=== PATIENT | female | born 1945 | race Caucasian/White ===

== ENCOUNTER 2017-09-30 09:11 | Inpatient (IN) | payer MEDICARE ==
[2017-09-30] MEDS ORDERED: SODIUM CHLORIDE 0.9% 1,000 ML IV STA (09:15)
--- NOTE | 2017-09-30 09:24 | ED ---
Arrhythmia/Palpitations HPI - General Stated Complaint: ARRYTHMIA Time Seen by Provider: 09/30/17 09:11 Source: patient, EMS, RN notes reviewed, old records reviewed Mode of arrival: EMS - History of Present Illness Initial Comments: This is a 71-year-old female history of recent hospitalization for GI bleed and anemia also normal pressure hydrocephalus who is brought in by EMS today because of an elevated heart rate. Patient was noted have an elevated heart rate about 182 with inability to get a good blood pressure she was given 6 mg of adenosine By paramedics with improvement of the heart rate down to 113. Patient did have some left neck and back pain time which was severe he did improve after the heart rate was improved. Patient herself voices no complaints of fevers chills nausea vomiting sweats or other symptoms. She is been at [facility] for 3 days. MD Complaint: rapid heart beat - Related Data Home Medications Medication Instructions Recorded Confirmed Ipratropium-Albuterol Nebulize 3 ml INHALATION RT-Q6H 09/30/17 09/30/17 [Duoneb 0.5 mg-3 mg/3 ml Soln] diphenhydrAMINE & Zinc Cream 1 applic TOPICAL TID 09/30/17 09/30/17 [Benadryl Cream] Previous Rx's Medication Instructions Recorded Acetaminophen Tab [Tylenol] 650 mg PO Q6HR PRN tab 09/28/17 Pantoprazole [Protonix] 40 mg PO BID tablet. 09/28/17 Allergies Allergy/AdvReac Type Severity Reaction Status Date / Time codeine Allergy Unknown Verified 09/30/17 09:56 Review of Systems ROS Statement: Those systems with pertinent positive or pertinent negative responses have been documented in the HPI. ROS Other: All systems not noted in ROS Statement are negative. Past Medical History Past Medical History: Fibromyalgia, Osteoarthritis (OA), Pneumonia Additional Past Medical History / Comment(s): "skipped beats", kidney infection age 15, cyst on ovary 40 years ago(no sx)ulcers age 15, bronchitis,gout in past , prolpased rectum History of Any Multi-Drug Resistant Organisms: None Reported Past Surgical History: Adenoidectomy, Tonsillectomy Additional Past Surgical History / Comment(s): cataracts, Past Anesthesia/Blood Transfusion Reactions: Motion Sickness Past Psychological History: No Psychological Hx Reported Additional Psychological History / Comment(s): pt lives alone in own home, no outside services recieved. no medical equipment. has 1 pet dog and cat. Smoking Status: Never smoker Past Alcohol Use History: None Reported Past Drug Use History: None Reported - Past Family History Mother Family Medical History: Cancer, Dementia, Seizure Disorder Additional Family Medical History / Comment(s): breast cancer, myasthenia gravis Father Family Medical History: Diabetes Mellitus General Exam - General Exam Comments Initial Comments: This is a well-developed sec appearing female she is awake and alert Limitations: no limitations General appearance: alert, in no apparent distress Head exam: Present: atraumatic, normocephalic, normal inspection Eye exam: Present: normal appearance, PERRL, EOMI. Absent: scleral icterus, conjunctival injection, periorbital swelling ENT exam: Present: normal exam, mucous membranes moist Neck exam: Present: normal inspection. Absent: tenderness, meningismus, lymphadenopathy Respiratory exam: Present: normal lung sounds bilaterally. Absent: respiratory distress, wheezes, rales, rhonchi, stridor Cardiovascular Exam: Present: normal rhythm, tachycardia, normal heart sounds. Absent: systolic murmur, diastolic murmur, rubs, gallop, clicks GI/Abdominal exam: Present: soft, normal bowel sounds. Absent: distended, tenderness, guarding, rebound, rigid Extremities exam: Present: normal inspection, full ROM, normal capillary refill. Absent: tenderness, pedal edema, joint swelling, calf tenderness Back exam: Present: normal inspection Neurological exam: Present: alert, oriented X3, CN II-XII intact Psychiatric exam: Present: normal affect, normal mood Skin exam: Present: warm, dry, normal color, other (Bowl lesions in various states of healing from chronic scratching by the patient this is noted on the face and extremities. No active bleeding at this time). 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 Post adenosine EKG is improved. Reevaluation #2: 09/30/17 10:20 Evaluation patient showed no recurrent SVT. She is denies any pain at this time. EKG Findings - EKG Results: EKG: interpreted by ARELY, sinus rhythm (Sinus tachycardia rate of 109. Interval 1:30 QRS duration 74 QT since QTC 326/439 this is compared with an EKG submitted from 09/23/17 showing no acute changes the one from the did show a PVC that are present currently.) Medical Decision Making - Medical Decision Making The patient has had no further episodes of SVT. There is elevation of her troponin patient will be admitted - Lab Data Result diagrams: 09/30/17 09:25 09/30/17 09:25 Lab Results 09/30/17 09/30/17 09/30/17 Range/Units 09:25 09:25 09:25 WBC 6.3 (3.8-10.6) k/uL RBC 4.34 (3.80-5.40) m/uL Hgb 8.8 L (11.4-16.0) gm/dL Hct 32.3 L (34.0-46.0) % MCV 74.4 L (80.0-100.0) fL MCH 20.2 L (25.0-35.0) pg MCHC 27.1 L (31.0-37.0) g/dL RDW 23.5 H (11.5-15.5) % Plt Count 337 (150-450) k/uL Neutrophils % 81 % Lymphocytes % 12 % Monocytes % 5 % Eosinophils % 1 % Basophils % 0 % Neutrophils # 5.1 (1.3-7.7) k/uL Lymphocytes # 0.7 L (1.0-4.8) k/uL Monocytes # 0.3 (0-1.0) k/uL Eosinophils # 0.1 (0-0.7) k/uL Basophils # 0.0 (0-0.2) k/uL Hypochromasia Marked Poikilocytosis Moderate Anisocytosis Moderate Microcytosis Marked PT (9.0-12.0) sec INR (<1.2) APTT (22.0-30.0) sec Sodium 137 (137-145) mmol/L Potassium 3.7 (3.5-5.1) mmol/L Chloride 101 (98-107) mmol/L Carbon Dioxide 29 (22-30) mmol/L Anion Gap 7 mmol/L BUN 19 H (7-17) mg/dL Creatinine 0.79 (0.52-1.04) mg/dL Est GFR (MDRD) Af Amer >60 (>60 ml/min/1.73 sqM) Est GFR (MDRD) Non-Af >60 (>60 ml/min/1.73 sqM) Glucose 93 (74-99) mg/dL Calcium 8.6 (8.4-10.2) mg/dL Magnesium 1.5 L (1.6-2.3) mg/dL Total Bilirubin 0.2 (0.2-1.3) mg/dL AST 36 (14-36) U/L ALT 38 (9-52) U/L Alkaline Phosphatase 158 H (38-126) U/L Total Creatine Kinase 41 (30-135) U/L CK-MB (CK-2) 3.1 H* (0.0-2.4) ng/mL CK-MB (CK-2) Rel Index 7.6 Troponin I 0.413 H* (0.000-0.034) ng/mL Total Protein 5.2 L (6.3-8.2) g/dL Albumin 2.6 L (3.5-5.0) g/dL 09/30/17 Range/Units 09:25 WBC (3.8-10.6) k/uL RBC (3.80-5.40) m/uL Hgb (11.4-16.0) gm/dL Hct (34.0-46.0) % MCV (80.0-100.0) fL MCH (25.0-35.0) pg MCHC (31.0-37.0) g/dL RDW (11.5-15.5) % Plt Count (150-450) k/uL Neutrophils % % Lymphocytes % % Monocytes % % Eosinophils % % Basophils % % Neutrophils # (1.3-7.7) k/uL Lymphocytes # (1.0-4.8) k/uL Monocytes # (0-1.0) k/uL Eosinophils # (0-0.7) k/uL Basophils # (0-0.2) k/uL Hypochromasia Poikilocytosis Anisocytosis Microcytosis PT 9.7 (9.0-12.0) sec INR 1.0 (<1.2) APTT 23.2 (22.0-30.0) sec Sodium (137-145) mmol/L Potassium (3.5-5.1) mmol/L Chloride (98-107) mmol/L Carbon Dioxide (22-30) mmol/L Anion Gap mmol/L BUN (7-17) mg/dL Creatinine (0.52-1.04) mg/dL Est GFR (MDRD) Af Amer (>60 ml/min/1.73 sqM) Est GFR (MDRD) Non-Af (>60 ml/min/1.73 sqM) Glucose (74-99) mg/dL Calcium (8.4-10.2) mg/dL Magnesium (1.6-2.3) mg/dL Total Bilirubin (0.2-1.3) mg/dL AST (14-36) U/L ALT (9-52) U/L Alkaline Phosphatase (38-126) U/L Total Creatine Kinase (30-135) U/L CK-MB (CK-2) (0.0-2.4) ng/mL CK-MB (CK-2) Rel Index Troponin I (0.000-0.034) ng/mL Total Protein (6.3-8.2) g/dL Albumin (3.5-5.0) g/dL - Radiology Data Radiology results: report reviewed (I did review the imaging and reports no acute findings.), image reviewed Critical Care Time Critical Care Time: Yes Critical Care Time: 31 minutes of critical care time which includes the monitoring of the EMS run and discussed with paramedics history physical labs x-rays review of old charting. Reevaluation patient several occasions discussion with the admitting physician admission orders and documentation of the above Disposition Clinical Impression: Supraventricular tachycardia, Unstable angina, Hypomagnesemia, Chronic anemia Disposition: ADMITTED IP TO THIS [facility] Condition: Stable Referrals: Prosper Logan MD [Primary Care Provider] - 1-2 days
[2017-09-30 09:51] LABS: ALT 38 U/L (9-52); AST 36 U/L (14-36); Albumin 2.6 g/dL (3.5-5.0); Alkaline Phosphatase 158 U/L (38-126); Anion Gap 7 mmol/L; Blood Urea Nitrogen 19 mg/dL (7-17); Calcium 8.6 mg/dL (8.4-10.2); Carbon Dioxide 29 mmol/L (22-30); Chloride 101 mmol/L (98-107); Glucose 93 mg/dL (74-99); Magnesium 1.5 mg/dL (1.6-2.3); Potassium 3.7 mmol/L (3.5-5.1); Sodium 137 mmol/L (137-145); Total Bilirubin 0.2 mg/dL (0.2-1.3); Total Protein 5.2 g/dL (6.3-8.2)
[2017-09-30 09:52] LABS: Anisocytosis Moderate; Basophils % (A) 0 %; Eosinophils # (A) 0.1 k/uL (0-0.7); Eosinophils % (A) 1 %; HCT 32.3 % (34.0-46.0); HGB 8.8 gm/dL (11.4-16.0); Hypochromasia Marked; Lymphocytes # (A) 0.7 k/uL (1.0-4.8); Lymphocytes % (A) 12 %; MCH 20.2 pg (25.0-35.0); MCHC 27.1 g/dL (31.0-37.0); MCV 74.4 fL (80.0-100.0); Mean Platelet Volume 6.9; Microcytosis Marked; Monocytes # (A) 0.3 k/uL (0-1.0); Monocytes % (A) 5 %; Neutrophils # (A) 5.1 k/uL (1.3-7.7); Neutrophils % (A) 81 %; Partial Thromboplastin Time 23.2 sec (22.0-30.0); Platelet Count 337 k/uL (150-450); Poikilocytosis Moderate; Prothrombin Time 9.7 sec (9.0-12.0); RBC 4.34 m/uL (3.80-5.40); RDW 23.5 % (11.5-15.5); WBC 6.3 k/uL (3.8-10.6)
--- NOTE | 2017-09-30 10:04 | XR ---
EXAMINATION TYPE: XR chest 2V DATE OF EXAM: 09/30/2017 COMPARISON: Chest x-ray September 23, 2017 HISTORY: Dysrhythmia today. TECHNIQUE: Frontal and lateral views of the chest are obtained. FINDINGS: There is chronic parenchymal change without suspicious new focal air space opacity, pleura l effusion, or pneumothorax seen. The cardiac silhouette size is enlarged with atherosclerotic and e ctatic aorta redemonstrated. The osseous structures remain demineralized. IMPRESSION: Cardiomegaly and chronic parenchymal change without acute pulmonary process. No signific ant change from prior.
[2017-09-30] MEDS ORDERED: MAGNESIUM SULFATE-D5W PMX 1 GM in DEXTROSE/WATER 1 100ML.BAG IVPB ONE (10:11)
[2017-09-30 10:16] LABS: Creatine Kinase MB 3.1 ng/mL (0.0-2.4)
[2017-09-30 10:17] LABS: Troponin I 0.413 ng/mL (0.000-0.034)
[2017-09-30] MEDS ORDERED: HEPARIN SODIUM,PORCINE 5,000 UNIT/ML 1 ML VIAL IV ONE (10:21)
--- NOTE | 2017-09-30 10:28 | ED ---
Medical Decision Making - Lab Data Result diagrams: 09/30/17 09:25 09/30/17 09:25 Lab Results 09/30/17 09/30/17 09/30/17 Range/Units 09:25 09:25 09:25 WBC 6.3 (3.8-10.6) k/uL RBC 4.34 (3.80-5.40) m/uL Hgb 8.8 L (11.4-16.0) gm/dL Hct 32.3 L (34.0-46.0) % MCV 74.4 L (80.0-100.0) fL MCH 20.2 L (25.0-35.0) pg MCHC 27.1 L (31.0-37.0) g/dL RDW 23.5 H (11.5-15.5) % Plt Count 337 (150-450) k/uL Neutrophils % 81 % Lymphocytes % 12 % Monocytes % 5 % Eosinophils % 1 % Basophils % 0 % Neutrophils # 5.1 (1.3-7.7) k/uL Lymphocytes # 0.7 L (1.0-4.8) k/uL Monocytes # 0.3 (0-1.0) k/uL Eosinophils # 0.1 (0-0.7) k/uL Basophils # 0.0 (0-0.2) k/uL Hypochromasia Marked Poikilocytosis Moderate Anisocytosis Moderate Microcytosis Marked PT (9.0-12.0) sec INR (<1.2) APTT (22.0-30.0) sec Sodium 137 (137-145) mmol/L Potassium 3.7 (3.5-5.1) mmol/L Chloride 101 (98-107) mmol/L Carbon Dioxide 29 (22-30) mmol/L Anion Gap 7 mmol/L BUN 19 H (7-17) mg/dL Creatinine 0.79 (0.52-1.04) mg/dL Est GFR (MDRD) Af Amer >60 (>60 ml/min/1.73 sqM) Est GFR (MDRD) Non-Af >60 (>60 ml/min/1.73 sqM) Glucose 93 (74-99) mg/dL Calcium 8.6 (8.4-10.2) mg/dL Magnesium 1.5 L (1.6-2.3) mg/dL Total Bilirubin 0.2 (0.2-1.3) mg/dL AST 36 (14-36) U/L ALT 38 (9-52) U/L Alkaline Phosphatase 158 H (38-126) U/L Total Creatine Kinase 41 (30-135) U/L CK-MB (CK-2) 3.1 H* (0.0-2.4) ng/mL CK-MB (CK-2) Rel Index 7.6 Troponin I 0.413 H* (0.000-0.034) ng/mL Total Protein 5.2 L (6.3-8.2) g/dL Albumin 2.6 L (3.5-5.0) g/dL 09/30/17 Range/Units 09:25 WBC (3.8-10.6) k/uL RBC (3.80-5.40) m/uL Hgb (11.4-16.0) gm/dL Hct (34.0-46.0) % MCV (80.0-100.0) fL MCH (25.0-35.0) pg MCHC (31.0-37.0) g/dL RDW (11.5-15.5) % Plt Count (150-450) k/uL Neutrophils % % Lymphocytes % % Monocytes % % Eosinophils % % Basophils % % Neutrophils # (1.3-7.7) k/uL Lymphocytes # (1.0-4.8) k/uL Monocytes # (0-1.0) k/uL Eosinophils # (0-0.7) k/uL Basophils # (0-0.2) k/uL Hypochromasia Poikilocytosis Anisocytosis Microcytosis PT 9.7 (9.0-12.0) sec INR 1.0 (<1.2) APTT 23.2 (22.0-30.0) sec Sodium (137-145) mmol/L Potassium (3.5-5.1) mmol/L Chloride (98-107) mmol/L Carbon Dioxide (22-30) mmol/L Anion Gap mmol/L BUN (7-17) mg/dL Creatinine (0.52-1.04) mg/dL Est GFR (MDRD) Af Amer (>60 ml/min/1.73 sqM) Est GFR (MDRD) Non-Af (>60 ml/min/1.73 sqM) Glucose (74-99) mg/dL Calcium (8.4-10.2) mg/dL Magnesium (1.6-2.3) mg/dL Total Bilirubin (0.2-1.3) mg/dL AST (14-36) U/L ALT (9-52) U/L Alkaline Phosphatase (38-126) U/L Total Creatine Kinase (30-135) U/L CK-MB (CK-2) (0.0-2.4) ng/mL CK-MB (CK-2) Rel Index Troponin I (0.000-0.034) ng/mL Total Protein (6.3-8.2) g/dL Albumin (3.5-5.0) g/dL Disposition Clinical Impression: Supraventricular tachycardia, Unstable angina, Hypomagnesemia, Chronic anemia, Non-ST elevation myocardial infarction (NSTEMI) Disposition: ADMITTED IP TO THIS HOSP Condition: Stable Referrals: Prosper Logan MD [Primary Care Provider] - 1-2 days
[2017-09-30] MEDS: HEPARIN SOD,PORK IN 0.45% NACL 25,000 UNIT in 0.45% NACL 1 500ML.BAG IV SCH (11:46)
[2017-09-30] MEDS: IPRATROPIUM-ALBUTEROL 3 ML NEB INHALATION SCH ×2 (13:21→20:50)
[2017-09-30] MEDS ORDERED: INFLUENZA VACCINE (6 MOS+) 60 MCG/0.5 ML SYRINGE IM ONE (14:51)
[2017-09-30] MEDS: NITROGLYCERIN OINT 1 INCH/GM PACKET TOPICAL SCH ×3 (14:55→23:44)
[2017-09-30] MEDS: diphenhydrAMINE 2% CREAM 28.4 GM TUBE TOPICAL SCH ×2 (15:50→20:29)
[2017-09-30 16:27] LABS: Troponin I 3.13 ng/mL (0.000-0.034)
[2017-09-30] MEDS: PANTOPRAZOLE 40 MG TABLET PO SCH (17:06)
[2017-09-30] MEDS: ACETAMINOPHEN TAB 325 MG TAB PO PRN (17:43)
[2017-09-30] MEDS ORDERED: TEMAZEPAM 15 MG CAP PO PRN (19:30)
[2017-09-30] MEDS: SODIUM CHLORIDE 0.9% 1,000 ML IV SCH (20:23)
[2017-09-30] MEDS: HEPARIN SODIUM,PORCINE 5,000 UNIT/ML 1 ML VIAL IV PRN (20:29)
[2017-09-30] MEDS ORDERED: IPRATROPIUM-ALBUTEROL 3 ML NEB INHALATION PRN (21:41)
[2017-09-30 21:59] LABS: Creatine Kinase MB 9.2 ng/mL (0.0-2.4)
[2017-09-30 22:00] LABS: Troponin I 1.97 ng/mL (0.000-0.034)
[2017-09-30] MEDS: ATORVASTATIN 40 MG TAB PO SCH (22:15)
[2017-09-30] MEDS: METOPROLOL TARTRATE 12.5 MG TAB PO SCH (22:15)
--- NOTE | 2017-09-30 22:37 | HP ---
HISTORY AND PHYSICAL CHIEF COMPLAINTS: Palpitation. HISTORY OF PRESENT ILLNESS: This 71-year-old woman with a past medical history of GERD, DJD, pneumonia was recently admitted with bleeding, anemia. Patient was found to have normal-pressure hydrocephalus. Patient had a fall and gait dysfunction. Patient improved significantly. EGD and colonoscopy was done and EGD showed esophagitis, antral gastritis and the colonoscopy showed rectal prolapse with friable nodularity. Patient improved significantly. Patient was sent to E[facility]; however, in the ECF, the patient had heart palpitations. Heart rate was found to be. Supraventricular tachycardia was suspected. EMS gave adenosine with conversion into sinus tachycardia to 113. Patient admitted for further evaluation and treatment. There is no history of fever, rigors. No headache, loss of conscious or seizures. PAST MEDICAL HISTORY: GERD, DJD, history pneumonia, history recent anemia, fall and dysfunction. HOME MEDICATIONS: 1. DuoNeb q.i.d. and p.r.n. 2. Benadryl 1 tablet t.i.d. 3. Protonix 40 mg b.i.d. 4. Tylenol 650 every 6 hours p.r.n. ALLERGIES: CODEINE. FAMILY HISTORY: History of cancer,dementia, seizure disorder, breast cancer, myasthenia gravis. SOCIAL HISTORY: No history of smoking. No history of alcohol. REVIEW OF SYSTEMS: ENT: Diminished hearing. Diminished vision. CARDIOVASCULAR: As mentioned earlier. RESPIRATORY: As mentioned earlier. GI: No nausea, vomiting. : No dysuria. NERVOUS: As mentioned earlier. ALLERGY/IMMUNOLOGY: No asthma or hay fever. MUSCULOSKELETAL: As mentioned earlier. HEMATOLOGY/ONCOLOGY: No history of anemia. ENDOCRINE: No history of diabetes, hypothyroidism. CONSTITUTIONAL: As mentioned earlier. DERMATOLOGY: Negative. RHEUMATOLOGY: Negative. PSYCHIATRY: As mentioned earlier. PHYSICAL EXAMINATION: Alert and oriented x3. Pulse is 88, blood pressure 119/93, respirations 20, temperature 96.9, pulse ox 99% on 3L. HEENT: Conjunctivae normal. Oral mucosa moist. NECK: No jugular venous distention. No carotid bruits. No lymph node enlargement. CARDIOVASCULAR: Tachycardic. RESPIRATORY: Breath sounds diminished in the bases. A few scattered rhonchi and crackles. ABDOMEN: Soft, nontender. LEGS: No edema. NERVOUS SYSTEM: No focal deficits. LABS: WBC 6.2, hemoglobin is 8.8, and troponin 0.413 and 3.130. ASSESSMENT: 1. Palpitations, probably supraventricular tachycardia, converted to sinus tachycardia, status post adenosine. 2. Troponin 3.130. Possible acute non ST-segment elevation myocardial infarction. 3. Anemia, microcytic. Recent gastrointestinal bleed. 4. Possibly normal-pressure hydrocephalus. 5. Gait dysfunction, diffuse weakness. 6. Gastroesophageal reflux disease. 7. History of degenerative joint disease. 8. History of pneumonia. 9. Adenoidectomy, tonsillectomy. RECOMMENDATION AND DISCUSSION: In this 71-year-old woman who presented with multiple complex medical issues, will monitor the patient closely. Continue the current medical management and symptomatic treatment. Initiate be beta-blockers. Continue to monitor and follow closely with Cardiology. Will hold off the antiplatelet agents. Cardiology consultation. Guarded prognosis. Further recommendations to follow. [facility] BRIGIDA / SAHRAN: [id number] /
[2017-09-30 23:28] LABS: Appearance,Urine Clear (Clear); Bacteria,Urine Rare /hpf; Bilirubin,Urine Negative (Negative); Blood,Urine Small (Negative); Color,Urine Yellow; Glucose,Urine (UA) Negative (Negative); Ketones,Urine Negative (Negative); Leukocyte Esterase,Urine Small (Negative); Mucus,Urine Rare /hpf; Nitrite,Urine Negative (Negative); PH, Urine 5.5 (5.0-8.0); Protein,Urine Trace (Negative); RBC,Urine 6 /hpf (0-5); Specific Gravity,Urine 1.012 (1.001-1.035); Squamous Epithelial Cell,Urine <1 /hpf (0-4); Urobilinogen,Urine <2.0 mg/dL (<2.0); WBC,Urine 6 /hpf (0-5)
[2017-10-01] MEDS: ACETAMINOPHEN TAB 325 MG TAB PO PRN ×3 (01:33→23:49)
[2017-10-01 03:09] LABS: Anisocytosis Moderate; Basophils % (A) 1 %; Eosinophils # (A) 0.2 k/uL (0-0.7); Eosinophils % (A) 4 %; HCT 30.9 % (34.0-46.0); HGB 8.5 gm/dL (11.4-16.0); Hypochromasia Marked; Lymphocytes # (A) 1.4 k/uL (1.0-4.8); Lymphocytes % (A) 25 %; MCH 20.6 pg (25.0-35.0); MCHC 27.4 g/dL (31.0-37.0); MCV 75.1 fL (80.0-100.0); Mean Platelet Volume 7.2; Microcytosis Marked; Monocytes # (A) 0.3 k/uL (0-1.0); Monocytes % (A) 5 %; Neutrophils # (A) 3.7 k/uL (1.3-7.7); Neutrophils % (A) 65 %; Platelet Count 350 k/uL (150-450); Poikilocytosis Moderate; RBC 4.12 m/uL (3.80-5.40); RDW 23.8 % (11.5-15.5); WBC 5.7 k/uL (3.8-10.6)
[2017-10-01 03:26] LABS: Anion Gap 4 mmol/L; Blood Urea Nitrogen 20 mg/dL (7-17); Calcium 8.4 mg/dL (8.4-10.2); Carbon Dioxide 28 mmol/L (22-30); Chloride 103 mmol/L (98-107); Cholesterol 116 mg/dL (<200); Glucose 107 mg/dL (74-99); HDL Cholesterol 38 mg/dL (40-60); LDL Cholesterol,Calculated 54 mg/dL (0-99); Magnesium 1.9 mg/dL (1.6-2.3); Potassium 3.9 mmol/L (3.5-5.1); Sodium 135 mmol/L (137-145); Triglycerides 122 mg/dL (<150)
[2017-10-01] MEDS: HEPARIN SODIUM,PORCINE 5,000 UNIT/ML 1 ML VIAL IV PRN (03:44)
[2017-10-01] MEDS: NITROGLYCERIN OINT 1 INCH/GM PACKET TOPICAL SCH ×2 (05:05→11:57)
[2017-10-01] MEDS: PANTOPRAZOLE 40 MG TABLET PO SCH ×2 (06:16→16:12)
[2017-10-01] MEDS: SODIUM CHLORIDE 0.9% 1,000 ML IV SCH (08:27)
[2017-10-01] MEDS: diphenhydrAMINE 2% CREAM 28.4 GM TUBE TOPICAL SCH ×3 (08:30→20:45)
[2017-10-01] MEDS: IPRATROPIUM-ALBUTEROL 3 ML NEB INHALATION SCH ×4 (08:39→20:53)
[2017-10-01] MEDS ORDERED: ASPIRIN 325 MG TAB PO SCH (09:00)
[2017-10-01 10:50] LABS: Anisocytosis Marked; HCT 30.7 % (34.0-46.0); HGB 8.3 gm/dL (11.4-16.0); Hypochromasia Marked; MCH 20.3 pg (25.0-35.0); MCHC 27.2 g/dL (31.0-37.0); MCV 74.7 fL (80.0-100.0); Mean Platelet Volume 7.1; Microcytosis Marked; Platelet Count 298 k/uL (150-450); Poikilocytosis Slight; RBC 4.11 m/uL (3.80-5.40); WBC 4.8 k/uL (3.8-10.6)
[2017-10-01 10:52] LABS: RDW 25.6 % (11.5-15.5)
[2017-10-01] MEDS: METOPROLOL TARTRATE 12.5 MG TAB PO SCH (11:56)
[2017-10-01] MEDS ORDERED: CLOPIDOGREL 75 MG TAB PO SCH (13:30)
[2017-10-01] MEDS: HEPARIN SOD,PORK IN 0.45% NACL 25,000 UNIT in 0.45% NACL 1 500ML.BAG IV SCH (14:58)
--- NOTE | 2017-10-01 15:44 | ECHOF ---
Referral Reason:la MEASUREMENTS -------- HEIGHT: 152.4 cm WEIGHT: 41.3 kg BP: 119/62 IVSd: 1.0 cm (0.6 - 1.1) LVIDd: 2.8 cm (3.9 - 5.3) LVPWd: 1.0 cm (0.6 - 1.1) IVSs: 1.3 cm LVIDs: 1.4 cm LVPWs: 1.3 cm LAESV Index (A-L): 33.71 ml/m Ao Diam: 2.9 cm (2.0 - 3.7) AV Cusp: 1.5 cm (1.5 - 2.6) MV E Davy: 0.97 m/s MV DecT: 328 ms MV A Davy: 1.41 m/s MV E/A Ratio: 0.69 AV maxP.95 mmHg AV meanP.87 mmHg AR PHT: 354 ms RAP: 5.00 mmHg RVSP: 27.32 mmHg FINDINGS -------- Sinus rhythm. This was a technically good study. The left ventricular size is normal. Left ventricular wall thickness is normal. Overall left vent ricular systolic function is normal with, an EF between 55 - 60 %. The right ventricle is normal in size and function. LA is moderately dilated 34-39 ml/m2 The right atrium is normal in size. Aortic valve is trileaflet and is mildly thickened. There is uqso-re-nxfyshkm aortic regurgitation. There is mild aortic stenosis present. Peak/mean gradient across the Aortic Valve is 26.95mmHg / 13.87mmHg. Moderate mitral annular calcification present. Eaec-td-zowtzpwj mitral regurgitation is present. Trace tricuspid regurgitation present. Right ventricular systolic pressure is normal at < 35 mmHg. There is no evidence of pulmonary hypertension. The pulmonic valve was not well visualized. There is no pulmonic regurgitation present. The aortic root size is normal. Normal inferior vena cava with normal inspiratory collapse consistent with estimated right atrial pre ssure of 5 mmHg. There is no pericardial effusion. CONCLUSIONS -------- 1. Sinus rhythm. 2. This was a technically good study. 3. Left ventricular wall thickness is normal. 4. Overall left ventricular systolic function is normal with, an EF between 55 - 60 %. 5. LA is moderately dilated 34-39 ml/m2 6. Aortic valve is trileaflet and is mildly thickened. 7. There is boam-jo-uhrszytp aortic regurgitation. 8. There is mild aortic stenosis present. 9. Peak/mean gradient across the Aortic Valve is 26.95mmHg / 13.87mmHg. 10. Moderate mitral annular calcification present. 11. Zftp-zs-vbtgqrec mitral regurgitation is present. 12. Trace tricuspid regurgitation present. 13. Right ventricular systolic pressure is normal at < 35 mmHg. 14. The pulmonic valve was not well visualized. 15. There is no pulmonic regurgitation present. 16. The aortic root size is normal. 17. There is no pericardial effusion. BAT[employer]STER FIELD: Mukesh Duarte RDCS
[2017-10-01] MEDS: ISOSORBIDE MONONITRATE ER 30 MG TAB.ER.24H PO SCH (16:11)
--- NOTE | 2017-10-01 18:11 | CONS ---
CONSULTATION Patient is admitted through the emergency room from [facility]. The patient has a history of anemia, normal-pressure hydrocephalus, unsteadiness. She has been falling down. She had prior history of rectal prolapse and bleeding and she has evidence of confusion. On asking the patient she said that she comes from home, although she is not residing at home. Apparently, she had a rapid heartbeat, an episode of chest discomfort in the emergency room. She was noted to be in supraventricular tachycardia and received adenosine with samaritan normal sinus rhythm. She has had some palpitation in the past and according to her, she was told she had an irregular heartbeat at times. She has some dyspnea on exertion. She has no syncope, but she has episode of following that. She has no peripheral edema. No clear PND. No orthopnea, although as noted, the history from her is quite questionable. Her medication at time of presentation included Protonix, Benadryl and DuoNeb. REVIEW OF SYSTEMS: RESPIRATORY system: She denies any recent wheezing or cough. She has no history of obstructive lung disease. GI system: She said she has history of GI bleeding. No recent nausea or vomiting. system no dysuria or hematuria. Nervous system: She has a history of hydrocephalus normal pressure. PHYSICAL EXAMINATION: She is a 71-year-old female, alert, confused. No apparent distress. Blood pressure 112/64 with a heart in the 80s. HEAD: Normocephalic. Eyes sclerae anicteric. Neck good upstroke. No bruit. Lungs: Clear to auscultation. Heart: Regular rate and rhythm S1, S2. No S3 with systolic murmur 2/6 mid peaking, heard at the base. No diastolic murmur. No rub. ABDOMEN: Soft, nontender. Positive bowel sounds. No organomegaly. EXTREMITIES: No edema. Intact distal pulses. LAB DATA: Lab data revealed a hemoglobin of 8.3, on presentation, 8.8. Her BUN and creatinine 20 and 0.7. Troponin 0.4, 3.1, 1.9. TSH 4.2. EKG on presentation showed an SVT with ST- segment depression. Subsequently after cardioversion, she is in sinus tachycardia with no acute ST-segment changes. IMPRESSION: 1. Non ST-segment elevation myocardial infarction probably precipitated by the supraventricular tachycardia. 2. AV ana reentry tachycardia. 3. Anemia. 4. History of hydrocephalus, normal pressure. 5. Dementia. RECOMMENDATION: From the cardiac standpoint, I will increase the dose of beta kathia. I will stop the IV heparin and I will continue on aspirin. I will obtain echocardiogram with Doppler. Unfortunately, in view of her overall medical condition, I do not believe that she is a candidate for any aggressive cardiac workup. Will maximize her medical regimen. We will review the results of her echocardiogram in view of the enzymatic changes as well as the evidence of heart murmur. Depending on her progress, further recommendations will be made. The prognosis is guarded. Thank you for this consult. We will follow with you. BRIGIDA / SAHRAN: [id number] /
[2017-10-01] MEDS: METOPROLOL TARTRATE 25 MG TAB PO SCH (20:44)
[2017-10-01] MEDS: LEVOFLOXACIN 500MG-D5W PMX 500 MG in DEXTROSE/WATER 1 100ML.BAG IVPB SCH (20:45)
[2017-10-01] MEDS: ATORVASTATIN 40 MG TAB PO SCH (20:45)
[2017-10-02] MEDS: PANTOPRAZOLE 40 MG TABLET PO SCH ×2 (06:15→16:49)
[2017-10-02 07:09] LABS: Anisocytosis Marked; Basophils % (A) 1 %; Eosinophils # (A) 0.2 k/uL (0-0.7); Eosinophils % (A) 5 %; HCT 30.2 % (34.0-46.0); HGB 8.3 gm/dL (11.4-16.0); Hypochromasia Marked; Lymphocytes # (A) 1.5 k/uL (1.0-4.8); Lymphocytes % (A) 37 %; MCH 20.7 pg (25.0-35.0); MCHC 27.4 g/dL (31.0-37.0); MCV 75.4 fL (80.0-100.0); Mean Platelet Volume 6.6; Microcytosis Marked; Monocytes # (A) 0.3 k/uL (0-1.0); Monocytes % (A) 6 %; Neutrophils # (A) 1.9 k/uL (1.3-7.7); Neutrophils % (A) 49 %; Platelet Count 353 k/uL (150-450); Poikilocytosis Moderate; RBC 4.01 m/uL (3.80-5.40); RDW 24.1 % (11.5-15.5)
[2017-10-02 07:25] LABS: Anion Gap 6 mmol/L; Blood Urea Nitrogen 17 mg/dL (7-17); Carbon Dioxide 28 mmol/L (22-30); Chloride 105 mmol/L (98-107); Glucose 101 mg/dL (74-99); Potassium 4.9 mmol/L (3.5-5.1); Sodium 139 mmol/L (137-145)
--- NOTE | 2017-10-02 08:24 | PN ---
PROGRESS NOTE DATE OF SERVICE: 10/01/2017 This 71-year-old woman who was admitted with palpitations, possible supraventricular tachycardia is being closely monitored. Cardiology has done a 2D echo which showed ejection fraction about 50-60% with some LA dilatation, multiple valve abnormalities including mild to moderate mitral regurgitations. The patient was thought to have AV ana reentry tachycardia at this time. No chest pain. No palpitations. No fever. EXAM: Alert and oriented x3. Pulse is 94, blood pressure 110/60, respirations 16, temperature 98.6, pulse ox 97% on room air. HEENT: Conjunctivae normal. NECK: No jugular venous distention. CARDIOVASCULAR: S1, S2. RESPIRATORY: Breath sounds diminished in the bases. No rhonchi. No crackles. ABDOMEN: Soft, nontender. LEGS: No edema. NERVOUS SYSTEM: Diffusely weak. LABS: WBC 4.2, hemoglobin is 8.3, sodium 135, troponin 1.970. UA noted. ASSESSMENT: 1. Palpitations, possibly AV ana reentry tachycardia, supraventricular tachycardia, normal sinus tachycardia status post adenosine. 2. Troponin 3.13, possible acute non ST elevation myocardial infarction. 3. Anemia microcytic recent gastrointestinal bleed. 4. Possible non pressure hydrocephalus. 5. Gait dysfunction, diffuse weakness. 6. Gastroesophageal reflux disease. 7. History of degenerative joint disease. 8. History pneumonia. 9. History of adenoidectomy and tonsillectomy. 10.Possible urinary tract infection. RECOMMENDATIONS AND DISCUSSION: I recommend to continue current management and symptomatic treatment. Otherwise at this time I recommend continue the current medication, continue symptomatic treatment. I would also recommend empiric antibiotics also. Otherwise guarded prognosis because of the multiple complex medical issues and further recommendations to follow. See orders for further details. MMODL / IJN: [id number] /
[2017-10-02] MEDS: IPRATROPIUM-ALBUTEROL 3 ML NEB INHALATION SCH ×4 (08:34→20:13)
[2017-10-02] MEDS: diphenhydrAMINE 2% CREAM 28.4 GM TUBE TOPICAL SCH ×3 (09:00→19:57)
[2017-10-02] MEDS: ASPIRIN 81 MG PO SCH (09:00)
[2017-10-02] MEDS: METOPROLOL TARTRATE 25 MG TAB PO SCH ×2 (09:00→19:57)
[2017-10-02] MEDS: ACETAMINOPHEN TAB 325 MG TAB PO PRN ×3 (09:02→19:57)
[2017-10-02] MEDS: ISOSORBIDE MONONITRATE ER 30 MG TAB.ER.24H PO SCH (12:25)
[2017-10-02 12:52] VITALS: BMI 18.0
--- NOTE | 2017-10-02 16:06 | PN ---
PROGRESS NOTE Silva Savage is a 71-year-old female who presented with a SVT, an episode of chest discomfort with mild elevation of the troponin. She is doing well this morning. She is feeling better. She has no further chest pain. Her breathing is stable. She continued to be in sinus mechanism. She has history of dementia and hydrocephalus normal pressure as well as anemia. She had an echocardiogram with Doppler obtained that showed a preserved systolic function with [id number] aortic regurgitation and mild aortic stenosis. PHYSICAL EXAMINATION: Blood pressure 120/60 with a heart rate in 90s. LUNGS: Clear. Heart regular rate and rhythm S1, S2. No S3 with systolic murmur at the base. No rub. ABDOMEN: Soft, nontender. EXTREMITIES: No edema. LAB DATA: Lab data revealed a hemoglobin of 8.3, BUN and creatinine of 17 and 0.74. IMPRESSION: 1. Non ST-segment elevation myocardial infarction. 2. AV ana reentry tachycardia, stable. 3. Anemia. 4. History of hydrocephalus, normal pressure. 5. History of dementia. RECOMMENDATION: The patient will continue present therapy. I will stop the isosorbide mononitrate because of her recurrent headache. Continue rest of medical regimen. In view of her overall status, I will maximize her medical therapy, but I do not believe that she is a good candidate for aggressive workup. MMODL / IJN: [id number] /
[2017-10-02] MEDS: SODIUM CHLORIDE 0.9% 1,000 ML IV SCH (19:54)
[2017-10-02] MEDS: ATORVASTATIN 40 MG TAB PO SCH (19:57)
[2017-10-02] MEDS: LEVOFLOXACIN 500MG-D5W PMX 500 MG in DEXTROSE/WATER 1 100ML.BAG IVPB SCH (19:57)
[2017-10-02] MEDS: ALPRAZolam 0.25 MG TAB PO PRN (22:25)
[2017-10-03] MEDS: PANTOPRAZOLE 40 MG TABLET PO SCH ×2 (05:49→16:25)
[2017-10-03] MEDS: ACETAMINOPHEN TAB 325 MG TAB PO PRN ×2 (05:52→21:28)
[2017-10-03 06:46] LABS: Anion Gap 6 mmol/L; Blood Urea Nitrogen 15 mg/dL (7-17); Calcium 9.3 mg/dL (8.4-10.2); Carbon Dioxide 28 mmol/L (22-30); Chloride 103 mmol/L (98-107); Glucose 96 mg/dL (74-99); Potassium 4.7 mmol/L (3.5-5.1); Sodium 137 mmol/L (137-145)
[2017-10-03 07:05] LABS: Anisocytosis Moderate; Basophils % (A) 1 %; Eosinophils # (A) 0.3 k/uL (0-0.7); Eosinophils % (A) 5 %; HCT 33.9 % (34.0-46.0); HGB 9.1 gm/dL (11.4-16.0); Hypochromasia Marked; Lymphocytes # (A) 1.6 k/uL (1.0-4.8); Lymphocytes % (A) 30 %; MCH 20.3 pg (25.0-35.0); MCV 75.1 fL (80.0-100.0); Mean Platelet Volume 7.2; Microcytosis Marked; Monocytes # (A) 0.3 k/uL (0-1.0); Monocytes % (A) 6 %; Neutrophils # (A) 2.9 k/uL (1.3-7.7); Neutrophils % (A) 57 %; Platelet Count 440 k/uL (150-450); Poikilocytosis Moderate; RBC 4.51 m/uL (3.80-5.40); RDW 23.8 % (11.5-15.5); WBC 5.2 k/uL (3.8-10.6)
[2017-10-03] MEDS: IPRATROPIUM-ALBUTEROL 3 ML NEB INHALATION SCH ×4 (08:08→20:15)
[2017-10-03] MEDS: ASPIRIN 81 MG PO SCH (08:27)
[2017-10-03] MEDS: METOPROLOL TARTRATE 25 MG TAB PO SCH (08:27)
[2017-10-03] MEDS: diphenhydrAMINE 2% CREAM 28.4 GM TUBE TOPICAL SCH ×3 (08:27→21:21)
[2017-10-03] MEDS: ALPRAZolam 0.25 MG TAB PO PRN ×2 (09:22→21:29)
[2017-10-03] MEDS: NITROGLYCERIN SL TABS 0.4 MG TAB SUBLINGUAL PRN ×2 (09:28→09:33)
--- NOTE | 2017-10-03 10:28 | PN ---
PROGRESS NOTE DATE OF SERVICE: 10/02/2017. INTERVAL HISTORY: This 71-year-old woman was admitted with palpitations, AV ana reentry tachycardia, also has elevated troponin. The patient has been closely monitored. No chest pain. No palpitations. No fever. Cardiology is following the patient closely. Medical management is being continued. No aggressive workup is being planned by Cardiology. EXAM: Alert and oriented times x2. Pulse is 80, blood pressure 120/77, respirations 16, temperature 97.3, pulse ox 94% on room air. HEENT: Conjunctivae normal. NECK: No JVD. CARDIOVASCULAR: S1 and S2 muffled. LUNGS: Breath sounds diminished at the bases. Few scattered rhonchi. ABDOMEN: Soft. NERVOUS SYSTEM: Diffusely weak. LABS: WBC 4, hemoglobin is 8.3. ASSESSMENT: 1. Palpitations, possibly AV ana reentry tachycardia, supraventricular tachycardia and sinus tachycardia, status post adenosine. 2. Troponin 3.13, possible acute non ST-segment elevation myocardial infarction. 3. Anemia, microcytic, recent gastrointestinal bleed. 4. Possible normal-pressure hydrocephalus on the previous CT scan. 5. Gait dysfunction, diffuse weakness. 6. Gastroesophageal reflux disease. 7. History of degenerative joint disease. 8. History pneumonia. 9. History of adenoidectomy and tonsillectomy. 10.Urinary tract infection, present on admission. RECOMMENDATIONS AND DISCUSSION: Recommend to continue current management and symptomatic treatment. Follow with Cardiology. Medical treatment. PT/OT evaluation. Guarded prognosis. Further recommendations to follow. MMODL / IJN: [id number] /
--- NOTE | 2017-10-03 12:02 | P.DS ---
Providers Date of admission: 09/30/17 10:21 Expected date of discharge: 10/03/17 Attending physician: Michelle Genao Consults: 09/30/17 10:21 Consult Physician Urgent Consulting Provider: Doug Gandhi Consult Reason/Comments: A CT, angina, elevated troponin Do you want consulting provider notified?: Yes Primary care physician: Prosper Logan [facility] Course: Final Diagnoses: 1. Palpitations, AV ana reentry tachycardia, SVT and sinus tachycardia, status post adenosine 2. Acute non-STEMI 3. Anemia, microcytic, recent GI bleed 4. HX normal pressure hydrocephalus on previous CT 5. Gait dysfunction,diffuse weakness 6. Gastroesophageal reflux disease 7. Acute UTI present on admission Hospital course: This is a 71-year-old female resident of [facility] admitted with AV ana reentry tachycardia, non-STEMI and multiple other medical issues. Evaluated by cardiology , maximizing medical therapy. Significant Clinical improvement. Patient will be discharged to subacute rehab once cleared by cardiology. Patient is being discharged to [facility] in a stable condition with guarded prognosis. Physical exam:VSS, cardiovascular :regular S1 and S2, positive systolic murmur, lungs: diminished, abdomen: soft, nontender positive bowel sounds: nervous system :generalized diffuse weakness,no focal deficits. The impression and plan of care has been dictated as directed. : I performed a history and examination of this patient, discussed the same with the dictator. I agree with the dictator's note ,documented as a scribe. Any additional findings or plans will be noted. Time Spent:Greater than 35 minutes Patient Condition at Discharge: Stable Plan - Discharge Summary Discharge Rx Participant: No New Discharge Prescriptions: New ALPRAZolam [Xanax] 0.25 mg PO TID PRN #12 tab PRN Reason: Anxiety Atorvastatin [Lipitor] 40 mg PO HS tab Ipratropium-Albuterol Nebulize [Duoneb 0.5 mg-3 mg/3 ml Soln] 3 ml INHALATION RT-QID ampul.neb Ipratropium-Albuterol Nebulize [Duoneb 0.5 mg-3 mg/3 ml Soln] 3 ml INHALATION Q4H PRN ampul.neb PRN Reason: Shortness Of Breath Or Wheezing Levofloxacin [Levaquin] 500 mg PO DAILY #5 tab Metoprolol Tartrate [Lopressor] 25 mg PO BID tab Nitroglycerin Sl Tabs [Nitrostat] 0.4 mg SUBLINGUAL Q5M PRN tab PRN Reason: Chest Pain Temazepam [Restoril] 15 mg PO HS PRN #5 cap PRN Reason: Insomnia Aspirin 81 mg PO DAILY chew Continue Acetaminophen Tab [Tylenol] 650 mg PO Q6HR PRN tab PRN Reason: Mild Pain Or Fever > 100.5 Pantoprazole [Protonix] 40 mg PO BID tablet. diphenhydrAMINE & Zinc Cream [Benadryl Cream] 1 applic TOPICAL TID Discontinued Ipratropium-Albuterol Nebulize [Duoneb 0.5 mg-3 mg/3 ml Soln] 3 ml INHALATION RT-Q6H Discharge Medication List Acetaminophen Tab [Tylenol] 650 mg PO Q6HR PRN tab 09/28/17 [Rx] Pantoprazole [Protonix] 40 mg PO BID tablet. 09/28/17 [Rx] diphenhydrAMINE & Zinc Cream [Benadryl Cream] 1 applic TOPICAL TID 09/30/17 [ History] ALPRAZolam [Xanax] 0.25 mg PO TID PRN #12 tab 10/03/17 [Rx] Aspirin 81 mg PO DAILY chew 10/03/17 [Rx] Atorvastatin [Lipitor] 40 mg PO HS tab 10/03/17 [Rx] Ipratropium-Albuterol Nebulize [Duoneb 0.5 mg-3 mg/3 ml Soln] 3 ml INHALATION Q4H PRN ampul.neb 10/03/17 [Rx] Ipratropium-Albuterol Nebulize [Duoneb 0.5 mg-3 mg/3 ml Soln] 3 ml INHALATION RT -QID ampul.neb 10/03/17 [Rx] Levofloxacin [Levaquin] 500 mg PO DAILY #5 tab 10/03/17 [Rx] Metoprolol Tartrate [Lopressor] 25 mg PO BID tab 10/03/17 [Rx] Nitroglycerin Sl Tabs [Nitrostat] 0.4 mg SUBLINGUAL Q5M PRN tab 10/03/17 [Rx] Temazepam [Restoril] 15 mg PO HS PRN #5 cap 10/03/17 [Rx] Follow up Appointment(s)/Referral(s): Prosper Logan MD [Primary Care Provider] - 3 Days Activity/Diet/Wound Care/Special Instructions: Confirm Cardiology F/U apt. prior to dc DIet: cardiac Activity: as tolerated cbc,bmp in 3 days Discharge Disposition: TRANSFER TO SNF/ECF
--- NOTE | 2017-10-03 13:16 | PN ---
PROGRESS NOTE Ms. Savage is 71-year-old female with a history of recent bleeding events related to GI bleeding, who presented with episode of AV ana reentry tachycardia and chest discomfort with minimal elevation of her troponin. Early this morning, she had an episode of chest discomfort, but at that time it was not relieved with nitroglycerin. She had sinus tachycardia with it. She is feeling well at this time. She denies any chest pain. Her breathing has been stable. She denies any dizziness or palpitations. She continues to be on Lipitor 40 mg daily, aspirin once a day, metoprolol tartrate 25 mg twice a day. PHYSICAL EXAMINATION: Blood pressure 115/60, with a heart in the 80s. LUNGS: Clear. HEART: Regular rate rhythm. S1, S2. No S3. No rub. ABDOMEN: Soft, nontender. EXTREMITIES: No edema. IMPRESSION: 1. AV ana reentry tachycardia, maintaining sinus mechanism. 2. Non ST-segment elevation myocardial infarction. 3. Recent episode of GI bleeding. RECOMMENDATIONS: I will increase the dose of beta kathia, increase her level of activity. If she remains stable, I would expect she may be able to be discharged home tomorrow. I discussed her case with her as well as her sister and her niece. In view of the recent episodes of GI bleeding and the significant anemia at that time, I do not believe that she is a candidate for aggressive cardiac workup unless she has recurrent issues. They are in full understanding and agreement. MMODL / IJN: [id number] /
--- NOTE | 2017-10-03 14:19 | P.PN ---
Subjective Progress Note Date: 10/03/17 Principal diagnosis: SVT and chest pain This is a 71-year-old female patient with history of recent bleeding events related to GI bleeding who presented to the hospital with an episode of AV ana reentry tachycardia and associated chest discomfort. She was also noted to have minimal elevation of her troponin. Patient had an episode of chest discomfort at this morning unrelieved with 2 sublingual nitroglycerin. Blood pressure went down into the 80 range and we gave her a 500 mL fluid bolus. Blood pressure following that came up to 117 systolic. An EKG was performed at that time which revealed a sinus tachycardia with no acute changes, no ST depression noted. Patient felt that her chest discomfort may be related to her hiatal hernia or gastroesophageal reflux. Dr. Luna did have a discussion with the patient and family regarding her plan of care, the decision was made to maximize medical therapy at this time. Echocardiogram with Doppler study was performed which revealed an ejection fraction of 55-60%. Objective - Vital Signs Vital signs: Vital Signs Temp 96.8 F L 10/03/17 11:34 Pulse 85 10/03/17 11:34 Resp 20 10/03/17 11:34 BP 115/57 10/03/17 11:34 Pulse Ox 97 10/03/17 11:34 Intake & Output 10/02/17 10/03/17 10/03/17 18:59 06:59 18:59 Intake Total 036 482 3199 Output Total 1 Balance 067 161 6939 Weight 41.9 kg 40.8 kg Intake: Intake, IV Titration 100 Amount Levofloxacin 500Mg-D5w 100 Pmx 500 mg In Dextrose/ Water 1 100ml.bag @ 100 mls/hr IVPB Q24H [facility] Rx#: [id number] Oral 360 1920 Output: Stool 1 Other: Voiding Method Toilet Toilet Toilet # Voids 2 2 1 - Exam PHYSICAL EXAMINATION: HEENT: Head is atraumatic, normocephalic. Pupils equal, round. Neck is supple. There is no elevated jugular venous pressure. HEART EXAMINATION: Heart S1, S2 normal. No murmur or gallop heard. CHEST EXAMINATION: Lungs are clear to auscultation and precussion. No chest wall tenderness is noted on palpation or with deep breathing. ABDOMEN: Soft, nontender. Bowel sounds are heard. No organomegaly noted. EXTREMITIES: 2+ peripheral pulses with no evidence of peripheral edema and no calf tenderness noted. NEUROLOGIC patient is awake, alert and oriented -3. . - Labs CBC & Chem 7: 10/03/17 06:15 10/03/17 06:15 Labs: Abnormal Lab Results - Last 24 Hours (Table) 10/03/17 10/03/17 Range/Units 06:15 11:12 Hgb 9.1 L (11.4-16.0) gm/dL Hct 33.9 L (34.0-46.0) % MCV 75.1 L (80.0-100.0) fL MCH 20.3 L (25.0-35.0) pg MCHC 27.0 L (31.0-37.0) g/dL RDW 23.8 H (11.5-15.5) % D-Dimer 0.92 H (<0.60) mg/L FEU Assessment and Plan Plan: Assessment and plan #1 AV ana reentry tachycardia, maintaining normal sinus rhythm to sinus tach #2 non-ST elevation myocardial infarction #3 recent episode of GI bleeding. Plan We will continue the patient on her current medication, if blood pressure tolerates, maximize medical therapy. If patient has recurrent chest pain, further recommendations then will be made. DNP note has been reviewed, I agree with a documented findings and plan of care. Patient was seen and examined.
[2017-10-03] MEDS: SODIUM CHLORIDE 0.9% 1,000 ML IV SCH (16:20)
[2017-10-03] MEDS ORDERED: LEVOFLOXACIN 500 MG TAB PO SCH (21:00)
[2017-10-03] MEDS: ATORVASTATIN 40 MG TAB PO SCH (21:21)
[2017-10-03] MEDS: METOPROLOL TARTRATE 50 MG TAB PO SCH (21:21)
[2017-10-04] MEDS: PANTOPRAZOLE 40 MG TABLET PO SCH (06:06)
[2017-10-04 06:53] LABS: Anisocytosis Marked; Basophils % (A) 1 %; Eosinophils # (A) 0.3 k/uL (0-0.7); Eosinophils % (A) 6 %; HCT 36.1 % (34.0-46.0); HGB 9.5 gm/dL (11.4-16.0); Hypochromasia Marked; Lymphocytes # (A) 1.7 k/uL (1.0-4.8); Lymphocytes % (A) 28 %; MCH 20.2 pg (25.0-35.0); MCHC 26.2 g/dL (31.0-37.0); Mean Platelet Volume 6.9; Microcytosis Marked; Monocytes # (A) 0.4 k/uL (0-1.0); Monocytes % (A) 7 %; Neutrophils # (A) 3.5 k/uL (1.3-7.7); Neutrophils % (A) 57 %; Platelet Count 533 k/uL (150-450); Poikilocytosis Slight; RBC 4.68 m/uL (3.80-5.40); WBC 6.1 k/uL (3.8-10.6)
[2017-10-04 07:08] LABS: Anion Gap 9 mmol/L; Blood Urea Nitrogen 22 mg/dL (7-17); Calcium 9.4 mg/dL (8.4-10.2); Carbon Dioxide 28 mmol/L (22-30); Chloride 102 mmol/L (98-107); Glucose 96 mg/dL (74-99); Potassium 4.9 mmol/L (3.5-5.1); Sodium 139 mmol/L (137-145)
[2017-10-04] MEDS: METOPROLOL TARTRATE 50 MG TAB PO SCH (08:21)
[2017-10-04] MEDS: ASPIRIN 81 MG PO SCH (08:21)
[2017-10-04] MEDS: diphenhydrAMINE 2% CREAM 28.4 GM TUBE TOPICAL SCH ×2 (08:21→15:58)
[2017-10-04 09:37] VITALS: RESP 20
[2017-10-04] MEDS: IPRATROPIUM-ALBUTEROL 3 ML NEB INHALATION SCH ×2 (09:38→11:51)
--- NOTE | 2017-10-04 10:14 | PN ---
PROGRESS NOTE DATE OF SERVICE: 10/03/2017. INTERVAL HISTORY: This 71-year-old woman is admitted with SVT as well as acute non ST elevation myocardial infarction complaining of chest pain. Today the director social welfare evaluated the patient and recommended continued monitoring. The patient is not a candidate for aggressive treatment at this time. Medical treatment is being maximized at this time. No chest pain. No palpitations. PHYSICAL EXAM: Alert and oriented x3. Pulse is 104. Blood pressure 119/50, respiration 18, temperature 97.4, pulse ox 94% on room air. HEENT: Conjunctivae normal. NECK: No jugular venous distention. Cardiovascular: S1, S2 muffled. Respiratory: Breath sounds diminished in the bases. A few scattered rhonchi. No crackles. ABDOMEN: Soft, nontender. No mass palpable. LEGS: No edema. No swelling. Nervous system: Higher functions as mentioned earlier. Moves all four extremities. No focal deficits. Lymphatics: No lymph nodes palpable in the neck, axillae or groin. Skin no ulcer, rash or bleeding. LAB STUDIES: WBC 5.8, hemoglobin 9.1, otherwise other labs are noted. ASSESSMENT: 1. Palpitations AV ana reentrant tachycardia, supraventricular tachycardia and sinus tachycardia status post adenosine. 2. Acute non ST-segment elevation myocardial infarction. On medical treatment. 3. Continued chest pains. 4. Anemia microcytic recent gastrointestinal bleed. 5. History of normal-pressure hydrocephalus in the previous CT. 6. Gait dysfunction, diffuse weakness. 7. Gastroesophageal reflux disease. 8. Acute urinary tract infection present on admission. RECOMMENDATIONS AND DISCUSSION: Recommend to continue current management and symptomatic treatment. Otherwise, at this time I recommend continue with medical treatment. Prognosis guarded because of multiple complex medical issues and further recommendations to follow. MMODL / IJN: [id number] /
--- NOTE | 2017-10-04 12:43 | P.PN ---
Subjective Progress Note Date: 10/04/17 Principal diagnosis: SVT and chest pain This is a 71-year-old female patient with history of recent bleeding events related to GI bleeding who presented to the hospital with an episode of AV ana reentry tachycardia and associated chest discomfort. She was also noted to have minimal elevation of her troponin. Patient had an episode of chest discomfort at this morning unrelieved with 2 sublingual nitroglycerin. Blood pressure went down into the 80 range and we gave her a 500 mL fluid bolus. Blood pressure following that came up to 117 systolic. An EKG was performed at that time which revealed a sinus tachycardia with no acute changes, no ST depression noted. Patient felt that her chest discomfort may be related to her hiatal hernia or gastroesophageal reflux. Dr. Luna did have a discussion with the patient and family regarding her plan of care, the decision was made to maximize medical therapy at this time. Echocardiogram with Doppler study was performed which revealed an ejection fraction of 55-60%. 10/04/2017 Patient seen and examined this morning, denies any further chest discomfort. Hemodynamically stable. Objective - Vital Signs Vital signs: Vital Signs Temp 96.9 F L 10/04/17 11:09 Pulse 88 10/04/17 12:03 Resp 20 10/04/17 11:09 BP 111/53 10/04/17 11:09 Pulse Ox 96 10/04/17 11:09 Intake & Output 10/03/17 10/04/17 10/04/17 18:59 06:59 18:59 Intake Total 3380 Balance 3380 Weight 41.8 kg Intake: IV 500 Sodium Chloride 0.9% 1, 500 000 ml @ 20 mls/hr IV . Q24H [facility] Rx#:[id number] Oral 2880 Other: Voiding Method Toilet Toilet Toilet # Voids 1 3 # Bowel Movements 2 - Exam PHYSICAL EXAMINATION: HEENT: Head is atraumatic, normocephalic. Pupils equal, round. Neck is supple. There is no elevated jugular venous pressure. HEART EXAMINATION: Heart S1, S2 normal. No murmur or gallop heard. CHEST EXAMINATION: Lungs are clear to auscultation and precussion. No chest wall tenderness is noted on palpation or with deep breathing. ABDOMEN: Soft, nontender. Bowel sounds are heard. No organomegaly noted. EXTREMITIES: 2+ peripheral pulses with no evidence of peripheral edema and no calf tenderness noted. NEUROLOGIC patient is awake, alert and oriented -3. . - Labs CBC & Chem 7: 10/04/17 06:24 10/04/17 06:24 Labs: Abnormal Lab Results - Last 24 Hours (Table) 10/04/17 10/04/17 Range/Units 06:24 06:24 Hgb 9.5 L (11.4-16.0) gm/dL MCV 77.0 L (80.0-100.0) fL MCH 20.2 L (25.0-35.0) pg MCHC 26.2 L (31.0-37.0) g/dL RDW 24.0 H (11.5-15.5) % Plt Count 533 H (150-450) k/uL BUN 22 H (7-17) mg/dL Assessment and Plan Plan: Assessment and plan #1 AV ana reentry tachycardia, maintaining normal sinus rhythm to sinus tach #2 non-ST elevation myocardial infarction #3 recent episode of GI bleeding. Plan We will continue the patient on her current medication, she may be able to be discharged home from cardiology's perspective. We'll make her follow-up appointment in the office post discharge. DNP note has been reviewed, I agree with a documented findings and plan of care. Patient was seen and examined.
[2017-10-04] MEDS: ACETAMINOPHEN TAB 325 MG TAB PO PRN (13:59)
--- NOTE | 2017-10-04 14:02 | PN ---
PROGRESS NOTE ADDENDUM: Please add: FINAL DIAGNOSIS: Chronic blood anemia from possible recent gastrointestinal blood loss, anemia, microcytic. MMODL / IJN: [id number] /
[2017-10-04 15:27] VITALS: BP 119/57; PULSE 93; TEMP 96.8
[2017-10-04] MEDS ORDERED: LEVOFLOXACIN 250 MG TAB PO SCH (21:00)
== END 2017-10-04 18:13 | DRG 281 ==
LOC: EC 09:11 → 6SEL 10:21
PROVIDERS: ADMIT Hospitalist; ATTEND Hospitalist
DX: I21.4 Non-ST elevation (NSTEMI) myocardial infarction (principal); G91.2 (Idiopathic) normal pressure hydrocephalus; F03.90 Unspecified dementia, unspecified severity, without behavioral disturbance, psychotic disturbance, mood disturbance, and anxiety; E83.42 Hypomagnesemia; I47.1 Supraventricular tachycardia; N39.0 Urinary tract infection, site not specified; D50.9 Iron deficiency anemia, unspecified; R26.9 Unspecified abnormalities of gait and mobility; R01.1 Cardiac murmur, unspecified; I20.0 Unstable angina; I35.2 Nonrheumatic aortic (valve) stenosis with insufficiency; W19.XXXA Unspecified fall, initial encounter; K44.9 Diaphragmatic hernia without obstruction or gangrene; K21.0 Gastro-esophageal reflux disease with esophagitis; M79.7 Fibromyalgia; M19.90 Unspecified osteoarthritis, unspecified site; Z90.49 Acquired absence of other specified parts of digestive tract; Z79.899 Other long term (current) drug therapy; Z83.3 Family history of diabetes mellitus; Z80.3 Family history of malignant neoplasm of breast; Z82.0 Family history of epilepsy and other diseases of the nervous system; Z87.01 Personal history of pneumonia (recurrent); Z88.6 Allergy status to analgesic agent; Z98.41 Cataract extraction status, right eye; Z98.42 Cataract extraction status, left eye
CPT/HCPCS: 36415; 71046; 80048; 80053; 80061; 81001; 82550; 82553; 83735; 84443; 84484; 85025; 85027; 85379; 85610; 85730; 90686; 93005; 93306; 94640; 96361; 96365; 96366; 96375; 96376; 99291

== ENCOUNTER 2017-10-15 11:14 | Inpatient (IN) | payer MEDICARE ==
[2017-10-15] MEDS ORDERED: SODIUM CHLORIDE 0.9% 1,000 ML IV STA ×2 (11:38)
--- NOTE | 2017-10-15 11:39 | ED ---
General Adult HPI - General Chief complaint: Arrhythmia/Palpitations Stated complaint: High Heart Rate Time Seen by Provider: 10/15/17 11:33 Source: patient, RN notes reviewed, old records reviewed Mode of arrival: EMS Limitations: no limitations, physical limitation - History of Present Illness Initial comments: This is a 71-year-old female to the ER for evaluation. This patient presents today for evaluation regards to palpitations and fast heart rate. Patient states she woke this morning with her heart rate elevated. Patient felt melena mildly lightheaded no real pain no real shortness of breath. Patient has continued to feel weak with a fast heart rate currently but is improved. Again patient denies chest pain no shortness of breath. Patient denies any recent change in medications - Related Data Home Medications Medication Instructions Recorded Confirmed Hydrocortisone Suppository 25 mg RECTAL BID 10/15/17 10/15/17 [Anusol-Hc] Nystatin/Triamcin 1 applicate TOPICAL BID 10/15/17 10/15/17 [Nystatin-Triamcinolone Cream] Sennosides [Senna] 17.2 mg PO HS 10/15/17 10/15/17 guaiFENesin-DM 100-10MG/5ML 10 ml PO Q6HR PRN 10/15/17 10/15/17 [Robitussin DM] Previous Rx's Medication Instructions Recorded Acetaminophen Tab [Tylenol] 650 mg PO Q6HR PRN tab 09/28/17 Pantoprazole [Protonix] 40 mg PO BID tablet. 09/28/17 ALPRAZolam [Xanax] 0.25 mg PO TID PRN #12 tab 10/03/17 Aspirin 81 mg PO DAILY chew 10/03/17 Atorvastatin [Lipitor] 40 mg PO HS tab 10/03/17 Nitroglycerin Sl Tabs [Nitrostat] 0.4 mg SUBLINGUAL Q5M PRN tab 10/03/17 Temazepam [Restoril] 15 mg PO HS PRN #5 cap 10/03/17 Metoprolol Tartrate [Lopressor] 50 mg PO BID tab 10/04/17 Allergies Allergy/AdvReac Type Severity Reaction Status Date / Time codeine Allergy Unknown Verified 10/15/17 12:29 tomato Allergy Unknown Verified 10/15/17 12:29 Review of Systems ROS Statement: Those systems with pertinent positive or pertinent negative responses have been documented in the HPI. ROS Other: All systems not noted in ROS Statement are negative. Past Medical History Past Medical History: GERD/Reflux, Osteoarthritis (OA), Pneumonia Additional Past Medical History / Comment(s): lower GI bleed/anemia, weakness and falls, normal pressure hydrocephalus. Other HX: Hiatal hernia, ovarian cyst, doudenal, bronchitis, gout, prolpased rectum-incontinent of stool. History of Any Multi-Drug Resistant Organisms: None Reported Past Surgical History: Adenoidectomy, Tonsillectomy Additional Past Surgical History / Comment(s): 09/27/17 EGD/colonoscopy, bilateral cataract removal with lens implants, Past Anesthesia/Blood Transfusion Reactions: No Reported Reaction, Motion Sickness Additional Past Anesthesia/Blood Transfusion Reaction / Comment(s): Pt recently received blood without reaction. Past Psychological History: No Psychological Hx Reported Smoking Status: Never smoker Past Alcohol Use History: None Reported Past Drug Use History: None Reported - Past Family History Mother Family Medical History: Cancer, Dementia, Seizure Disorder Additional Family Medical History / Comment(s): breast cancer, myasthenia gravis Father Family Medical History: Diabetes Mellitus Additional Family Medical History / Comment(s): Father was deaf. General Exam Limitations: no limitations, physical limitation General appearance: alert, in no apparent distress, anxious Head exam: Present: atraumatic, normocephalic, normal inspection Eye exam: Present: normal appearance, PERRL, EOMI. Absent: scleral icterus, conjunctival injection, periorbital swelling ENT exam: Present: normal exam, mucous membranes moist Neck exam: Present: normal inspection. Absent: tenderness, meningismus, lymphadenopathy Respiratory exam: Present: normal lung sounds bilaterally. Absent: respiratory distress, wheezes, rales, rhonchi, stridor Cardiovascular Exam: Present: normal rhythm, tachycardia, normal heart sounds. Absent: systolic murmur, diastolic murmur, rubs, gallop, clicks GI/Abdominal exam: Present: soft, normal bowel sounds. Absent: distended, tenderness, guarding, rebound, rigid Extremities exam: Present: normal inspection, full ROM, normal capillary refill. Absent: tenderness, pedal edema, joint swelling, calf tenderness Back exam: Present: normal inspection Neurological exam: Present: alert, oriented X3, CN II-XII intact Psychiatric exam: Present: normal affect, normal mood Skin exam: Present: warm, dry, intact, normal color. Absent: rash Course Vital Signs 10/15/17 10/15/17 11:29 12:00 Temperature 98.8 F Pulse Rate 121 H 118 H Respiratory 18 18 Rate Blood Pressure 114/57 103/54 O2 Sat by Pulse 98 93 L Oximetry - Reevaluation(s) Reevaluation #1: 10/15/17 13:01 Patient remains palpitations although denies any significant symptoms significant symptoms of pain EKG Findings - EKG Comments: EKG Findings:: EKG shows sinus tachycardia rate of 122, DE 1:30, QRS 70, QTC 464 Medical Decision Making - Medical Decision Making 71 female the ER for evaluation patient is safe for evaluation regards to palpitations elevated heart rate. Episodic chest pain and diaphoresis. Patient 's symptoms are mildly improved with the palpitation still remained. Patient be admitted for cardiac observation - Lab Data Result diagrams: 10/15/17 11:50 10/15/17 11:50 Lab Results 10/15/17 10/15/17 10/15/17 Range/Units 11:50 11:50 11:50 WBC 7.6 (3.8-10.6) k/uL RBC 4.30 (3.80-5.40) m/uL Hgb 9.0 L (11.4-16.0) gm/dL Hct 31.4 L (34.0-46.0) % MCV 73.0 L (80.0-100.0) fL MCH 20.9 L (25.0-35.0) pg MCHC 28.6 L (31.0-37.0) g/dL RDW 25.0 H (11.5-15.5) % Plt Count 709 H (150-450) k/uL Neutrophils % 65 % Lymphocytes % 17 % Monocytes % 10 % Eosinophils % 7 % Basophils % 1 % Neutrophils # 4.9 (1.3-7.7) k/uL Lymphocytes # 1.3 (1.0-4.8) k/uL Monocytes # 0.7 (0-1.0) k/uL Eosinophils # 0.5 (0-0.7) k/uL Basophils # 0.0 (0-0.2) k/uL Hypochromasia Marked Poikilocytosis Slight Anisocytosis Marked Microcytosis Marked PT (9.0-12.0) sec INR (<1.2) APTT (22.0-30.0) sec Sodium 140 (137-145) mmol/L Potassium 3.8 (3.5-5.1) mmol/L Chloride 104 (98-107) mmol/L Carbon Dioxide 27 (22-30) mmol/L Anion Gap 9 mmol/L BUN 20 H (7-17) mg/dL Creatinine 0.66 (0.52-1.04) mg/dL Est GFR (MDRD) Af Amer >60 (>60 ml/min/1.73 sqM) Est GFR (MDRD) Non-Af >60 (>60 ml/min/1.73 sqM) Glucose 123 H (74-99) mg/dL Plasma Lactic Acid Yovany (0.7-2.0) mmol/L Calcium 9.2 (8.4-10.2) mg/dL Phosphorus 4.1 (2.5-4.5) mg/dL Magnesium 1.8 (1.6-2.3) mg/dL Total Bilirubin 0.2 (0.2-1.3) mg/dL AST 33 (14-36) U/L ALT 34 (9-52) U/L Alkaline Phosphatase 126 (38-126) U/L Total Creatine Kinase 21 L (30-135) U/L CK-MB (CK-2) 0.8 (0.0-2.4) ng/mL CK-MB (CK-2) Rel Index 3.8 Troponin I 0.035 H* (0.000-0.034) ng/mL Total Protein 6.0 L (6.3-8.2) g/dL Albumin 3.1 L (3.5-5.0) g/dL TSH 1.900 (0.465-4.680) mIU/L 10/15/17 10/15/17 Range/Units 11:50 11:50 WBC (3.8-10.6) k/uL RBC (3.80-5.40) m/uL Hgb (11.4-16.0) gm/dL Hct (34.0-46.0) % MCV (80.0-100.0) fL MCH (25.0-35.0) pg MCHC (31.0-37.0) g/dL RDW (11.5-15.5) % Plt Count (150-450) k/uL Neutrophils % % Lymphocytes % % Monocytes % % Eosinophils % % Basophils % % Neutrophils # (1.3-7.7) k/uL Lymphocytes # (1.0-4.8) k/uL Monocytes # (0-1.0) k/uL Eosinophils # (0-0.7) k/uL Basophils # (0-0.2) k/uL Hypochromasia Poikilocytosis Anisocytosis Microcytosis PT 9.8 (9.0-12.0) sec INR 1.0 (<1.2) APTT 23.0 (22.0-30.0) sec Sodium (137-145) mmol/L Potassium (3.5-5.1) mmol/L Chloride (98-107) mmol/L Carbon Dioxide (22-30) mmol/L Anion Gap mmol/L BUN (7-17) mg/dL Creatinine (0.52-1.04) mg/dL Est GFR (MDRD) Af Amer (>60 ml/min/1.73 sqM) Est GFR (MDRD) Non-Af (>60 ml/min/1.73 sqM) Glucose (74-99) mg/dL Plasma Lactic Acid Yovany 1.6 (0.7-2.0) mmol/L Calcium (8.4-10.2) mg/dL Phosphorus (2.5-4.5) mg/dL Magnesium (1.6-2.3) mg/dL Total Bilirubin (0.2-1.3) mg/dL AST (14-36) U/L ALT (9-52) U/L Alkaline Phosphatase (38-126) U/L Total Creatine Kinase (30-135) U/L CK-MB (CK-2) (0.0-2.4) ng/mL CK-MB (CK-2) Rel Index Troponin I (0.000-0.034) ng/mL Total Protein (6.3-8.2) g/dL Albumin (3.5-5.0) g/dL TSH (0.465-4.680) mIU/L - Radiology Data Radiology results: report reviewed (Chest x-rays negative), image reviewed Critical Care Time Critical Care Time: Yes Total Critical Care Time: 31 Disposition Clinical Impression: Non-ST elevation myocardial infarction (NSTEMI), Tachycardia, Chest pain, Palpitations Disposition: ADMITTED IP TO THIS HOSP Condition: Fair Referrals: Prosper Logan MD [Primary Care Provider] - 1-2 days
[2017-10-15 12:08] LABS: Anisocytosis Marked; Basophils % (A) 1 %; Eosinophils # (A) 0.5 k/uL (0-0.7); Eosinophils % (A) 7 %; HCT 31.4 % (34.0-46.0); Hypochromasia Marked; Lymphocytes # (A) 1.3 k/uL (1.0-4.8); Lymphocytes % (A) 17 %; MCH 20.9 pg (25.0-35.0); MCHC 28.6 g/dL (31.0-37.0); Mean Platelet Volume 6.5; Microcytosis Marked; Monocytes # (A) 0.7 k/uL (0-1.0); Monocytes % (A) 10 %; Neutrophils # (A) 4.9 k/uL (1.3-7.7); Neutrophils % (A) 65 %; Platelet Count 709 k/uL (150-450); Poikilocytosis Slight; WBC 7.6 k/uL (3.8-10.6)
[2017-10-15 12:19] LABS: Prothrombin Time 9.8 sec (9.0-12.0)
[2017-10-15 12:23] LABS: ALT 34 U/L (9-52); AST 33 U/L (14-36); Albumin 3.1 g/dL (3.5-5.0); Alkaline Phosphatase 126 U/L (38-126); Anion Gap 9 mmol/L; Blood Urea Nitrogen 20 mg/dL (7-17); Calcium 9.2 mg/dL (8.4-10.2); Carbon Dioxide 27 mmol/L (22-30); Chloride 104 mmol/L (98-107); Glucose 123 mg/dL (74-99); Magnesium 1.8 mg/dL (1.6-2.3); Phosphorus 4.1 mg/dL (2.5-4.5); Potassium 3.8 mmol/L (3.5-5.1); Sodium 140 mmol/L (137-145); Total Bilirubin 0.2 mg/dL (0.2-1.3)
--- NOTE | 2017-10-15 12:23 | XR ---
EXAMINATION TYPE: XR chest 2V DATE OF EXAM: 10/15/2017 HISTORY: Weakness. REFERENCE: Previous study dated 09/30/2017. FINDINGS: Heart size upper limits of normal. The lungs are clear. Pleural spaces are clear. IMPRESSION: BORDERLINE CARDIOMEGALY.
[2017-10-15 12:44] LABS: Creatine Kinase MB 0.8 ng/mL (0.0-2.4)
[2017-10-15 12:48] LABS: Troponin I 0.035 ng/mL (0.000-0.034)
[2017-10-15] MEDS ORDERED: NITROGLYCERIN SL TABS 0.4 MG TAB SUBLINGUAL PRN (12:59)
[2017-10-15] MEDS ORDERED: ASPIRIN 81 MG PO STA (12:59)
[2017-10-15] MEDS ORDERED: HEPARIN SODIUM,PORCINE 5,000 UNIT/ML 1 ML VIAL IV PRN (12:59)
[2017-10-15] MEDS ORDERED: HEPARIN SODIUM,PORCINE 5,000 UNIT/ML 1 ML VIAL IV ONE (12:59)
[2017-10-15] MEDS ORDERED: MORPHINE SULFATE 2 MG/ML SYRINGE IV PRN (12:59)
[2017-10-15] MEDS ORDERED: HEPARIN SOD,PORK IN 0.45% NACL 25,000 UNIT in 0.45% NACL 1 500ML.BAG IV SCH (13:00)
[2017-10-15 13:39] LABS: Appearance,Urine Clear (Clear); Bacteria,Urine Rare /hpf; Bilirubin,Urine Negative (Negative); Blood,Urine Negative (Negative); Color,Urine Light Yellow; Glucose,Urine (UA) Negative (Negative); Hyaline Casts,Urine 1 /lpf (0-2); Ketones,Urine Negative (Negative); Leukocyte Esterase,Urine Small (Negative); Mucus,Urine Rare /hpf; Nitrite,Urine Negative (Negative); Protein,Urine Negative (Negative); RBC,Urine 2 /hpf (0-5); Specific Gravity,Urine 1.008 (1.001-1.035); Urobilinogen,Urine <2.0 mg/dL (<2.0); WBC,Urine 2 /hpf (0-5)
[2017-10-15] MEDS ORDERED: guaiFENesin-DM 100-10MG/5ML 10 ML CUP PO PRN (17:19)
[2017-10-15] MEDS ORDERED: TEMAZEPAM 15 MG CAP PO PRN (17:19)
[2017-10-15] MEDS: ACETAMINOPHEN TAB 325 MG TAB PO PRN (18:26)
--- NOTE | 2017-10-15 18:40 | HP ---
HISTORY AND PHYSICAL CHIEF COMPLAINT: Palpitation. HISTORY OF PRESENT ILLNESS: This 71-year-old woman with a past medical history of multiple medical problems including GERD, DJD, history pneumonia, tonsillectomy, being followed by Dr. Logan in [facility]. Also noted to have normal-pressure hydrocephalus, also recently the patient admitted with AV ana reentrant supraventricular tachycardia. The patient treated symptomatically. Patient discharged back to the [facility]. Currently patient complaining of palpitations. The patient found to have PVCs with sinus tachycardia. Patient admitted for further evaluation and treatment. Patient also has significant rectal prolapse also. There is no history of fever, rigors. No headache, loss of consciousness, seizures. PAST MEDICAL HISTORY: History of GERD, DJD, history of pneumonia, history of GI problems, hiatal hernia, ovarian cyst. MEDICATIONS: Home medications are: 1. Anusol HC 25 mg b.i.d. 2. Restoril 15 mg q.h.s. p.r.n. 3. Tylenol 650 q.6 p.r.n. 4. Xanax 0.25 t.i.d. p.r.n. 5. Robitussin DM 10 mL q.6h p.r.n. 6. Nitrostat 0.4 subcu q5 p.r.n. 7. Protonix 40 mg b.i.d. 8. Nystatin 1 application b.i.d. 9. Lopressor 50 mg b.i.d. 10.Senna 17.2 mg q.h.s. 11.Lipitor 40 mg q.h.s. 12.Aspirin 81 mg p.o. daily. ALLERGIES: CODEINE AND TOMATO. FAMILY HISTORY: History of cancer, dementia, seizure disorder, breast cancer, myasthenia gravis in the family. SOCIAL HISTORY: No history of current smoking or alcohol intake. REVIEW OF SYSTEMS: ENT: Diminished vision. Diminished hearing. Cardiovascular: No angina. As mentioned earlier. Respiration: No cough. GI no nausea or vomiting. : No dysuria. Nervous system no numbness or weakness. ALLERGY/IMMUNOLOGY: No asthma or hayfever. Musculoskeletal: As mentioned earlier. Hematology/Oncology: No history of anemia. ENDOCRINE: No history of diabetes or hypothyroidism. CONSTITUTIONAL: As mentioned. Dermatology: Negative. Rheumatology: Negative. Psychiatric: As mentioned earlier. PHYSICAL EXAMINATION: The patient is alert and oriented times three. Pulse 77. Blood pressure 108/56, respirations 16, temperature 97.1, pulse ox 98% on room air. HEENT: Conjunctivae normal. Oral mucosa moist. Neck is no jugular venous distention. Cardiovascular system: S1, S2, tachycardia. Ejection systolic murmur present. Respiratory: Breath sounds diminished in the bases. Bilateral scattered rhonchi and crackles. ABDOMEN: Soft, nontender. No mass palpable. Legs no edema and no swelling. NERVOUS SYSTEM: Higher functions as mentioned earlier. Moves all four limbs. No focal deficits. Lymphatics: No lymph nodes palpable in the neck, axillae or groin. SKIN: No ulcer, rashes or bleeding. LAB STUDIES: WBC 7.2, hemoglobin is 9, troponin 0.035. ASSESSMENT: 1. Palpitation, possible sinus tachycardia. 2. Troponin 0.035 indeterminate. 3. History of recent AV ana reentry tachycardia supraventricular tachycardia and as well as sinus tachycardia with palpitation. 4. History of recent acute non ST elevation myocardial infarction. 5. History of normal-pressure hydrocephalus on the previous CT. 6. History of gait dysfunction. 7. Degenerative joint disease. 8. Anemia of chronic disease. RECOMMENDATION AND DISCUSSION: In this 71-year-old woman who presented with multiple complex medical issues, we will monitor the patient closely, continue the current medications. Continue the current beta blockers. Cardiology evaluation because of the indeterminate troponins and tachycardia. Otherwise, prognosis guarded. Resume the home medications. Further recommendations to follow. Local treatment for the prolapsed rectum and will also recommend surgical evaluation also. Prognosis guarded. Copy of dictation being forwarded to Dr. Logan. MMVINCENZOL / SAHRAN: [id number] /
[2017-10-15 19:37] LABS: Creatine Kinase MB 1.2 ng/mL (0.0-2.4)
[2017-10-15 19:38] LABS: Troponin I 0.064 ng/mL (0.000-0.034)
[2017-10-15] MEDS ORDERED: NYSTAT-TRIAMCIN 100,000-0.1 UNIT/GM-% CREAM 30 GM TUBE TOPICAL SCH (21:00)
[2017-10-15] MEDS: HYDROCORTISONE SUPPOSITORY 25 MG SUPP RECTAL SCH (21:42)
[2017-10-15] MEDS: ATORVASTATIN 40 MG TAB PO SCH (21:42)
[2017-10-15] MEDS: METOPROLOL TARTRATE 50 MG TAB PO SCH (21:43)
[2017-10-15] MEDS: SENNOSIDES 8.6 MG TAB PO SCH (21:44)
[2017-10-15] MEDS: TRIAMCINOLONE 0.1% CREAM 80 GM TUBE TOPICAL SCH (21:44)
[2017-10-15] MEDS: NYSTATIN 100,000UNIT/GM CREAM 30 GM TUBE TOPICAL SCH (21:44)
[2017-10-15] MEDS: PANTOPRAZOLE 40 MG TABLET PO SCH (21:45)
[2017-10-16 01:35] LABS: Troponin I 0.055 ng/mL (0.000-0.034)
[2017-10-16 06:48] LABS: Anisocytosis Marked; HCT 31.7 % (34.0-46.0); HGB 8.9 gm/dL (11.4-16.0); Hypochromasia Marked; MCH 20.6 pg (25.0-35.0); MCV 73.6 fL (80.0-100.0); Mean Platelet Volume 7.3; Microcytosis Marked; Platelet Count 723 k/uL (150-450); Poikilocytosis Slight; RBC 4.31 m/uL (3.80-5.40); RDW 24.5 % (11.5-15.5); WBC 8.8 k/uL (3.8-10.6)
[2017-10-16 06:56] LABS: Anion Gap 9 mmol/L; Blood Urea Nitrogen 18 mg/dL (7-17); Calcium 9.1 mg/dL (8.4-10.2); Carbon Dioxide 25 mmol/L (22-30); Chloride 108 mmol/L (98-107); Cholesterol 127 mg/dL (<200); Glucose 85 mg/dL (74-99); HDL Cholesterol 50 mg/dL (40-60); LDL Cholesterol,Calculated 58 mg/dL (0-99); Sodium 142 mmol/L (137-145); Triglycerides 93 mg/dL (<150)
[2017-10-16 07:07] LABS: Eosinophils # (M) 0.44 k/uL (0-0.7); Lymphocytes # (M) 2.46 k/uL (1.0-4.8); Monocytes # (M) 0.62 k/uL (0-1.0); Neutrophils # (M) 5.28 k/uL (1.3-7.7); Neutrophils % (M) 60 %; Nucleated Red Blood Cells 0 /100 WBC (0-0); Total Cells Counted 100
[2017-10-16] MEDS: PANTOPRAZOLE 40 MG TABLET PO SCH ×2 (10:37→16:27)
[2017-10-16] MEDS: ASPIRIN 325 MG TAB PO SCH (10:37)
[2017-10-16] MEDS: NYSTATIN 100,000UNIT/GM CREAM 30 GM TUBE TOPICAL SCH ×2 (10:38→21:10)
[2017-10-16] MEDS: METOPROLOL TARTRATE 50 MG TAB PO SCH (10:38)
[2017-10-16] MEDS: HYDROCORTISONE SUPPOSITORY 25 MG SUPP RECTAL SCH ×2 (10:38→21:10)
[2017-10-16] MEDS: TRIAMCINOLONE 0.1% CREAM 80 GM TUBE TOPICAL SCH ×2 (10:38→21:11)
[2017-10-16] MEDS ORDERED: METOPROLOL TARTRATE 25 MG TAB PO STA (10:50)
--- NOTE | 2017-10-16 13:26 | P.PN ---
Progress Note - Text Progress Note Date: 10/16/17 Patient seen and evaluated. Patient has history of rectal prolapse. Patient had not follow with Dr. Armstrong regarding colonoscopy biopsies. Biopsies are consistent rectal cancer. Recommended oncology consultation. Care will be assumed by Dr. Garcia tomorrow.
--- NOTE | 2017-10-16 14:03 | P.CRDCN ---
History of Present Illness History of present illness: Patient was transferred to the hospital from [facility] for evaluation and management of tachycardia. All the ECGs and telemetry strips show sinus tachycardia but however she carries a diagnosis of AV node reentry and is on beta blockers 50 g twice daily. She also complains she has a fever and chills. No dizziness no chest pain. She denies any cardiac symptoms to me Review of systems: No fever chills or rigors, no cough, phlegm or expectoration , no nausea, vomiting or diarrhea, no hematuria, dysuria, no musculoskeletal complaints, no strokes or seizures, no skin lesions. Past medical history is documented in the chart ALLERGIES documented Medication lists reviewed and documented On examination Blood pressure is normal heart rates are elevated sinus tachycardia between 9220 beats a minute with occasional PVCs Breath sounds are clear no rhonchi no crackles Heart sounds S1 and S2 are normal no murmurs no gallops Abdomen is soft nontender Eccentric is warm no edema Impression Patient carries a diagnosis of AV node reentry, current telemetry strips and ECGs show sinus tachycardia Borderline abnormal troponins of 0.[address] segment abnormalities included ECG Frequent PVCs Suggest Increase beta kathia dose Aspirin atorvastatin D-dimer Monitor on telemetry I don't see any evidence for scratch that I reviewed all the ECGs in the hospital records and I don't see ana reentry documented. However this has been documented somewhere and has been mentioned in previous notes. If she has recurrence of SVT despite medical treatment in this lady should undergo an EP study and radiofrequency ablation for SVT. This is something that she should we will to tolerate fine Past Medical History Past Medical History: GERD/Reflux, Osteoarthritis (OA), Pneumonia Additional Past Medical History / Comment(s): lower GI bleed/anemia, weakness and falls, normal pressure hydrocephalus. Other HX: Hiatal hernia, ovarian cyst, doudenal, bronchitis, gout, prolpased rectum-incontinent of stool. History of Any Multi-Drug Resistant Organisms: None Reported Past Surgical History: Adenoidectomy, Tonsillectomy Additional Past Surgical History / Comment(s): 09/27/17 EGD/colonoscopy, bilateral cataract removal with lens implants, Past Anesthesia/Blood Transfusion Reactions: No Reported Reaction, Motion Sickness Additional Past Anesthesia/Blood Transfusion Reaction / Comment(s): Pt recently received blood without reaction. Past Psychological History: No Psychological Hx Reported Additional Psychological History / Comment(s): Pt currently is staying at [facility] for rehab. She states she ambulates with assist of staff but sometimes gets up by herself and uses a walker. Smoking Status: Never smoker Past Alcohol Use History: None Reported Past Drug Use History: None Reported - Past Family History Mother Family Medical History: Cancer, Dementia, Seizure Disorder Additional Family Medical History / Comment(s): breast cancer, myasthenia gravis Father Family Medical History: Diabetes Mellitus Additional Family Medical History / Comment(s): Father was deaf. Medications and Allergies Home Medications Medication Instructions Recorded Confirmed Type Acetaminophen Tab [Tylenol] 650 mg PO Q6HR PRN tab 09/28/17 10/15/17 Rx Pantoprazole [Protonix] 40 mg PO BID tablet. 09/28/17 10/15/17 Rx ALPRAZolam [Xanax] 0.25 mg PO TID PRN #12 tab 10/03/17 10/15/17 Rx Aspirin 81 mg PO DAILY chew 10/03/17 10/15/17 Rx Atorvastatin [Lipitor] 40 mg PO HS tab 10/03/17 10/15/17 Rx Nitroglycerin Sl Tabs [Nitrostat] 0.4 mg SUBLINGUAL Q5M PRN tab 10/03/17 Rx Temazepam [Restoril] 15 mg PO HS PRN #5 cap 10/03/17 10/15/17 Rx Metoprolol Tartrate [Lopressor] 50 mg PO BID tab 10/04/17 10/15/17 Rx Hydrocortisone Suppository 25 mg RECTAL BID 10/15/17 10/15/17 History [Anusol-Hc] Nystatin/Triamcin 1 applicate TOPICAL BID 10/15/17 10/15/17 History [Nystatin-Triamcinolone Cream] Sennosides [Senna] 17.2 mg PO HS 10/15/17 10/15/17 History guaiFENesin-DM 100-10MG/5ML 10 ml PO Q6HR PRN 10/15/17 10/15/17 History [Robitussin DM] Allergies Allergy/AdvReac Type Severity Reaction Status Date / Time codeine Allergy Unknown Verified 10/15/17 12:29 tomato Allergy Unknown Verified 10/15/17 12:29 Physical Exam Vitals: Vital Signs Temp Pulse Pulse Resp BP BP Pulse Ox 10/16/17 07:55 97.1 F L 97 16 122/66 96 10/16/17 03:33 97.9 F 80 18 121/68 96 10/16/17 00:00 97.6 F 84 17 111/59 98 10/15/17 20:00 97.0 F L 80 18 109/62 97 10/15/17 16:49 80 16 106/57 95 10/15/17 14:50 97.1 F L 77 16 108/56 98 10/15/17 14:40 98.4 F 88 16 110/54 96 10/15/17 13:35 97.9 F 81 16 114/56 97 10/15/17 12:00 118 H 18 103/54 93 L 10/15/17 11:29 98.8 F 121 H 18 114/57 98 Intake and Output 10/15/17 10/16/17 10/16/17 22:59 06:59 14:59 Intake Total 315.483 504.056 0 Balance 315.483 504.056 0 Intake: IV 440 Heparin Sod,Pork in 0.45% 40 NaCl 25,000 unit In 0.45 % NaCl 1 500ml.bag @ 12 UNITS/KG/HR 9.79 mls/hr IV .Q24H GLORIA Rx#: [id number] Sodium Chloride 0.9% 1, 400 000 ml @ 100 mls/hr IV . Q10H STA Rx#:[id number] Intake, IV Titration 78.483 64.056 Amount Heparin Sod,Pork in 0.45% 78.483 64.056 NaCl 25,000 unit In 0.45 % NaCl 1 500ml.bag @ 12 UNITS/KG/HR 9.79 mls/hr IV .Q24H GLORIA Rx#: [id number] Oral 237 0 Other: Voiding Method Toilet Toilet # Voids 1 Weight 42 kg Results 10/16/17 06:09 10/16/17 06:09 Cardiac Enzymes 10/15/17 10/15/17 10/15/17 Range/Units 11:50 11:50 18:43 AST 33 (14-36) U/L CK-MB (CK-2) 0.8 1.2 (0.0-2.4) ng/mL Troponin I 0.035 H* 0.064 H* (0.000-0.034) ng/mL 10/16/17 Range/Units 00:24 AST (14-36) U/L CK-MB (CK-2) 1.0 (0.0-2.4) ng/mL Troponin I 0.055 H* (0.000-0.034) ng/mL Coagulation 10/15/17 10/15/17 10/16/17 Range/Units 11:50 18:43 00:24 PT 9.8 (9.0-12.0) sec APTT 23.0 22.8 30.1 H (22.0-30.0) sec 10/16/17 Range/Units 06:09 PT (9.0-12.0) sec APTT 69.2 H (22.0-30.0) sec Lipids 10/16/17 Range/Units 06:09 Triglycerides 93 (<150) mg/dL Cholesterol 127 (<200) mg/dL HDL Cholesterol 50 (40-60) mg/dL CBC 10/15/17 10/16/17 Range/Units 11:50 06:09 WBC 7.6 8.8 (3.8-10.6) k/uL RBC 4.30 4.31 (3.80-5.40) m/uL Hgb 9.0 L 8.9 L (11.4-16.0) gm/dL Hct 31.4 L 31.7 L (34.0-46.0) % Plt Count 709 H 723 H (150-450) k/uL Comprehensive Metabolic Panel 10/15/17 10/16/17 Range/Units 11:50 06:09 Sodium 140 142 (137-145) mmol/L Potassium 3.8 4.0 (3.5-5.1) mmol/L Chloride 104 108 H (98-107) mmol/L Carbon Dioxide 27 25 (22-30) mmol/L BUN 20 H 18 H (7-17) mg/dL Creatinine 0.66 0.66 (0.52-1.04) mg/dL Glucose 123 H 85 (74-99) mg/dL Calcium 9.2 9.1 (8.4-10.2) mg/dL AST 33 (14-36) U/L ALT 34 (9-52) U/L Alkaline Phosphatase 126 (38-126) U/L Total Protein 6.0 L (6.3-8.2) g/dL Albumin 3.1 L (3.5-5.0) g/dL Current Medications Generic Name Dose Route Start Last Admin Trade Name Freq PRN Reason Stop Dose Admin Acetaminophen 650 mg 10/15/17 17:19 10/15/17 18:26 Tylenol Tab PO 650 mg Q6HR PRN Administration Mild Pain or Fever > 100.5 Alprazolam 0.25 mg 10/15/17 17:19 Xanax PO TID PRN Anxiety Aspirin 325 mg 10/16/17 09:00 10/16/17 10:37 Aspirin PO 325 mg DAILY GLORIA Administration Atorvastatin Calcium 40 mg 10/15/17 21:00 10/15/17 21:42 Lipitor PO 40 mg HS GLORIA Administration Guaifenesin/Dextromethorphan 10 ml 10/15/17 17:19 Robitussin Dm PO Q6HR PRN Cough Heparin Sodium (Porcine) 0 unit 10/15/17 12:59 Heparin IV Q6HR PRN Low PTT Protocol Hydrocortisone Acetate 25 mg 10/15/17 21:00 10/16/17 10:38 Anusol-Hc RECTAL 25 mg BID GLORIA Administration Heparin Sodium/Sodium Chloride 500 mls @ 9.79 mls/hr 10/15/17 13:00 10/16/17 02:51 25,000 unit/ Sodium Chloride IV 18 units/kg/hr .Q24H GLORIA 14.69 mls/hr Protocol Titration 12 UNITS/KG/HR Metoprolol Tartrate 75 mg 10/16/17 21:00 Lopressor PO BID GLORIA Morphine Sulfate 4 mg 10/15/17 12:59 Morphine Sulfate (Inj) IV Q5M PRN Chest Pain Nitroglycerin 0.4 mg 10/15/17 12:59 Nitrostat SUBLINGUAL Q5M PRN Chest Pain Nystatin 1 applic 10/15/17 21:00 10/16/17 10:38 Mycostatin Cream TOPICAL 1 applic BID GLORIA Administration Pantoprazole Sodium 40 mg 10/15/17 18:30 10/16/17 10:37 Protonix PO 40 mg AC-BID GLORIA Administration Senna 17.2 mg 10/15/17 21:00 10/15/17 21:44 Senokot PO 17.2 mg HS GLORIA Administration Temazepam 15 mg 10/15/17 17:19 10/15/17 21:42 Restoril PO 15 mg HS PRN Administration Insomnia Triamcinolone Acetonide 1 applic 10/15/17 21:00 10/16/17 10:38 Kenalog TOPICAL 1 applic BID GLORIA Administration Intake and Output 10/15/17 10/16/17 10/16/17 22:59 06:59 14:59 Intake Total 315.483 504.056 0 Balance 315.483 504.056 0 Intake: IV 440 Heparin Sod,Pork in 0.45% 40 NaCl 25,000 unit In 0.45 % NaCl 1 500ml.bag @ 12 UNITS/KG/HR 9.79 mls/hr IV .Q24H GLORIA Rx#: [id number] Sodium Chloride 0.9% 1, 400 000 ml @ 100 mls/hr IV . Q10H STA Rx#:[id number] Intake, IV Titration 78.483 64.056 Amount Heparin Sod,Pork in 0.45% 78.483 64.056 NaCl 25,000 unit In 0.45 % NaCl 1 500ml.bag @ 12 UNITS/KG/HR 9.79 mls/hr IV .Q24H GLORIA Rx#: [id number] Oral 237 0 Other: Voiding Method Toilet Toilet # Voids 1 Weight 42 kg 10/16/17 06:09 10/16/17 06:09
[2017-10-16] MEDS ORDERED: RX INFO: IV CONTRAST WAS GIVEN 1 EACH MISC MISCELLANE PRN (16:09)
[2017-10-16] MEDS: IOHEXOL 350 MG/ML 25 ML BOTTLE (ORAL USE) PO PRN ×2 (16:54→17:56)
--- NOTE | 2017-10-16 17:08 | CONS ---
CONSULTATION DATE OF CONSULTATION: October 16, 2017. REASON FOR CONSULTATION: Rectal cancer. CHIEF COMPLAINT: Weak and tired. HISTORY OF PRESENT ILLNESS: Silva is a very pleasant 71 years old lady who was initially admitted to the hospital and was recently discharged from the hospital on 10/04/2017. She was admitted on 09/30/2017 because she was very dizzy and tired. She was found to be severely anemic and the patient did receive blood transfusion and she underwent a GI workup including upper and lower endoscopy performed on 09/27/2017. She was found to have a rectal prolapse with friable polypoid nodularity of the prolapsed part. Multiple biopsies obtained and the pathology report came back consistent with adenocarcinoma and fragment of adenoma. The patient subsequently was discharged to rehab facility. However, she was brought back to the emergency department yesterday she was tachycardic. In the emergency department, she was found to have sinus tachycardia with multiple PVCs and she ended up being readmitted to the hospital for further evaluation. The patient is overall feeling weak and tired. She has lost 20 some pounds over the last couple of months with no good appetite. She feels she is lightheaded and dizzy, but this improved after the blood transfusion. She stated that she has been noticing bright red blood per rectum intermittently actually since 2012. She has also some constipation. No nausea or vomiting. No headaches. No seizure. No syncope. No dysphagia. She is short of breath with exertion. No hematuria, hemoptysis hematemesis or epistaxis. PAST MEDICAL HISTORY: She has a history of gastroesophageal reflux disease, degenerative joint disease. She has a history of hiatal hernia and normal-pressure hydrocephalus. She has a history of tonsillectomy in the past and adenoidectomy. She had cataract surgery with lens implant as well. FAMILY HISTORY: For malignancy. Positive for breast cancer and for diabetes. REVIEW OF SYSTEMS: As stated above in the history of present illness, otherwise negative. CURRENT MEDICATION: Include Tylenol as needed, Xanax 0.25 mg t.i.d. as needed, aspirin 325 mg daily, Lipitor 40 mg daily. Robitussin as needed, Anusol 25 mg b.i.d., Lopressor 75 mg b.i.d., morphine sulfate 4 mg IV as needed for chest pain, Nitrostat as needed, Protonix 40 mg b.i.d. p.o., Senokot q.h.s. Restoril 15 mg at bedtime. She was on IV heparin, but it was discontinued. PHYSICAL EXAMINATION: She is alert, oriented x3. She does not appear to be in acute distress at this point in time, well developed, well nourished. She appears somewhat pale. Her vital signs are temperature 97.1, afebrile, pulse 85 regular, respirations 16, blood pressure 112/71. HEENT: Normocephalic, atraumatic. No obvious icterus. NECK: Supple. Chest equal expansion bilaterally. Lungs are clear to auscultation and percussion. Heart is regular rate and rhythm. ABDOMEN: Soft. No obvious organomegaly, masses or ascites. Bowel sounds present. Extremities no edema. Skin: No significant bruises or ecchymosis, petechiae. Lymphatic system: No peripherally enlarged cervical, supraclavicular lymphadenopathy, and there is no axillary lymph node detected bilaterally. LABORATORY DATA: WBC are 8.8, hemoglobin 8.9, hematocrit 31.7, platelet are 723. sodium 142, potassium 4.0, chloride 108, BUN is 18, creatinine 0.66. IMPRESSION: 1. Recent diagnosis of rectal carcinoma as stated above. 2. Microcytic anemia, this is likely consistent with iron deficiency anemia secondary to above. 3. Thrombocytosis this is also likely reactive to iron deficiency anemia, possibly reactive to underlying malignancy as well. RECOMMENDATIONS: 1. In view of her ongoing symptoms for quite some time with intermittent rectal bleeding, as stated above, she started to notice that in 2012. I would recommend to proceed with a staging CT scan of the chest, abdomen and pelvis and also we will obtain a serum CEA level. 2. Obtain iron studies evidence and she may require parenteral iron supplement. 3. If CT scan of the chest, abdomen, and pelvis did not reveal any evidence of metastatic disease, then may consider a staging transrectal ultrasound to evaluate the depth of her invasion to see if she would be appropriate for transanal excision if she had an early stage disease, or alternatively, if she had more advanced disease, then a consideration for neoadjuvant chemoradiation should be given. The above was discussed in detail with the patient. I have answered all her questions to her satisfaction. Thank you very much for asking us to participate in the care of this nice lady. MMODL / IJN: [id number] /
--- NOTE | 2017-10-16 19:13 | CT ---
EXAMINATION TYPE: CT ChestAbdPelvis w con DATE OF EXAM: 10/16/2017 COMPARISON: NONE HISTORY: Prolapsed rectum. CT DLP: 403.1 mGycm Automated exposure control for dose reduction was used. CONTRAST: CT scan of the chest, abdomen and pelvis is performed with Oral Contrast and with IV Contrast, patien t injected with 100 mL of Omnipaque 300. FINDINGS: LUNGS: The lungs are grossly clear, there is no concerning parenchymal mass or nodule identified. T here is no pleural effusion or pneumothorax seen. The tracheobronchial tree is patent. MEDIASTINUM: There are no greater than 1 cm hilar or mediastinal lymph nodes. No pericardial effusi on is seen. OTHER: No additional significant abnormality is seen. The soft tissue of the breast appear heterogen eous. Correlation with mammography is recommended. LIVER/GB: Liver appears unremarkable. There is no intra or extrahepatic biliary ductal dilatation. Th e gallbladder demonstrates mobile gallstones and is contracted. PANCREAS: No significant abnormality is seen. SPLEEN: No significant abnormality is seen. ADRENALS: Left adrenal gland is mildly thickened without a discrete nodule. KIDNEYS: No significant abnormality is seen. BOWEL: Duplex rectum is identified consistent with patient's known history. There is nonenhancing so ft tissue focus in the anterior aspect of this prolapsed bowel which measures 2.5 x 1.7 cm. This coul d relate to fat within the rectal wall. Neoplasm is also a possibility. REPRODUCTIVE ORGANS: No gross abnormality seen. LYMPH NODES: No greater than 1 cm abdominal or pelvic lymph nodes are appreciated. OSSEOUS STRUCTURES: Deformity of the inferior endplate of L2 is noted. OTHER: None IMPRESSION: Extensively prolapsed rectum is identified. There is a nonenhancing soft tissue focus in the anterior aspect of the prolapsed rectum which measures 2.5 x 1.7 cm. This focus could relate to f at within the bowel wall. Neoplasm is certainly possible.
--- NOTE | 2017-10-16 20:29 | PN ---
PROGRESS NOTE DATE OF SERVICE: 10/16/2017. INTERVAL HISTORY: This 71-year-old woman who was admitted with palpitations and also sinus tachycardia. The patient also had some occasional PVCs also. Beta blockers recommended. The patient also had a recent rectal prolapse and bleeding also. The biopsy report came back positive as adenocarcinoma and fragments of adenoma. The patient being closely monitored. PAST MEDICAL HISTORY: Reviewed. REVIEW OF SYSTEMS: Cardiovascular: As mentioned earlier. Respiratory: As mentioned earlier. GI as mentioned earlier. : No dysuria. Central nervous system: No numbness, weakness. CURRENT MEDICATIONS ARE: Reviewed and include: 1. Tylenol 650 q.6h p.r.n. 2. Xanax 0.25 t.i.d. 3. Aspirin 320 mg daily. 4. Lipitor 40 mg q.h.s. 5. Heparin b.i.d. 6. Lopressor 75 mg p.o. b.i.d. 7. Morphine sulfate 4 mg IV q.6h. . 8. Protonix 40 mg b.i.d. 9. Restoril 15 mg q.h.s. PHYSICAL EXAMINATION: The patient is alert, oriented x3. Pulse 80, blood pressure 100/52. Respirations 16, temperature 97.1, pulse ox 94% on room air. HEENT: Conjunctivae normal. NECK: No jugular venous distention. CARDIOVASCULAR: S1, S2 muffled. RESPIRATORY: Breath sounds diminished in the bases. A few scattered rhonchi. No crackles. Abdomen is soft, nontender. No mass palpable. Legs: No edema. No swelling. Central nervous system: Diffusely weak. LABS: WBC 8.8, hemoglobin is 8.9. ASSESSMENT: 1. Palpitations, possible sinus tachycardia. 2. Multiple PVCs. 3. Troponin 0.05 indeterminate. 4. History of recent AV ana reentry tachycardia. Supraventricular tachycardia tachycardia as well as a sinus tachycardia with palpitations. 5. History of recent acute non-ST segment elevation myocardial infarction. 6. History of normal-pressure hydrocephalus on the CT scan. 7. History of gait dysfunction. 8. asthma with moderate rectal adenocarcinoma with adenoma recent rectal biopsies. 9. Prolapse rectum history. 10.History of degenerative joint disease. 11.Anemia of chronic disease. RECOMMENDATIONS AND DISCUSSION: Continue current medications and symptomatic treatment. Otherwise, surgical and oncology consultations in place. Continue the rest of medications and continue beta- blockers. Prognosis guarded because of multiple complex medical issues. Further recommendations to follow. MMODL / IJN: [id number] / YANA
[2017-10-16] MEDS: ATORVASTATIN 40 MG TAB PO SCH (21:09)
[2017-10-16] MEDS: METOPROLOL TARTRATE 25 MG TAB PO SCH (21:10)
[2017-10-16] MEDS: SENNOSIDES 8.6 MG TAB PO SCH (21:12)
[2017-10-16] MEDS: ACETAMINOPHEN TAB 325 MG TAB PO PRN (21:13)
[2017-10-17] MEDS: ACETAMINOPHEN TAB 325 MG TAB PO PRN ×2 (06:05→20:31)
[2017-10-17] MEDS: PANTOPRAZOLE 40 MG TABLET PO SCH ×2 (06:07→17:34)
[2017-10-17 06:31] LABS: Anisocytosis Marked; Basophils # (A) 0.1 k/uL (0-0.2); Basophils % (A) 1 %; Eosinophils # (A) 0.6 k/uL (0-0.7); Eosinophils % (A) 9 %; HCT 31.7 % (34.0-46.0); HGB 8.7 gm/dL (11.4-16.0); Hypochromasia Marked; Lymphocytes # (A) 1.9 k/uL (1.0-4.8); Lymphocytes % (A) 28 %; MCH 20.3 pg (25.0-35.0); MCHC 27.4 g/dL (31.0-37.0); MCV 73.9 fL (80.0-100.0); Mean Platelet Volume 6.6; Microcytosis Marked; Monocytes # (A) 0.7 k/uL (0-1.0); Monocytes % (A) 10 %; Neutrophils # (A) 3.4 k/uL (1.3-7.7); Neutrophils % (A) 50 %; Platelet Count 639 k/uL (150-450); Poikilocytosis Slight; RBC 4.29 m/uL (3.80-5.40); WBC 6.9 k/uL (3.8-10.6)
[2017-10-17 06:42] LABS: Anion Gap 7 mmol/L; Blood Urea Nitrogen 21 mg/dL (7-17); Calcium 9.5 mg/dL (8.4-10.2); Carbon Dioxide 28 mmol/L (22-30); Chloride 103 mmol/L (98-107); Glucose 87 mg/dL (74-99); Potassium 4.5 mmol/L (3.5-5.1); Sodium 138 mmol/L (137-145)
[2017-10-17 07:36] LABS: Stomatocytes Present
[2017-10-17] MEDS: METOPROLOL TARTRATE 25 MG TAB PO SCH ×2 (09:13→22:08)
[2017-10-17] MEDS: HYDROCORTISONE SUPPOSITORY 25 MG SUPP RECTAL SCH ×2 (09:13→22:08)
[2017-10-17] MEDS: TRIAMCINOLONE 0.1% CREAM 80 GM TUBE TOPICAL SCH ×2 (09:13→22:08)
[2017-10-17] MEDS: NYSTATIN 100,000UNIT/GM CREAM 30 GM TUBE TOPICAL SCH ×2 (09:13→22:08)
[2017-10-17] MEDS: ASPIRIN 325 MG TAB PO SCH (09:13)
--- NOTE | 2017-10-17 09:36 | P.GSCN ---
History of Present Illness Consult date: 10/16/17 Reason for Consult: Rectal prolapse History of present illness: CHIEF COMPLAINT: Rectal prolapse HISTORY OF PRESENT ILLNESS: The patient is a 71-year-old female recently hospitalized within the last 2-3 weeks. She has been readmitted for tachycardia. She had a colonoscopy done inpatient by Dr. Velazquez. She had biopsies taken of the upper GI tract including of the colon and rectal prolapse. Features were consistent with rectal adenoma. Now her biopsies came back as rectal cancer. No reports of nausea and vomiting. No reports of abdominal pain. She is wearing an adult diaper. She had not follow up with GI or her primary care provider regarding results of her biopsies. PAST MEDICAL HISTORY: Please see list PAST SURGICAL HISTORY: Please see list MEDICATIONS: Please see list ALLERGIES: Please see list SOCIAL HISTORY: No illicit drug use or recent tobacco use FAMILY HISTORY: Pertinent for heart disease. REVIEW OF ORGAN SYSTEMS: CONSTITUTIONAL: No reports of fevers or chills. HEENT: Denies any troubles with the vision or hearing. ENDOCRINE: No reports of hypothyroidism. No diabetes. RESPIRATORY: No recent pneumonias. No current dyspnea on exertion. CARDIOVASCULAR: History of heart disease including hypertension. GI: Chronic constipation rectal prolapse. Gastroesophageal reflux disease. MUSCULOSKELETAL: Has joint pain including back pain. NEURO: No seizure disorders or headaches. No recent stroke. PSYCH: No depression or suicidal ideation. HEMATOLOGIC: No personal or family history of DVTs or pulmonary emboli. PHYSICAL EXAM: VITAL SIGNS: GENERAL: Well-developed pleasant in no acute distress. HEENT: No scleral icterus. Extraocular movements grossly intact. Moist buccal mucosa. NECK: Supple without lymphadenopathy. CHEST: Unlabored respirations. Equal bilateral excursions. CARDIOVASCULAR: Irregular rate irregular rhythm rhythm. Distal 2+ pulses. ABDOMEN: Soft, nondistended. Nontender. MUSCULOSKELETAL: No clubbing, cyanosis, or edema. NEURO: Cranial nerves II to XII within normal limits. No focal or lateralizing signs. PSYCH: Alert and oriented to person, place and time. STUDIES: Colonoscopy and EGD results reviewed. Findings consistent with rectal adenoma now rectal cancer. Gastritis found of her upper endoscopy. No previous CT of the abdomen and pelvis obtained. ASSESSMENT: 1. Rectal prolapse with rectal carcinoma. PLAN: 1. With her new diagnosis, recommend consultation to oncology. 2. Will need metastatic workup. 3. Surgical care referred to Dr. Garcia. Past Medical History Past Medical History: GERD/Reflux, Osteoarthritis (OA), Pneumonia Additional Past Medical History / Comment(s): lower GI bleed/anemia, weakness and falls, normal pressure hydrocephalus. Other HX: Hiatal hernia, ovarian cyst, doudenal, bronchitis, gout, prolpased rectum-incontinent of stool. History of Any Multi-Drug Resistant Organisms: None Reported Past Surgical History: Adenoidectomy, Tonsillectomy Additional Past Surgical History / Comment(s): 09/27/17 EGD/colonoscopy, bilateral cataract removal with lens implants, Past Anesthesia/Blood Transfusion Reactions: No Reported Reaction, Motion Sickness Additional Past Anesthesia/Blood Transfusion Reaction / Comm: Pt recently received blood without reaction. Past Psychological History: No Psychological Hx Reported Additional Psychological History / Comment(s): Pt currently is staying at [facility] for rehab. She states she ambulates with assist of staff but sometimes gets up by herself and uses a walker. Smoking Status: Never smoker Past Alcohol Use History: None Reported Past Drug Use History: None Reported - Past Family History Mother Family Medical History: Cancer, Dementia, Seizure Disorder Additional Family Medical History / Comment(s): breast cancer, myasthenia gravis Father Family Medical History: Diabetes Mellitus Additional Family Medical History / Comment(s): Father was deaf. Medications and Allergies Home Medications Medication Instructions Recorded Confirmed Type Acetaminophen Tab [Tylenol] 650 mg PO Q6HR PRN tab 09/28/17 10/15/17 Rx Pantoprazole [Protonix] 40 mg PO BID tablet. 09/28/17 10/15/17 Rx ALPRAZolam [Xanax] 0.25 mg PO TID PRN #12 tab 10/03/17 10/15/17 Rx Aspirin 81 mg PO DAILY chew 10/03/17 10/15/17 Rx Atorvastatin [Lipitor] 40 mg PO HS tab 10/03/17 10/15/17 Rx Nitroglycerin Sl Tabs [Nitrostat] 0.4 mg SUBLINGUAL Q5M PRN tab 10/03/17 Rx Temazepam [Restoril] 15 mg PO HS PRN #5 cap 10/03/17 10/15/17 Rx Metoprolol Tartrate [Lopressor] 50 mg PO BID tab 10/04/17 10/15/17 Rx Hydrocortisone Suppository 25 mg RECTAL BID 10/15/17 10/15/17 History [Anusol-Hc] Nystatin/Triamcin 1 applicate TOPICAL BID 10/15/17 10/15/17 History [Nystatin-Triamcinolone Cream] Sennosides [Senna] 17.2 mg PO HS 10/15/17 10/15/17 History guaiFENesin-DM 100-10MG/5ML 10 ml PO Q6HR PRN 10/15/17 10/15/17 History [Robitussin DM] Allergies Allergy/AdvReac Type Severity Reaction Status Date / Time codeine Allergy Unknown Verified 10/15/17 12:29 tomato Allergy Unknown Verified 10/15/17 12:29 Surgical - Exam Vital Signs Temp Pulse Resp BP Pulse Ox 98.8 F 121 H 18 114/57 98 10/15/17 11:29 10/15/17 11:29 10/15/17 11:29 10/15/17 11:29 10/15/17 11:29 Results - Labs 10/17/17 05:55 10/17/17 05:55 Abnormal Lab Results - Last 24 Hours (Table) 10/15/17 10/15/17 10/16/17 Range/Units 13:28 18:43 00:24 Hgb (11.4-16.0) gm/dL Hct (34.0-46.0) % MCV (80.0-100.0) fL MCH (25.0-35.0) pg MCHC (31.0-37.0) g/dL RDW (11.5-15.5) % Plt Count (150-450) k/uL APTT (22.0-30.0) sec Chloride (98-107) mmol/L BUN (7-17) mg/dL Total Creatine Kinase 25 L 23 L (30-135) U/L Troponin I 0.064 H* 0.055 H* (0.000-0.034) ng/mL Ur Leukocyte Esterase Small H (Negative) Urine Bacteria Rare H (None) /hpf Urine Mucus Rare H (None) /hpf 10/16/17 10/16/17 10/16/17 Range/Units 00:24 06:09 06:09 Hgb 8.9 L (11.4-16.0) gm/dL Hct 31.7 L (34.0-46.0) % MCV 73.6 L (80.0-100.0) fL MCH 20.6 L (25.0-35.0) pg MCHC 28.0 L (31.0-37.0) g/dL RDW 24.5 H (11.5-15.5) % Plt Count 723 H (150-450) k/uL APTT 30.1 H (22.0-30.0) sec Chloride 108 H (98-107) mmol/L BUN 18 H (7-17) mg/dL Total Creatine Kinase (30-135) U/L Troponin I (0.000-0.034) ng/mL Ur Leukocyte Esterase (Negative) Urine Bacteria (None) /hpf Urine Mucus (None) /hpf 10/16/17 Range/Units 06:09 Hgb (11.4-16.0) gm/dL Hct (34.0-46.0) % MCV (80.0-100.0) fL MCH (25.0-35.0) pg MCHC (31.0-37.0) g/dL RDW (11.5-15.5) % Plt Count (150-450) k/uL APTT 69.2 H (22.0-30.0) sec Chloride (98-107) mmol/L BUN (7-17) mg/dL Total Creatine Kinase (30-135) U/L Troponin I (0.000-0.034) ng/mL Ur Leukocyte Esterase (Negative) Urine Bacteria (None) /hpf Urine Mucus (None) /hpf Diabetes panel 10/16/17 Range/Units 06:09 Sodium 142 (137-145) mmol/L Potassium 4.0 (3.5-5.1) mmol/L Chloride 108 H (98-107) mmol/L Carbon Dioxide 25 (22-30) mmol/L BUN 18 H (7-17) mg/dL Creatinine 0.66 (0.52-1.04) mg/dL Glucose 85 (74-99) mg/dL Calcium 9.1 (8.4-10.2) mg/dL Triglycerides 93 (<150) mg/dL HDL Cholesterol 50 (40-60) mg/dL Calcium panel 10/16/17 Range/Units 06:09 Calcium 9.1 (8.4-10.2) mg/dL Pituitary panel 10/16/17 Range/Units 06:09 Sodium 142 (137-145) mmol/L Potassium 4.0 (3.5-5.1) mmol/L Chloride 108 H (98-107) mmol/L Carbon Dioxide 25 (22-30) mmol/L BUN 18 H (7-17) mg/dL Creatinine 0.66 (0.52-1.04) mg/dL Glucose 85 (74-99) mg/dL Calcium 9.1 (8.4-10.2) mg/dL Adrenal panel 10/16/17 Range/Units 06:09 Sodium 142 (137-145) mmol/L Potassium 4.0 (3.5-5.1) mmol/L Chloride 108 H (98-107) mmol/L Carbon Dioxide 25 (22-30) mmol/L BUN 18 H (7-17) mg/dL Creatinine 0.66 (0.52-1.04) mg/dL Glucose 85 (74-99) mg/dL Calcium 9.1 (8.4-10.2) mg/dL Assessment and Plan (1) Rectal cancer Current Visit: Yes Status: Acute Code(s): C20 - MALIGNANT NEOPLASM OF RECTUM SNOMED Code(s): 583962531
[2017-10-17 11:46] VITALS: BMI 18.6
[2017-10-17 13:18] LABS: Iron Saturation 3.7 (12.00-45.00)
--- NOTE | 2017-10-17 13:46 | P.PN ---
<Claribel Virk Lula - Last Filed: 10/17/17 13:24> Subjective Progress Note Date: 10/17/17 71-year-old female seen and examined at bedtime had been sitting up on a bedside commode having loose stools being seen at the request of the attending for a surgical eval for a rectal prolapse. Patient had a colonoscopy done as part of workup for severely anemic recently on September 30 biopsies came back positive for rectal cancer. This admission patient has been seen by hematology oncology Dr. Hernandez oncology has ordered iron studies as well as CAT scan imaging chest abdomen pelvis with a CEA level to be checked. If this does not reveal any evidence of metastatic disease patient may be considered for a staging transrectal ultrasound to evaluate the depth of the invasion after workup it would be determined if patient would be appropriate for transanal excision The rectum shows about the size of a lemon beefy red rectal mass protruding from the rectum no active bleeding Objective - Vital Signs Vital signs: Vital Signs Temp 96.7 F L 10/17/17 08:08 Pulse 72 10/17/17 11:50 Resp 16 10/17/17 11:50 BP 118/63 10/17/17 11:50 Pulse Ox 95 10/17/17 11:50 Intake & Output 10/16/17 10/17/17 10/17/17 18:59 06:59 18:59 Intake Total 290 20 118 Balance 290 20 118 Weight 42 kg 42 kg Intake: IV 50 20 0.9 20 Heparin Sod,Pork in 0.45% 50 NaCl 25,000 unit In 0.45 % NaCl 1 500ml.bag @ 12 UNITS/KG/HR 9.79 mls/hr IV .Q24H REPLACED BY [facility] Rx#: [id number] Oral 240 118 Other: Voiding Method Toilet Toilet Toilet # Voids 3 - Exam Physical exam thin frail underweight looking older than stated age female in no acute distress oriented 3 Lungs diminished at the bases otherwise adequate air movement Heart S1-S2 audible regular Abdomen soft and not distended bowel tones present no nausea no vomiting frequent stooling states poor appetite urinating no difficulty Extremities muscle wasting to the bilateral lower extremities Rectum protruding from the rectum beefy red mass no rectal bleeding noted patient states sore - Labs CBC & Chem 7: 10/17/17 05:55 10/17/17 05:55 Labs: Abnormal Lab Results - Last 24 Hours (Table) 10/17/17 10/17/17 Range/Units 05:55 05:55 Hgb 8.7 L (11.4-16.0) gm/dL Hct 31.7 L (34.0-46.0) % MCV 73.9 L (80.0-100.0) fL MCH 20.3 L (25.0-35.0) pg MCHC 27.4 L (31.0-37.0) g/dL RDW 25.0 H (11.5-15.5) % Plt Count 639 H (150-450) k/uL BUN 21 H (7-17) mg/dL Assessment and Plan Assessment: Impression Present on admission rectal prolapse with biopsies confirming diagnosis of rectal carcinoma Present on admission Anemia suspect iron deficiency suspect due to rectal carcinoma thrombocytosis likely reactive to iron deficient seen anemia possible reactive to underlying malignancy as well A recent colonoscopy September 30 findings consistent with rectal cancer recent EGD September 30 gastritis Borderline abnormal troponins Sinus tachycardia Plan Await oncology's workup Further surgical recommendations pending Follow-up on pending studies DVT and GI prophylaxis Surgical consultation note dictated for dr cleaning The above impression and plan of care have been discussed and directed by signing physician. Claribel Virk nurse practitioner acting as scribe for signing physician. <Jerome Cleaning - Last Filed: 10/17/17 16:40> Objective - Vital Signs Vital signs: Vital Signs Temp 97.7 F 10/17/17 16:00 Pulse 87 10/17/17 16:00 Resp 16 10/17/17 16:00 BP 123/61 10/17/17 16:00 Pulse Ox 96 10/17/17 16:00 Intake & Output 10/16/17 10/17/17 10/17/17 18:59 06:59 18:59 Intake Total 290 20 118 Balance 290 20 118 Weight 42 kg 42 kg Intake: IV 50 20 0.9 20 Heparin Sod,Pork in 0.45% 50 NaCl 25,000 unit In 0.45 % NaCl 1 500ml.bag @ 12 UNITS/KG/HR 9.79 mls/hr IV .Q24H [facility] Rx#: [id number] Oral 240 118 Other: Voiding Method Toilet Toilet Toilet # Voids 3 3 - Labs CBC & Chem 7: 10/17/17 05:55 10/17/17 05:55 Labs: Abnormal Lab Results - Last 24 Hours (Table) 10/17/17 10/17/17 10/17/17 Range/Units 05:55 05:55 05:55 Hgb 8.7 L (11.4-16.0) gm/dL Hct 31.7 L (34.0-46.0) % MCV 73.9 L (80.0-100.0) fL MCH 20.3 L (25.0-35.0) pg MCHC 27.4 L (31.0-37.0) g/dL RDW 25.0 H (11.5-15.5) % Plt Count 639 H (150-450) k/uL BUN 21 H (7-17) mg/dL Iron 14 L (50-170) ug/dL Iron Saturation 3.70 L (12.00-45.00) Assessment and Plan Plan: The patient does not appear to be any significant distress. There is no active bleeding from the rectal prolapse tumor. On exam patient has a 15 cm rectal prolapse which appears to have a villous tumor. I will await all his recommendations. It may be possible do a trans- anal excision of this tumor and repair the prolapse at the same time. Follow with you.
--- NOTE | 2017-10-17 16:02 | P.PN ---
Subjective Progress Note Date: 10/17/17 Principal diagnosis: This Is a pleasant 71-year-old female with history of GERD, degenerative joint disease, who resides at [facility], patient was admitted to the hospital with symptoms of palpitations. She was seen in consultation by Dr. Nicole over the weekend. EKGs and telemetry strips reveal sinus tachycardia, however she carries a diagnosis of AV ana reentrant tachycardia. Patient was seen and examined today, denies any dizziness, no palpitations, no shortness of breath. Patient remains in a normal sinus rhythm with a heart rate in the 80s today, no tachycardia arrhythmias have been noted. Objective - Vital Signs Vital signs: Vital Signs Temp 96.7 F L 10/17/17 08:08 Pulse 72 10/17/17 11:50 Resp 16 10/17/17 11:50 BP 118/63 10/17/17 11:50 Pulse Ox 95 10/17/17 11:50 Intake & Output 10/16/17 10/17/17 10/17/17 18:59 06:59 18:59 Intake Total 290 20 118 Balance 290 20 118 Weight 42 kg 42 kg Intake: IV 50 20 0.9 20 Heparin Sod,Pork in 0.45% 50 NaCl 25,000 unit In 0.45 % NaCl 1 500ml.bag @ 12 UNITS/KG/HR 9.79 mls/hr IV .Q24H [facility] Rx#: [id number] Oral 240 118 Other: Voiding Method Toilet Toilet Toilet # Voids 3 3 - Exam PHYSICAL EXAMINATION: HEENT: [Head is atraumatic, normocephalic. Pupils equal, round. Neck is supple. There is no elevated jugular venous pressure.] HEART EXAMINATION: [Heart S1, S2 normal. No murmur or gallop heard.] CHEST EXAMINATION:[ Lungs are clear to auscultation and precussion. No chest wall tenderness is noted on palpation or with deep breathing.] ABDOMEN: [ Soft, nontender. Bowel sounds are heard. No organomegaly noted]. EXTREMITIES:[ 2+ peripheral pulses with no evidence of peripheral edema and no calf tenderness noted]. NEUROLOGIC [patient is awake, alert and oriented -3.] . - Labs CBC & Chem 7: 10/17/17 05:55 10/17/17 05:55 Labs: Abnormal Lab Results - Last 24 Hours (Table) 10/17/17 10/17/17 10/17/17 Range/Units 05:55 05:55 05:55 Hgb 8.7 L (11.4-16.0) gm/dL Hct 31.7 L (34.0-46.0) % MCV 73.9 L (80.0-100.0) fL MCH 20.3 L (25.0-35.0) pg MCHC 27.4 L (31.0-37.0) g/dL RDW 25.0 H (11.5-15.5) % Plt Count 639 H (150-450) k/uL BUN 21 H (7-17) mg/dL Iron 14 L (50-170) ug/dL Iron Saturation 3.70 L (12.00-45.00) Assessment and Plan Plan: Assessment and plan 1 palpitations with evidence of sinus tachycardia #2 abnormal troponins not consistent with acute coronary syndrome #3 AV ana reentrant tachycardia history #4 anemia of chronic disease #5 diagnosis of rectal carcinoma. Plan From cardiology's perspective we will recommend to continue the patient on her current medications. D-dimer was negative. Continue to monitor. Discharged once cleared by primary. DNP note has been reviewed, I agree with a documented findings and plan of care. Patient was seen and examined.
[2017-10-17] MEDS: ALPRAZolam 0.25 MG TAB PO PRN (20:31)
--- NOTE | 2017-10-17 21:30 | PN ---
PROGRESS NOTE DATE OF SERVICE: 10/17/2017. INTERVAL HISTORY: This 71-year-old woman was admitted with palpitations, sinus tachycardia, also was recently found to have rectal cancer also. Dr. Garcia is evaluating the patient closely. No chest pain. No palpitations. No fever. EXAM: Alert and oriented x3. Pulse is 87, blood pressure 120/61, respirations 16, temperature 97.7, pulse ox 98% on room air. HEENT: Conjunctivae normal. Neck: No jugular venous distention. Cardiovascular: S1, S2 muffled. Respiratory: Breath sounds diminished in the bases. No rhonchi and no crackles. Abdomen is soft, nontender. Legs are no edema. No swelling. Nervous system: Diffusely weak. Rectal prolapse present. LABORATORY DATA: WBC 6.9, Hemoglobin is 8.7, and iron is 3.70. Chest, abdominal and pelvis CT showed extensive collapsed rectum, soft tissue focus in the anterior aspect. ASSESSMENT: 1. Palpation possible sinus tachycardia on admission. 2. Multiple PVCs. 3. Troponin 0.5 indeterminate. 4. Possible rectal cancer with rectal prolapse with rectal adenocarcinoma. 5. History of recent AV ana reentry tachycardia, supraventricular tachycardia as well as sinus tachycardia with palpitations. 6. History of recent acute non ST segment elevation myocardial infarction. 7. History of normal-pressure hydrocephalus in the CT scan. 8. History of gait dysfunction. 9. History of prolapsed rectum. 10.History of degenerative joint disease. 11.Anemia of chronic disease. RECOMMENDATIONS AND DISCUSSION: In this 71-year-old woman who presented with multiple complex medical issues, we will monitor the patient closely. Continue the current medications, management and symptomatic treatment. Continue with beta blockers. Continue rest of medications. Surgical input appreciated. Guarded prognosis because of multiple complex medical issues and further recommendations to follow. MMODL / IJN: [id number] /
[2017-10-17] MEDS: ATORVASTATIN 40 MG TAB PO SCH (22:06)
[2017-10-17] MEDS: SENNOSIDES 8.6 MG TAB PO SCH (22:06)
[2017-10-18 07:57] LABS: Anisocytosis Moderate; Basophils # (A) 0.1 k/uL (0-0.2); Basophils % (A) 1 %; Eosinophils # (A) 0.7 k/uL (0-0.7); Eosinophils % (A) 9 %; HCT 30.8 % (34.0-46.0); HGB 8.6 gm/dL (11.4-16.0); Hypochromasia Marked; Lymphocytes # (A) 1.6 k/uL (1.0-4.8); Lymphocytes % (A) 20 %; MCH 20.4 pg (25.0-35.0); MCHC 28.1 g/dL (31.0-37.0); MCV 72.5 fL (80.0-100.0); Mean Platelet Volume 6.9; Microcytosis Marked; Monocytes # (A) 0.8 k/uL (0-1.0); Monocytes % (A) 9 %; Neutrophils # (A) 4.9 k/uL (1.3-7.7); Neutrophils % (A) 60 %; Platelet Count 652 k/uL (150-450); Poikilocytosis Slight; RBC 4.25 m/uL (3.80-5.40); RDW 23.8 % (11.5-15.5); WBC 8.2 k/uL (3.8-10.6)
[2017-10-18 08:13] LABS: Anion Gap 8 mmol/L; Blood Urea Nitrogen 26 mg/dL (7-17); Calcium 9.8 mg/dL (8.4-10.2); Carbon Dioxide 27 mmol/L (22-30); Chloride 103 mmol/L (98-107); Glucose 90 mg/dL (74-99); Potassium 4.7 mmol/L (3.5-5.1); Sodium 138 mmol/L (137-145)
[2017-10-18] MEDS: METOPROLOL TARTRATE 25 MG TAB PO SCH ×2 (08:42→20:13)
[2017-10-18] MEDS: ASPIRIN 325 MG TAB PO SCH (08:42)
[2017-10-18] MEDS: PANTOPRAZOLE 40 MG TABLET PO SCH ×2 (08:42→17:23)
[2017-10-18] MEDS: HYDROCORTISONE SUPPOSITORY 25 MG SUPP RECTAL SCH ×2 (08:42→20:14)
[2017-10-18] MEDS: TRIAMCINOLONE 0.1% CREAM 80 GM TUBE TOPICAL SCH ×2 (08:43→20:14)
[2017-10-18] MEDS: NYSTATIN 100,000UNIT/GM CREAM 30 GM TUBE TOPICAL SCH ×2 (08:43→20:14)
[2017-10-18] MEDS ORDERED: SODIUM FERRIC GLUCONAT-SUCROSE 125 MG in SODIUM CHLORIDE 0.9% 100 ML IVPB SCH (09:00)
--- NOTE | 2017-10-18 14:52 | US ---
EXAMINATION TYPE: US pelvic limited DATE OF EXAM: 10/18/2017 COMPARISON: 10/16/2017 CT chest, abdomen, pelvis CLINICAL HISTORY: rectal mass-Dr. Zhu discussed with Dr. Meredith. Mass seen on recent CT on prolapsed re ctum, patient in prone position during exam. FINDINGS: Visualized portions of patient's prolapsed rectum appear heterogeneous. Corresponding to the area of hypoattenuation in the CT dated 10/16/2017 there is a focal area of hypoe chogenicity within the anterior rectum measuring approximately 2.5 x 0.7 cm. Although evaluation is s omewhat suboptimal as there is extensive rectal prolapse this appears to be contained within the wall of the rectum without extension through the rectal wall or to the surrounding fat. When correlated w ith CT the measurable tumor also is localized to the prolapsed bowel and does not extend cranially pa st the level of the ischial tuberosities. On evaluation of the prior CT there is no blurring of the m esorectal fat are local adenopathy to suggest local invasion. IMPRESSION: Although the examination is significantly limited secondary to the known severe rectal p rolapse there is a corresponding area of hypoechogenicity to the nonenhancing mass within the rectum on the prior CT dated 10/16/2017 measuring approximately 2.5 x 0.7 cm. On the ultrasound and prior CT there is no blurring of the mesorectal fat or obvious extension past the muscular layer of the rectum . With respect to recent imaging this is either a T1 or T2 tumor with no evidence of T3 disease. A Yellow message has been communicated to Kelvin Zhu MD~[id number] via the [employer] system on 10/18/2017 2:49 PM, Message ID [id number].
--- NOTE | 2017-10-18 14:54 | P.PN ---
Subjective Progress Note Date: 10/18/17 71-year-old female seen and examined resting in bed no new events patient is scheduled today for a pelvic ultrasound. Patients being seen by surgical service for recently diagnosed rectal cancer. noted to have a rectal prolapse with biopsies came back positive for rectal cancer no active rectal bleeding noted Objective - Vital Signs Vital signs: Vital Signs Temp 97.8 F 10/18/17 07:00 Pulse 78 10/18/17 07:00 Resp 18 10/18/17 07:00 BP 129/68 10/18/17 07:00 Pulse Ox 95 10/18/17 07:00 Intake & Output 10/17/17 10/18/17 10/18/17 18:59 06:59 18:59 Intake Total 118 Balance 118 Weight 42 kg 43 kg Intake: Oral 118 Other: Voiding Method Toilet Toilet Toilet # Voids 3 2 1 # Bowel Movements 1 - Exam Physical exam thin frail underweight looking older than stated age female in no acute distress oriented 3 Lungs diminished at the bases otherwise adequate air movement Heart S1-S2 audible regular Abdomen soft and not distended no rectal bleeding states poor appetite urinating no difficulty Extremities muscle wasting to the bilateral lower extremities Rectum protruding from the rectum beefy red mass no rectal bleeding noted patient states sore - Labs CBC & Chem 7: 10/18/17 07:17 10/18/17 07:17 Labs: Abnormal Lab Results - Last 24 Hours (Table) 10/17/17 10/18/17 10/18/17 Range/Units 05:55 07:17 07:17 Hgb 8.6 L (11.4-16.0) gm/dL Hct 30.8 L (34.0-46.0) % MCV 72.5 L (80.0-100.0) fL MCH 20.4 L (25.0-35.0) pg MCHC 28.1 L (31.0-37.0) g/dL RDW 23.8 H (11.5-15.5) % Plt Count 652 H (150-450) k/uL BUN 26 H (7-17) mg/dL Iron 14 L (50-170) ug/dL Iron Saturation 3.70 L (12.00-45.00) Assessment and Plan Assessment: Impression Present on admission rectal prolapse with biopsies confirming diagnosis of rectal carcinoma Present on admission Anemia suspect iron deficiency suspect due to rectal carcinoma thrombocytosis likely reactive to iron deficient seen anemia possible reactive to underlying malignancy as well A recent colonoscopy September 30 findings consistent with rectal cancer recent EGD September 30 gastritis Borderline abnormal troponins Sinus tachycardia Plan We'll follow with you Follow-up on pending ultrasound Await oncology's workup Further surgical recommendations pending Follow-up on pending studies DVT and GI prophylaxis Surgical note dictated for dr cleaning The above impression and plan of care have been discussed and directed by signing physician. Claribel Virk nurse practitioner acting as scribe for signing physician.
--- NOTE | 2017-10-18 16:18 | P.PN ---
Subjective Progress Note Date: 10/18/17 Principal diagnosis: rectal adenocarcinoma Patient seen today in follow-up, she is tolerating oral intake, denies shortness of breath or palpitations, nausea, no reports of rectal pain or rectal bleeding Objective - Vital Signs Vital signs: Vital Signs Temp 97.8 F 10/18/17 15:00 Pulse 80 10/18/17 15:00 Resp 18 10/18/17 15:00 BP 113/67 10/18/17 15:00 Pulse Ox 91 L 10/18/17 15:00 Intake & Output 10/17/17 10/18/17 10/18/17 18:59 06:59 18:59 Intake Total 118 100 Balance 118 100 Weight 42 kg 43 kg Intake: Intake, IV Titration 100 Amount Sodium Ferric Gluconat- 100 Sucrose 125 mg In Sodium Chloride 0.9% 100 ml @ 100 mls/hr IVPB DAILY [facility] Rx#:[id number] Oral 118 Other: Voiding Method Toilet Toilet Toilet # Voids 3 2 2 # Bowel Movements 1 - Exam well-developed, appears mildly frail, laying in bed, no visible distress, respirations even and unlabored - Labs CBC & Chem 7: 10/18/17 07:17 10/18/17 07:17 Labs: Abnormal Lab Results - Last 24 Hours (Table) 10/18/17 10/18/17 Range/Units 07:17 07:17 Hgb 8.6 L (11.4-16.0) gm/dL Hct 30.8 L (34.0-46.0) % MCV 72.5 L (80.0-100.0) fL MCH 20.4 L (25.0-35.0) pg MCHC 28.1 L (31.0-37.0) g/dL RDW 23.8 H (11.5-15.5) % Plt Count 652 H (150-450) k/uL BUN 26 H (7-17) mg/dL Assessment and Plan (1) Rectal adenocarcinoma Narrative/Plan: We reviewed with patient that CT of the chest abdomen and pelvis was negative for metastatic disease. The next step is transrectal ultrasound to determine depth of tumor and evaluate surrounding lymph nodes. Dr. Zhu did discuss the case with Dr. Garcia as well as Radiologist. As the rectal tumor is prolapsed it is felt that it can be evaluated at this facility versus sending patient out. US has been ordered. When results have returned plan of care can be determined if that means up front surgery or neoadjuvant chemotherapy, possibly radiation. Patient verbalized understanding recommendations Current Visit: Yes Status: Acute Priority: High Code(s): C20 - MALIGNANT NEOPLASM OF RECTUM SNOMED Code(s): 233500699 (2) Iron deficiency anemia Narrative/Plan: explained to patient she will receive daily doses of iron parenterally while inpatient, she was agreeable to the same Current Visit: Yes Status: Acute Priority: High Code(s): D50.9 - IRON DEFICIENCY ANEMIA, UNSPECIFIED SNOMED Code(s): 14524760
--- NOTE | 2017-10-18 17:34 | PN ---
PROGRESS NOTE DATE OF SERVICE: 10/18/2017 INTERVAL HISTORY: This 71-year-old woman who was admitted with palpitation and tachycardia also has rectal cancer. Ultrasound is pending at this time. No chest pain. No palpitations. No fever. PHYSICAL EXAMINATION: Alert and oriented x3. Pulse 80, blood pressure 139/60, respiration 18, temperature 97.8, pulse ox 91% on 2 L. HEENT: Conjunctivae normal. NECK: No jugular venous distention. CARDIOVASCULAR SYSTEM: S1, S2 muffled. RESPIRATORY SYSTEM: Breath sounds diminished at the bases. No rhonchi. No crackles. ABDOMEN: Soft, non-tender.. LEGS: No edema. No swelling. NERVOUS SYSTEM: No focal deficit. LABS: WBC 8.2, hemoglobin 8.6. ASSESSMENT: 1. Palpitations and possible sinus tachycardia on admission. 2. Multiple premature ventricular contractions. 3. Troponin 0.05, indeterminate. 4. Rectal cancer with rectal prolapse and rectal adenocarcinoma. 5. History of recent AV ana reentrant tachycardia, supraventricular tachycardia as well as tachycardia with palpitations. 6. History of recent acute cik-ZY-cdihbbw-elevation myocardial infarction. 7. History of normal-pressure hydrocephalus on CT scan. 8. History of gait dysfunction. 9. Prolapsed rectum. 10.History of degenerative joint disease. 11.Anemia of chronic disease. RECOMMENDATIONS AND DISCUSSION: I recommend to continue current medication, continue symptomatic treatment. Pelvic ultrasound. Closely follow with Dr. Garcia in the outpatient setting, with whom I discussed the case at length. Follow with Dr. Zhu, also. Further recommendations to follow. MMVINCENZOL / IJN: [id number] /
[2017-10-18] MEDS: SENNOSIDES 8.6 MG TAB PO SCH (20:13)
[2017-10-18] MEDS: ATORVASTATIN 40 MG TAB PO SCH (20:14)
[2017-10-18] MEDS: ACETAMINOPHEN TAB 325 MG TAB PO PRN (23:02)
[2017-10-18] MEDS: ALPRAZolam 0.25 MG TAB PO PRN (23:02)
[2017-10-19 07:41] VITALS: BP 123/67; PULSE 83; RESP 16; TEMP 98.1
[2017-10-19 08:44] LABS: Anion Gap 7 mmol/L; Blood Urea Nitrogen 27 mg/dL (7-17); Calcium 9.5 mg/dL (8.4-10.2); Carbon Dioxide 27 mmol/L (22-30); Chloride 105 mmol/L (98-107); Glucose 82 mg/dL (74-99); Potassium 4.8 mmol/L (3.5-5.1); Sodium 139 mmol/L (137-145)
[2017-10-19 08:48] LABS: Anisocytosis Moderate; Basophils # (A) 0.1 k/uL (0-0.2); Basophils % (A) 1 %; Eosinophils % (A) 11 %; HCT 33.6 % (34.0-46.0); Hypochromasia Marked; Lymphocytes # (A) 2.1 k/uL (1.0-4.8); Lymphocytes % (A) 24 %; MCH 20.6 pg (25.0-35.0); MCHC 26.7 g/dL (31.0-37.0); MCV 76.9 fL (80.0-100.0); Microcytosis Marked; Monocytes # (A) 0.6 k/uL (0-1.0); Monocytes % (A) 7 %; Neutrophils # (A) 4.8 k/uL (1.3-7.7); Neutrophils % (A) 55 %; Platelet Count 691 k/uL (150-450); Poikilocytosis Slight; RBC 4.37 m/uL (3.80-5.40); RDW 23.1 % (11.5-15.5); WBC 8.7 k/uL (3.8-10.6)
[2017-10-19] MEDS: METOPROLOL TARTRATE 25 MG TAB PO SCH (09:41)
[2017-10-19] MEDS: ASPIRIN 325 MG TAB PO SCH (09:41)
[2017-10-19] MEDS: PANTOPRAZOLE 40 MG TABLET PO SCH (09:41)
[2017-10-19] MEDS: HYDROCORTISONE SUPPOSITORY 25 MG SUPP RECTAL SCH (09:43)
[2017-10-19] MEDS: TRIAMCINOLONE 0.1% CREAM 80 GM TUBE TOPICAL SCH (09:50)
[2017-10-19] MEDS: NYSTATIN 100,000UNIT/GM CREAM 30 GM TUBE TOPICAL SCH (09:50)
--- NOTE | 2017-10-19 16:55 | P.PN ---
Subjective Progress Note Date: 10/19/17 Principal diagnosis: rectal adenocarcinoma Pt seen today in follow up, she had rectal US yesterday, she received IV iron. She feels well, tolerating oral intake, ambulating independently, no pain. Objective - Vital Signs Vital signs: Vital Signs Temp 98.1 F 10/19/17 07:40 Pulse 83 10/19/17 07:40 Resp 16 10/19/17 07:40 BP 123/67 10/19/17 07:40 Pulse Ox 96 10/19/17 07:40 Intake & Output 10/18/17 10/19/17 10/19/17 18:59 06:59 18:59 Intake Total 100 590 Balance 100 590 Intake: Intake, IV Titration 100 Amount Sodium Ferric Gluconat- 100 Sucrose 125 mg In Sodium Chloride 0.9% 100 ml @ 100 mls/hr IVPB DAILY [facility] Rx#:[id number] Oral 590 Other: Voiding Method Toilet Toilet Toilet # Voids 2 1 # Bowel Movements 1 - Exam ambulating without distress - Constitutional General appearance: Present: average body habitus, cooperative, no acute distress - Labs CBC & Chem 7: 10/19/17 08:06 10/19/17 08:06 Labs: Abnormal Lab Results - Last 24 Hours (Table) 10/19/17 10/19/17 Range/Units 08:06 08:06 Hgb 9.0 L (11.4-16.0) gm/dL Hct 33.6 L (34.0-46.0) % MCV 76.9 L (80.0-100.0) fL MCH 20.6 L (25.0-35.0) pg MCHC 26.7 L (31.0-37.0) g/dL RDW 23.1 H (11.5-15.5) % Plt Count 691 H (150-450) k/uL Eosinophils # 1.0 H (0-0.7) k/uL BUN 27 H (7-17) mg/dL Assessment and Plan (1) Rectal adenocarcinoma Narrative/Plan: US report reviewed, Dr. Zhu discussed case with Radiologist. The tumor appears to be limited to the prolapsed area of rectum so, recommendation is for surgical evaluation and intervention. Final pathology will be reviewed by Oncologist to determine if there a need for further treatment post op. Pt verbalized understanding the plan. Status: Acute Priority: High Code(s): C20 - MALIGNANT NEOPLASM OF RECTUM SNOMED Code(s): 102591249 (2) Iron deficiency anemia Narrative/Plan: Pt received IV iron, her iron studies will be reevaluated when she follows up with Dr. Zhu. Plan is to see pt in about 4-6 weeks. Status: Acute Priority: High Code(s): D50.9 - IRON DEFICIENCY ANEMIA, UNSPECIFIED SNOMED Code(s): 73539743
--- NOTE | 2017-10-20 08:45 | DS ---
DISCHARGE SUMMARY FINAL DIAGNOSES: 1. Palpitation, possible sinus tachycardia on admission. 2. Multiple premature ventricular contractions. 3. Troponin 0.05 indeterminate. 4. Rectal cancer with and rectal adenocarcinoma. 5. History of recent AV ana reentry tachycardia, supraventricular tachycardia as well as sinus tachycardia with palpitations. 6. History of recent acute non ST segment elevation myocardial infarction. 7. History of normal-pressure hydrocephalus in the CT scan. 8. History of gait dysfunction. 10.History of degenerative joint disease. 11.History of anemia of chronic disease. DISCHARGE DISPOSITION: The patient is being discharged in stable condition with guarded prognosis. HISTORY OF PRESENT ILLNESS: This 71-year-old woman with a past medical of multiple medical problems, admitted with palpitations, possible sinus tachycardia. The patient symptomatic. The patient improved significantly. The patient also recently diagnosed with rectal adenocarcinoma. Ultrasound was done and Dr. Garcia recommended outpatient followup. On exam, vital signs stable. Cardiovascular: S1, S2. Abdomen soft. Central nervous system: No focal deficits. DISCHARGE MEDICATIONS AND ADVICE: 1. Discharge diet is cardiac diet. 2. Activity limites until followup. 3. Follow up with primary physician in 2-3 days. 4. Follow up with Dr. Garcia as advised. 5. Follow with Dr. Zhu and clean room assembler as advised. MEDICATIONS: Medications will be as follows: 1. Tylenol 650 q.6h p.r.n. 2. Xanax 0.25 t.i.d. p.r.n. 3. Aspirin 81 mg p.o. daily. 4. Lipitor 40 mg q.h.s. 5. Guaifenesin q.6h p.r.n. 6. Hydrocortisone suppository as before. 7. Levaquin 500 mg p.o. daily for 5 days. 8. Lopressor 75 mg p.o. b.i.d. 9. Nitrostat 0.4 mg p.r.n. 10.Nystatin 100,000 units topically daily. 11.Protonix 40 mg p.o. b.i.d. 12.Senna 17.2 mg p.o. q.h.s. 13.Zestril 50 mg q.h.s. p.r.n. 14.Kenalog 1 application topically. Once again the patient is being discharged in stable condition with guarded prognosis. MMODL / IJN: [id number] / MTDD
== END 2017-10-19 12:02 | disposition home or self-care (01) | DRG 309 ==
LOC: EC 11:14 → 3OBS 12:59 → 6SEL 13:40 → OBSVTOIN 10-17 15:22 → 5ONC 10-17 15:32
PROVIDERS: ADMIT Hospitalist; ATTEND Hospitalist
DX: R00.0 Tachycardia, unspecified (principal); G91.2 (Idiopathic) normal pressure hydrocephalus; C20 Malignant neoplasm of rectum; R15.9 Full incontinence of feces; D63.8 Anemia in other chronic diseases classified elsewhere; D50.9 Iron deficiency anemia, unspecified; K21.9 Gastro-esophageal reflux disease without esophagitis; M19.91 Primary osteoarthritis, unspecified site; I49.3 Ventricular premature depolarization; K44.9 Diaphragmatic hernia without obstruction or gangrene; J45.909 Unspecified asthma, uncomplicated; K59.00 Constipation, unspecified; I25.2 Old myocardial infarction; R26.9 Unspecified abnormalities of gait and mobility; Z79.82 Long term (current) use of aspirin; Z79.899 Other long term (current) drug therapy; Z88.5 Allergy status to narcotic agent; Z87.01 Personal history of pneumonia (recurrent); Z91.018 Allergy to other foods; Z96.1 Presence of intraocular lens; Z98.41 Cataract extraction status, right eye; Z98.42 Cataract extraction status, left eye; M10.9 Gout, unspecified; K29.70 Gastritis, unspecified, without bleeding; K62.3 Rectal prolapse
CPT/HCPCS: 36415; 71046; 71260; 74177; 76857; 80048; 80053; 80061; 81001; 82378; 82550; 82553; 82728; 83540; 83550; 83605; 83735; 84100; 84443; 84484; 85025; 85379; 85610; 85730; 87502; 93005; 96361; 96365; 96376; 99291

== ENCOUNTER 2017-11-21 07:05 | Day surgery (SDC) | payer MEDICARE ==
[2017-11-18 10:39] VITALS: BMI 18.3
[~2017-11-21 07:05] MED LIST: DEXAMETHASONE SOD PHOSPHATE 10 MG/ML 1 ML VIAL IV ONE; HEPARIN SODIUM,PORCINE 5,000 UNIT/ML 1 ML VIAL SQ ONE; HYDROmorphone 0.5 MG/0.5 ML SYRINGE IVP PRN; ONDANSETRON 4 MG/2 ML VIAL IVP ONE; Pre Op ABX Message 1 EACH MISC MISCELLANE ONE
[2017-11-21] MEDS ORDERED: LIDOCAINE 1% 20 ML VIAL (10MG/ML) FOR IV START INTRADERMA ONE (07:58)
[2017-11-21] MEDS: LACTATED RINGERS 1,000 ML IV SCH (07:58)
--- NOTE | 2017-11-21 09:44 | P.GSHP ---
History of Present Illness H&P Date: 11/21/17 Chief Complaint: Prophylaxis rectum with rectal cancer This a 72-year-old female who's had issues with a rectal prolapse. Patient underwent colonoscopy Dr. Dunaway. She is found to have a small rectal cancer. Patient presents today for transanal excision of rectal cancer and prolapse. Patient is aware the risk of possible colostomy and exploratory laparotomy. Past Medical History Past Medical History: Cancer, GERD/Reflux, Osteoarthritis (OA), Pneumonia Additional Past Medical History / Comment(s): RECTAL CA, RECIEVING IRON TRANSFUSIONS, HEART PALPITATIONS, SVT'S, lower GI bleed/anemia, weakness and falls, Hiatal hernia, ovarian cyst, prolpased rectum-incontinent of stool. History of Any Multi-Drug Resistant Organisms: None Reported Past Surgical History: Adenoidectomy, Tonsillectomy Additional Past Surgical History / Comment(s): 09/27/17 EGD/colonoscopy, bilateral cataract removal with lens implants, LEFT ULNA FX Past Anesthesia/Blood Transfusion Reactions: Motion Sickness Additional Past Anesthesia/Blood Transfusion Reaction / Comment(s): Pt recently received blood without reaction. Smoking Status: Never smoker - Past Family History Mother Family Medical History: Cancer, Dementia, Seizure Disorder Additional Family Medical History / Comment(s): breast cancer, myasthenia gravis Father Family Medical History: Diabetes Mellitus Additional Family Medical History / Comment(s): Father was deaf. Medications and Allergies Home Medications Medication Instructions Recorded Confirmed Type Acetaminophen Tab [Tylenol] 650 mg PO Q6HR PRN tab 09/28/17 11/21/17 Rx ALPRAZolam [Xanax] 0.25 mg PO TID PRN #20 tab 10/18/17 11/21/17 Rx Metoprolol Tartrate [Lopressor] 75 mg PO BID #180 tab 10/18/17 11/21/17 Rx Triamcinolone 0.1% Cream [Kenalog] 1 applicatio TOPICAL BID 11/18/17 11/21/17 History Allergies Allergy/AdvReac Type Severity Reaction Status Date / Time codeine Allergy Nausea & Verified 11/21/17 07:50 Vomiting tomato Allergy Swelling Verified 11/21/17 07:50 Surgical - Exam Vital Signs Temp Pulse Resp BP Pulse Ox 98.8 F 66 18 110/75 97 11/21/17 07:40 11/21/17 07:40 11/21/17 07:40 11/21/17 07:40 11/21/17 07:40 - General well developed, no distress, cachectic, chronically ill - Eyes PERRL - ENT normal pinna - Neck no masses - Respiratory normal expansion - Cardiovascular Rhythm: regular - Abdomen Abdomen: soft, non tender - Rectum Prophylaxis rectum approximately 10 cm Assessment and Plan Assessment: Rectal prolapse with rectal cancer. We'll perform transanal excision of rectal prolapse and rectal cancer.
[2017-11-21] MEDS ORDERED: PROPOFOL 10 MG/ML 20 ML VIAL IV ONE (10:13)
[2017-11-21] MEDS ORDERED: ROCURONIUM BROMIDE 10 MG/ML 10 ML VIAL IV ONE (10:13)
[2017-11-21] MEDS ORDERED: SODIUM CHLORIDE 0.9% 50 ML with ceFAZolin 2,000 MG IV ONE ×2 (10:13)
[2017-11-21] MEDS ORDERED: fentaNYL (PF) 50 MCG/ML 2 ML AMP ONE (10:13)
[2017-11-21] MEDS ORDERED: LIDOCAINE 1% INJ 10MG/ML (20 ML MDV) ONE (10:13)
[2017-11-21] MEDS ORDERED: SUCCINYLCHOLINE CHLORIDE 100 MG/5 ML SYR IV ONE (10:13)
[2017-11-21] MEDS ORDERED: MIDAZOLAM 2 MG/2 ML VIAL ONE (10:13)
[2017-11-21] MEDS ORDERED: BUPIVACAINE (PF) 0.25% 30 ML VIAL SQ ONE (10:36)
[2017-11-21] MEDS ORDERED: LIDOCAINE 1%-EPI 1:100,000 30 ML VIAL SQ ONE (10:56)
[2017-11-21] MEDS ORDERED: GELATIN SPONGE,ABSORB (LARGE) 1 EACH SPONGE TOPICAL ONE (11:01)
[2017-11-21] MEDS ORDERED: ONDANSETRON 4 MG/2 ML VIAL IVP PRN (12:26)
--- NOTE | 2017-11-21 12:49 | P.OP ---
Date of Procedure: 11/21/17 Preoperative Diagnosis: Rectal cancer Postoperative Diagnosis: Rectal cancer Procedure(s) Performed: Transanal excision of rectal cancer Anesthesia: TIO Surgeon: Jerome Garcia Estimated Blood Loss (ml): 20 Pathology: other (Rectum) Condition: stable Disposition: PACU Description of Procedure: The patient's placed on the operative table in the prone jackknife position. She received general anesthesia. Her anus was prepped and draped usual sterile fashion. The patient had a large mass growing from the right side of her rectum. The left area of the rectum between 6:00 and 12:00 appeared normal. However there was a large mass coming off of the right side of the rectum measured approximately 15 x 10 cm. The mucocutaneous junction was divided with left cautery. And then using the Harmonic scissors the rectal mass was divided. And removed from the rectum. The mucosa was then reapproximated using 3-0 Vicryl suture. Patient top procedure well and was sent to recovery in stable condition.
[2017-11-21] MEDS ORDERED: HYDROmorphone 0.5 MG/0.5 ML SYRINGE IVP PRN (14:25)
[2017-11-21] MEDS: D5-0.45% NACL WITH KCL 20MEQ/L 1,000 ML IV SCH ×2 (14:40→20:57)
[2017-11-21] MEDS ORDERED: MORPHINE SULFATE 4 MG/ML SYRINGE IVP PRN (15:12)
[2017-11-21] MEDS: FAMOTIDINE 20 MG/2 ML VIAL IV SCH (20:39)
[2017-11-21] MEDS ORDERED: ALPRAZolam 0.25 MG TAB PO PRN (21:13)
[2017-11-21] MEDS: METOPROLOL TARTRATE 25 MG TAB PO SCH (21:53)
[2017-11-21] MEDS: HEPARIN SODIUM,PORCINE 5,000 UNIT/ML 1 ML VIAL SQ SCH (21:54)
--- NOTE | 2017-11-22 01:03 | CONS ---
CONSULTATION DATE OF SERVICE: 11/21/2017 REASON FOR CONSULTATION: Advice regarding DJD and multiple other medical issues, requested by Dr. Garcia. HISTORY OF PRESENT ILLNESS: This 72-year-old woman with a past medical history of multiple medical problems, including DJD, history of pneumonia, history of adenoidectomy, history of SVT, anxiety, being followed by Dr. Rosario in the outpatient setting, also had multiple cardiac issues recently. The patient underwent transanal excision of rectal cancer by Dr. Garcia. There is no history of any fever, rigor or chills. No history of headache, loss of consciousness, seizures at this time. PAST MEDICAL HISTORY: 1. History of GERD. 2. History of DJD. 3. History of rectal cancer. 4. History of iron transfusions. 5. History of SVT. HOME MEDICATIONS: 1. Kenalog cream. 2. Lopressor 75 mg p.o. b.i.d. 3. Tylenol 650 q.6 p.r.n. 4. Xanax 0.5 t.i.d. p.r.n. ALLERGIES: 1. CODEINE. 2. TOMATO. FAMILY HISTORY: History of cancer, dementia, seizure disorder, breast cancer. SOCIAL HISTORY: No history of smoking. No history of alcohol intake. REVIEW OF SYSTEMS: ENT: No diminished hearing. No diminished vision. CARDIOVASCULAR SYSTEM: No angina, palpitations. RESPIRATORY SYSTEM: As mentioned earlier. GI: As mentioned earlier. : No dysuria or retention. NERVOUS SYSTEM: No numbness, weakness. ALLERGY/IMMUNOLOGY: No asthma, hayfever. MUSCULOSKELETAL: As mentioned earlier. HEMATOLOGY/ONCOLOGY: No history of anemia. ENDOCRINE: No history of diabetes, hypothyroidism. CONSTITUTIONAL: As mentioned earlier. DERMATOLOGY: Negative. RHEUMATOLOGY: Negative. PSYCHIATRY: As mentioned earlier. PHYSICAL EXAMINATION: Patient alert and oriented x3. Pulse is 89, blood pressure 120/50, respiration 16, temperature 98 degrees, pulse ox 96% on room air. HEENT: Conjunctivae normal. NECK: No jugular venous distention. CARDIOVASCULAR SYSTEM: S1, S2 muffled. RESPIRATORY SYSTEM: Breath sounds diminished at the bases. A few scattered rhonchi and crackles. ABDOMEN: Soft, nontender. No mass palpable. LEGS: No edema. No swelling. NERVOUS SYSTEM: Higher functions as mentioned earlier. Moves all 4 limbs. No focal motor or sensory deficit. LYMPHATICS: No lymph node palpable in neck, axillae or groin. SKIN: No ulcer, rash, bleeding. LABS: Labs are not available. ASSESSMENT: 1. Status post transanal excision of the rectal cancer. 2. History of sinus tachycardia. 3. History of premature ventricular contractions. 4. 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 5. History of recent acute qfo-TH-omnexpb-elevation myocardial infarction. 6. History of gait dysfunction. 7. History of degenerative joint disease. 8. Anemia of chronic disease. 9. History of anxiety. 10.Gait dysfunction. RECOMMENDATIONS AND DISCUSSION: In this 72-year-old woman who presented with multiple medical issues, we will monitor the patient closely, continue the current medications, continue with symptomatic treatment. At this time I recommend resuming the home medications. I would recommend resuming metoprolol and Xanax p.r.n., pain medications, DVT prophylaxis, incentive spirometry. We will follow the patient closely with you. PT/OT evaluation. Patient may be asked to follow up with her primary physician closely in the outpatient setting. Thank you, Dr. Garcia, for letting us participate in the care of this patient. MMODL / IJN: [id number] /
[2017-11-22] MEDS: D5-0.45% NACL WITH KCL 20MEQ/L 1,000 ML IV SCH (04:54)
[2017-11-22] MEDS: LACTATED RINGERS 1,000 ML IV SCH (05:45)
[2017-11-22] MEDS: METOPROLOL TARTRATE 25 MG TAB PO SCH ×2 (08:28→20:01)
[2017-11-22] MEDS: FAMOTIDINE 20 MG/2 ML VIAL IV SCH ×2 (08:29→20:01)
[2017-11-22] MEDS: HEPARIN SODIUM,PORCINE 5,000 UNIT/ML 1 ML VIAL SQ SCH ×2 (08:29→20:01)
[2017-11-22] MEDS: TRIAMCINOLONE 0.1% CREAM 80 GM TUBE TOPICAL SCH ×2 (08:30→20:01)
[2017-11-22 09:28] LABS: Anisocytosis Moderate; Basophils % (A) 0 %; Eosinophils % (A) 0 %; HCT 34.4 % (34.0-46.0); HGB 9.5 gm/dL (11.4-16.0); Hypochromasia Marked; Lymphocytes # (A) 1.9 k/uL (1.0-4.8); Lymphocytes % (A) 15 %; MCH 23.4 pg (25.0-35.0); MCHC 27.7 g/dL (31.0-37.0); MCV 84.3 fL (80.0-100.0); Microcytosis Slight; Monocytes % (A) 8 %; Neutrophils # (A) 9.8 k/uL (1.3-7.7); Neutrophils % (A) 76 %; Platelet Count 441 k/uL (150-450); RBC 4.08 m/uL (3.80-5.40); RDW 21.8 % (11.5-15.5); WBC 12.9 k/uL (3.8-10.6)
[2017-11-22 09:42] LABS: ALT 28 U/L (9-52); AST 24 U/L (14-36); Albumin 3.3 g/dL (3.5-5.0); Alkaline Phosphatase 89 U/L (38-126); Anion Gap 8 mmol/L; Blood Urea Nitrogen 11 mg/dL (7-17); Calcium 9.5 mg/dL (8.4-10.2); Carbon Dioxide 27 mmol/L (22-30); Chloride 106 mmol/L (98-107); Glucose 94 mg/dL (74-99); Potassium 4.4 mmol/L (3.5-5.1); Sodium 141 mmol/L (137-145); Total Bilirubin 0.2 mg/dL (0.2-1.3)
[2017-11-22] MEDS ORDERED: MORPHINE SULFATE 4 MG/ML SYRINGE IVP PRN (11:21)
[2017-11-22] MEDS ORDERED: traMADol 50 MG TAB PO PRN (11:30)
--- NOTE | 2017-11-22 11:30 | P.PN ---
Subjective Progress Note Date: 11/22/17 72-year-old female seen and examined at bedside. Denying any dizziness lightheadedness chest pain or shortness breath. Dressing to rectum at the surgical site dry. No bowel movement. Patient recently underwent a colonoscopy which did show small rectal cancer. Patient presented to undergo an elective transanal excision of the rectal cancer done on November 21 Hemoglobin 9.5 this morning white count 12.9 electrolytes within normal limits is denying surgical discomfort when questioning Objective - Vital Signs Vital signs: Vital Signs Temp 98.3 F 11/22/17 07:00 Pulse 65 11/22/17 08:00 Resp 18 11/22/17 08:00 BP 104/54 11/22/17 07:00 Pulse Ox 97 11/22/17 07:00 Intake & Output 11/21/17 11/22/17 11/22/17 18:59 06:59 18:59 Intake Total 1050 480 Output Total 710 Balance 340 480 Weight 41.277 kg Intake: IV 1050 Oral 480 Output: Urine 700 Estimated Blood Loss 10 Other: Voiding Method Diaper Diaper Toilet Incontinent Incontinent Diaper # Voids 2 2 - Exam Physical exam Pleasant 72-year-old female resting in bed tolerating a diet oriented 3 Lungs clear adequate air movement Heart S1-S2 audible regular Abdomen soft nondistended no nausea no vomiting bowel tones present states no stool passing gas urinating no difficulty episodes of incontinent of urine Rectum surgical dressing tucked into the rectum dry no bleeding from the rectal area Extremities no edema - Labs CBC & Chem 7: 11/22/17 09:07 11/22/17 09:07 Labs: Abnormal Lab Results - Last 24 Hours (Table) 11/22/17 11/22/17 Range/Units 09:07 09:07 WBC 12.9 H (3.8-10.6) k/uL Hgb 9.5 L (11.4-16.0) gm/dL MCH 23.4 L (25.0-35.0) pg MCHC 27.7 L (31.0-37.0) g/dL RDW 21.8 H (11.5-15.5) % Neutrophils # 9.8 H (1.3-7.7) k/uL Total Protein 6.0 L (6.3-8.2) g/dL Albumin 3.3 L (3.5-5.0) g/dL Assessment and Plan Assessment: Impression Postop November 21 transanal excision of rectal cancer A recent diagnosis of rectal carcinoma Macrocytic anemia likely consistent with iron deficiency anemia secondary to recent diagnosis of rectal carcinoma Gait dysfunction Degenerative joint disease Recent acute non-ST elevated myocardial infarction Plan manager sign to pursue the discharge plan PT OT eval may benefit from subacute rehab Resume home meds as appropriate Follow-up on pending lab DVT and GI prophylaxis Further recommendations Pain control The above impression and plan of care have been discussed and directed by signing physician. Claribel Virk nurse practitioner acting as scribe for signing physician.
[2017-11-22] MEDS: ACETAMINOPHEN TAB 325 MG TAB PO PRN (20:01)
--- NOTE | 2017-11-22 22:14 | PN ---
PROGRESS NOTE DATE OF SERVICE: 11/22/2017 This 72-year-old woman was admitted after transanal excision of rectal cancer is being closely monitored. No chest pain. No palpitations. No fever. PHYSICAL EXAM: Alert and oriented times three. Pulse 69, blood pressure 108/48, respiration 18, temperature 97.2, pulse ox 97% on room air. HEENT: Conjunctivae normal. Neck is no jugular venous distention. Cardiovascular systems: S1, S2 muffled. Respirations: Breath sounds diminished in the bases. No rhonchi and no crackles. ABDOMEN: Soft, nontender. No mass palpable. Legs no edema and no swelling. Nervous system: Higher functions as mentioned earlier. Moves all four limbs. No focal deficits. Lymphatics: No lymph nodes palpable in the neck, axillae or groin. Skin no ulcer, rash or bleeding. LABS: At this time labs are WBC 12.2, hemoglobin 9.4. ASSESSMENT: 1. Status post transanal excision of the rectal cancer. 2. Increased WBC. 3. Sinus tachycardia. 4. Anemia. 5. PVCs. 6. History of AV ana reentry tachycardia as well as sinus tachycardia. 7. History of recent acute non ST segment elevation myocardial infarction. 8. History of gait dysfunction. 9. History of degenerative joint disease. 10.History anemia of chronic disease. 11.History of anxiety. 12.Gait dysfunction. RECOMMENDATIONS AND DISCUSSION: Continue current medication, continue symptomatic treatment. Otherwise repeat labs. UA with micro. Closely follow with surgery. Further recommendations to follow. Incentive spirometry. DVT prophylaxis. MMODL / IJN: [id number] /
[2017-11-23 07:21] VITALS: RESP 18
[2017-11-23 07:27] LABS: Anisocytosis Moderate; Basophils % (A) 1 %; Eosinophils # (A) 0.1 k/uL (0-0.7); Eosinophils % (A) 2 %; HCT 34.9 % (34.0-46.0); HGB 9.7 gm/dL (11.4-16.0); Hypochromasia Marked; Lymphocytes # (A) 1.7 k/uL (1.0-4.8); Lymphocytes % (A) 33 %; MCH 23.6 pg (25.0-35.0); MCHC 27.9 g/dL (31.0-37.0); MCV 84.5 fL (80.0-100.0); Mean Platelet Volume 7.1; Microcytosis Slight; Monocytes # (A) 0.5 k/uL (0-1.0); Monocytes % (A) 9 %; Neutrophils # (A) 2.7 k/uL (1.3-7.7); Neutrophils % (A) 54 %; Platelet Count 369 k/uL (150-450); RBC 4.14 m/uL (3.80-5.40); RDW 22.2 % (11.5-15.5)
[2017-11-23] MEDS: FAMOTIDINE 20 MG/2 ML VIAL IV SCH (07:29)
[2017-11-23] MEDS: METOPROLOL TARTRATE 25 MG TAB PO SCH (08:17)
[2017-11-23] MEDS: HEPARIN SODIUM,PORCINE 5,000 UNIT/ML 1 ML VIAL SQ SCH (08:17)
[2017-11-23] MEDS: ACETAMINOPHEN TAB 325 MG TAB PO PRN (08:18)
[2017-11-23] MEDS: TRIAMCINOLONE 0.1% CREAM 80 GM TUBE TOPICAL SCH (08:18)
[2017-11-23 08:59] LABS: Appearance,Urine Clear (Clear); Bacteria,Urine Rare /hpf; Bilirubin,Urine Negative (Negative); Blood,Urine Negative (Negative); Color,Urine Light Yellow; Glucose,Urine (UA) Negative (Negative); Ketones,Urine Negative (Negative); Leukocyte Esterase,Urine Trace (Negative); Protein,Urine Negative (Negative); RBC,Urine 1 /hpf (0-5); Specific Gravity,Urine 1.007 (1.001-1.035); Squamous Epithelial Cell,Urine <1 /hpf (0-4); Urobilinogen,Urine <2.0 mg/dL (<2.0); WBC,Urine 2 /hpf (0-5)
--- NOTE | 2017-11-23 11:09 | P.DS ---
Providers Expected date of discharge: 11/23/17 Attending physician: Jerome Garcia Consults: 11/21/17 12:26 Consult Physician Routine Consulting Provider: Michelle Genao Consult Reason/Comments: med manage Do you want consulting provider notified?: Yes [facility] Course: 71-year-old female who presented on elective admission to undergo transanal excision of rectal cancer done on November 21. Patient had recently undergone a colonoscopy which did show a small rectal cancer. There were no postop events. The white count was 5 hemoglobin 9.7 patient was able to ambulate from the bed to the bathroom gait steady rectal site surgical tenderness appropriate. Patient was felt to be hemodynamically stable and appropriate to proceed with a discharge with home care participating in the care at the time of discharge Impression Postop November 21 transanal excision of rectal cancer A recent diagnosis of rectal carcinoma Macrocytic anemia likely consistent with iron deficiency anemia secondary to recent diagnosis of rectal carcinoma Gait dysfunction Degenerative joint disease Recent acute non-ST elevated myocardial infarction The above impression and plan of care have been discussed and directed by signing physician. Claribel Virk nurse practitioner acting as scribe for signing physician. Plan - Discharge Summary Discharge Rx Participant: Yes New Discharge Prescriptions: New Docusate [Colace] 100 mg PO BID #60 capsule Continue Acetaminophen Tab [Tylenol] 650 mg PO Q6HR PRN tab PRN Reason: Mild Pain Or Fever > 100.5 Metoprolol Tartrate [Lopressor] 75 mg PO BID #180 tab ALPRAZolam [Xanax] 0.25 mg PO TID PRN #20 tab PRN Reason: Anxiety Triamcinolone 0.1% Cream [Kenalog] 1 applicatio TOPICAL BID Discharge Medication List Acetaminophen Tab [Tylenol] 650 mg PO Q6HR PRN tab 09/28/17 [Rx] ALPRAZolam [Xanax] 0.25 mg PO TID PRN #20 tab 10/18/17 [Rx] Metoprolol Tartrate [Lopressor] 75 mg PO BID #180 tab 10/18/17 [Rx] Triamcinolone 0.1% Cream [Kenalog] 1 applicatio TOPICAL BID 11/18/17 [History] Docusate [Colace] 100 mg PO BID #60 capsule 11/23/17 [Rx] Follow up Appointment(s)/Referral(s): [facility], [NON-STAFF] - 1 Week Herson Rosario DO [Primary Care Provider] - 3 Days Jerome Garcia MD [STAFF PHYSICIAN] - 1 Week Activity/Diet/Wound Care/Special Instructions: No tub bath for six weeks. Shower daily. No lifting over 4 pounds for the next 6 weeks. Use stool softeners as needed to avoid constipation May use ice packs to surgical site. Discharge Disposition: HOME WITH HOME HEALTH SERVICES
[2017-11-23] MEDS ORDERED: PNEUMOCOCCAL VACC-PNEUMOVAX 23 25 MCG/0.5 ML VIAL IM ONE (13:21)
[2017-11-23 14:47] VITALS: BP 104/54; PULSE 70; TEMP 98.9
--- NOTE | 2017-11-23 21:03 | PN ---
PROGRESS NOTE DATE OF SERVICE: 11/23/2017. INTERVAL HISTORY: This 72-year-old woman was admitted after transanal excision of rectal cancer, is being closely monitored. No chest pain. No palpitations. No fever. The patient has improved significantly. EXAM: Alert, oriented x3. Pulse 70, blood pressure 104/54, respirations 18, temperature 98.2, pulse ox 97% on room air. HEENT: Conjunctivae normal. NECK: No jugular venous distention. CARDIOVASCULAR: S1, S2 muffled. RESPIRATORY: Breath sounds diminished in the bases. No rhonchi. No crackles. ABDOMEN: Soft, nontender. LEGS: No edema. NERVOUS SYSTEM: Nonfocal. LABS: Hemoglobin 9.7. UA noted. ASSESSMENT: 1. Status post transanal excision of rectal cancer. 2. Increased WBC. 3. Sinus tachycardia. 4. Anemia. 5. Premature ventricular contractions. 6. History of atrioventricular ana reentry tachycardia as well as sinus bradycardia. 7. History of recent acute non ST-segment elevation myocardial infarction. 8. History of gait dysfunction. 9. Degenerative joint disease. 10.Anemia of chronic disease. 11.History of anxiety. 12.Gait dysfunction. RECOMMENDATIONS AND DISCUSSION: Recommend to continue current medical management and symptomatic treatment. Otherwise at this time, I would recommend continuing with the current medications. Closely monitor the rest of the medications per Surgery. Continue with the home medications. Follow closely with primary physician. DVT prophylaxis and incentive spirometry. Further recommendations to follow. MMVINCENZOL / SAHRAN: [id number] /
[2017-11-24] MEDS ORDERED: FAMOTIDINE 20 MG TAB PO SCH (09:00)
== END 2017-11-23 16:01 | disposition home health service (06) ==
LOC: OR 07:05 → 5MS5E 11:03 → OR 11-23 16:01
PROVIDERS: ATTEND Surgery
DX: C20 Malignant neoplasm of rectum (principal); K62.3 Rectal prolapse; K21.9 Gastro-esophageal reflux disease without esophagitis; M19.90 Unspecified osteoarthritis, unspecified site; D63.8 Anemia in other chronic diseases classified elsewhere; K92.2 Gastrointestinal hemorrhage, unspecified; I47.1 Supraventricular tachycardia; I49.3 Ventricular premature depolarization; I44.30 Unspecified atrioventricular block; I25.2 Old myocardial infarction; F41.9 Anxiety disorder, unspecified; Z80.3 Family history of malignant neoplasm of breast; Z79.52 Long term (current) use of systemic steroids; Z79.899 Other long term (current) drug therapy; Z88.5 Allergy status to narcotic agent; K44.9 Diaphragmatic hernia without obstruction or gangrene; Z91.018 Allergy to other foods
CPT/HCPCS: 80053; 81001; 85025; 88307; 90732

== ENCOUNTER 2018-08-23 10:05 | Day surgery (SDC) | payer MEDICARE ==
[2018-08-21 09:26] VITALS: BMI 19.0
[2018-08-23] MEDS: LACTATED RINGERS 1,000 ML IV SCH ×3 (10:44→13:35)
[2018-08-23] MEDS ORDERED: LIDOCAINE 1% INJ 10MG/ML (20 ML MDV) ONE (12:20)
[2018-08-23] MEDS ORDERED: PROPOFOL 10 MG/ML 20 ML VIAL IV ONE (12:20)
--- NOTE | 2018-08-23 12:30 | P.GSHP ---
History of Present Illness H&P Date: 08/23/18 Chief Complaint: History of anal cancer This is a 72-year-old female who presents today for colonoscopy. Patient has a previous history of anal cancer. Past Medical History Past Medical History: Cancer, GERD/Reflux, Hypertension, Myocardial Infarction ( [place]), Osteoarthritis (OA), Pneumonia Additional Past Medical History / Comment(s): hx rectal cancer. weakness and falls, normal pressure hydrocephalus. Other HX: Hiatal hernia, ovarian cyst , doudenal ulcers, bronchitis, gout, heart murmur, hx "fast heart rate" Last Myocardial Infarction Date:: unknown History of Any Multi-Drug Resistant Organisms: None Reported Past Surgical History: Adenoidectomy, Tonsillectomy Additional Past Surgical History / Comment(s): EGD/colonoscopy, bilateral cataract removal with lens implants, tumor removed from rectum Past Anesthesia/Blood Transfusion Reactions: No Reported Reaction, Motion Sickness Additional Past Anesthesia/Blood Transfusion Reaction / Comment(s): Pt recently received blood without reaction. Smoking Status: Never smoker - Past Family History Mother Family Medical History: Cancer, Dementia, Seizure Disorder Additional Family Medical History / Comment(s): breast cancer, myasthenia gravis Father Family Medical History: Diabetes Mellitus Additional Family Medical History / Comment(s): Father was deaf. Medications and Allergies Home Medications Medication Instructions Recorded Confirmed Type Metoprolol Tartrate [Lopressor] 75 mg PO BID #180 tab 10/18/17 08/23/18 Rx Docusate [Colace] 100 mg PO BID #60 capsule 11/23/17 08/23/18 Rx Acetaminophen Tab [Tylenol] 650 mg PO HS 08/21/18 08/23/18 History Acetaminophen [Tylenol Extra 2 tab PO DAILY 08/21/18 08/23/18 History Strength] Aspirin [Adult Low Dose Aspirin EC] 81 mg PO DAILY 08/21/18 08/23/18 History Aspirin/Acetaminophen/Caffeine 2 each PO DAILY 08/21/18 08/23/18 History [Excedrin Extra Strength Caplet] Atorvastatin Calcium [Lipitor] 20 mg PO DAILY 08/21/18 08/23/18 History Allergies Allergy/AdvReac Type Severity Reaction Status Date / Time codeine Allergy Nausea & Verified 08/23/18 10:24 Vomiting tomato Allergy Swelling Verified 08/23/18 10:24 Surgical - Exam Vital Signs Pulse Resp BP Pulse Ox 61 16 113/56 98 08/23/18 10:33 08/23/18 10:33 08/23/18 10:33 08/23/18 10:33 - General well developed, no distress - Eyes PERRL - ENT normal pinna - Neck no masses - Respiratory normal expansion, normal respiratory effort - Cardiovascular Rhythm: regular - Abdomen Abdomen: soft, non tender Assessment and Plan Assessment: History of anal cancer. We'll perform colonoscopy.
--- NOTE | 2018-08-23 12:43 | P.OP ---
Date of Procedure: 08/23/18 Preoperative Diagnosis: History of anal cancer Postoperative Diagnosis: Diverticulosis Procedure(s) Performed: Colonoscopy Anesthesia: MAC Surgeon: Jerome Garcia Pathology: none sent Condition: stable Disposition: PACU Description of Procedure: The patient's placed on the endoscopy table in the lateral position she received IV sedation. Digital rectal exam was performed which revealed no abnormalities. The flexible colonoscope was then placed patient anus passed throughout the entire colon. The ileocecal valve was visualized. He can, ascending and transverse colon appeared normal. In the descending; was mild diverticular changes. The scope was then brought back through the rectum and there was no abnormalities noted. Scope was withdrawn for patient.
[2018-08-23 13:09] VITALS: PULSE 68; RESP 18
[2018-08-23 13:29] VITALS: BP 118/62
== END 2018-08-23 13:46 | disposition home or self-care (01) ==
LOC: ORWHC2ENDO 10:05
PROVIDERS: ATTEND Surgery
DX: K57.30 Diverticulosis of large intestine without perforation or abscess without bleeding (principal); K21.9 Gastro-esophageal reflux disease without esophagitis; I10 Essential (primary) hypertension; I25.2 Old myocardial infarction; M19.90 Unspecified osteoarthritis, unspecified site; I25.10 Atherosclerotic heart disease of native coronary artery without angina pectoris; G91.2 (Idiopathic) normal pressure hydrocephalus; M10.9 Gout, unspecified; Z79.82 Long term (current) use of aspirin; Z79.899 Other long term (current) drug therapy; Z88.5 Allergy status to narcotic agent; Z85.048 Personal history of other malignant neoplasm of rectum, rectosigmoid junction, and anus; Z91.018 Allergy to other foods; Z87.01 Personal history of pneumonia (recurrent)
CPT/HCPCS: 45378; J2001; J2704

== ENCOUNTER 2019-02-07 09:27 | Day surgery (SDC) | payer MEDICARE ==
[2019-02-05 14:49] VITALS: BMI 20.7
[~2019-02-07 09:27] MED LIST changes: -DEXAMETHASONE SOD PHOSPHATE 10 MG/ML 1 ML VIAL IV ONE; -HEPARIN SODIUM,PORCINE 5,000 UNIT/ML 1 ML VIAL SQ ONE; -HYDROmorphone 0.5 MG/0.5 ML SYRINGE IVP PRN; +LACTATED RINGERS 1,000 ML IV SCH; +LIDOCAINE 1% 20 ML VIAL (10MG/ML) FOR IV START INTRADERMA PRN; -ONDANSETRON 4 MG/2 ML VIAL IVP ONE; -Pre Op ABX Message 1 EACH MISC MISCELLANE ONE
[2019-02-07 09:44] VITALS: TEMP 98.4
[2019-02-07] MEDS ORDERED: NA PHOS,M-B/NA PHOS,DI-BA 133 ML ENEMA RECTAL STA (09:48)
[2019-02-07] MEDS ORDERED: LACTATED RINGERS 1,000 ML IV ONE (10:06)
[2019-02-07] MEDS ORDERED: LIDOCAINE 1% INJ 10MG/ML (20 ML MDV) ONE (10:42)
[2019-02-07] MEDS ORDERED: PROPOFOL 10 MG/ML 20 ML VIAL IV ONE (10:42)
--- NOTE | 2019-02-07 10:44 | P.GSHP ---
History of Present Illness H&P Date: 02/07/19 Chief Complaint: History of rectal carcinoma This a 73-year-old female with previous history of rectal carcinoma. Patient presents today for colonoscopy. Past Medical History Past Medical History: Cancer, GERD/Reflux, Hypertension, Myocardial Infarction ([place]), Osteoarthritis ([place]), Pneumonia Additional Past Medical History / Comment(s): hx rectal cancer 2017., normal pressure hydrocephalus-pt. never heard of this dx., duodenal ulcers, gout, heart murmur, hx "fast heart rate" Last Myocardial Infarction Date:: unknown History of Any Multi-Drug Resistant Organisms: None Reported Past Surgical History: Adenoidectomy, Orthopedic Surgery, Tonsillectomy Additional Past Surgical History / Comment(s): EGD/colonoscopy, bilateral cataract removal with lens implants, ORIF left arm, tumor removed from rectum 2017 Past Anesthesia/Blood Transfusion Reactions: No Reported Reaction, Motion Sickness Additional Past Anesthesia/Blood Transfusion Reaction / Comment(s): Pt recently received blood without reaction. Smoking Status: Never smoker - Past Family History Mother Family Medical History: Cancer, Dementia, Seizure Disorder Additional Family Medical History / Comment(s): breast cancer, myasthenia gravis Father Family Medical History: Diabetes Mellitus Additional Family Medical History / Comment(s): Father was deaf. Medications and Allergies Home Medications Medication Instructions Recorded Confirmed Type Acetaminophen [Tylenol Extra 2 tab PO DAILY PRN 08/21/18 02/05/19 History Strength] Aspirin [Adult Low Dose Aspirin EC] 81 mg PO DAILY 08/21/18 02/05/19 History Aspirin/Acetaminophen/Caffeine 2 each PO DAILY PRN 08/21/18 02/05/19 History [Excedrin Extra Strength Caplet] Atorvastatin Calcium [Lipitor] 20 mg PO DAILY 08/21/18 02/05/19 History Docusate [Colace] 100 mg PO DAILY 02/05/19 02/05/19 History Metoprolol Tartrate [Lopressor] 25 mg PO BID 02/05/19 02/05/19 History Oxymetazoline 0.05% Nasl [place] 2 spray EA NOSTRIL DAILY 02/05/19 02/05/19 History [Afrin 0.05% Nasal [place]] Allergies Allergy/AdvReac Type Severity Reaction Status Date / Time codeine Allergy Nausea & Verified 02/05/19 12:58 Vomiting tomato Allergy mouth Verified 02/05/19 12:58 swelling Surgical - Exam Vital Signs Temp Pulse Resp BP Pulse Ox 98.4 F 85 18 139/70 97 02/07/19 09:43 02/07/19 09:43 02/07/19 09:43 02/07/19 09:43 02/07/19 09:43 - General well developed, well nourished, no distress - Eyes PERRL - ENT normal pinna - Neck no masses - Respiratory normal expansion - Cardiovascular Rhythm: regular - Abdomen Abdomen: soft, non tender Assessment and Plan Assessment: History of rectal carcinoma. We'll perform colonoscopy.
--- NOTE | 2019-02-07 10:56 | P.OP ---
Date of Procedure: 02/07/19 Preoperative Diagnosis: History of rectal cancer Postoperative Diagnosis: No evidence of recurrent rectal cancer Normal colonoscopy to transverse colon. Poor colonic prep Procedure(s) Performed: Colonoscopy Anesthesia: MAC Surgeon: Jerome Garcia Pathology: none sent Condition: stable Disposition: PACU Description of Procedure: The patient received an enema prior to the colonoscopy due to her poor prep. Patient was still passing dark stools on arrival the preoperative hold area. Patient was given an enema. He had some results stable. Next patient received IV sedation she was placed in the endoscopy table in the lateral position. Digital rectal exam was performed which revealed no abnormali ties. There is no unsteady recurrent rectal cancer. The flexible colonoscope was then placed patient anus and passed throughout the colon. In the transverse colon there was a transition to extremely poor colonic prep. The patient had a large amount of black dark stool. The scope could not be advanced. This point the scope was withdrawn. The distal transverse colon descending colon, sigmoid colon and rectum appeared normal. There is known to any polyps or tumors seen. Scope was withdrawn for patient.
[2019-02-07 11:05] VITALS: RESP 16
[2019-02-07 11:16] VITALS: BP 136/77; PULSE 77
== END 2019-02-07 11:51 | disposition home or self-care (01) ==
LOC: ORWHC2ENDO 09:27
PROVIDERS: ATTEND Surgery
DX: Z08 Encounter for follow-up examination after completed treatment for malignant neoplasm (principal); Z85.048 Personal history of other malignant neoplasm of rectum, rectosigmoid junction, and anus; G91.2 (Idiopathic) normal pressure hydrocephalus; I10 Essential (primary) hypertension; I25.2 Old myocardial infarction; K21.9 Gastro-esophageal reflux disease without esophagitis; M19.90 Unspecified osteoarthritis, unspecified site; Z79.82 Long term (current) use of aspirin; Z98.42 Cataract extraction status, left eye; Z98.41 Cataract extraction status, right eye; Z96.1 Presence of intraocular lens; Z83.3 Family history of diabetes mellitus; Z79.899 Other long term (current) drug therapy; Z88.5 Allergy status to narcotic agent; Z91.018 Allergy to other foods
CPT/HCPCS: 45378

== ENCOUNTER 2019-08-10 09:31 | Day surgery (SDC) | payer MEDICARE ==
[2019-08-07 16:05] VITALS: BMI 20.1
[2019-08-10 10:14] VITALS: TEMP 98.8
[2019-08-10] MEDS ORDERED: PROPOFOL 10 MG/ML 20 ML VIAL IV ONE (10:48)
[2019-08-10] MEDS ORDERED: LIDOCAINE 1% INJ 10MG/ML (20 ML MDV) ONE (10:48)
--- NOTE | 2019-08-10 10:58 | P.GSHP ---
History of Present Illness H&P Date: 08/10/19 Chief Complaint: History of rectal cancer, GI bleed This a 73-year-old female with history of rectal cancer. Patient presents today for colonoscopy. She's had some rectal bleeding. Past Medical History Past Medical History: Cancer, GERD/Reflux, Hypertension, Myocardial Infarction ([place]), Osteoarthritis ([place]), Pneumonia Additional Past Medical History / Comment(s): hx rectal cancer 2017, normal pressure hydrocephalus-pt. never heard of this dx. duodenal ulcers, arthritic gout, heart murmur, hx "fast heart rate" Last Myocardial Infarction Date:: unknown History of Any Multi-Drug Resistant Organisms: None Reported Past Surgical History: Adenoidectomy, Orthopedic Surgery, Tonsillectomy Additional Past Surgical History / Comment(s): EGD/colonoscopy, colon polyps bilateral cataract removal with lens implants, ORIF left arm, tumor removed from rectum 2017 Past Anesthesia/Blood Transfusion Reactions: No Reported Reaction, Motion Sickness Additional Past Anesthesia/Blood Transfusion Reaction / Comment(s): Pt recently received blood without reaction. Smoking Status: Never smoker - Past Family History Mother Family Medical History: Cancer, Dementia, Seizure Disorder Additional Family Medical History / Comment(s): breast cancer, myasthenia gravis Father Family Medical History: Diabetes Mellitus Additional Family Medical History / Comment(s): Father was deaf. Medications and Allergies Home Medications Medication Instructions Recorded Confirmed Type Acetaminophen [Tylenol Extra 2 tab PO DAILY PRN 08/21/18 08/10/19 History Strength] Aspirin [Adult Low Dose Aspirin EC] 81 mg PO DAILY 08/21/18 08/10/19 History Aspirin/Acetaminophen/Caffeine 2 each PO DAILY PRN 08/21/18 08/10/19 History [Excedrin Extra Strength Caplet] Atorvastatin Calcium [Lipitor] 20 mg PO DAILY 08/21/18 08/10/19 History Docusate [Colace] 100 mg PO BID 02/05/19 08/10/19 History Metoprolol Tartrate [Lopressor] 25 mg PO BID 02/05/19 08/10/19 History Oxymetazoline 0.05% Nasl [place] 2 spray EA NOSTRIL DAILY 02/05/19 08/10/19 History [Afrin 0.05% Nasal [place]] Allergies Allergy/AdvReac Type Severity Reaction Status Date / Time codeine Allergy Nausea & Verified 08/10/19 09:53 Vomiting tomato Allergy mouth Verified 08/10/19 09:53 swelling Surgical - Exam Vital Signs Temp Pulse Resp BP Pulse Ox 98.8 F 77 16 128/61 99 08/10/19 10:10 08/10/19 10:10 08/10/19 10:10 08/10/19 10:10 08/10/19 10:10 - General well developed, well nourished, cachectic - Eyes PERRL - ENT normal pinna - Neck no masses - Respiratory normal expansion - Cardiovascular Rhythm: regular - Abdomen Abdomen: soft, non tender Assessment and Plan Assessment: C rectal cancer. We'll perform colonoscopy.
[2019-08-10 11:28] VITALS: BP 119/65; PULSE 70; RESP 18
--- NOTE | 2019-08-10 11:42 | P.OP ---
Date of Procedure: 08/10/19 Preoperative Diagnosis: Rectal cancer Postoperative Diagnosis: Rectal mass Procedure(s) Performed: Colonoscopy Anesthesia: MAC Surgeon: Jerome Garcia Pathology: other (Rectum) Condition: stable Disposition: PACU Description of Procedure: The patient's placed on the endoscopy table in the lateral position. She received IV sedation. Digital rectal exam was performed which revealed a suspicious massAppeared is evidence some bleeding. The mass is just above the anal verge. The flexible colonoscope was then placed patient anus and passed with colon. Scope was placed into the transverse colon at this point there was a large amount stool. The scope summer back and the remainder of the descending and sigmoid colon appeared normal. The scope was then back into the rectum and the area mass was biopsied. This was related to scar or a rectal cancer. Several biopsies of the mass were performed. Scope was withdrawn. Patient top she will was sent to recovery room in stable condition.
== END 2019-08-10 12:08 | disposition home or self-care (01) ==
LOC: ORWHC2ENDO 09:31
PROVIDERS: ATTEND Surgery
DX: C20 Malignant neoplasm of rectum (principal); Z85.048 Personal history of other malignant neoplasm of rectum, rectosigmoid junction, and anus; K21.9 Gastro-esophageal reflux disease without esophagitis; I10 Essential (primary) hypertension; M19.90 Unspecified osteoarthritis, unspecified site; G91.2 (Idiopathic) normal pressure hydrocephalus; M10.00 Idiopathic gout, unspecified site; R01.1 Cardiac murmur, unspecified; R64 Cachexia; I25.10 Atherosclerotic heart disease of native coronary artery without angina pectoris; E78.5 Hyperlipidemia, unspecified; I25.2 Old myocardial infarction; Z87.01 Personal history of pneumonia (recurrent); Z87.11 Personal history of peptic ulcer disease; Z86.79 Personal history of other diseases of the circulatory system; Z90.89 Acquired absence of other organs; Z98.890 Other specified postprocedural states; Z86.010 Personal history of colon polyps; Z98.42 Cataract extraction status, left eye; Z98.41 Cataract extraction status, right eye; Z96.1 Presence of intraocular lens; Z87.81 Personal history of (healed) traumatic fracture; Z87.898 Personal history of other specified conditions; Z79.899 Other long term (current) drug therapy; Z79.82 Long term (current) use of aspirin; Z88.5 Allergy status to narcotic agent; Z91.018 Allergy to other foods; Z97.2 Presence of dental prosthetic device (complete) (partial); Z98.811 Dental restoration status; Z80.3 Family history of malignant neoplasm of breast; Z81.8 Family history of other mental and behavioral disorders; Z82.0 Family history of epilepsy and other diseases of the nervous system; Z82.2 Family history of deafness and hearing loss; Z83.3 Family history of diabetes mellitus
CPT/HCPCS: 88305; 45380; J2001; J2704

== ENCOUNTER → 2019-09-08 | Outpatient (CLI) | payer MEDICARE ==
--- NOTE | 2019-09-11 07:03 | PE ---
EXAMINATION TYPE: PET CT fusion skull to thigh DATE OF EXAM: 09/08/2019 COMPARISON: CT chest abdomen and pelvis October 16, 2017 HISTORY: Rectal cancer diagnosed on biopsy early 2017. TECHNIQUE: Following the intravenous administration of 11.65 mCi of F-18 FDG, whole body images are performed from the skull base to the midthigh. Images are reviewed on the computer in the coronal, a xial, and sagittal planes. Reconstructed rotating images are created on independent workstation and reviewed on the computer. A noncontrast CT is performed in conjunction with the PET scan. SCAN: Initial Scan FINDINGS: SKULL BASE AND NECK: No areas of suspicious hypermetabolic uptake. CHEST, MEDIASTINUM, AND HILAR REGION: No areas of suspicious hypermetabolic uptake. Small right pleur al effusion noted. ABDOMEN AND PELVIS: Expected uptake in collecting systems and bladder. Mild hypermetabolic uptake ajay ng the course of sigmoid rectal colon axial images 177 through 183 where there is elewxxtz-gh-sophlh concentric wall thickening just distal to prominent phlebolith axial image 175, max SUV is 6.3. More distally there is hypermetabolic uptake centrally in the rectum extending distally slightly right of midline where there is suspected eccentric mass measuring just over 3 cm long axis transversely axial image 200, abnormal hypermetabolic uptake is seen in images 197 through 208 with max SUV of 9.66. No additional areas of suspicious hypermetabolic uptake. OSSEOUS STRUCTURES: No areas of suspicious hypermetabolic uptake. OTHER CT: Visualized brain parenchyma shows moderate atrophy and chronic small vessel ischemic change . There is cardiomegaly and coronary artery calcification. There is tiny amount of anterior perihepatic ascites. Small amount of perisplenic ascites. Moderate a mount of pelvic ascites just superior to bladder does not completely layer dependently without defini tive abnormal hypermetabolic uptake. Some mild fluid throughout the mesentery with slight nodular bear earance right upper to mid aspect for reference axial image 134. Dependent gallstones in gallbladder. Uterus suspect is surgically absent. IMPRESSION: Biopsy-proven cancer thought present mid to lower rectum centered right of midline. Secon d lesion of concern distal sigmoid colon level noted as detailed above. Correlate with colonoscopy ad vised. Nonsimple ascites most prominent in the lower abdomen and pelvis despite lack of metabolic upt minna nodularity especially in the upper to mid abdomen is concerning for peritoneal carcinomatosis as there appears to be some local mass effect on adjacent bowel loops.
== END | disposition home or self-care (01) ==
LOC: RADPETMAIN 12:30
PROVIDERS: ATTEND Internal Medicine Hematology & Oncology
DX: R93.5 Abnormal findings on diagnostic imaging of other abdominal regions, including retroperitoneum (principal); R93.3 Abnormal findings on diagnostic imaging of other parts of digestive tract; R18.8 Other ascites; C20 Malignant neoplasm of rectum
CPT/HCPCS: 78815; A9552

== ENCOUNTER 2019-10-30 09:22 | Day surgery (SDC) | payer MEDICARE ==
[2019-10-24 11:57] VITALS: BMI 17.7
[~2019-10-30 09:22] MED LIST changes: +DEXAMETHASONE SOD PHOSPHATE 10 MG/ML 1 ML VIAL IV ONE; +HEPARIN SODIUM,PORCINE 5,000 UNIT/ML 1 ML VIAL SQ ONE; -LIDOCAINE 1% 20 ML VIAL (10MG/ML) FOR IV START INTRADERMA PRN; +MIDAZOLAM 2 MG/2 ML VIAL IV PRN; +ONDANSETRON 4 MG/2 ML VIAL IVP ONE; +fentaNYL (PF) 50 MCG/ML 2 ML AMP IV PRN
[2019-10-30] MEDS ORDERED: LIDOCAINE 1% 20 ML VIAL (10MG/ML) FOR IV START INTRADERMA ONE (09:55)
--- NOTE | 2019-10-30 10:44 | P.GSHP ---
History of Present Illness H&P Date: 10/30/19 Chief Complaint: Right upper quadrant pain This a 73-year-old female who's right upper quadrant pain. Patient was found have cholelithiasis. Patient also has a vague density on her PET scan. She has a history of rectal cancer. Patient undergo laparoscopic ostectomy and possible peritoneal biopsy. Past Medical History Past Medical History: Cancer, GERD/Reflux, Hypertension, Myocardial Infarction ([place]), Osteoarthritis (OA), Skin Disorder Additional Past Medical History / Comment(s): hx rectal cancer 2017, normal pressure hydrocephalus-pt. never heard of this dx. hx duodenal ulcers,gout, heart murmur, hx "fast heart rate" , "recent low blood pressure", "upper abdomen blockage" on PET scan, 2 tumors in "Bowel and rectum", has rectal bleeding and constipation and diarrhea, gallstones, Last Myocardial Infarction Date:: unknown History of Any Multi-Drug Resistant Organisms: None Reported Past Surgical History: Adenoidectomy, Orthopedic Surgery, Tonsillectomy Additional Past Surgical History / Comment(s): EGD/colonoscopy, bilateral cataract removal with lens implants, ORIF left arm, tumor removed from rectum 2017, vaginal polyps removed Past Anesthesia/Blood Transfusion Reactions: Motion Sickness Additional Past Anesthesia/Blood Transfusion Reaction / Comment(s): Pt has received blood without reaction. Smoking Status: Never smoker - Past Family History Mother Family Medical History: Cancer Additional Family Medical History / Comment(s): breast cancer, myasthenia gravis Father Family Medical History: Diabetes Mellitus Additional Family Medical History / Comment(s): Father was deaf. Medications and Allergies Home Medications Medication Instructions Recorded Confirmed Type Acetaminophen [Tylenol Extra 1,000 tab PO DAILY PRN 08/21/18 10/24/19 History Strength] Aspirin [Adult Low Dose Aspirin EC] 81 mg PO DAILY 08/21/18 10/24/19 History Aspirin/Acetaminophen/Caffeine 2 each PO DAILY PRN 08/21/18 10/24/19 History [Excedrin Extra Strength Caplet] Atorvastatin Calcium [Lipitor] 20 mg PO HS 08/21/18 10/24/19 History Docusate [Colace] 100 mg PO BID 02/05/19 10/24/19 History Metoprolol Tartrate [Lopressor] 25 mg PO BID 02/05/19 10/24/19 History Oxymetazoline 0.05% Nasl [place] 2 spray EA NOSTRIL DAILY 02/05/19 10/24/19 History [Afrin 0.05% Nasal [place]] Simethicone [Gas-X] 125 mg PO BID PRN 10/24/19 10/24/19 History Allergies Allergy/AdvReac Type Severity Reaction Status Date / Time codeine Allergy Nausea & Verified 10/24/19 11:39 Vomiting tomato Allergy mouth Verified 10/24/19 11:39 swelling Surgical - Exam Vital Signs Temp Pulse Resp BP Pulse Ox 98.3 F 82 16 117/58 97 10/30/19 09:49 10/30/19 09:49 10/30/19 09:49 10/30/19 09:49 10/30/19 09:49 - General well developed, well nourished, no distress - Eyes PERRL - ENT normal pinna - Neck no masses - Respiratory normal expansion - Cardiovascular Rhythm: regular - Abdomen Abdomen: soft, non tender Assessment and Plan Assessment: Cholelithiasis. We'll perform laparoscopic close to. Questionable peritoneal mass. We'll perform biopsy.
[2019-10-30] MEDS ORDERED: PROPOFOL 10 MG/ML 20 ML VIAL IV ONE (10:56)
[2019-10-30] MEDS ORDERED: SUCCINYLCHOLINE CHLORIDE 100 MG/5 ML SYR IV ONE (10:56)
[2019-10-30] MEDS ORDERED: ROCURONIUM BROMIDE 10 MG/ML 10 ML VIAL IV ONE (10:56)
[2019-10-30] MEDS ORDERED: GLYCOPYRROLATE 0.2 MG/ML 2 ML VIAL ONE (10:56)
[2019-10-30] MEDS ORDERED: NEOSTIGMINE 1 MG/ML 10 ML VIAL ONE (10:56)
[2019-10-30] MEDS ORDERED: LIDOCAINE 1% INJ 10MG/ML (20 ML MDV) ONE (10:56)
[2019-10-30] MEDS ORDERED: fentaNYL (PF) 50 MCG/ML 2 ML AMP ONE (10:56)
[2019-10-30] MEDS ORDERED: BUPIVACAINE (PF) 0.25% 30 ML VIAL SQ ONE (11:27)
[2019-10-30] MEDS ORDERED: LACTATED RINGERS 1,000 ML IV ONE (11:39)
--- NOTE | 2019-10-30 11:41 | P.OP ---
Date of Procedure: 10/30/19 Preoperative Diagnosis: Cholelithiasis Cholecystitis Postoperative Diagnosis: Cholelithiasis Cholecystitis Carcinomatosis Procedure(s) Performed: Laparoscopic ostectomy Laparoscopic peritoneal biopsy Anesthesia: TIO Surgeon: Jerome Garcia Estimated Blood Loss (ml): 5 Pathology: other (Gallbladder, peritoneum) Condition: stable Disposition: PACU Description of Procedure: The patient was placed on the operating table. The patient received a general endotracheal tube anesthesia. The patients abdomen was prepped and draped in the usual sterile fashion. Through an infraumbilical stab incision, the fascia of the anterior abdominal wall was grasped with a pair of Kochers and then the Veress needle was placed in the peritoneal cavity. Position of the Veress needle was confirmed with positive drop test. The abdomen was then insufflated. After adequate insufflation, the 10 mm trocar was placed in the peritoneal cavity. Following this the laparoscope was placed in the peritoneal cavity. The patient was placed in the head-up, right side up position and then a 5 mm trocar was placed in the right lateral and right subcostal position under direct visualization. A 8 mm trocar was placed in the epigastric position. The gallbladder was grasped in the fundus and infundibulum. Traction on the gallbladder was placed in the lateral and the cephalad positions. The triangle of Calot was visualized.. The cystic duct was bluntly dissected until the union of the cystic duct and common bile duct was seen. A critical view of safety was achieved. The cystic duct was then divided and sealed with the Harmonic scissors. A PDS Endoloop was then placed throughout the cystic duct stump. The cystic artery divided and sealed with the Harmonic scissors. The gallbladder was then removed from the liver bed using Harmonic scissors. The gallbladder was then extracted through the epigastric port site. Operative field was checked for any bleeding spots and Harmonic scissors was used to coagulate the liver bed. The abdomen was irrigated. The peritoneum was examined. Above the liver along the falciform ligament appeared to be evidence of carcinomatosis with studding of the peritoneum and posterior ligament. Using a tooth forceps several biopsies of this were performed. There is no bleeding seen. The trocars were removed. The skin was closed using interrupted 3-0 Vicryl suture. Dermabond dressing were applied. The patient tolerated the procedure well.
[2019-10-30 11:59] VITALS: TEMP 97.5
[2019-10-30 12:42] VITALS: RESP 16
[2019-10-30] MEDS ORDERED: HYDROcodone/APAP 5-325MG 1 EACH TAB PO ONE (13:21)
[2019-10-30 13:41] VITALS: BP 131/79; PULSE 77
== END 2019-10-30 14:11 | disposition home or self-care (01) ==
LOC: OR 09:22
PROVIDERS: ATTEND Surgery
DX: K80.10 Calculus of gallbladder with chronic cholecystitis without obstruction (principal); C78.6 Secondary malignant neoplasm of retroperitoneum and peritoneum; I10 Essential (primary) hypertension; I25.10 Atherosclerotic heart disease of native coronary artery without angina pectoris; I25.2 Old myocardial infarction; M19.90 Unspecified osteoarthritis, unspecified site; M10.9 Gout, unspecified; G91.2 (Idiopathic) normal pressure hydrocephalus; K21.9 Gastro-esophageal reflux disease without esophagitis; Z88.5 Allergy status to narcotic agent; Z91.018 Allergy to other foods; Z85.048 Personal history of other malignant neoplasm of rectum, rectosigmoid junction, and anus; Z79.82 Long term (current) use of aspirin; Z79.899 Other long term (current) drug therapy; Z83.3 Family history of diabetes mellitus; Z87.19 Personal history of other diseases of the digestive system; Z90.89 Acquired absence of other organs; Z98.41 Cataract extraction status, right eye; Z98.42 Cataract extraction status, left eye; Z96.1 Presence of intraocular lens; Z98.890 Other specified postprocedural states; Z80.3 Family history of malignant neoplasm of breast
CPT/HCPCS: 88304; 88305; 88342; 88341; 47562; 49321; J1644; J1100; J2710; J0690; J2405; J2001; J3010; J0330; J2704

== ENCOUNTER 2019-11-12 06:28 | Day surgery (SDC) | payer MEDICARE ==
[2019-11-08 10:27] VITALS: BMI 17.7
[~2019-11-12 06:28] MED LIST changes: -HEPARIN SODIUM,PORCINE 5,000 UNIT/ML 1 ML VIAL SQ ONE; +HYDROmorphone 0.5 MG/0.5 ML SYRINGE IVP PRN; +LIDOCAINE 1% (10MG/ML) FOR IV START INTRADERMA PRN; +Pre Op ABX Message 1 EACH MISC MISCELLANE ONE
--- NOTE | 2019-11-12 07:59 | P.GSHP ---
History of Present Illness H&P Date: 11/12/19 Chief Complaint: Metastatic rectal cancer Is a 74-year-old female been safe for Port-A-Cath insertion. Patient has history of metastatic rectal cancer. Past Medical History Past Medical History: Cancer, GERD/Reflux, Hypertension, Myocardial Infarction ([place]), Osteoarthritis ([place]), Skin Disorder Additional Past Medical History / Comment(s): hx rectal cancer 2017, normal pressure hydrocephalus-pt. never heard of this dx. hx duodenal ulcers,gout, heart murmur, hx "fast heart rate" , "recent low blood pressure", "upper abdomen blockage" on PET scan, 2 tumors in "Bowel and rectum", hx of rectal bleeding ., constipation and diarrhea., had cholecystectomy 10/30/19-pt states incisions healing with no signs of infection. Last Myocardial Infarction Date:: unknown History of Any Multi-Drug Resistant Organisms: None Reported Past Surgical History: Adenoidectomy, Cholecystectomy, Orthopedic Surgery, Tonsillectomy Additional Past Surgical History / Comment(s): EGD/colonoscopy, bilateral cataract removal with lens implants, ORIF left arm, tumor removed from rectum 2017, vaginal polyps removed, lap jer 10/30/19 Past Anesthesia/Blood Transfusion Reactions: No Reported Reaction, Motion Sickness Additional Past Anesthesia/Blood Transfusion Reaction / Comment(s): Pt has received blood without reaction. Past Psychological History: Anxiety Additional Psychological History / Comment(s): . Smoking Status: Never smoker Past Alcohol Use History: None Reported Past Drug Use History: None Reported - Past Family History Mother Family Medical History: Cancer Additional Family Medical History / Comment(s): breast cancer, myasthenia gravis Father Family Medical History: Diabetes Mellitus Additional Family Medical History / Comment(s): Father was deaf. Medications and Allergies Home Medications Medication Instructions Recorded Confirmed Type Acetaminophen [Tylenol Extra 1,000 tab PO DAILY PRN 08/21/18 11/08/19 History Strength] Aspirin [Adult Low Dose Aspirin EC] 81 mg PO DAILY 08/21/18 11/08/19 History Aspirin/Acetaminophen/Caffeine 2 each PO DAILY PRN 08/21/18 11/08/19 History [Excedrin Extra Strength Caplet] Atorvastatin Calcium [Lipitor] 20 mg PO HS 08/21/18 11/08/19 History Docusate [Colace] 100 mg PO BID 02/05/19 11/08/19 History Metoprolol Tartrate [Lopressor] 25 mg PO BID 02/05/19 11/08/19 History Oxymetazoline 0.05% Nasl [place] 2 spray EA NOSTRIL DAILY 02/05/19 11/08/19 History [Afrin 0.05% Nasal [place]] Simethicone [Gas-X] 125 mg PO BID PRN 10/24/19 11/08/19 History HYDROcodone/APAP 5-325MG [[place] 1 tab PO Q6HR PRN #10 tab 10/30/19 11/08/19 Rx 5-325] Bismuth Subsalicylate 1 dose PO DIRECTED PRN 11/08/19 11/08/19 History [Pepto-Bismol] Allergies Allergy/AdvReac Type Severity Reaction Status Date / Time codeine Allergy Nausea & Verified 11/12/19 06:51 Vomiting tomato Allergy mouth Verified 11/12/19 06:51 swelling Surgical - Exam Vital Signs Temp Pulse Resp BP Pulse Ox 97.4 F L 70 16 126/65 97 11/12/19 06:48 11/12/19 06:48 11/12/19 06:48 11/12/19 06:48 11/12/19 06:48 - General well developed, well nourished, no distress - Eyes PERRL - ENT normal pinna - Neck no masses - Respiratory normal expansion - Cardiovascular Rhythm: regular - Abdomen Abdomen: soft, non tender Assessment and Plan Assessment: Rectal cancer. We will perform Port-A-Cath insertion.
[2019-11-12] MEDS ORDERED: LIDOCAINE 1% INJ 10MG/ML (20 ML MDV) ONE (08:00)
[2019-11-12] MEDS ORDERED: ceFAZolin 1,000 MG VIAL ONE (08:00)
[2019-11-12] MEDS ORDERED: diphenhydrAMINE 50 MG/ML 1 ML VIAL ONE (08:00)
[2019-11-12] MEDS ORDERED: KETAMINE 10 MG/ML 20 ML VIAL ONE (08:00)
[2019-11-12] MEDS ORDERED: HYDROmorphone (PF) 1 MG/ML ONE (08:00)
[2019-11-12] MEDS ORDERED: PROPOFOL 10 MG/ML 20 ML VIAL IV ONE (08:00)
[2019-11-12] MEDS ORDERED: fentaNYL (PF) 50 MCG/ML 2 ML AMP ONE (08:00)
[2019-11-12] MEDS ORDERED: MIDAZOLAM 2 MG/2 ML VIAL ONE (08:00)
[2019-11-12] MEDS ORDERED: HEPARIN SODIUM,PORCINE 100 UNIT/ML 5 ML VIAL IV ONE ×2 (08:26→08:38)
[2019-11-12] MEDS ORDERED: IOHEXOL 180 MG/ML 1 ML ML INJ ONE ×2 (08:26→08:38)
[2019-11-12] MEDS ORDERED: BUPIVACAINE (PF) 0.25% 30 ML VIAL SQ ONE ×2 (08:27→08:38)
[2019-11-12] MEDS ORDERED: SODIUM CHLORIDE 0.9% 50 ML with ceFAZolin 2,000 MG IV ONE ×2 (08:35)
[2019-11-12] MEDS ORDERED: IOPAMIDOL-370 125ML BTL INJ ONE (08:38)
[2019-11-12 09:00] VITALS: TEMP 97.1
[2019-11-12 09:13] VITALS: RESP 16
--- NOTE | 2019-11-12 09:24 | P.OP ---
Date of Procedure: 11/12/19 Preoperative Diagnosis: History of metastatic rectal cancer Postoperative Diagnosis: Metastatic rectal cancer Procedure(s) Performed: Port-A-Cath insertion Anesthesia: MAC Surgeon: Jerome Garcia Estimated Blood Loss (ml): 5 Pathology: none sent Condition: stable Disposition: PACU Description of Procedure: The patient was placed on the operating table in the supine position. The patient received IV sedation. The patient's chest was prepped and draped in the usual sterile fashion. A roll had been placed between the shoulder blades in a longitudinal fashion. After prepping and draping the skin was anesthetized 1% local Xylocaine. And then using the Seldinger technique the subclavian vein was cannulated. A wire was placed into the vein and fluoroscopy position the wire at the atrial caval junction. Next the dilator sheath was placed over top the wire and the wire was withdrawn. The catheter was positioned at the atriocaval position. The catheter was placed through the sheath after the dilator was withdrawn. The sheath was then withdrawn. Position of the catheter was confirmed with fluoroscopy. The Port-A-Cath was connected to the catheter. The Port-A-Cath was flushed with saline and then heparinized saline. The skin was closed interrupted 3-0 Monocryl suture. Dermabond was applied. Patient tolerated procedure well and was sent to recovery room stable condition.
--- NOTE | 2019-11-12 10:14 | XR ---
EXAMINATION TYPE: XR chest 1V portable DATE OF EXAM: 11/12/2019 HISTORY: Shortness of breath. COMPARISON: 10/15/2017 TECHNIQUE: Single view of the chest is submitted. FINDINGS: Demonstrated are scattered senescent parenchymal change. Right subclavian central venous line distal tip overlying the SVC. No evidence for pneumothorax. Scattered perihilar and basilar infiltrates. The heart is stable. Hilar and mediastinal structures are within normal limits. Degenerative changes are seen of the dorsal spine. IMPRESSION: 1. Right subclavian central venous line distal tip overlying the SVC. No evidence for pneumothorax. 2. Scattered perihilar and basilar infiltrates.
[2019-11-12 10:22] VITALS: BP 122/67; PULSE 78
--- NOTE | 2019-11-12 12:14 | FL ---
EXAMINATION TYPE: FL guidance operating room DATE OF EXAM: 11/12/2019 FLUOROSCOPY Fluoroscopy time of 2 seconds was used during Port-A-Cath insertion. 1 image/s document/s the proced ure.
== END 2019-11-12 10:50 | disposition home or self-care (01) ==
LOC: OR 06:28
PROVIDERS: ATTEND Surgery
DX: C20 Malignant neoplasm of rectum (principal); K21.9 Gastro-esophageal reflux disease without esophagitis; I25.2 Old myocardial infarction; I10 Essential (primary) hypertension; M19.90 Unspecified osteoarthritis, unspecified site; F41.9 Anxiety disorder, unspecified; G91.2 (Idiopathic) normal pressure hydrocephalus; Z90.49 Acquired absence of other specified parts of digestive tract; Z98.41 Cataract extraction status, right eye; Z98.42 Cataract extraction status, left eye; Z96.1 Presence of intraocular lens; Z98.890 Other specified postprocedural states; Z90.89 Acquired absence of other organs; Z87.19 Personal history of other diseases of the digestive system; Z79.82 Long term (current) use of aspirin; Z79.899 Other long term (current) drug therapy; Z88.5 Allergy status to narcotic agent; Z91.018 Allergy to other foods; Z80.3 Family history of malignant neoplasm of breast; Z83.3 Family history of diabetes mellitus
CPT/HCPCS: 36561; 77001; 71045; C1788; J2250; J1200; J1642; J1100; J2405; J0690; J2001; J3010; J1170; J2704; Q9967

== ENCOUNTER → 2019-11-30 | Outpatient (CLI) | payer MEDICARE ==
[2019-11-30 14:41] LABS: African American GFR (CKD) >90 (>60 ml/min/1.73 sqM); Blood Urea Nitrogen 16 mg/dL (7-17); Non-African American GFR(CKD) >90 (>60 ml/min/1.73 sqM)
--- NOTE | 2019-11-30 20:45 | CT ---
EXAMINATION TYPE: CT abdomen pelvis w con DATE OF EXAM: 11/30/2019 COMPARISON: PET CT 09/08/2019 INDICATION: Rectal neoplasm abdominal pain DLP: 158.06 and 261.59 mGycm, Automated exposure control for dose reduction was used. CONTRAST: 0 mL of Isovue 300. Study performed with Oral Contrast TECHNIQUE: Axial images were obtained from above the diaphragm to the pubic rami in the axial plane a t 5 mm thick sections. Reconstructed images are reviewed on the computer in the coronal plane. FINDINGS: Limited CT sections are obtained the lung bases. The lung bases are clear. Dense coronary artery ca lcifications present. CT ABDOMEN: Liver: Normal Spleen: Normal Pancreas: There is a 0.4 cm hypodense area along the anterior pancreas. This may be new. Series 3 zonia ge [id number] Adrenal glands: The adrenal glands are normal. Gallbladder: Surgically absent Kidneys: No masses are evident. No hydronephrosis is present. No cysts are present. Delayed images were obtained through the kidneys, which remain unremarkable. Aorta: Vascular calcification is within the aorta. Inferior vena cava: Normal. CT PELVIS: There is some free fluid within the pelvis. Loops of bowel within the abdomen and pelvis are normal. There are loops of bowel which are incom pletely distended or lack oral contrast limiting their evaluation. There is a large fecal bolus throu gh the colon. Oral contrast extends to the proximal ascending colon. Best visualized in the axial plane there is some diffuse wall thickening through the distal sigmoid c olon to the rectum. Recurrent rectal cancer and colitis could be considered. Additional workup is rec ommended Appendix: Normal as visualized. Urinary bladder: Normal. Genitourinary structures: Uterus is normal. Adnexal regions are normal. There may be a 1.1 cm left ov jackelin cyst present. Osseous structures: No suspicious lytic or sclerotic lesions. IMPRESSIONS: 1. Fecal retention. 2. Free fluid within the pelvis. 3. There may be some thickening of the distal sigmoid colon and rectum. Additional workup is recommen ded.
== END | disposition home or self-care (01) ==
LOC: RADCTMAIN 12:36
PROVIDERS: ATTEND Internal Medicine Hematology & Oncology
DX: C20 Malignant neoplasm of rectum (principal); R10.84 Generalized abdominal pain; Z88.5 Allergy status to narcotic agent; Z91.018 Allergy to other foods
CPT/HCPCS: 82565; 84520; 74177; 36415; Q9967

== ENCOUNTER → 2020-02-19 | Outpatient (CLI) | payer MEDICARE ==
--- NOTE | 2020-02-20 06:14 | MR ---
EXAMINATION TYPE: MR brain wo/w con DATE OF EXAM: 02/19/2020 COMPARISON: CT brain September 23, 2017 HISTORY: Rectal Cancer / Increased Falls. Has had 2 instances of falling backwards recently. TECHNIQUE: Multiplanar, multisequence images of the brain and brainstem is performed without and with IV contras t, utilizing 4.5 mL intravenous Gadavist . FINDINGS: Diffusion weighted images demonstrate no evidence of a recent infarct or other diffusion ab normality. There is no worrisome extra-axial fluid collection. There is diffuse ventricular and sulc al prominence. Scattered foci of T2 hyperintensity are seen throughout the superficial, deep, and per iventricular white matter. Lesions are nonspecific in appearance and distribution with estimated 40-5 0 scattered lesions. Lesions are most likely on basis of product of chronic small vessel ischemic pablo nge in patient of this age. Midline structures demonstrate normal morphology. The craniocervical junction appears within normal limits. Post contrast images demonstrate no abnormal enhancement. The dural venous sinuses appear pa tent. The visualized sinuses are clear and the globes are intact. No suspicious fluid signal bilatera l mastoid air cells. IMPRESSION: Fairly moderate diffuse cerebral atrophy and moderate to borderline severe chronic small vessel ischemic change. No suspicious enhancing intraparenchymal masses to suggest metastatic disease to the brain.
== END | disposition home or self-care (01) ==
LOC: RADMRIMAIN 15:18
PROVIDERS: ATTEND Internal Medicine Hematology & Oncology
DX: G31.9 Degenerative disease of nervous system, unspecified (principal); C20 Malignant neoplasm of rectum; R29.6 Repeated falls
CPT/HCPCS: 85025; 70553; 96367; 96375; 96413; 96415; 96411; 96368; 36591; J9190; J0640 ×3; J1100; J2405; J9263; A9585

== ENCOUNTER → 2020-03-12 | Outpatient (CLI) | payer MEDICARE ==
[2020-03-12 15:53] LABS: African American GFR (CKD) >90 (>60 ml/min/1.73 sqM); Blood Urea Nitrogen 32 mg/dL (7-17); Non-African American GFR(CKD) >90 (>60 ml/min/1.73 sqM)
--- NOTE | 2020-03-12 18:05 | CT ---
EXAMINATION TYPE: CT ChestAbdPelvis w con DATE OF EXAM: 03/12/2020 COMPARISON: Most recent CT November 30, 2019 and older CTs. PET/CT September 08, 2019 HISTORY: Follow up for rectal cancer on chemotherapy. CT DLP: 373.9 mGycm. Automated Exposure Control for Dose Reduction was Utilized. CONTRAST: CT scan of the thorax, abdomen and pelvis is performed with IV Contrast, patient injected with 80ml m L of Isovue 300. FINDINGS: LUNGS: There is mild emphysematous change with mild to moderate right basilar linear parenchymal fibr otic changes. No new suspicious nodules or masses. There is no pleural effusion or pneumothorax seen bilaterally. The tracheobronchial tree is patent. MEDIASTINUM: There are no new greater than 1 cm hilar or mediastinal lymph nodes. No pericardial ef fusion is seen. Cardiomegaly redemonstrated. OTHER: New right subclavian Mediport catheter terminating in SVC. LIVER/GB: Cholecystectomy clips are again seen. PANCREAS: There is subcentimeter low dense lesion anterior proximal pancreatic body axial image 50 st able too small to further characterize. SPLEEN: No significant abnormality is seen. ADRENALS: No significant abnormality is seen. KIDNEYS: Subcentimeter lesion right kidney too small to further characterize but presumed benign axia l series 5 image 28. Low-lying bladder or cystocele redemonstrated. BOWEL: Oral contrast reaches the level of the left sigmoid colonic junction making evaluation of dist al bowel slightly suboptimal. There is no suspicious small or large bowel dilatation. Patient has payal y little intra-abdominal fat. Small hiatal hernia is present. Mild to moderate diffuse chronic fecal prominence. Persistent moderate to severe wall thickening involving the sigmoid rectal colon likely c orresponding to poor distention and known neoplasm. Normal contrast-filled appendix incidentally note d. GENITAL ORGANS: No gross abnormality seen. LYMPH NODES: No greater than 1cm abdominal or pelvic lymph nodes are appreciated. Interval improvemen t in reticulonodular soft tissue markings from recent PET/CT in the upper to mid right abdomen with s ome areas remaining present for reference below inferior right hepatic lobe axial image 63 where ther e is subtle 6 to 7 mm nodularity axial image 64 OSSEOUS STRUCTURES: Exaggerated curvature upper thoracic spine redemonstrated. Facet arthropathy lowe r lumbar levels. OTHER: Mild diffuse soft tissue anasarca over the pelvis. Small fat-containing umbilical hernia image 68. Superior to this there is a ventral wall hernia near liver in the midline axial image 54 felt pr esent on current study. IMPRESSION: Suboptimal study, unable to assess for change in known rectal neoplasm. There is interval improvement in reticulonodular peritoneal findings from prior PET/CT but some persistent peritoneal carcinomatosis is not entirely excluded. No new metastatic disease is evident. Persistent mild-to-mod erate diffuse colonic fecal stasis.
== END | disposition home or self-care (01) ==
LOC: RADCTMAIN 15:10
PROVIDERS: ATTEND Internal Medicine Hematology & Oncology
DX: C78.6 Secondary malignant neoplasm of retroperitoneum and peritoneum (principal); K59.8 Other specified functional intestinal disorders; C20 Malignant neoplasm of rectum; Z88.5 Allergy status to narcotic agent
CPT/HCPCS: 82565; 84520; 71260; 74177; 36415; Q9967

== ENCOUNTER → 2020-04-30 | Outpatient (CLI) | payer MEDICARE ==
--- NOTE | 2020-04-30 15:03 | XR ---
EXAMINATION TYPE: XR lumbosacral spine min 4V DATE OF EXAM: 04/30/2020 COMPARISON: 09/23/2017 HISTORY: Back pain TECHNIQUE: Five-view lumbar spine FINDINGS: There 5 lumbar-type bodies. Pedicles are intact. Mild facet degenerative changes are presen t. There is mild narrowing endplate changes at L2 superiorly and inferiorly. This is chronic. Disc he ights are preserved. IMPRESSION: 1. Old endplate changes of L2. 2. No acute osseous abnormality.
== END | disposition home or self-care (01) ==
LOC: RADXRYALE 14:34
PROVIDERS: ATTEND Physician Assistant Medical
DX: M48.061 Spinal stenosis, lumbar region without neurogenic claudication (principal)
CPT/HCPCS: 72110

== ENCOUNTER → 2020-07-08 | Outpatient (CLI) | payer MEDICARE ==
--- NOTE | 2020-07-09 06:50 | MR ---
EXAMINATION TYPE: MR lumbar spine wo/w con DATE OF EXAM: 07/08/2020 COMPARISON: None HISTORY: Low back pain CONTRAST: Standard multiplanar, multisequence MRI departmental protocol utilizing 3.5 mL intravenous gadolinium contrast. Lumbar vertebra have fairly normal alignment. There is biconcave deformity of L2 and L3 and L5 verteb ra. L2 is more severely compressed with 75% loss of height of the vertebral body. There is no lumbar paraspinal mass. The posterior elements are intact. There is decreased signal in the L5 and L2 verteb ral bodies on the T1 images. There is also decreased signal in T10 vertebral body with 10% loss of he ight and mild biconcave change. The lumbar nerve roots appear normal. The neuroforamina are fairly we ll-maintained. There is no significant loss of disc height. Contrast images show no pathologic enhancement. IMPRESSION: Multiple lumbar compression fractures and also minimal compression of T10 vertebra with biconcave def ormity of the endplates. This is consistent with osteomalacia. No asymmetric or enhancing abnormality seen to suggest metastatic disease. No spinal stenosis. There is some linear horizontal increased si gnal in the superior aspect of the L5 vertebral body on the T2 images that suggests that this is a mo re acute fracture.
== END | disposition home or self-care (01) ==
LOC: RADMRIMAIN 15:55
PROVIDERS: ATTEND Internal Medicine Hematology & Oncology
DX: C20 Malignant neoplasm of rectum (principal); M48.56XA Collapsed vertebra, not elsewhere classified, lumbar region, initial encounter for fracture
CPT/HCPCS: 72158; A9585

== ENCOUNTER → 2020-07-09 | Outpatient (CLI) | payer MEDICARE ==
[2020-07-09 11:20] LABS: African American GFR (CKD) >90 (>60 ml/min/1.73 sqM); Blood Urea Nitrogen 20 mg/dL (7-17); Non-African American GFR(CKD) >90 (>60 ml/min/1.73 sqM)
--- NOTE | 2020-07-09 12:33 | CT ---
EXAMINATION TYPE: CT ChestAbdPelvis w con DATE OF EXAM: 07/09/2020 COMPARISON: 03/12/2020 HISTORY: Rectal cancer CT DLP: 370.90 mGycm CONTRAST: CT scan of the chest, abdomen and pelvis is performed with Oral Contrast and with IV Contrast, patien t injected with 80 ml mL of Isovue 300. CT Chest: LUNGS: Noted are new bilateral pleural effusions right greater than left measuring 3.7 cm on the righ t and 1.3 cm on the left. There is mild compressive atelectasis noted. No evidence for infiltrate. No distinct pulmonary nodule or mass at this time. MEDIASTINUM: Ectasia thoracic aorta. The heart is enlarged. No evidence for mediastinal mass or brent nopathy. Moderate fixed hiatal hernia detected. HILAR STRUCTURES: No evidence for mass. No hilar adenopathy is appreciated. OTHER: No significant abnormality. CONTRAST CT ABDOMEN AND PELVIS FINDINGS: LIVER/GB: The gallbladder is surgically absent. No space occupying hepatic lesion. Biliary tree is of normal caliber. PANCREAS: No inflammation. No distinct mass. SPLEEN: No splenic enlargement. No lesion seen. ADRENALS: No nodule. No thickening. KIDNEYS/BLADDER: No hydronephrosis. No nephrolithiasis. No distinct renal mass. BOWEL: There is fluid distended colon with debris. Mild wall thickening noted right hemicolon may ref lect underlying colitis. There are small areas of peritoneal nodularity slightly increased from prior study anteriorly in the pretracheal region of the greater omentum nodule measuring 7 mm. Suspect per sistent carcinomatosis. There is also interval development of mild upper abdominal ascites. Rectal wa ll thickening may reflect postsurgical change. Correlate clinically. GENITAL ORGANS: No gross abnormality. LYMPH NODES: No greater than 1cm abdominal or pelvic lymph nodes are appreciated. AORTA: No significant abnormality. OSSEOUS STRUCTURES: No significant abnormality is seen. OTHER: No significant additional abnormality is seen. IMPRESSION: 1. Interval development of intra-abdominal ascites with areas of the persistent suspected peritoneal carcinomatosis. Fluid and debris distention of the colon with wall thickening may reflect superimpose d colitis. Correlate for underlying diarrhea. 2. New pleural effusions right greater than left with mild compressive atelectasis right lung base. 3. Persistent rectal wall thickening may be postsurgical in nature. Recurrent or residual mass not ex cluded. Correlate clinically.
== END | disposition home or self-care (01) ==
LOC: RADCTMAIN 10:24
PROVIDERS: ATTEND Internal Medicine Hematology & Oncology
DX: C20 Malignant neoplasm of rectum (principal); J90 Pleural effusion, not elsewhere classified; K63.89 Other specified diseases of intestine; R18.8 Other ascites; Z88.5 Allergy status to narcotic agent
CPT/HCPCS: 82565; 84520; 71260; 74177; 36415; Q9967

== ENCOUNTER 2020-07-22 20:45 | Inpatient (IN) | payer MEDICARE ==
[2020-07-22] MEDS ORDERED: SODIUM CHLORIDE 0.9% 1,000 ML IV STA (21:05)
[2020-07-22] MEDS ORDERED: NALOXONE 0.4 MG/ML 1 ML VIAL IVP STA (21:06)
--- NOTE | 2020-07-22 21:23 | ED ---
General Adult HPI - General Chief complaint: Nausea/Vomiting/Diarrhea Stated complaint: Abdominal Pain Time Seen by Provider: 07/22/20 20:52 Source: interpreter translator Mode of arrival: EMS Limitations: no limitations - History of Present Illness Initial comments: Dictation was produced using ugic[employer] dictation software. please excuse any grammatical, word or spelling errors. This patient was cared for during a federal and state declared state of emergen cy secondary to Covid 19 Chief Complaint: 74-year-old female presents with abdominal pain History of Present Illness: Patient is 74-year-old female she presents today with abdominal pain. Patient is a limited historian at this time, secondary to lethargy. Patient is brought in by EMS. Patient reports that she feels weak and her mouth is dry. Patient has a pain complaints at this time. EMS allegedly gave patient 8 mg of morphine prior to coming to the emergency department. The ROS documented in this emergency department record has been reviewed and confirmed by me. Those systems with pertinent positive or negative responses have been documented in the HPI. All other systems are other negative and/or noncontributory. PHYSICAL EXAM: General Impression: Alert and oriented x3, lethargic, pale, cachectic HEENT: Normocephalic atraumatic, extra-ocular movements intact, pupils equal and reactive to light bilaterally, dry mucous membranes Cardiovascular: Tachycardic Chest: Able to complete full sentences, no retractions, no tachypnea Abdomen: abdomen soft, diffuse abdominal tenderness, non-distended, no organomegaly Musculoskeletal: Pulses present and equal in all extremities, no peripheral edema Motor: no focal deficits noted Neurological: CN II-XII grossly intact, no focal motor or sensory deficits noted Skin: Intact with no visualized rashes ED course 74:-year-old female presents with abdominal pain. She is lethargic at bedside. Signs upon arrival shows heart rate of 140, blood pressure 69/40. Patient received 8 mg of morphine by prehospital providers that she is hypotensive and appears lethargic. Patient given narcan with improvement of blood pressure and mental status. Chart review was performed. Patient has history of metastatic rectal cancer. Chart review was performed. Patient had a CT of the chest abdomen pelvis performed on July 09 of this year. There is intra-abdominal ascites with areas of persistent suspect the peritoneal carcinomatosis with superimposed colitis. This images ordered by oncologist. Images appear to be worse than from July 09. Computed tomography scan of the abdomen and pelvis from today was obtained showing bilateral pleural effusion crease compared to old exam. There is a large amount of ascites fluid compared to last exam. Patient reevaluated at bedside. She does seem ill appearing. She is very cachectic state and has dry mucous membranes. Considering patient's clinical presentation we'll have patient admitted to cardiac telemetry with consultation to oncology and gastroenterology for new onset recent ascites. CODE STATUS was discussed with patient and she wants to be full code. EKG interpretation: Ventricular rate 126, sinus tachycardia, MN interval 120, QRS 76, QTC 466. No MN prolongation, no QTC prolongation, no ST or T-wave changes noted. - Related Data Home Medications Medication Instructions Recorded Confirmed Acetaminophen [Tylenol Extra 1,000 tab PO Q6H PRN 08/21/18 07/22/20 Strength] Atorvastatin Calcium [Lipitor] 20 mg PO DAILY 08/21/18 07/22/20 Docusate [Colace] 100 mg PO BID 02/05/19 07/22/20 Metoprolol Tartrate [Lopressor] 25 mg PO BID 02/05/19 07/22/20 Loratadine [Claritin] 10 mg PO DAILY PRN 07/22/20 07/22/20 Ondansetron HCl [Zofran] 4 mg PO Q4-6H PRN 07/22/20 07/22/20 Pegfilgrastim [Neulasta] 6 mg SQ Q14D 07/22/20 07/22/20 Propylene Glycol [Systane Complete] 1 drop BOTH EYES QID 07/22/20 07/22/20 Allergies Allergy/AdvReac Type Severity Reaction Status Date / Time codeine Allergy Nausea & Verified 07/22/20 22:34 Vomiting tomato Allergy mouth Verified 07/22/20 22:34 swelling Review of Systems ROS Statement: Those systems with pertinent positive or pertinent negative responses have been documented in the HPI. ROS Other: All systems not noted in ROS Statement are negative. Past Medical History Past Medical History: Cancer, GERD/Reflux, Hypertension, Myocardial Infarction (MD), Osteoarthritis (OA), Skin Disorder Additional Past Medical History / Comment(s): hx rectal cancer 2017, normal pressure hydrocephalus-pt. never heard of this dx. hx duodenal ulcers,gout, heart murmur, hx "fast heart rate" , "recent low blood pressure", "upper abdomen blockage" on PET scan, 2 tumors in "Bowel and rectum", hx of rectal bleeding ., constipation and diarrhea., had cholecystectomy 10/30/19-pt states incisions healing with no signs of infection. Last Myocardial Infarction Date:: unknown History of Any Multi-Drug Resistant Organisms: None Reported Past Surgical History: Adenoidectomy, Cholecystectomy, Orthopedic Surgery, Tonsillectomy Additional Past Surgical History / Comment(s): EGD/colonoscopy, bilateral cataract removal with lens implants, ORIF left arm, tumor removed from rectum 2017, vaginal polyps removed, lap jer 10/30/19 Past Anesthesia/Blood Transfusion Reactions: Motion Sickness Additional Past Anesthesia/Blood Transfusion Reaction / Comment(s): Pt has received blood without reaction. Past Psychological History: Anxiety Smoking Status: Never smoker - Past Family History Mother Family Medical History: Cancer Additional Family Medical History / Comment(s): breast cancer, myasthenia gravis Father Family Medical History: Diabetes Mellitus Additional Family Medical History / Comment(s): Father was deaf. General Exam Limitations: no limitations Course Vital Signs 07/22/20 07/22/20 07/22/20 20:51 21:08 21:20 Temperature 97.7 F Pulse Rate 140 H 124 H Respiratory 12 12 16 Rate Blood Pressure 69/40 100/51 O2 Sat by Pulse 96 95 Oximetry 07/22/20 07/22/20 22:00 22:30 Temperature Pulse Rate 114 H Respiratory 16 Rate Blood Pressure 97/67 104/67 O2 Sat by Pulse 95 Oximetry Medical Decision Making - Lab Data Result diagrams: 07/22/20 21:37 Lab Results 07/22/20 07/22/20 07/22/20 Range/Units 21:37 21:37 21:37 PT 12.9 H (9.0-12.0) sec INR 1.3 H (<1.2) APTT 25.7 (22.0-30.0) sec VBG pH (7.31-7.41) VBG pCO2 (37-51) mmHg VBG HCO3 (24-28) mmol/L Sodium 134 L (137-145) mmol/L Potassium 3.7 (3.5-5.1) mmol/L Chloride 101 (98-107) mmol/L Carbon Dioxide 20 L (22-30) mmol/L Anion Gap 13 mmol/L BUN 33 H (7-17) mg/dL Creatinine 1.01 (0.52-1.04) mg/dL Est GFR (CKD-EPI)AfAm 63 (>60 ml/min/1.73 sqM) Est GFR (CKD-EPI)NonAf 55 (>60 ml/min/1.73 sqM) Glucose 78 (74-99) mg/dL Plasma Lactic Acid Yovany 2.9 H* (0.7-2.0) mmol/L Calcium 8.9 (8.4-10.2) mg/dL Total Bilirubin 0.7 (0.2-1.3) mg/dL AST 35 (14-36) U/L ALT 8 (4-34) U/L Alkaline Phosphatase 244 H (38-126) U/L Troponin I (0.000-0.034) ng/mL Total Protein 5.6 L (6.3-8.2) g/dL Albumin 2.8 L (3.5-5.0) g/dL Lipase 39 (23-300) U/L TSH 10.400 H (0.465-4.680) mIU/L 07/22/20 07/22/20 Range/Units 21:37 21:37 PT (9.0-12.0) sec INR (<1.2) APTT (22.0-30.0) sec VBG pH 7.35 (7.31-7.41) VBG pCO2 46 (37-51) mmHg VBG HCO3 25 (24-28) mmol/L Sodium (137-145) mmol/L Potassium (3.5-5.1) mmol/L Chloride (98-107) mmol/L Carbon Dioxide (22-30) mmol/L Anion Gap mmol/L BUN (7-17) mg/dL Creatinine (0.52-1.04) mg/dL Est GFR (CKD-EPI)AfAm (>60 ml/min/1.73 sqM) Est GFR (CKD-EPI)NonAf (>60 ml/min/1.73 sqM) Glucose (74-99) mg/dL Plasma Lactic Acid Yovany (0.7-2.0) mmol/L Calcium (8.4-10.2) mg/dL Total Bilirubin (0.2-1.3) mg/dL AST (14-36) U/L ALT (4-34) U/L Alkaline Phosphatase (38-126) U/L Troponin I 0.081 H* (0.000-0.034) ng/mL Total Protein (6.3-8.2) g/dL Albumin (3.5-5.0) g/dL Lipase (23-300) U/L TSH (0.465-4.680) mIU/L Disposition Clinical Impression: Abdominal malignancy, Dehydration Disposition: ADMITTED IP TO THIS HOSP Condition: Fair Referrals: Herson Rosario DO [Primary Care Provider] - 1-2 days Decision Time: 23:08
--- NOTE | 2020-07-22 21:46 | XR ---
EXAMINATION TYPE: XR chest 1V portable DATE OF EXAM: 07/22/2020 COMPARISON: 11/12/2019 HISTORY: Lethargy TECHNIQUE: FINDINGS: There is some diffuse infiltrate in the right lung. There is probably right pleural effusio n. There is no heart failure. Thoracic aorta is atheromatous. There is right central venous catheter with tip in the superior vena cava. IMPRESSION: Right pleural effusion and right pulmonary infiltrate increased compared to old exam. Lef t pleural effusion and left pulmonary infiltrate improved compared to old exam. No heart failure seen .
[2020-07-22 22:19] LABS: VBG PH 7.35 (7.31-7.41)
[2020-07-22 22:22] LABS: Albumin 2.8 g/dL (3.5-5.0); Calcium 8.9 mg/dL (8.4-10.2); Potassium 3.7 mmol/L (3.5-5.1); Total Bilirubin 0.7 mg/dL (0.2-1.3); Total Protein 5.6 g/dL (6.3-8.2)
[2020-07-22 22:40] LABS: INR 1.3 (<1.2); Partial Thromboplastin Time 25.7 sec (22.0-30.0); Prothrombin Time 12.9 sec (9.0-12.0)
--- NOTE | 2020-07-22 23:06 | CT ---
EXAMINATION TYPE: CT abdomen pelvis w con DATE OF EXAM: 07/22/2020 COMPARISON: 07/09/2020 HISTORY: Abd Pain, Hypotension CT DLP: 485 mGycm Automated exposure control for dose reduction was used. CONTRAST: Performed with IV Contrast, patient injected with 80 mL of Isovue 300. There are large bilateral pleural effusions. Fluid more on the right side. There is moderate-sized hi atal hernia. Heart size is normal. There is no pericardial effusion. There is atelectasis at the lung bases. There is large amount of intra-abdominal ascites fluid. Liver shows no focal defect. Spleen is intact . There is no evidence of pancreatic mass. The stomach is intact. Gallbladder appears absent. The yuri e ducts are not dilated. There is no adrenal mass. Kidneys show satisfactory contrast opacification. There is very little cont rast in the calyces on the delayed images. There is no retroperitoneal adenopathy. Bladder is distend ed smoothly. There is no inguinal hernia. There is no evidence of free air. I see no sign of a bowel obstruction. There is compression deformity of L2 and L4 and L5 vertebra up to 70%. The bony pelvis is intact. IMPRESSION: Bilateral pleural effusions increased slightly compared to old exam. Hiatal hernia unchanged. There is large amount of abdominal ascites fluid increased compared to old exam. Decreased contrast excretion on the delayed images suggestive of some degree of renal failure. This i s a change compared to old exam.
[2020-07-22] MEDS ORDERED: ONDANSETRON 4 MG/2 ML VIAL IVP PRN (23:09)
[2020-07-22] MEDS ORDERED: ACETAMINOPHEN TAB 325 MG TAB PO PRN (23:09)
[2020-07-22] MEDS ORDERED: NALOXONE 0.4 MG/ML 1 ML VIAL IV PRN (23:09)
[2020-07-22] MEDS ORDERED: fentaNYL (PF) 50 MCG/ML 2 ML AMP IVP STA (23:11)
[2020-07-22] MEDS ORDERED: SODIUM CHLORIDE 0.9% 1,000 ML IV SCH (23:15)
[2020-07-22 23:41] LABS: Anisocytosis Moderate; Basophils # (A) 0.2 k/uL (0-0.2); Basophils % (A) 0 %; Eosinophils % (A) 0 %; HCT 34.4 % (34.0-46.0); HGB 9.9 gm/dL (11.4-16.0); Hypochromasia Marked; Lymphocytes # (A) 0.3 k/uL (1.0-4.8); Lymphocytes % (A) 0 %; MCH 27.6 pg (25.0-35.0); MCHC 28.7 g/dL (31.0-37.0); Macrocytosis Moderate; Mean Platelet Volume 7.6; Monocytes # (A) 1.4 k/uL (0-1.0); Monocytes % (A) 2 %; Neutrophils # (A) 62.2 k/uL (1.3-7.7); Neutrophils % (A) 97 %; Platelet Count 474 k/uL (150-450); RBC 3.58 m/uL (3.80-5.40); RDW 21.1 % (11.5-15.5)
[2020-07-22 23:47] LABS: MCV 96.1 fL (80.0-100.0); WBC 64.3 k/uL (3.8-10.6)
[2020-07-23 00:40] LABS: Polychromasia Present
[2020-07-23] MEDS ORDERED: SODIUM CHLORIDE 0.9% 1,000 ML IV ONE ×5 (02:17→22:11)
[2020-07-23] MEDS: SODIUM CHLORIDE 0.9% 1,000 ML IV SCH ×3 (02:20→19:12)
[2020-07-23] MEDS: PIPERACILLIN-TAZOBACTAM 3.375 GM in SODIUM CHLORIDE 0.9% 100 ML IVPB SCH ×3 (03:01→23:57)
[2020-07-23] MEDS ORDERED: PROPOFOL 10 MG/ML 20 ML VIAL IV ONE (07:53)
[2020-07-23] MEDS: PANTOPRAZOLE 40 MG/10 ML VIAL IV SCH (08:23)
[2020-07-23] MEDS: ATORVASTATIN 20 MG TAB PO SCH (08:23)
[2020-07-23] MEDS: DOCUSATE 100 MG CAP PO SCH ×2 (08:23→19:54)
[2020-07-23] MEDS: HEPARIN SODIUM,PORCINE 5,000 UNIT/ML 1 ML VIAL SQ SCH ×2 (08:23→20:04)
[2020-07-23 08:57] LABS: Anisocytosis Moderate; HCT 35.3 % (34.0-46.0); HGB 10.3 gm/dL (11.4-16.0); Hypochromasia Marked; MCH 27.7 pg (25.0-35.0); MCHC 29.1 g/dL (31.0-37.0); MCV 95.2 fL (80.0-100.0); Macrocytosis Slight; Mean Platelet Volume 7.8; Platelet Count 483 k/uL (150-450); RBC 3.71 m/uL (3.80-5.40); RDW 20.7 % (11.5-15.5)
[2020-07-23] MEDS ORDERED: METOPROLOL TARTRATE 25 MG TAB PO SCH (09:00)
[2020-07-23 09:02] LABS: WBC 62.3 k/uL (3.8-10.6)
[2020-07-23 09:16] LABS: Albumin 2.4 g/dL (3.5-5.0); Bilirubin, Delta 0.4 mg/dL (0.0-0.2); Bilirubin,Unconjugated 0.2 mg/dL (0.0-1.1); Calcium 7.7 mg/dL (8.4-10.2); Magnesium 1.9 mg/dL (1.6-2.3); Potassium 2.9 mmol/L (3.5-5.1); Total Bilirubin 0.6 mg/dL (0.2-1.3); Total Protein 4.8 g/dL (6.3-8.2)
[2020-07-23 09:38] LABS: Lymphocytes # (M) 1.25 k/uL (1.0-4.8); Monocytes # (M) 2.49 k/uL (0-1.0); Neutrophils # (M) 58.56 k/uL (1.3-7.7); Neutrophils % (M) 94 %; Nucleated Red Blood Cells 0 /100 WBC (0-0); Total Cells Counted 200
[2020-07-23 09:39] LABS: Poikilocytosis (M) Present; Toxic Granulation Present
[2020-07-23] MEDS ORDERED: Potassium Replacement Protocol 1 EACH MISC MISCELLANE PRN ×2 (09:52→10:11)
[2020-07-23] MEDS ORDERED: Magnesium Replacement Protocol 1 EACH MISC MISCELLANE PRN (09:52)
[2020-07-23] MEDS ORDERED: traMADol 50 MG TAB PO STA (09:53)
[2020-07-23] MEDS: POTASSIUM CHLORIDE 10 MEQ in WATER FOR INJECTION 1 100ML.BAG IVPB SCH ×6 (11:09→20:13)
--- NOTE | 2020-07-23 11:22 | XR ---
EXAMINATION TYPE: XR chest 1V DATE OF EXAM: 07/23/2020 COMPARISON: 07/22/2020 INDICATION: Ascites TECHNIQUE: Single frontal view of the chest is obtained. FINDINGS: The heart size is enlarged. The pulmonary vasculature is normal. There is diffuse increased lung markings right lung . Small right and minimal left pleural effusion m ay be present. Port is present on the right with the tip in the superior vena cava region. IMPRESSION: 1. Cardiomegaly. 2. Right mid and lower lobe infiltrate, worsening from comparison. 3. Small bilateral pleural effusions
--- NOTE | 2020-07-23 11:40 | ECHOF ---
Referral Reason:Rule out heart disease MEASUREMENTS -------- HEIGHT: 149.9 cm WEIGHT: 40.4 kg BP: 95/56 RVIDd: 2.4 cm (< 3.3) IVSd: 1.1 cm (0.6 - 1.1) LVIDd: 2.3 cm (3.9 - 5.3) LVPWd: 1.0 cm (0.6 - 1.1) IVSs: 1.4 cm LVIDs: 1.5 cm LVPWs: 1.3 cm LA Diam: 2.6 cm (2.7 - 3.8) LAESV Index (A-L): 34.61 ml/m Ao Diam: 2.4 cm (2.0 - 3.7) AV Cusp: 1.0 cm (1.5 - 2.6) MV EXCURSION: 11.974 mm (> 18.000) MV EF SLOPE: 85 mm/s (70 - 150) EPSS: 0.4 cm AV maxP.35 mmHg AV meanP.39 mmHg RAP: 5.00 mmHg RVSP: 62.11 mmHg FINDINGS -------- Resting tachycardia (HR>100bpm). This was a technically adequate study. The left ventricular size is normal. There is borderline concentric left ventricular hypertrophy. Overall left ventricular systolic function is normal with, an EF between 65 - 70 %. The right ventricle is normal in size. LA is moderately dilated 34-39 ml/m2 The right atrium is normal in size. Interatrial and interventricular septum intact. There is moderate aortic valve sclerosis. There is mild aortic regurgitation. There is moderate a ortic stenosis present. Peak/mean gradient across the Aortic Valve is 40.35mmHg / 24.39mmHg. Laura ot rule out vegetation. The mitral valve leaflets are moderately thickened. Moderate mitral annular calcification present. Severe mitral regurgitation is present. Small, mobile vegetation attached to the anterior mitral valve leaflet. There is a suggestion of vegetation on the anterior mitral leaflet associated with moderate to severe mitral regurgitation. Recommend blood cultures and also repeat study when the hea rt rate is controlled. Moderate tricuspid regurgitation present. There is severe pulmonary hypertension. The right ventr icular systolic pressure, as measured by Doppler, is 62.11mmHg. Trace/mild (physiologic) pulmonic regurgitation. The aortic root size is normal. IVC Not well visulized. There is no pericardial effusion. CONCLUSIONS -------- 1. Resting tachycardia (HR>100bpm). 2. The left ventricular size is normal. 3. There is borderline concentric left ventricular hypertrophy. 4. Overall left ventricular systolic function is normal with, an EF between 65 - 70 %. 5. LA is moderately dilated 34-39 ml/m2 6. There is moderate aortic valve sclerosis. 7. There is mild aortic regurgitation. 8. There is moderate aortic stenosis present. 9. Peak/mean gradient across the Aortic Valve is 40.35mmHg / 24.39mmHg. 10. The mitral valve leaflets are moderately thickened. 11. Moderate mitral annular calcification present. 12. Small, mobile vegetation attached to the anterior mitral valve leaflet. 13. There is a suggestion of vegetation on the anterior mitral leaflet associated with moderate to s evere mitral regurgitation. Recommend blood cultures and also repeat study when the heart rate is co ntrolled. 14. Moderate tricuspid regurgitation present. 15. There is severe pulmonary hypertension. 16. The right ventricular systolic pressure, as measured by Doppler, is 62.11mmHg. 17. Trace/mild (physiologic) pulmonic regurgitation. 18. There is no pericardial effusion. PR[employer]ED [employer]ARD DESIGNER: Renetta Huggins RDCS
--- NOTE | 2020-07-23 11:59 | P.HPIM ---
History of Present Illness This is a pleasant 74 years old female with past medical history of metastatic rectal cancer since July 2018, PET scan from 09/09/2019 showing rectal cancer, with second lesion in the distal sigmoid colon. She is a patient of Dr. Rosario Patient presents because of abdominal pain. Patient looks tired and cancer are closed during the whole encounter, also she is a bit short of breath. Patient is poor historian and gives limited history, but mainly she says she was throwing up on and off about twice per day but no diarrhea. And she was complaining of from abdominal pain but no chest pain. She states she's been dehydrated and she was not eating and drinking well for the last week. I talked to her niece Mrs. Stovall over the phone [phone] and she told me the same thing that she's been having nausea vomiting about one week, sometimes is dark brown or black in color, she had constipation and diarrhea on and off but she was not eating well and dehydrated for a week. Her abdomen was distended with some abdominal pain. However no reports of urinary complaints or dysuria On the presentation patient is hypotensive blood pressure 85/52 and she is tachycardic at 124. Elevated lactic acid at 2.5 came back to normal at 1.4. Significantly elevated white cell count at 62.3K, baseline is 11-19 K. INR is 1.3. Sodium is 134, potassium 3.7 and creatinine normal at 1.0. Liver enzymes not elevated. Elevated troponin at 0.08. TSH at 10.4 multiple compression fractures per MRI of the lumbar spine on 07/08/[address] of the chest/abdomen/pelvis on 07/09/2020 showing bilateral pleural effusion, new intra-abdominal ascites with small area of peritoneal nodularity suspect persistent carcinomatosis with rectal wall thickening with mass not exclude Repeat CT of the abdomen and pelvis with contrast done yesterday showing large bilateral pleural effusion, more on the right side, no pericardial effusion, ascites, hiatal hernia Chest x-ray: Right pleural effusion and right pulmonary infiltrate increased compared to old exam while left pleural effusion and left pulmonary infiltrate improved compared to old exam EKG showing sinus tachycardia at [address]-T changes and QTC 466 In the emergency room she received 2 L of normal saline and pain medication with fentanyl. Patient kept a normal saline at 1 30 mL/h and started on Zosyn and IV Protonix GI, surgery and oncology team were consulted from emergency room Repeat chest x-ray today showing worsening pneumonia Review of Systems CONSTITUTIONAL: No fever, no malaise, no fatigue. HEENT: No recent visual problems or hearing problems. Denied any sore throat. CARDIOVASCULAR: No orthopnea, PND, no palpitations, no syncope. PULMONARY: no hemoptysis. GASTROINTESTINAL: No diarrhea, no nausea, no vomiting, no abdominal pain. Normoactive bowel sounds. NEUROLOGICAL: No headaches, no weakness, no numbness. HEMATOLOGICAL: Denies any bleeding or petechiae. GENITOURINARY: Denies any burning micturition, frequency, or urgency. MUSCULOSKELETAL/RHEUMATOLOGICAL: Denies any joint pain, swelling, or any muscle pain. ENDOCRINE: Denies any polyuria or polydipsia. Past Medical History Past Medical History: Cancer, GERD/Reflux, Hypertension, Myocardial Infarction ([place]), Osteoarthritis (OA), Skin Disorder Additional Past Medical History / Comment(s): hx rectal cancer 2017, normal pressure hydrocephalus-pt. never heard of this dx. hx duodenal ulcers,gout, heart murmur, hx "fast heart rate" , "recent low blood pressure", "upper abdomen blockage" on PET scan, 2 tumors in "Bowel and rectum", hx of rectal bleeding ., constipation and diarrhea., had cholecystectomy 10/30/19-pt states incisions healing with no signs of infection. Last Myocardial Infarction Date:: unknown History of Any Multi-Drug Resistant Organisms: None Reported Past Surgical History: Adenoidectomy, Cholecystectomy, Orthopedic Surgery, Tonsillectomy Additional Past Surgical History / Comment(s): EGD/colonoscopy, bilateral cataract removal with lens implants, ORIF left arm, tumor removed from rectum 2017, vaginal polyps removed, lap jer 10/30/19 Past Anesthesia/Blood Transfusion Reactions: Motion Sickness Additional Past Anesthesia/Blood Transfusion Reaction / Comment(s): Pt has received blood without reaction. Past Psychological History: Anxiety Additional Psychological History / Comment(s): . Smoking Status: Never smoker Past Alcohol Use History: None Reported Past Drug Use History: None Reported - Past Family History Mother Family Medical History: Cancer Additional Family Medical History / Comment(s): breast cancer, myasthenia gravis Father Family Medical History: Diabetes Mellitus Additional Family Medical History / Comment(s): Father was deaf. Medications and Allergies Home Medications Medication Instructions Recorded Confirmed Type Acetaminophen [Tylenol Extra 1,000 tab PO Q6H PRN 08/21/18 07/22/20 History Strength] Atorvastatin Calcium [Lipitor] 20 mg PO DAILY 08/21/18 07/22/20 History Docusate [Colace] 100 mg PO BID 02/05/19 07/22/20 History Metoprolol Tartrate [Lopressor] 25 mg PO BID 02/05/19 07/22/20 History Loratadine [Claritin] 10 mg PO DAILY PRN 07/22/20 07/22/20 History Ondansetron HCl [Zofran] 4 mg PO Q4-6H PRN 07/22/20 07/22/20 History Pegfilgrastim [Neulasta] 6 mg SQ Q14D 07/22/20 07/22/20 History Propylene Glycol [Systane Complete] 1 drop BOTH EYES QID 07/22/20 07/22/20 History Allergies Allergy/AdvReac Type Severity Reaction Status Date / Time codeine Allergy Nausea & Verified 07/22/20 22:34 Vomiting tomato Allergy mouth Verified 07/22/20 22:34 swelling Physical Exam Vitals: Vital Signs Temp Pulse Pulse Resp BP BP Pulse Ox 07/23/20 05:45 124 H 95/52 07/23/20 05:30 97.4 F L 138 H 18 85/52 92 L 07/23/20 03:36 82/52 07/23/20 02:37 131 H 78/46 07/23/20 02:10 123 H 18 79/54 96 07/23/20 02:00 98.2 F 130 H 18 78/46 95 07/23/20 00:25 98.0 F 140 H 18 86/51 94 L 07/22/20 23:32 134 H 16 105/86 99 07/22/20 22:30 114 H 16 104/67 95 07/22/20 22:00 97/67 07/22/20 21:20 124 H 16 100/51 95 07/22/20 21:08 12 07/22/20 20:51 97.7 F 140 H 12 69/40 96 Intake and Output 07/22/20 07/23/20 07/23/20 22:59 06:59 14:59 Intake Total 1520 100 Balance 1520 100 Intake: Intake, IV Titration 1520 100 Amount Piperacillin-Tazobactam 3 100 .375 gm In Sodium Chloride 0.9% 100 ml @ 25 mls/hr IVPB Q8H [facility] Rx#: [id number] Sodium Chloride 0.9% 1, 520 000 ml @ 130 mls/hr IV . Q7H42M [facility] Rx#:[id number] Sodium Chloride 0.9% 1, 1000 000 ml @ 999 mls/hr IV . Q1H1M [facility] Rx#:[id number] Other: Weight 34.927 kg 40.5 kg GENERAL: The patient is alert and oriented x3, not in any acute distress. Well developed, well nourished. HEENT: Pupils are round and equally reacting to light. EOMI. No scleral icterus. No conjunctival pallor. Normocephalic, atraumatic. No pharyngeal erythema. No thyromegaly. CARDIOVASCULAR: S1 and S2 present. No murmurs, rubs, or gallops. -PULMONARY: Chest is clear to auscultation, no wheezing or crackles. Harsh breathing on the right side with some crepitation ABDOMEN: Soft, nontender, nondistended, normoactive bowel sounds. No palpable organomegaly. MUSCULOSKELETAL: No joint swelling or deformity. EXTREMITIES: No cyanosis, clubbing, or pedal edema. NEUROLOGICAL: Gross neurological examination did not reveal any focal deficits. SKIN: No rashes. No petechiae Results CBC & Chem 7: 07/23/20 08:25 07/23/20 08:25 Labs: Abnormal Lab Results - Last 24 Hours (Table) 07/22/20 07/22/20 07/22/20 Range/Units 21:37 21:37 21:37 WBC (3.8-10.6) k/uL RBC (3.80-5.40) m/uL Hgb (11.4-16.0) gm/dL MCHC (31.0-37.0) g/dL RDW (11.5-15.5) % Plt Count (150-450) k/uL Neutrophils # (1.3-7.7) k/uL Lymphocytes # (1.0-4.8) k/uL Monocytes # (0-1.0) k/uL PT 12.9 H (9.0-12.0) sec INR 1.3 H (<1.2) Sodium 134 L (137-145) mmol/L Carbon Dioxide 20 L (22-30) mmol/L BUN 33 H (7-17) mg/dL Plasma Lactic Acid Yovany 2.9 H* (0.7-2.0) mmol/L Alkaline Phosphatase 244 H (38-126) U/L Troponin I (0.000-0.034) ng/mL Total Protein 5.6 L (6.3-8.2) g/dL Albumin 2.8 L (3.5-5.0) g/dL TSH 10.400 H (0.465-4.680) mIU/L 07/22/20 07/22/20 07/23/20 Range/Units 21:37 23:03 00:56 WBC 64.3 H* (3.8-10.6) k/uL RBC 3.58 L (3.80-5.40) m/uL Hgb 9.9 L (11.4-16.0) gm/dL MCHC 28.7 L (31.0-37.0) g/dL RDW 21.1 H (11.5-15.5) % Plt Count 474 H (150-450) k/uL Neutrophils # 62.2 H (1.3-7.7) k/uL Lymphocytes # 0.3 L (1.0-4.8) k/uL Monocytes # 1.4 H (0-1.0) k/uL PT (9.0-12.0) sec INR (<1.2) Sodium (137-145) mmol/L Carbon Dioxide (22-30) mmol/L BUN (7-17) mg/dL Plasma Lactic Acid Yovany 2.5 H* (0.7-2.0) mmol/L Alkaline Phosphatase (38-126) U/L Troponin I 0.081 H* (0.000-0.034) ng/mL Total Protein (6.3-8.2) g/dL Albumin (3.5-5.0) g/dL TSH (0.465-4.680) mIU/L 07/23/20 Range/Units 04:03 WBC (3.8-10.6) k/uL RBC (3.80-5.40) m/uL Hgb (11.4-16.0) gm/dL MCHC (31.0-37.0) g/dL RDW (11.5-15.5) % Plt Count (150-450) k/uL Neutrophils # (1.3-7.7) k/uL Lymphocytes # (1.0-4.8) k/uL Monocytes # (0-1.0) k/uL PT (9.0-12.0) sec INR (<1.2) Sodium (137-145) mmol/L Carbon Dioxide (22-30) mmol/L BUN (7-17) mg/dL Plasma Lactic Acid Yovany 2.1 H* (0.7-2.0) mmol/L Alkaline Phosphatase (38-126) U/L Troponin I (0.000-0.034) ng/mL Total Protein (6.3-8.2) g/dL Albumin (3.5-5.0) g/dL TSH (0.465-4.680) mIU/L Thrombosis Risk Factor Assmnt - Choose All That Apply Any of the Below Risk Factors Present?: No Other Risk Factors: Yes Each Risk Factor Represents 3 Points: Age 75 years or older Other congenital or acquired thrombophilia - If yes, enter type in comment: No Thrombosis Risk Factor Assessment Total Risk Factor Score: 3 Thrombosis Risk Factor Assessment Level: Moderate Risk Assessment and Plan Assessment: Leukocytosis suspicious for infection and sepsis. Possible Intra-abdominal infection, rule out pneumonia Hypotension Possible right pneumonia with diffuse right pulmonary infiltrate Elevated troponin, rule out cardiac causes History of rectal cancer since 2018 Multiple compression fracture Bilateral pleural effusion Ascites with peritoneal nodularity suspicious for persistent carcinomatosis Rectal wall thickening with mass cannot be excluded Elevated TSH at 10.4 Hypertension Osteoarthritis History of coronary artery disease History of gout History of duodenal ulcer Plan: This is a pleasant 74 years old female who presents because of nausea vomiting and hypotension. There was suspicion of right pneumonia as well. Also patient complains from abdominal pain and ascites in view of her history of metastatic rectal cancer. Continue with IV fluid, continue with empiric antibiotics. Follow-up culture results. Follow-up recommendation by oncology, surgery and GI teams. Check echocardiogram and serial troponin with cardiology consult. Consult pulmonary service for pneumonia Labs and medication were reviewed.. Continue same treatment. Continue with symptomatic treatment. Resume home medication. Monitor lytes and vitals. DVT and GI prophylaxis. Further recommendations depends on the clinical course of the patient DVT prophylaxis: Subcutaneous heparin GI Prophylaxis: Ppi PT/OT: Pending Prognosis is guarded
[2020-07-23] MEDS ORDERED: SODIUM CHLORIDE 0.9% 500 ML 500 ML IV ONE (12:02)
[2020-07-23] MEDS ORDERED: VANCOMYCIN IV PER PHARMACY 1 EACH MISC MISCELLANE PRN (12:04)
[2020-07-23] MEDS ORDERED: CEFEPIME 2 GM in SODIUM CHLORIDE 0.9% 100 ML IVPB SCH (12:15)
[2020-07-23 12:28] LABS: Glucose,Whole Blood 75 mg/dL (75-99)
[2020-07-23] MEDS ORDERED: CEFEPIME 1 GM in SODIUM CHLORIDE 0.9% 50 ML IVPB SCH (13:00)
[2020-07-23] MEDS ORDERED: VANCOMYCIN 750 MG in SODIUM CHLORIDE 0.9% 250 ML IVPB ONE (13:00)
[2020-07-23 13:12] LABS: Appearance,Urine Turbid (Clear); Bacteria,Urine Many /hpf; Bilirubin,Urine Negative (Negative); Blood,Urine Small (Negative); Color,Urine Yellow; Glucose,Urine (UA) Negative (Negative); Ketones,Urine Negative (Negative); Leukocyte Esterase,Urine Moderate (Negative); Mucus,Urine Occasional /hpf; Nitrite,Urine Negative (Negative); PH, Urine 5.5 (5.0-8.0); Protein,Urine 1+ (Negative); RBC,Urine 6 /hpf (0-5); Specific Gravity,Urine 1.044 (1.001-1.035); Squamous Epithelial Cell,Urine 66 /hpf (0-4); Urobilinogen,Urine <2.0 mg/dL (<2.0); WBC,Urine 40 /hpf (0-5)
--- NOTE | 2020-07-23 13:15 | P.CRDCN ---
History of Present Illness History of present illness: HISTORY OF PRESENTING ILLNESS This is a pleasant 74-year-old female past medical history significant for rectal cancer with metastasis, SVT, hypertension and dyslipidemia. She has followed in the office with Dr. Nicole one time back in 2018. We have been asked to see in consultation for elevated troponin. It is unclear why troponins were drawn on this patient. She presented to the hospital with symptoms of abdominal pain and swelling along with lumbar back pain. She was apparently given morphine per EMS and was hypotensive and lethargic upon arrival to the ER. Blood pressure was 69/40. She was given narcan and IV fluid bolus. Repeat blood pressure continue to be running on the low side, although she is asymptomatic. Initial EKG reveals sinus tachycardia heart rate 126. Telemetry tracings reviewed and reveal persistent sinus tachycardia. The patient is seen and examin ed thrashing around in bed in pain. She states the pain is in her pelvic region and radiates around to her lumbar back. She is very uncomfortable. She denies chest pain, dizziness, shortness of breath or palpitations. Although she states she is "aware of her heart beating fast." Chest x-ray on admission reveals a right pleural effusion and right pulmonary infiltrate. No overt heart failure noted. Repeat chest x-ray this morning reveals right mid and lower lobe infiltrate worse from yesterday and small bilateral pleural effusions. CT of the abdomen and pelvis reveals bilateral pleural effusions increased slightly compared to old exam, unchanged title hernia, large amount of abdominal ascites increased from previous exam and decreased contrast excretion suggestive of some degree of renal failure. Laboratory data reviewed, WBC 62.3, hgb 10.3, plt 483, sodium 138, potassium 2.9, creatinine 1.29, lactic acid 2.9 on admission repeat 1.4 after hydration, troponin 0.081 and 0.212, TSH 3.54. Current daily cardiac medications include atorvastatin 20 mg daily and lopressor 25 mg BID. Echoca rdiogram ordered by primary care team was a technically difficult study due to resting tachycardia, EF 65-70%, moderately dilated, moderate sclerosis, moderate aortic stenosis with mean gradient of 24 mmHG, moderate annular mitral calcifications noted with small mobile shadowing on the anterior leaflet with moderate to severe MR, moderate TR and severe pulmonary hypertension with RVSP 62. Repeat study suggested when heart rates are controlled. REVIEW OF SYSTEMS At the time of my exam: CONSTITUTIONAL: Denies fever or chills. CARDIOVASCULAR: Denies chest pain, shortness of breath, orthopnea, PND or palpitations. RESPIRATORY: Denies cough. GASTROINTESTINAL: Complains of abdominal pain. Denies pain, diarrhea, constipation, nausea or vomiting. MUSCULOSKELETAL: Complains of lumbar back pain. NEUROLOGIC: Denies numbness, tingling or weakness. ENDOCRINE: Denies fatigue, weight change, polydipsia or polyurina. GENITOURINARY: Denies burning, hematuria or urgency with micturation. HEMATOLOGIC: Denies history of anemia or bleeding. PHYSICAL EXAMINATION Blood pressure 101/57 heart rate 145 afebrile and maintaining oxygen saturation on nasal cannula. CONSTITUTIONAL: No apparent distress. HEENT: Head is normocephalic. Pupils are equal, round. Sclerae anicteric. Mucous membranes of the mouth are moist. No JVD. No carotid bruit. CHEST EXAMINATION: Lungs are clear to auscultation. No chest wall tenderness is noted on palpation or with deep breathing. Diminished bilaterally. HEART EXAMINATION: Regular tachycardiac rate and rhythm. S1, S2 heard. Harsh systolic ejection murmur at all listening points, no gallops or rub. ABDOMEN: Soft, tender and mildly distended. EXTREMITIES: 1+ peripheral pulses, no lower extremity edema and no calf tenderness. NEUROLOGIC EXAMINATION: Patient is awake, alert and oriented x3. ASSESSMENT Sinus tachycardia Hypotension Troponin leak of unclear significance. Leukocytosis Valvular heart disease, possible vegetation noted on mitral valve vs metastasis or calcification. Rectal cancer with metastasis Hypokalemia Acute kidney injury Lactic acidosis Abdominal ascites PLAN Blood cultures have been sent, if negative unlikely to be vegetation on the mitral valve. We will either repeat trans-thoracic echo when heart rate is controlled or consider ALVINA based on clinical course. Currently on broad spectrum antibiotics per primary care team. Resume lopressor if her blood pressure will tolerate. Unclear why troponin was drawn on this patient, she has no chest pain, shortness of breath or any symptoms to suggest ACS or warrant troponin evaluation. Secondary causes for elevation could be acute kidney injury or sepsis. Replace potassium per protocol. Oncology following and requesting paracentesis, however patient currently not stable for the procedure. Could consider IV diuresis if her blood pressure can tolerate. Thank you kindly for this consultation. Nurse Practitioner note has been reviewed, I agree with a documented findings and plan of care. Patient was seen and examined. Past Medical History Past Medical History: Cancer, GERD/Reflux, Hypertension, Myocardial Infarction ([place]), Osteoarthritis (OA), Skin Disorder Additional Past Medical History / Comment(s): hx rectal cancer 2017, normal pressure hydrocephalus-pt. never heard of this dx. hx duodenal ulcers,gout, heart murmur, hx "fast heart rate" , "recent low blood pressure", "upper abdomen blockage" on PET scan, 2 tumors in "Bowel and rectum", hx of rectal bleeding ., constipation and diarrhea., had cholecystectomy 10/30/19-pt states incisions healing with no signs of infection. Last Myocardial Infarction Date:: unknown History of Any Multi-Drug Resistant Organisms: None Reported Past Surgical History: Adenoidectomy, Cholecystectomy, Orthopedic Surgery, Tonsillectomy Additional Past Surgical History / Comment(s): EGD/colonoscopy, bilateral cataract removal with lens implants, ORIF left arm, tumor removed from rectum 2017, vaginal polyps removed, lap jer 10/30/19 Past Anesthesia/Blood Transfusion Reactions: Motion Sickness Additional Past Anesthesia/Blood Transfusion Reaction / Comment(s): Pt has received blood without reaction. Past Psychological History: Anxiety Additional Psychological History / Comment(s): . Smoking Status: Never smoker Past Alcohol Use History: None Reported Past Drug Use History: None Reported - Past Family History Mother Family Medical History: Cancer Additional Family Medical History / Comment(s): breast cancer, myasthenia gravis Father Family Medical History: Diabetes Mellitus Additional Family Medical History / Comment(s): Father was deaf. Medications and Allergies Home Medications Medication Instructions Recorded Confirmed Type Acetaminophen [Tylenol Extra 1,000 tab PO Q6H PRN 08/21/18 07/22/20 History Strength] Atorvastatin Calcium [Lipitor] 20 mg PO DAILY 08/21/18 07/22/20 History Docusate [Colace] 100 mg PO BID 02/05/19 07/22/20 History Metoprolol Tartrate [Lopressor] 25 mg PO BID 02/05/19 07/22/20 History Loratadine [Claritin] 10 mg PO DAILY PRN 07/22/20 07/22/20 History Ondansetron HCl [Zofran] 4 mg PO Q4-6H PRN 07/22/20 07/22/20 History Pegfilgrastim [Neulasta] 6 mg SQ Q14D 07/22/20 07/22/20 History Propylene Glycol [Systane Complete] 1 drop BOTH EYES QID 07/22/20 07/22/20 History Allergies Allergy/AdvReac Type Severity Reaction Status Date / Time codeine Allergy Nausea & Verified 07/22/20 22:34 Vomiting tomato Allergy mouth Verified 07/22/20 22:34 swelling Physical Exam Vitals: Vital Signs Temp Pulse Pulse Resp BP BP Pulse Ox 07/23/20 09:45 145 H 101/57 07/23/20 08:00 98.2 F 124 H 18 95/56 93 L 07/23/20 05:45 124 H 95/52 07/23/20 05:30 97.4 F L 138 H 18 85/52 92 L 07/23/20 03:36 82/52 07/23/20 02:37 131 H 78/46 07/23/20 02:10 123 H 18 79/54 96 07/23/20 02:00 98.2 F 130 H 18 78/46 95 07/23/20 00:25 98.0 F 140 H 18 86/51 94 L 07/22/20 23:32 134 H 16 105/86 99 07/22/20 22:30 114 H 16 104/67 95 07/22/20 22:00 97/67 07/22/20 21:20 124 H 16 100/51 95 07/22/20 21:08 12 07/22/20 20:51 97.7 F 140 H 12 69/40 96 Intake and Output 07/22/20 07/23/20 07/23/20 22:59 06:59 14:59 Intake Total 1520 100 Balance 1520 100 Intake: Intake, IV Titration 1520 100 Amount Piperacillin-Tazobactam 3 100 .375 gm In Sodium Chloride 0.9% 100 ml @ 25 mls/hr IVPB Q8H [facility] Rx#: [id number] Sodium Chloride 0.9% 1, 520 000 ml @ 130 mls/hr IV . Q7H42M [facility] Rx#:[id number] Sodium Chloride 0.9% 1, 1000 000 ml @ 999 mls/hr IV . Q1H1M [facility] Rx#:[id number] Other: Weight 34.927 kg 40.5 kg Results 07/23/20 08:25 07/23/20 08:25 Cardiac Enzymes 07/22/20 07/22/20 07/23/20 Range/Units 21:37 21:37 08:25 AST 35 32 (14-36) U/L Troponin I 0.081 H* (0.000-0.034) ng/mL 07/23/20 Range/Units 08:25 AST (14-36) U/L Troponin I 0.212 H* (0.000-0.034) ng/mL Coagulation 07/22/20 Range/Units 21:37 PT 12.9 H (9.0-12.0) sec APTT 25.7 (22.0-30.0) sec CBC 07/22/20 07/23/20 Range/Units 23:03 08:25 WBC 64.3 H* 62.3 H* (3.8-10.6) k/uL RBC 3.58 L 3.71 L (3.80-5.40) m/uL Hgb 9.9 L 10.3 L (11.4-16.0) gm/dL Hct 34.4 35.3 (34.0-46.0) % Plt Count 474 H 483 H (150-450) k/uL Comprehensive Metabolic Panel 07/22/20 07/23/20 Range/Units 21:37 08:25 Sodium 134 L 138 (137-145) mmol/L Potassium 3.7 2.9 L (3.5-5.1) mmol/L Chloride 101 106 (98-107) mmol/L Carbon Dioxide 20 L 20 L (22-30) mmol/L BUN 33 H 35 H (7-17) mg/dL Creatinine 1.01 1.29 H (0.52-1.04) mg/dL Glucose 78 53 L (74-99) mg/dL Calcium 8.9 7.7 L (8.4-10.2) mg/dL Unconjugated Bilirubin 0.2 (0.0-1.1) mg/dL AST 35 32 (14-36) U/L ALT 8 8 (4-34) U/L Alkaline Phosphatase 244 H 176 H (38-126) U/L Total Protein 5.6 L 4.8 L (6.3-8.2) g/dL Albumin 2.8 L 2.4 L (3.5-5.0) g/dL Current Medications Generic Name Dose Route Start Last Admin Trade Name Freq PRN Reason Stop Dose Admin Acetaminophen 650 mg 07/22/20 23:09 Acetaminophen Tab 325 Mg Tab PO Q6HR PRN Mild Pain or Fever > 100.5 Atorvastatin Calcium 20 mg 07/23/20 09:00 07/23/20 08:23 Atorvastatin 20 Mg Tab PO 20 mg DAILY [facility] Administration Docusate Sodium 100 mg 07/23/20 09:00 07/23/20 08:23 Docusate 100 Mg Cap PO 100 mg BID [facility] Administration Heparin Sodium (Porcine) 5,000 unit 07/23/20 09:00 07/23/20 08:23 Heparin Sodium,Porcine 5,000 Unit/Ml 1 Ml Vial SQ 5,000 unit Q12HR [facility] Administration Piperacillin Sod/Tazobactam 100 mls @ 25 mls/hr 07/23/20 03:00 07/23/20 11:10 Sod 3.375 gm/ Sodium Chloride IVPB 25 mls/hr Q8H [facility] Administration Sodium Chloride 1,000 mls @ 130 mls/hr 07/23/20 02:30 07/23/20 02:20 Saline 0.9% IV 130 mls/hr .Q7H42M [facility] Administration Potassium Chloride 10 meq/ IV 100 mls @ 100 mls/hr 07/23/20 11:00 07/23/20 11:09 Solution IVPB 07/23/20 16:59 100 mls/hr Q1HR [facility] Administration Protocol Lidocaine 1 patch 07/23/20 10:45 Lidocaine 5% Patch TOPICAL DAILY [facility] Miscellaneous Information 1 each 07/23/20 09:52 Magnesium Replacement Protocol 1 Each Misc MISCELLANE DAILY PRN Per Protocol Protocol Miscellaneous Information 1 each 07/23/20 10:11 Potassium Replacement Protocol 1 Each Misc MISCELLANE DAILY PRN Per Protocol Protocol Naloxone HCl 0.2 mg 07/22/20 23:09 Naloxone 0.4 Mg/Ml 1 Ml Vial IV Q2M PRN Opioid Reversal Ondansetron HCl 4 mg 07/22/20 23:09 Ondansetron 4 Mg/2 Ml Vial IVP Q8HR PRN Nausea And Vomiting Pantoprazole Sodium 40 mg 07/23/20 09:00 07/23/20 08:23 Pantoprazole 40 Mg/10 Ml Vial IV 40 mg DAILY [facility] Administration Intake and Output 07/22/20 07/23/20 07/23/20 22:59 06:59 14:59 Intake Total 1520 100 Balance 1520 100 Intake: Intake, IV Titration 1520 100 Amount Piperacillin-Tazobactam 3 100 .375 gm In Sodium Chloride 0.9% 100 ml @ 25 mls/hr IVPB Q8H [facility] Rx#: [id number] Sodium Chloride 0.9% 1, 520 000 ml @ 130 mls/hr IV . Q7H42M [facility] Rx#:[id number] Sodium Chloride 0.9% 1, 1000 000 ml @ 999 mls/hr IV . Q1H1M [facility] Rx#:[id number] Other: Weight 34.927 kg 40.5 kg 07/23/20 08:25 07/23/20 08:25
[2020-07-23] MEDS: LIDOCAINE 5% PATCH TOPICAL SCH (13:40)
--- NOTE | 2020-07-23 14:08 | P.CONS ---
History of Present Illness - Reason for Consult Consult date: 07/23/20 rectal adenocarcinoma Requesting physician: Ronnell Greenfield - Chief Complaint Abd pain - History of Present Illness Ms. Savage is a pleasant female, initially seen 10/16/17. Admitted 09/30-10/04/17 because of being very dizzy and tired. She had severe anemia and re ceived blood transfusion. Upper and lower endoscopy 09/27/17 revealing rectal prolapse with a friable polyp. Biopsies positive for adenocarcinoma and fragments of adenoma. The patient was discharged to a rehabilitation facility but, came back in because of elevated heart rate and multiple PVCs , with sinus tachycardia. CT CAP showed no evidence of metastatic disease. For further staging, as the tumor was in the prolapse part, she had an ultrasound of the local area which appeared to indicate a 2.5 x 0.7 cm mass with no blurring of the mesorectal fat or extension possible muscular layer. Therefore this was felt to be a T1 or T2 tumor with no evidence of T3 disease. She received IV iron for deficiency. She was seen for her first office visit on 11/12/17. She was referred back to surgery and had a local excision on 11/23/17. This revealed T1 tumor in an adenoma with high grade dysplasia. The margins were free of malignancy, but focally involved with dysplasia. She was referred to Rad Onc, but pt opted out of RT. She was placed on surveillance, f/u with surgery. She was last seen in the office in 04/12. She was referred back in 09/13. She had developed mucoid discharge with intermittent bleeding per rectum since , along with abdominal cramps. She had a drop in appetite and wt loss of of 5-6 lbs. A repeat colonoscopy 08/10/19 showed a mass just above the anal verge, wi th biopsy +ve for adenoca. The study extended only up to the splenic flexure due to retained stool. She had had an attempted colonoscopy in 02/11, which was incomplete for the same reason. PET scan showed evidence of some ascites with possible nodularity in the upper abdomen that was somewhat concerning for peritoneal carcinomatosis. No other areas of uptake were seen. The patient was also referred for an EUS. EUS on 10/05/19, found a 3 cm mass 0-3 cm from the anal verge which was non-circumfe rential in the right posterolateral wall. There was thickened mass extending from 7-11 cm which was partially obstructing and circumferential. There was normal intervening mucosa between the two visualized masses. On EUS however, there was no normal layers between the 2 masses and there appeared to be invasion into the perirectal fat ( u T3). Stephenie involvement could not be visualized well because the scope could not be passed beyond the distal end of the partially obstructing mass. Staging PET scan that showed uptake in the upper abdomen, suspicious for possible peritoneal carcinomatosis. CEA was elevated at 18.1. She was referred to surgery and had laparoscopy on 10/30/19. She was found to have evidence of peritoneal studding on the surface of the gallbladder, falciform ligament and adjacent peritoneum. Biopsy was positive for adenocarcinoma, CK 7 and CK 20 positive, felt to be consistent with colorectal primary, but other upper GI primaries were not ruled out. Case was discussed with Pathology who did staining on the rectal primary and confirmed the same pattern. She started on FOLFOX on 11/19/19, completed 12 cycles 07/03 with GCSF. Treatment was held for a perior of time after cycle 7 due to concerns for weakness and falls, MRI brain was negative. She had partial cycle 8, and dose reduction. Did not have cycle 9, resumed with cycle 10, after a six-week interval. Again, chemo completed 07/03, she did receive GCSF. She was supposed to have treatment f/u scans, did not get done. She had [employer] somatic molecular testing on original biopsy with MET, RET and PTEN mutations, pending further maintenance treatment plans. She was sched for MRI spine because of c/o low back pain, no evidence of metastatic disease, compression fx. She was sched for f/u this week. Pt was lethargic and weak when seen, she states loss of appetite, pretty constant nausea, vomiting x 1, abd distension with discomfort, very weak and tired. She denied fever, sore throat, ear pain, new cough or SOB, chest pain, palpitations, diarrhea, dysuria, bleeding or swelling. Review of Systems ROS, as able to be obtained, as stated in HPI Past Medical History Past Medical History: Cancer, GERD/Reflux, Hypertension, Myocardial Infarction ([place]), Osteoarthritis (OA), Skin Disorder Additional Past Medical History / Comment(s): hx rectal cancer 2017, normal pressure hydrocephalus-pt. never heard of this dx. hx duodenal ulcers,gout, heart murmur, hx "fast heart rate" , "recent low blood pressure", "upper abdomen blockage" on PET scan, 2 tumors in "Bowel and rectum", hx of rectal bleeding ., constipation and diarrhea., had cholecystectomy 10/30/19-pt states incisions healing with no signs of infection. Last Myocardial Infarction Date:: unknown History of Any Multi-Drug Resistant Organisms: None Reported Past Surgical History: Adenoidectomy, Cholecystectomy, Orthopedic Surgery, Tonsillectomy Additional Past Surgical History / Comment(s): EGD/colonoscopy, bilateral cataract removal with lens implants, ORIF left arm, tumor removed from rectum 2017, vaginal polyps removed, lap jer 10/30/19 Past Anesthesia/Blood Transfusion Reactions: Motion Sickness Additional Past Anesthesia/Blood Transfusion Reaction / Comm: Pt has received blood without reaction. Past Psychological History: Anxiety Additional Psychological History / Comment(s): . Smoking Status: Never smoker Past Alcohol Use History: None Reported Past Drug Use History: None Reported - Past Family History Mother Family Medical History: Cancer Additional Family Medical History / Comment(s): breast cancer, myasthenia gravis Father Family Medical History: Diabetes Mellitus Additional Family Medical History / Comment(s): Father was deaf. Medications and Allergies Home Medications Medication Instructions Recorded Confirmed Type Acetaminophen [Tylenol Extra 1,000 tab PO Q6H PRN 08/21/18 07/22/20 History Strength] Atorvastatin Calcium [Lipitor] 20 mg PO DAILY 08/21/18 07/22/20 History Docusate [Colace] 100 mg PO BID 02/05/19 07/22/20 History Metoprolol Tartrate [Lopressor] 25 mg PO BID 02/05/19 07/22/20 History Loratadine [Claritin] 10 mg PO DAILY PRN 07/22/20 07/22/20 History Ondansetron HCl [Zofran] 4 mg PO Q4-6H PRN 07/22/20 07/22/20 History Pegfilgrastim [Neulasta] 6 mg SQ Q14D 07/22/20 07/22/20 History Propylene Glycol [Systane Complete] 1 drop BOTH EYES QID 07/22/20 07/22/20 History Allergies Allergy/AdvReac Type Severity Reaction Status Date / Time codeine Allergy Nausea & Verified 07/22/20 22:34 Vomiting tomato Allergy mouth Verified 07/22/20 22:34 swelling Physical Exam Vitals: Vital Signs Temp Pulse Pulse Resp BP BP Pulse Ox 07/23/20 09:45 145 H 101/57 07/23/20 08:00 98.2 F 124 H 18 95/56 93 L 07/23/20 05:45 124 H 95/52 07/23/20 05:30 97.4 F L 138 H 18 85/52 92 L 07/23/20 03:36 82/52 07/23/20 02:37 131 H 78/46 07/23/20 02:10 123 H 18 79/54 96 07/23/20 02:00 98.2 F 130 H 18 78/46 95 07/23/20 00:25 98.0 F 140 H 18 86/51 94 L 07/22/20 23:32 134 H 16 105/86 99 07/22/20 22:30 114 H 16 104/67 95 07/22/20 22:00 97/67 07/22/20 21:20 124 H 16 100/51 95 07/22/20 21:08 12 07/22/20 20:51 97.7 F 140 H 12 69/40 96 Intake and Output 07/22/20 07/23/20 07/23/20 22:59 06:59 14:59 Intake Total 1520 100 Balance 1520 100 Intake: Intake, IV Titration 1520 100 Amount Piperacillin-Tazobactam 3 100 .375 gm In Sodium Chloride 0.9% 100 ml @ 25 mls/hr IVPB Q8H [facility] Rx#: [id number] Sodium Chloride 0.9% 1, 520 000 ml @ 130 mls/hr IV . Q7H42M [facility] Rx#:[id number] Sodium Chloride 0.9% 1, 1000 000 ml @ 999 mls/hr IV . Q1H1M [facility] Rx#:[id number] Other: Weight 34.927 kg 40.5 kg - Constitutional General appearance: cooperative, disheveled, mild distress, thin - EENT Eyes: anicteric sclerae, EOMI ENT: hearing grossly normal - Neck Neck: no lymphadenopathy - Respiratory Respiratory: bilateral: rales (bases) - Cardiovascular Heart sounds: normal: S1, S2 leg Peripheral Edema: bilateral: Trace - Gastrointestinal General gastrointestinal: no absent bowel sounds, decreased bowel sounds, distended, no hepatomegaly, no hyperactive bowel sounds, no normal bowel sounds, no organomegaly, no rigid, no scaphoid, soft, no splenomegaly, tenderness, no umbilical hernia, no ventral hernia - Integumentary Integumentary: pale - Neurologic no gross deficits - Musculoskeletal Musculoskeletal: generalized weakness - Psychiatric Answers questions, poor historian right now, oriented x 2-3 Results CBC & Chem 7: 07/23/20 08:25 07/23/20 08:25 Labs: Abnormal Lab Results - Last 24 Hours (Table) 07/22/20 07/22/20 07/22/20 Range/Units 21:37 21:37 21:37 WBC (3.8-10.6) k/uL RBC (3.80-5.40) m/uL Hgb (11.4-16.0) gm/dL MCHC (31.0-37.0) g/dL RDW (11.5-15.5) % Plt Count (150-450) k/uL Neutrophils # (1.3-7.7) k/uL Neutrophils # (Manual) (1.3-7.7) k/uL Lymphocytes # (1.0-4.8) k/uL Monocytes # (0-1.0) k/uL Monocytes # (Manual) (0-1.0) k/uL PT 12.9 H (9.0-12.0) sec INR 1.3 H (<1.2) Sodium 134 L (137-145) mmol/L Potassium (3.5-5.1) mmol/L Carbon Dioxide 20 L (22-30) mmol/L BUN 33 H (7-17) mg/dL Creatinine (0.52-1.04) mg/dL Glucose (74-99) mg/dL Plasma Lactic Acid Yovany 2.9 H* (0.7-2.0) mmol/L Calcium (8.4-10.2) mg/dL Delta Bilirubin (0.0-0.2) mg/dL Alkaline Phosphatase 244 H (38-126) U/L Troponin I (0.000-0.034) ng/mL Total Protein 5.6 L (6.3-8.2) g/dL Albumin 2.8 L (3.5-5.0) g/dL TSH 10.400 H (0.465-4.680) mIU/L 07/22/20 07/22/20 07/23/20 Range/Units 21:37 23:03 00:56 WBC 64.3 H* (3.8-10.6) k/uL RBC 3.58 L (3.80-5.40) m/uL Hgb 9.9 L (11.4-16.0) gm/dL MCHC 28.7 L (31.0-37.0) g/dL RDW 21.1 H (11.5-15.5) % Plt Count 474 H (150-450) k/uL Neutrophils # 62.2 H (1.3-7.7) k/uL Neutrophils # (Manual) (1.3-7.7) k/uL Lymphocytes # 0.3 L (1.0-4.8) k/uL Monocytes # 1.4 H (0-1.0) k/uL Monocytes # (Manual) (0-1.0) k/uL PT (9.0-12.0) sec INR (<1.2) Sodium (137-145) mmol/L Potassium (3.5-5.1) mmol/L Carbon Dioxide (22-30) mmol/L BUN (7-17) mg/dL Creatinine (0.52-1.04) mg/dL Glucose (74-99) mg/dL Plasma Lactic Acid Yovany 2.5 H* (0.7-2.0) mmol/L Calcium (8.4-10.2) mg/dL Delta Bilirubin (0.0-0.2) mg/dL Alkaline Phosphatase (38-126) U/L Troponin I 0.081 H* (0.000-0.034) ng/mL Total Protein (6.3-8.2) g/dL Albumin (3.5-5.0) g/dL TSH (0.465-4.680) mIU/L 07/23/20 07/23/20 07/23/20 Range/Units 04:03 08:25 08:25 WBC 62.3 H* (3.8-10.6) k/uL RBC 3.71 L (3.80-5.40) m/uL Hgb 10.3 L (11.4-16.0) gm/dL MCHC 29.1 L (31.0-37.0) g/dL RDW 20.7 H (11.5-15.5) % Plt Count 483 H (150-450) k/uL Neutrophils # (1.3-7.7) k/uL Neutrophils # (Manual) 58.56 H (1.3-7.7) k/uL Lymphocytes # (1.0-4.8) k/uL Monocytes # (0-1.0) k/uL Monocytes # (Manual) 2.49 H (0-1.0) k/uL PT (9.0-12.0) sec INR (<1.2) Sodium (137-145) mmol/L Potassium 2.9 L (3.5-5.1) mmol/L Carbon Dioxide 20 L (22-30) mmol/L BUN 35 H (7-17) mg/dL Creatinine 1.29 H (0.52-1.04) mg/dL Glucose 53 L (74-99) mg/dL Plasma Lactic Acid Yovany 2.1 H* (0.7-2.0) mmol/L Calcium 7.7 L (8.4-10.2) mg/dL Delta Bilirubin 0.4 H (0.0-0.2) mg/dL Alkaline Phosphatase 176 H (38-126) U/L Troponin I (0.000-0.034) ng/mL Total Protein 4.8 L (6.3-8.2) g/dL Albumin 2.4 L (3.5-5.0) g/dL TSH (0.465-4.680) mIU/L 07/23/20 Range/Units 08:25 WBC (3.8-10.6) k/uL RBC (3.80-5.40) m/uL Hgb (11.4-16.0) gm/dL MCHC (31.0-37.0) g/dL RDW (11.5-15.5) % Plt Count (150-450) k/uL Neutrophils # (1.3-7.7) k/uL Neutrophils # (Manual) (1.3-7.7) k/uL Lymphocytes # (1.0-4.8) k/uL Monocytes # (0-1.0) k/uL Monocytes # (Manual) (0-1.0) k/uL PT (9.0-12.0) sec INR (<1.2) Sodium (137-145) mmol/L Potassium (3.5-5.1) mmol/L Carbon Dioxide (22-30) mmol/L BUN (7-17) mg/dL Creatinine (0.52-1.04) mg/dL Glucose (74-99) mg/dL Plasma Lactic Acid Yovany (0.7-2.0) mmol/L Calcium (8.4-10.2) mg/dL Delta Bilirubin (0.0-0.2) mg/dL Alkaline Phosphatase (38-126) U/L Troponin I 0.212 H* (0.000-0.034) ng/mL Total Protein (6.3-8.2) g/dL Albumin (3.5-5.0) g/dL TSH (0.465-4.680) mIU/L Comments: MRI spine report reviewed CT scan - abdomen: report reviewed CT scan - pelvis: report reviewed Assessment and Plan (1) Back pain Narrative/Plan: MRI reviewed, compression fractures, no impression of metastatic disease. Once pt feeling better will need PO/OT or Ortho spine to evlauate pt, maybe a brace will help with pain. Current Visit: Yes Status: Acute Priority: High Code(s): M54.9 - DORSALGIA, UNSPECIFIED SNOMED Code(s): 952053131 (2) Neutrophilic leukocytosis Narrative/Plan: Case briefly discussed with Cardiology INFORMATION DELIVERY ANALYST, vegetation suspected. Abx and further cardiac work up ordered. Current Visit: Yes Status: Acute Priority: Medium Code(s): D72.9 - DISORDER OF WHITE BLOOD CELLS, UNSPECIFIED SNOMED Code(s): 624441969 (3) Rectal adenocarcinoma Narrative/Plan: Pt completed treatment just about 3 weeks ago. Treatment f/u re-staging scans done, persistent peritoneal disease, slight increase in a nodule but, no gross progression or new metastatic disease. Current CT AP showing significant ascites and persistent pleural effusions. Somatic molecular testing showed MET, RET, PTEN mutations that have susceptibility to some of the targeted agents. Pt on pt clinical progress, further rectal cancer treatment will be discussed. Current Visit: No Status: Chronic Priority: Medium Code(s): C20 - MALIGNANT NEOPLASM OF RECTUM SNOMED Code(s): 306286195 (4) Ascites Narrative/Plan: Case discussed with IR RN. Pt is currently unstable and going to ICU, hold paracentesis for now. Plan to perform once pt is more stable. Current Visit: Yes Status: Acute Priority: High Code(s): R18.8 - OTHER ASCITES SNOMED Code(s): 291273767 (5) Anemia Narrative/Plan: Mild. Thrombocytosis as well. Pt has a history of iron deficiency but, with current critical condition would suspect acute phase reaction so, will hold on anemia work up for now, no iron due to acute infection. Current Visit: No Status: Chronic Priority: Medium Code(s): D64.9 - ANEMIA, UNSPECIFIED SNOMED Code(s): 877475207 Plan: Cardiac vegetation: Cardiology following pt along with Critical Care team. Doctor attests: I performed a history and physical examination of this patient, developed impression and plan of care. Discussed with dictator. I agree with dictators note, documented as a scribe.
[2020-07-23] MEDS: METOPROLOL TARTRATE 25 MG TAB PO SCH ×2 (14:14→19:53)
--- NOTE | 2020-07-23 14:16 | P.GSCN ---
History of Present Illness Consult date: 07/23/20 History of present illness: CHIEF COMPLAINT: Abdominal pain HISTORY OF PRESENT ILLNESS: This is a 74-year-old female with a known history of metastatic rectal cancer that was diagnosed in July 2018. Patient had transanal excision of rectal cancer in October [address] Garcia. Patient also has a history of normal pressure hydrocephalus, duodenal ulcer and a cholecystectomy. Patient presents to the emergency room with complaints of abdominal pain and being lethargic. She's also been hypotensive and tachycardic. Patient has not been eating well at home. She has had some nausea and vomiting. Patient had a computed tomography scan of the abdomen and pelvis additional bilateral pleural effusions increased slightly compared to old exam. Hiatal hernia unchanged. There is a large amount of abdominal ascites fluid in increased compared to old exam. Decreased contrast excretion on delayed images suggestive of some degree of renal failure. Patient is also being followed by oncology they've ordered a paracentesis. Patient denies any fever, chills or sweats. Also note that medicine is transferring patient to the ICU she has been hypotensive. They've also adjusted her antibiotics. PAST MEDICAL HISTORY: See list. PAST SURGICAL HISTORY: See list. MEDICATIONS: See list. ALLERGIES: See list. SOCIAL HISTORY: No illicit drug use. REVIEW OF SYSTEMS: CONSTITUTIONAL: Denies fever or chills. HEENT: Denies blurred vision, vision changes, or eye pain. Denies hemoptysis CARDIOVASCULAR: Denies chest pain or pressure. RESPIRATORY: No shortness of breath. GASTROINTESTINAL: See HPI for pertinent findings HEMATOLOGIC: Denies bleeding disorders. GENITOURINARY: Denies any blood in urine or increased urinary frequency. SKIN: Denies pruitis. Denies rash. PHYSICAL EXAM: VITAL SIGNS: Reviewed GENERAL: Well-developed in no acute distress. HEENT: No sclera icterus. Extraocular movements grossly intact. Moist buccal mucosa. Head is atraumatic, normocephalic. No nasal drainage. ABDOMEN: Soft. Distended. ascites present NEUROLOGIC: Alert and oriented. Cranial nerves II through XII grossly intact. LABORATORY DATA: WBC 62.3 hemoglobin 10.3 platelets 483 Sodium 138 potassium 2.9 creatinine 1.29 lactic 2.9 down to 1.4 elevated t roponins IMAGING: computed tomography scan of the abdomen and pelvis additional bilateral pleural effusions increased slightly compared to old exam. Hiatal hernia unchanged. There is a large amount of abdominal ascites fluid in increased compared to old exam. Decreased contrast excretion on delayed images suggestive of some degree of renal failure. ASSESSMENT: 1. Metastatic rectal cancer 2. Bilateral pleural effusions 3. Large amount of abdominal ascites 4. Possible Cardiac vegetation On mitral valve. Being followed by cardiology 5. transanal excision of rectal cancer in October 2017 PLAN: -Recommend oncology workup -Continue IV antibiotics Thank you for this consultation Physician Lead Burner Helper note has been reviewed by physician. Signing provider agrees with the documented findings, assessment, and plan of care. Past Medical History Past Medical History: Cancer, GERD/Reflux, Hypertension, Myocardial Infarction (RI), Osteoarthritis (OA), Skin Disorder Additional Past Medical History / Comment(s): hx rectal cancer 2017, normal pressure hydrocephalus-pt. never heard of this dx. hx duodenal ulcers,gout, heart murmur, hx "fast heart rate" , "recent low blood pressure", "upper abdomen blockage" on PET scan, 2 tumors in "Bowel and rectum", hx of rectal bleeding ., constipation and diarrhea., had cholecystectomy 10/30/19-pt states incisions healing with no signs of infection. Last Myocardial Infarction Date:: unknown History of Any Multi-Drug Resistant Organisms: None Reported Past Surgical History: Adenoidectomy, Cholecystectomy, Orthopedic Surgery, Tonsillectomy Additional Past Surgical History / Comment(s): EGD/colonoscopy, bilateral cataract removal with lens implants, ORIF left arm, tumor removed from rectum 2017, vaginal polyps removed, lap jer 10/30/19 Past Anesthesia/Blood Transfusion Reactions: Motion Sickness Additional Past Anesthesia/Blood Transfusion Reaction / Comm: Pt has received blood without reaction. Past Psychological History: Anxiety Additional Psychological History / Comment(s): . Smoking Status: Never smoker Past Alcohol Use History: None Reported Past Drug Use History: None Reported - Past Family History Mother Family Medical History: Cancer Additional Family Medical History / Comment(s): breast cancer, myasthenia gravis Father Family Medical History: Diabetes Mellitus Additional Family Medical History / Comment(s): Father was deaf. Medications and Allergies Home Medications Medication Instructions Recorded Confirmed Type Acetaminophen [Tylenol Extra 1,000 tab PO Q6H PRN 08/21/18 07/22/20 History Strength] Atorvastatin Calcium [Lipitor] 20 mg PO DAILY 08/21/18 07/22/20 History Docusate [Colace] 100 mg PO BID 02/05/19 07/22/20 History Metoprolol Tartrate [Lopressor] 25 mg PO BID 02/05/19 07/22/20 History Loratadine [Claritin] 10 mg PO DAILY PRN 07/22/20 07/22/20 History Ondansetron HCl [Zofran] 4 mg PO Q4-6H PRN 07/22/20 07/22/20 History Pegfilgrastim [Neulasta] 6 mg SQ Q14D 07/22/20 07/22/20 History Propylene Glycol [Systane Complete] 1 drop BOTH EYES QID 07/22/20 07/22/20 History Allergies Allergy/AdvReac Type Severity Reaction Status Date / Time codeine Allergy Nausea & Verified 07/22/20 22:34 Vomiting tomato Allergy mouth Verified 07/22/20 22:34 swelling Surgical - Exam Vital Signs Temp Pulse Resp BP Pulse Ox 97.7 F 140 H 12 69/40 96 07/22/20 20:51 07/22/20 20:51 07/22/20 20:51 07/22/20 20:51 07/22/20 20:51 Results - Labs 07/23/20 08:25 07/23/20 08:25 Abnormal Lab Results - Last 24 Hours (Table) 07/22/20 07/22/20 07/22/20 Range/Units 21:37 21:37 21:37 WBC (3.8-10.6) k/uL RBC (3.80-5.40) m/uL Hgb (11.4-16.0) gm/dL MCHC (31.0-37.0) g/dL RDW (11.5-15.5) % Plt Count (150-450) k/uL Neutrophils # (1.3-7.7) k/uL Neutrophils # (Manual) (1.3-7.7) k/uL Lymphocytes # (1.0-4.8) k/uL Monocytes # (0-1.0) k/uL Monocytes # (Manual) (0-1.0) k/uL PT 12.9 H (9.0-12.0) sec INR 1.3 H (<1.2) Sodium 134 L (137-145) mmol/L Potassium (3.5-5.1) mmol/L Carbon Dioxide 20 L (22-30) mmol/L BUN 33 H (7-17) mg/dL Creatinine (0.52-1.04) mg/dL Glucose (74-99) mg/dL Plasma Lactic Acid Yovany 2.9 H* (0.7-2.0) mmol/L Calcium (8.4-10.2) mg/dL Delta Bilirubin (0.0-0.2) mg/dL Alkaline Phosphatase 244 H (38-126) U/L Troponin I (0.000-0.034) ng/mL Total Protein 5.6 L (6.3-8.2) g/dL Albumin 2.8 L (3.5-5.0) g/dL TSH 10.400 H (0.465-4.680) mIU/L Urine Appearance (Clear) Ur Specific [place] (1.001-1.035) Urine Protein (Negative) Urine Blood (Negative) Ur Leukocyte Esterase (Negative) Urine RBC (0-5) /hpf Urine WBC (0-5) /hpf Ur Squamous Epith Cells (0-4) /hpf Urine Bacteria (None) /hpf Urine Mucus (None) /hpf 07/22/20 07/22/20 07/23/20 Range/Units 21:37 23:03 00:56 WBC 64.3 H* (3.8-10.6) k/uL RBC 3.58 L (3.80-5.40) m/uL Hgb 9.9 L (11.4-16.0) gm/dL MCHC 28.7 L (31.0-37.0) g/dL RDW 21.1 H (11.5-15.5) % Plt Count 474 H (150-450) k/uL Neutrophils # 62.2 H (1.3-7.7) k/uL Neutrophils # (Manual) (1.3-7.7) k/uL Lymphocytes # 0.3 L (1.0-4.8) k/uL Monocytes # 1.4 H (0-1.0) k/uL Monocytes # (Manual) (0-1.0) k/uL PT (9.0-12.0) sec INR (<1.2) Sodium (137-145) mmol/L Potassium (3.5-5.1) mmol/L Carbon Dioxide (22-30) mmol/L BUN (7-17) mg/dL Creatinine (0.52-1.04) mg/dL Glucose (74-99) mg/dL Plasma Lactic Acid Yovany 2.5 H* (0.7-2.0) mmol/L Calcium (8.4-10.2) mg/dL Delta Bilirubin (0.0-0.2) mg/dL Alkaline Phosphatase (38-126) U/L Troponin I 0.081 H* (0.000-0.034) ng/mL Total Protein (6.3-8.2) g/dL Albumin (3.5-5.0) g/dL TSH (0.465-4.680) mIU/L Urine Appearance (Clear) Ur Specific [place] (1.001-1.035) Urine Protein (Negative) Urine Blood (Negative) Ur Leukocyte Esterase (Negative) Urine RBC (0-5) /hpf Urine WBC (0-5) /hpf Ur Squamous Epith Cells (0-4) /hpf Urine Bacteria (None) /hpf Urine Mucus (None) /hpf 07/23/20 07/23/20 07/23/20 Range/Units 04:03 08:25 08:25 WBC 62.3 H* (3.8-10.6) k/uL RBC 3.71 L (3.80-5.40) m/uL Hgb 10.3 L (11.4-16.0) gm/dL MCHC 29.1 L (31.0-37.0) g/dL RDW 20.7 H (11.5-15.5) % Plt Count 483 H (150-450) k/uL Neutrophils # (1.3-7.7) k/uL Neutrophils # (Manual) 58.56 H (1.3-7.7) k/uL Lymphocytes # (1.0-4.8) k/uL Monocytes # (0-1.0) k/uL Monocytes # (Manual) 2.49 H (0-1.0) k/uL PT (9.0-12.0) sec INR (<1.2) Sodium (137-145) mmol/L Potassium 2.9 L (3.5-5.1) mmol/L Carbon Dioxide 20 L (22-30) mmol/L BUN 35 H (7-17) mg/dL Creatinine 1.29 H (0.52-1.04) mg/dL Glucose 53 L (74-99) mg/dL Plasma Lactic Acid Yovany 2.1 H* (0.7-2.0) mmol/L Calcium 7.7 L (8.4-10.2) mg/dL Delta Bilirubin 0.4 H (0.0-0.2) mg/dL Alkaline Phosphatase 176 H (38-126) U/L Troponin I (0.000-0.034) ng/mL Total Protein 4.8 L (6.3-8.2) g/dL Albumin 2.4 L (3.5-5.0) g/dL TSH (0.465-4.680) mIU/L Urine Appearance (Clear) Ur Specific [place] (1.001-1.035) Urine Protein (Negative) Urine Blood (Negative) Ur Leukocyte Esterase (Negative) Urine RBC (0-5) /hpf Urine WBC (0-5) /hpf Ur Squamous Epith Cells (0-4) /hpf Urine Bacteria (None) /hpf Urine Mucus (None) /hpf 07/23/20 07/23/20 Range/Units 08:25 12:50 WBC (3.8-10.6) k/uL RBC (3.80-5.40) m/uL Hgb (11.4-16.0) gm/dL MCHC (31.0-37.0) g/dL RDW (11.5-15.5) % Plt Count (150-450) k/uL Neutrophils # (1.3-7.7) k/uL Neutrophils # (Manual) (1.3-7.7) k/uL Lymphocytes # (1.0-4.8) k/uL Monocytes # (0-1.0) k/uL Monocytes # (Manual) (0-1.0) k/uL PT (9.0-12.0) sec INR (<1.2) Sodium (137-145) mmol/L Potassium (3.5-5.1) mmol/L Carbon Dioxide (22-30) mmol/L BUN (7-17) mg/dL Creatinine (0.52-1.04) mg/dL Glucose (74-99) mg/dL Plasma Lactic Acid Yovany (0.7-2.0) mmol/L Calcium (8.4-10.2) mg/dL Delta Bilirubin (0.0-0.2) mg/dL Alkaline Phosphatase (38-126) U/L Troponin I 0.212 H* (0.000-0.034) ng/mL Total Protein (6.3-8.2) g/dL Albumin (3.5-5.0) g/dL TSH (0.465-4.680) mIU/L Urine Appearance Turbid H (Clear) Ur Specific [place] 1.044 H (1.001-1.035) Urine Protein 1+ H (Negative) Urine Blood Small H (Negative) Ur Leukocyte Esterase Moderate H (Negative) Urine RBC 6 H (0-5) /hpf Urine WBC 40 H (0-5) /hpf Ur Squamous Epith Cells 66 H (0-4) /hpf Urine Bacteria Many H (None) /hpf Urine Mucus Occasional H (None) /hpf Diabetes panel 07/22/20 07/23/20 Range/Units 21:37 08:25 Sodium 134 L 138 (137-145) mmol/L Potassium 3.7 2.9 L (3.5-5.1) mmol/L Chloride 101 106 (98-107) mmol/L Carbon Dioxide 20 L 20 L (22-30) mmol/L BUN 33 H 35 H (7-17) mg/dL Creatinine 1.01 1.29 H (0.52-1.04) mg/dL Glucose 78 53 L (74-99) mg/dL Calcium 8.9 7.7 L (8.4-10.2) mg/dL AST 35 32 (14-36) U/L ALT 8 8 (4-34) U/L Alkaline Phosphatase 244 H 176 H (38-126) U/L Total Protein 5.6 L 4.8 L (6.3-8.2) g/dL Albumin 2.8 L 2.4 L (3.5-5.0) g/dL Thyroid panel 07/22/20 07/23/20 Range/Units 21:37 08:25 TSH 10.400 H 3.540 (0.465-4.680) mIU/L Calcium panel 07/22/20 07/23/20 Range/Units 21:37 08:25 Calcium 8.9 7.7 L (8.4-10.2) mg/dL Albumin 2.8 L 2.4 L (3.5-5.0) g/dL Pituitary panel 07/22/20 07/23/20 Range/Units 21:37 08:25 Sodium 134 L 138 (137-145) mmol/L Potassium 3.7 2.9 L (3.5-5.1) mmol/L Chloride 101 106 (98-107) mmol/L Carbon Dioxide 20 L 20 L (22-30) mmol/L BUN 33 H 35 H (7-17) mg/dL Creatinine 1.01 1.29 H (0.52-1.04) mg/dL Glucose 78 53 L (74-99) mg/dL Calcium 8.9 7.7 L (8.4-10.2) mg/dL TSH 10.400 H 3.540 (0.465-4.680) mIU/L Adrenal panel 07/22/20 07/23/20 Range/Units 21:37 08:25 Sodium 134 L 138 (137-145) mmol/L Potassium 3.7 2.9 L (3.5-5.1) mmol/L Chloride 101 106 (98-107) mmol/L Carbon Dioxide 20 L 20 L (22-30) mmol/L BUN 33 H 35 H (7-17) mg/dL Creatinine 1.01 1.29 H (0.52-1.04) mg/dL Glucose 78 53 L (74-99) mg/dL Calcium 8.9 7.7 L (8.4-10.2) mg/dL Total Bilirubin 0.7 0.6 (0.2-1.3) mg/dL AST 35 32 (14-36) U/L ALT 8 8 (4-34) U/L Alkaline Phosphatase 244 H 176 H (38-126) U/L Total Protein 5.6 L 4.8 L (6.3-8.2) g/dL Albumin 2.8 L 2.4 L (3.5-5.0) g/dL
[2020-07-23 14:49] LABS: Glucose,Whole Blood 62 mg/dL (75-99)
[2020-07-23] MEDS ORDERED: DEXTROSE 50% SYRINGE 50 ML IVP ONE (14:50)
[2020-07-23 15:25] LABS: ABG Base Excess -14.4 mmol/L; ABG HCO3 16 mmol/L (21-25); ABG Oxygen Saturation 87.8 % (94-97); ABG PCO2 58 mmHg (35-45); ABG PO2 70 mmHg (83-108); ABG TCO2 18 mmol/L (19-24); Allen Test Performed? Yes
[2020-07-23] MEDS ORDERED: SODIUM BICARB 8.4% 50 ML SYR (1 MEQ/ML) ONE ×2 (15:27→15:37)
--- NOTE | 2020-07-23 15:29 | CONS ---
CONSULTATION DATE OF SERVICE: 07/23/2020 REASON FOR CONSULTATION: Abdominal pain, abdominal distention and ascites. HISTORY OF PRESENT ILLNESS: The patient is a 74-year-old pleasant white female with metastatic rectal cancer diagnosed in July of 2018 who is under the care of Dr. Zhu. The patient was admitted to the hospital because of abdominal pain and abdominal distention. She has been complaining of fatigue, weakness, shortness of breath and not feeling well for the last few weeks duration. Apparently had some episodes of nausea, vomiting, and diarrhea. In the emergency room, she had a CT of the abdomen and pelvis done yesterday that showed evidence of bilateral pleural effusion, hiatal hernia, large amount of abdominal ascites. On review of her records, she did have a CT scan done on July 02, which showed moderate amount of ascites with possible peritoneal carcinomatosis. The patient was evaluated by Oncology and she is scheduled for large-volume paracentesis today; however, because of persistent hypertension and tachycardia, the procedure has been canceled. The patient does not feel well. She states that her abdominal pain is diffusely all over the abdomen. She is nauseated, tired, fatigued, not feeling well. Appetite has been decreased. PAST MEDICAL HISTORY: Significant for metastatic rectal cancer, hypertension, hyperlipidemia, history of coronary artery disease status post ME in the past. Gastroesophageal reflux disease, degenerative joint disease, history of duodenal ulcer. PAST SURGICAL HISTORY: Appendectomy cholecystectomy tonsillectomy, bilateral cataract surgeries, multiple EGD, colonoscopy in the past. SOCIAL HISTORY: No smoking, no alcohol use. FAMILY HISTORY: Mother had myasthenia gravis and breast cancer. Father had diabetes mellitus. MEDICATIONS: At home include Tylenol, Lipitor, Colace, Lopressor, Claritin, Zofran, Neulasta. ALLERGIES: CODEINE. REVIEW OF SYSTEMS: CARDIOPULMONARY: She denies any chest pain, but she has complained of shortness of breath. : No dysuria, hematuria. MUSCULOSKELETAL: Back pain and lower abdominal pain. ENT: Vision unremarkable. CONSTITUTIONAL: Weight loss of 20 pounds. No fever, chills, night sweats. HEMATOLOGY: Mild anemia. ENDOCRINE: Unremarkable. ONCOLOGY: As mentioned above. PHYSICAL EXAMINATION: She appears comfortable. No apparent distress. Vital signs are stable. She appears to be somewhat uncomfortable. Vital signs show a blood pressure of 97/55, pulse rate 138, temperature 98.2. HEENT: Examination unremarkable, sclerae nonicteric, oral cavity no lesions. NECK: No JVD or lymph node enlargement. CHEST: Clear to auscultation. HEART: Regular rate and rhythm. ABDOMEN: Diffusely tender, slightly distended. No organomegaly. EXTREMITIES: No pedal edema. NEURO: She is awake, alert and oriented x3. No focal deficits. LABS: Done from yesterday, WBC 64.3, hemoglobin 9.9, platelets are 474, neutrophils are 62,000. INR 1.3. BUN and creatinine at 33 and 1.01 respectively. AST, ALT, T bilirubin, AST and ALT are normal, T bilirubin normal. Alkaline phosphatase is 244. Troponin 0.2. IMPRESSION: 1. Metastatic rectal adenocarcinoma diagnosed a year ago. CAT scan from 3 weeks ago did show peritoneal disease with new onset ascites. Oncology is following the patient closely. 2. New onset ascites, most likely secondary to peritoneal disease from rectal cancer. The patient is scheduled for large-volume paracentesis because of persistent hypertension, that has been canceled for today. No history of chronic liver disease. 3. Severe leukocytosis for which she is on broad-spectrum antibiotics with cefepime and IV vancomycin. Sepsis workup in progress. Cardiology has been consulted to rule out infective endocarditis. RECOMMENDATION: 1. Continue with broad-spectrum antibiotics. 2. She will be scheduled for large-volume paracentesis for diagnostic and therapeutic purposes once she is hemodynamically stable. 3. Will follow. Will continue with symptomatic and supportive care. 4. Will follow with you closely. Thank you for this consultation. MMODL / IJN: [id number] /
--- NOTE | 2020-07-23 15:31 | P.CNPUL ---
History of Present Illness Consult date: 07/23/20 Chief complaint: Shortness of breath, hypotension History of present illness: This is a 74-year-old female patient with a known history of metastatic rectal cancer that was diagnosed in July 2018. The patient is a representation back balance for severe anemia and she was found to have a rectal prolapse and a friable polypoid nodularity in the prolapse rectum. She was found to have a rectal adenocarcinoma. The patient was seen by oncology. The patient also underwent a transanal excision of the rectal cancer. The patient was being followed up by oncology and a PET scan that was done on 09/08/2019 showed significant abnormalities with mild hypermetabolic uptake along the course of the sigmoid rectal: In addition to moderate to severe concentric wall thickening and more distally there was hypermetabolic uptake within the rectum extending slightly to the right of the midline and there is also suspected eccentric mass measuring up to 3 cm in size showing metabolic activity. The patient also had some ascites with prominent notoriety along the upper and midabdomen concerning for peritoneal carcinomatosis. Based on this, the patient was taken to the operating room and the patient underwent a laparoscopic cholecystectomy and laparoscopic peritoneal biopsy and the biopsies came back positive for malignancy. The patient was found to have metastatic moderately differentiated adenocarcinoma consistent of a colon primary in addition to the gallbladder being able with metastatic adenocarcinoma and there was some limited chronic cholelithiasis and cholecystitis. .. The patient accordingly was started on systemic chemotherapy and the patient was being treated with FOLFOX and the patient's last treatment was on first week of June. The patient came into the hospital yesterday complaining of abdominal pain. She looked quite tired and debilitated and she was also having some increased difficulty in breathing. She denied having any chest pain. She was quite dehydrated and she admitted not to eat or drink for the past week or so. According to the niece, the patient had been having nausea and emesis approximately week and she was having some dark brown or black stool. In the emergency department, the patient was found to have a white cell count of 64.3. Hemoglobin was 9.9. Platelet was 474. The patient had an INR of 1.3 with a PT of 12.9. GIM was 33 with a creatinine of 1.01. Sodium was 134. The initial lactic acid level was at 2.9 and subsequently dropped down to 1.4. Troponins were 0.08 and 0.2 respectively 2, her TSH was elevated at 10.4, UA was positive for protein +1, there were 40 WBCs, 6 RBCs and many bacteria was also noted. The computed tomography scan of the abdomen and pelvis was done and showed large bilateral pleural effusions with fluid was more so on the right and there was a moderate-sized hiatal hernia and the heart size was within normal limits. There was some atelectatic changes in lung bases. There was a large amount of intra- abdominal ascites fluid and liver showed no focal deficits or defects. Spleen was intact. Gallbladder was absent. The bile ducts were not dilated. Note that the CAT scan of the chest abdomen and pelvis that was done on 07/09/2020 sh owed peritoneal carcinomatosis, pleural effusion bilateral and persistent rectal wall thickening consistent with recurrent cancer. The patient was started on IV antibiotics. The patient was started on IV fluids. The patient was admitted to the medical floor and subsequently the patient a chest to the intensive care unit as the patient became progressively more hypotensive earlier this morning. Currently, the patient is receiving IV fluids with normal saline at the rate of 130 mL an hour. She received another bolus of IV fluid in the ICU. She is on a combination of cefepime and vancomycin. Repeat white cell count from today 62.3. The echocardiogram was obtained and the patient is a preserved LV function with an ejection fraction of 65% and there was moderate aortic stenosis with a mean gradient of 24 mmHg and there was moderate to severe MR, moderate TR with severe pulmonary hypertension with a biventricular systolic pressure of 62. Cardiac rhythm is sinus.Associated with a moderate to severe mitral regurgitation. There is a concern for underlying endocarditis. Evidence for systolic pressure was quite elevated at 62 mmHg. I came to see the patient in the intensive care unit. The patient was extremely lethargic, the patient was not communicating and she was unable to volunteer any history. I contacted her oncologist and I was made aware that the patient was being treated for metastatic rectal cancer. Note that the patient is having abdominal pain and discomfort in her abdomen is quite distended at this point in time. She has a BP of 97/55. The patient is tachycardicand her heart rate is around 1:30, sinus. She is on on 100% nonrebreather facemask and she is quite thickened neck. There is a Stanford catheter in place and there is no urine output. Her skin is mottled and the pulses in lower extremities are quite diminished. Review of Systems Constitutional: Reports daytime sleepiness, Reports fatigue, Reports lethargy, Reports poor appetite, Reports weakness, Reports weight loss Eyes: denies as per HPI, denies blurred vision, denies bulging eye, denies decreased vision, denies diplopia, denies discharge, denies dry eye, denies irritation, denies itching, denies pain, denies photophobia, denies loss of peripheral vision, denies loss of vision, denies tunnel vision/blind spots Ears: deny: decreased hearing, ear discharge, earache, tinnitus Ears, nose, mouth and throat: Reports as per HPI Breasts: absent: as per HPI, change in shape, gynecomastia, masses, nipple discharge, pain, skin changes, swelling Cardiovascular: Reports decreased exercise tolerance, Reports dyspnea on exe rtion Respiratory: Reports dyspnea Gastrointestinal: Reports abdominal pain, Reports loss of appetite, Reports nausea, Reports vomiting Genitourinary: Reports as per HPI Menstruation: Reports as per HPI Musculoskeletal: Reports as per HPI Musculoskeletal: absent: ankle pain, ankle stiffness, ankle swelling Integumentary: Reports as per HPI Neurological: Reports as per HPI, Reports weakness Psychiatric: Reports as per HPI Endocrine: Reports as per HPI, Reports fatigue Hematologic/Lymphatic: Reports as per HPI Allergic/Immunologic: Reports as per HPI Past Medical History Past Medical History: Cancer (Metastatic rectal adenocarcinoma with peritoneal carcinomatosis), GERD/Reflux, Hypertension, Myocardial Infarction (NH), Osteoarthritis (OA), Skin Disorder Additional Past Medical History / Comment(s): normal pressure hydrocephalus, duodenal ulcers, gout, Last Myocardial Infarction Date:: unknown History of Any Multi-Drug Resistant Organisms: None Reported Past Surgical History: Adenoidectomy, Cholecystectomy, Orthopedic Surgery, Tonsillectomy Additional Past Surgical History / Comment(s): EGD/colonoscopy, bilateral catara ct removal with lens implants, ORIF left arm, tumor removed from rectum 2017, vaginal polyps removed, lap jer 10/30/19 Past Anesthesia/Blood Transfusion Reactions: Motion Sickness Additional Past Anesthesia/Blood Transfusion Reaction / Comment(s): Pt has received blood without reaction. Past Psychological History: Anxiety Additional Psychological History / Comment(s): . Smoking Status: Never smoker Past Alcohol Use History: None Reported Past Drug Use History: None Reported - Past Family History Mother Family Medical History: Cancer Additional Family Medical History / Comment(s): breast cancer, myasthenia gravis Father Family Medical History: Diabetes Mellitus Additional Family Medical History / Comment(s): Father was deaf. Medications and Allergies Home Medications Medication Instructions Recorded Confirmed Type Acetaminophen [Tylenol Extra 1,000 tab PO Q6H PRN 08/21/18 07/22/20 History Strength] Atorvastatin Calcium [Lipitor] 20 mg PO DAILY 08/21/18 07/22/20 History Docusate [Colace] 100 mg PO BID 02/05/19 07/22/20 History Metoprolol Tartrate [Lopressor] 25 mg PO BID 02/05/19 07/22/20 History Loratadine [Claritin] 10 mg PO DAILY PRN 07/22/20 07/22/20 History Ondansetron HCl [Zofran] 4 mg PO Q4-6H PRN 07/22/20 07/22/20 History Pegfilgrastim [Neulasta] 6 mg SQ Q14D 07/22/20 07/22/20 History Propylene Glycol [Systane Complete] 1 drop BOTH EYES QID 07/22/20 07/22/20 History Allergies Allergy/AdvReac Type Severity Reaction Status Date / Time codeine Allergy Nausea & Verified 07/22/20 22:34 Vomiting tomato Allergy mouth Verified 07/22/20 22:34 swelling Physical Exam Vitals: Vital Signs Temp Pulse Pulse Resp BP BP Pulse Ox 07/23/20 12:30 138 H 97/55 07/23/20 12:00 145 H 64/36 07/23/20 09:45 145 H 101/57 07/23/20 08:00 98.2 F 145 H 18 95/56 93 L 07/23/20 05:45 124 H 95/52 07/23/20 05:30 97.4 F L 138 H 18 85/52 92 L 07/23/20 03:36 82/52 07/23/20 02:37 131 H 78/46 07/23/20 02:10 123 H 18 79/54 96 07/23/20 02:00 98.2 F 130 H 18 78/46 95 07/23/20 00:25 98.0 F 140 H 18 86/51 94 L 07/22/20 23:32 134 H 16 105/86 99 07/22/20 22:30 114 H 16 104/67 95 07/22/20 22:00 97/67 07/22/20 21:20 124 H 16 100/51 95 07/22/20 21:08 12 07/22/20 20:51 97.7 F 140 H 12 69/40 96 Intake and Output 07/22/20 07/23/20 07/23/20 22:59 06:59 14:59 Intake Total 1520 100 Balance 1520 100 Intake: Intake, IV Titration 1520 100 Amount Piperacillin-Tazobactam 3 100 .375 gm In Sodium Chloride 0.9% 100 ml @ 25 mls/hr IVPB Q8H [facility] Rx#: [id number] Sodium Chloride 0.9% 1, 520 000 ml @ 130 mls/hr IV . Q7H42M [facility] Rx#:[id number] Sodium Chloride 0.9% 1, 1000 000 ml @ 999 mls/hr IV . Q1H1M ONE Rx#:[id number] Other: Voiding Method Incontinent # Voids 2 Weight 34.927 kg 40.5 kg 40.5 kg GENERAL: The patient is very much lethargic and obtunded on 100% nonrebreather facemask. She is unable to lay down on her back. Abdomen is distended and is quite firm.. Cachectic emaciated and malnourished Head exam was generally normal. There was no scleral icterus or corneal arcus. Mucous membranes were moist. HEENT: Pupils are round and equally reacting to light. EOMI. No scleral icterus. No conjunctival pallor. Normocephalic, atraumatic. No pharyngeal erythema. No thyromegaly. CARDIOVASCULAR: tachycardic, S1 and S2 present. and the patient has a wide-open holosystolic murmur grade 4/6 heard mainly over the left upper sternal border. -PULMONARY: Chest is clear to auscultation, no wheezing or crackles. Diminished breath on the lung bases bilaterally and there is worsening diminished on the right ABDOMEN:distended abdomen which is also firm and there is underlying sinus ascites. There is some mild direct tenderness. No rebound tenderness. No guarding. Bowel sounds are hypoactive at this point in time. No palpable organomegaly. There is a fluid wave and shifting dullness consistent with ascites MUSCULOSKELETAL: No joint swelling or deformity. EXTREMITIES: No cyanosis, clubbing, or pedal edema. NEUROLOGICA patient is moving all 4 extremities without any limitation.however, the patient is very much obtunded and lethargic and somnolent. SKIN: No rashes. No petechiae Results - Laboratory Findings CBC and BMP: 07/23/20 08:25 07/23/20 08:25 PT/INR, D-dimer PT 12.9 sec (9.0-12.0) H 07/22/20 21:37 INR 1.3 (<1.2) H 07/22/20 21:37 Abnormal lab findings: Abnormal Labs 07/22/20 07/22/20 07/22/20 21:37 21:37 21:37 WBC RBC Hgb MCHC RDW Plt Count Neutrophils # Neutrophils # (Manual) Lymphocytes # Monocytes # Monocytes # (Manual) PT 12.9 H INR 1.3 H Sodium 134 L Potassium Carbon Dioxide 20 L BUN 33 H Creatinine Glucose Plasma Lactic Acid Yovany 2.9 H* Calcium Delta Bilirubin Alkaline Phosphatase 244 H Troponin I Total Protein 5.6 L Albumin 2.8 L TSH 10.400 H Urine Appearance Ur Specific [place] Urine Protein Urine Blood Ur Leukocyte Esterase Urine RBC Urine WBC Ur Squamous Epith Cells Urine Bacteria Urine Mucus 07/22/20 07/22/20 07/23/20 21:37 23:03 00:56 WBC 64.3 H* RBC 3.58 L Hgb 9.9 L MCHC 28.7 L RDW 21.1 H Plt Count 474 H Neutrophils # 62.2 H Neutrophils # (Manual) Lymphocytes # 0.3 L Monocytes # 1.4 H Monocytes # (Manual) PT INR Sodium Potassium Carbon Dioxide BUN Creatinine Glucose Plasma Lactic Acid Yovany 2.5 H* Calcium Delta Bilirubin Alkaline Phosphatase Troponin I 0.081 H* Total Protein Albumin TSH Urine Appearance Ur Specific [place] Urine Protein Urine Blood Ur Leukocyte Esterase Urine RBC Urine WBC Ur Squamous Epith Cells Urine Bacteria Urine Mucus 07/23/20 07/23/20 07/23/20 04:03 08:25 08:25 WBC 62.3 H* RBC 3.71 L Hgb 10.3 L MCHC 29.1 L RDW 20.7 H Plt Count 483 H Neutrophils # Neutrophils # (Manual) 58.56 H Lymphocytes # Monocytes # Monocytes # (Manual) 2.49 H PT INR Sodium Potassium 2.9 L Carbon Dioxide 20 L BUN 35 H Creatinine 1.29 H Glucose 53 L Plasma Lactic Acid Yovany 2.1 H* Calcium 7.7 L Delta Bilirubin 0.4 H Alkaline Phosphatase 176 H Troponin I Total Protein 4.8 L Albumin 2.4 L TSH Urine Appearance Ur Specific [place] Urine Protein Urine Blood Ur Leukocyte Esterase Urine RBC Urine WBC Ur Squamous Epith Cells Urine Bacteria Urine Mucus 07/23/20 07/23/20 08:25 12:50 WBC RBC Hgb MCHC RDW Plt Count Neutrophils # Neutrophils # (Manual) Lymphocytes # Monocytes # Monocytes # (Manual) PT INR Sodium Potassium Carbon Dioxide BUN Creatinine Glucose Plasma Lactic Acid Yovany Calcium Delta Bilirubin Alkaline Phosphatase Troponin I 0.212 H* Total Protein Albumin TSH Urine Appearance Turbid H Ur Specific [place] 1.044 H Urine Protein 1+ H Urine Blood Small H Ur Leukocyte Esterase Moderate H Urine RBC 6 H Urine WBC 40 H Ur Squamous Epith Cells 66 H Urine Bacteria Many H Urine Mucus Occasional H - Diagnostic Findings Chest x-ray: image reviewed CT scan - chest: image reviewed Assessment and Plan Plan: 1 septic shock, currently under investigation. Strongly suspect an abdominal source of an infection.the patient has a firm abdomen. Patient has a tense ascites. The patient has an acute leukocytosis. The patient has altered mentation. Furthermore, an immediate blood gas that was done in the ICU erythematous arrival showed a pH of 7.05 with a pCO2 of 58 and pO2 of 69. The patient is in severe metabolic and respiratory acidosis. Obviously the patient will need intubation mechanical ventilation. 2 acute leukocytosis 3 acute hypotension secondary to above, currently on no pressors receiving IV fluids 4 acute lactic acidosis, improving, subsequent blood gas showed severe metabolic and respiratory acidosis 5 metastatic rectal adenocarcinoma with peritoneal carcinomatosis, ascites and bilateral pleural effusions, the patient was receiving FOLFOX systemic chemotherapy on outpatient basis 6 severe mitral regurgitation with possibility of a valvular vegetation, rule out underlying endocarditis. Rule out bacterial or infectious endocarditis. Rule out malignant vegetation. 7 coronary artery disease. 8 gout 9 duodenal ulcer, history of 10 acute kidney injury with a creatinine of 1.29 11 cachexia with weight loss and a BMI of 18 12 yuri pleural effusions 13 ascites Plan Will start aggressive fluid resuscitation. We'll establish a triple lumen catheter. Give the patient on Amp 50 meq sodium bicarb and started on a bicarb infusion at the rate of 150 mL an hour we'll give2 L of normal saline as a bolus We will prepare pressors albuterol is levo fed if needed IV Zosyn and vancomycin as broad-spectrum antibiotic coverage Likely would require intubation mechanical ventilation this will be done immediately We'll insert the triple-lumen catheter line catheter We'll obtain a diagnostic paracentesis of the abdomen General surgery consultation Oncology consultation Exam blood cultures Get further details on the echocardiographic is indicating endocarditis and regurgitation of the mitral valve Condition is critical and the patient's prognosis poor knowing that she has a stage IV metastatic rectal carcinoma with a baseline for performance and functional status. We'll continue to follow.
[2020-07-23] MEDS ORDERED: propofoL 100 ML IV ONE (15:34)
[2020-07-23 15:48] LABS: ABG PH 7.05 (7.35-7.45)
[2020-07-23 15:58] LABS: ABG Base Excess -3.3 mmol/L; ABG HCO3 22 mmol/L (21-25); ABG Oxygen Saturation 93.7 % (94-97); ABG PCO2 40 mmHg (35-45); ABG PH 7.35 (7.35-7.45); ABG PO2 63 mmHg (83-108); ABG TCO2 24 mmol/L (19-24)
[2020-07-23 16:02] LABS: Allen Test Performed? no
--- NOTE | 2020-07-23 16:14 | P.PCN ---
Date of Procedure: 07/23/20 Preoperative Diagnosis: septic shock Postoperative Diagnosis: septic shock Procedure(s) Performed: intubation, insertion of a triple-lumen catheter, insertion of a arterial line, paracentesis Anesthesia: local Surgeon: Bruce Olmedo Estimated Blood Loss (ml): 0 Pathology: other Condition: critical Disposition: ICU Operative Findings: Intubation: A time-out was completed verifying correct patient, procedure, site, positioning, and special equipment if applicable. The patient was placed in a flat position. Sedation was obtained using propofol . The patient was easily ventilated using an ambu bag. The MAC 4 BLADE was used and inserted into the oropharynx at which time there was a Grade 1 view of the vocal cords. A 7.0- [place] endotracheal tube was inserted and visualized going through the vocal cords. The stylette was removed. Colorimetric change was visualized on the CO2 meter. Breath sounds were heard in both lung boyce equally. The endotracheal tube was placed at 23 cm, measured at the teeth. A chest x-ray was ordered to assess for pneumothorax and verify endotrachealtube placement. Estimated Blood Loss: 0 The patient tolerated the procedure well and there were no complications. Insertion of arterial line: Indication: Hemodynamic monitoring. A time-out was completed verifying correct patient, procedure, site, positioning, and implant(s) or special equipment if applicable. Allens test was performed to ensure adequate perfusion. The patient's right groin was prepped and draped in sterile fashion. 1% Lidocaine was used to anesthetize the area. An 18G Arrow arterial line was introduced into the femoral artery. The catheter was threaded over the guide wire and the needle was removed with appropriate pulsatile blood return. Blood loss was minimal. The catheter was then sutured in place to the skin and a sterile dressing applied. Perfusion to the extremity distal to the point of catheter insertion was checked and found to be adequate. The patient tolerated the procedure well and there were no complications. Insertion of Central line: Indication: Hemodynamic monitoring/Intravenous access. A time-out was completed verifying correct patient, procedure, site, positioning, and implant(s) or special equipment if applicable. The patient was placed in a dependent position appropriate for central line placement based on the vein to be cannulated. The patient left neck was prepped and draped in sterile fashion. 1% Lidocaine was used to anesthetize the surrounding skin area. A triple lumen 9F Cordis catheter was introduced into the subclavian vein using Seldinger technique. The catheter was threaded smoothly over the guide wire and appropriate blood return was obtained. Each lumen of the catheter was evacuated of air and flushed with sterile saline. The catheter was then sutured in place to the skin and a sterile dressing applied. Perfusion to the extremity distal to the point of catheter insertion was checked and found to be adequate. The patient tolerated the procedure well and there were no complications. paracentesis The abdomen was cleaned using ChloraPrep. Following that, a 25-gauge needle was utilized to identify the ascitic fluid and there insertion site was the right lower quadrant. Following that, the skin was incised using a scalpel and a paracentesis needle/catheter was inserted successfully of the right lower quadrant into the abdominal cavity and a total of 1700 mL of turbid dark yellowish ascitic fluid was aspirated and following that the abdomen was quite deflated. No bedside complications. The fluid will be sent for analysis.. The catheter was removed. Appropriate dressing was applied
[2020-07-23 16:24] LABS: Glucose,Whole Blood 164 mg/dL (75-99)
--- NOTE | 2020-07-23 16:41 | XR ---
EXAMINATION TYPE: XR chest 1V portable DATE OF EXAM: 07/23/2020 COMPARISON: Today HISTORY: Check tube placement TECHNIQUE: FINDINGS: Endotracheal tube is 2.5 cm from the nicolette. There is nasogastric tube in the stomach. Ther e is mild pulmonary congestion. There is blunting of the costophrenic angles. There are chest leads. There is right central venous catheter with tip in the superior vena cava. There is left-sided centra l venous subclavian catheter with tip in the right atrium. IMPRESSION: There is improvement in the pulmonary edema and congestive heart failure compared to exam this morning. There is bilateral pleural effusions and right lower lobe infiltrate slightly improved .
[2020-07-23] MEDS ORDERED: PIPERACILLIN-TAZOBACTAM 3.375 GM in SODIUM CHLORIDE 0.9% 100 ML IVPB SCH (16:45)
--- NOTE | 2020-07-23 16:47 | XR ---
EXAMINATION TYPE: XR abdomen 1V DATE OF EXAM: 07/23/2020 COMPARISON: NONE HISTORY: Check tube placement TECHNIQUE: Single view supine FINDINGS: There is nasogastric tube in the gastric fundus. There is dilated gas and fecal filled larg e bowel. IMPRESSION: NG tube is in the stomach. There is evidence for large bowel ileus.
[2020-07-23] MEDS: DEXTROSE 5% IN WATER 1,000 ML with SODIUM BICARB (1 MEQ/ML) 150 ML IV SCH ×2 (16:49→23:20)
[2020-07-23] MEDS: NOREPINEPHRINE 8 MG in SODIUM CHLORIDE 0.9% 250 ML IV SCH ×2 (16:50→21:14)
[2020-07-23] MEDS: SODIUM CHLORIDE 0.9% 150 ML with VASOPRESSIN 60 UNIT IV SCH ×2 (16:50)
[2020-07-23 17:08] LABS: ABG Base Excess -5.7 mmol/L; ABG HCO3 20 mmol/L (21-25); ABG Oxygen Saturation 96.3 % (94-97); ABG PCO2 36 mmHg (35-45); ABG PH 7.35 (7.35-7.45); ABG PO2 76 mmHg (83-108); ABG TCO2 21 mmol/L (19-24)
[2020-07-23 17:13] LABS: Allen Test Performed? No
[2020-07-23 18:19] LABS: Anisocytosis Moderate; HCT 27.5 % (34.0-46.0); Hypochromasia Marked; MCH 27.7 pg (25.0-35.0); MCHC 29.1 g/dL (31.0-37.0); MCV 95.2 fL (80.0-100.0); Macrocytosis Slight; Mean Platelet Volume 7.8; Platelet Count 461 k/uL (150-450); RBC 2.89 m/uL (3.80-5.40); RDW 21.2 % (11.5-15.5); WBC 35.1 k/uL (3.8-10.6)
[2020-07-23 18:35] LABS: Albumin 1.4 g/dL (3.5-5.0); Potassium 3.7 mmol/L (3.5-5.1); Total Bilirubin 0.3 mg/dL (0.2-1.3); Total Protein 3.1 g/dL (6.3-8.2)
[2020-07-23 18:38] LABS: Calcium 5.5 mg/dL (8.4-10.2)
[2020-07-23 18:49] LABS: Band Neutrophils % 5 %; Neutrophils % (M) 91 %; Nucleated Red Blood Cells 0 /100 WBC (0-0); Total Cells Counted 200
[2020-07-23 18:50] LABS: Anisocytosis (M) Present; Toxic Granulation Present; Toxic Vacuolation Present
[2020-07-23 18:55] LABS: Appearance,BF Bloody; Nucleated Cells, Body Fluid 11000 /uL; RBC, Body Fluid 171000 /uL
[2020-07-23 18:56] LABS: Mononuclear WBC,Body Fluid 29 %; Polynuclear WBC,Body Fluid 71 %; Total Cells Counted,Body Fluid 100
[2020-07-23] MEDS ORDERED: CALCIUM GLUCONATE 1 GM in SODIUM CHLORIDE 0.9% 100 ML IVPB ONE (19:13)
[2020-07-23] MEDS: CHLORHEXIDINE GLUCONATE 15 ML CUP MUCOUS MEM SCH (20:04)
[2020-07-23 22:23] LABS: ABG Base Excess -3.5 mmol/L; ABG HCO3 21 mmol/L (21-25); ABG Oxygen Saturation 86.2 % (94-97); ABG PCO2 30 mmHg (35-45); ABG PH 7.45 (7.35-7.45); ABG TCO2 22 mmol/L (19-24); Allen Test Performed? Yes
[2020-07-23 22:26] LABS: ABG PO2 46 mmHg (83-108)
--- NOTE | 2020-07-24 00:02 | XR ---
EXAMINATION TYPE: XR chest 1V portable DATE OF EXAM: 07/23/2020 COMPARISON: Today HISTORY: Hypoxemia TECHNIQUE: FINDINGS: There is bilateral subclavian catheters with the tip in the superior vena cava and in the r ight atrium. There is endotracheal tube almost 3 cm from the nicolette. There is patchy bilateral pulmon alvarado airspace edema. There are chest leads. There is nasogastric tube in the stomach. IMPRESSION: There is increasing pulmonary edema compared to exam 7 hours ago and consistent with wors ening heart failure or RDS.
[2020-07-24 00:31] LABS: Glucose,Whole Blood 194 mg/dL (75-99)
[2020-07-24] MEDS: INSULIN ASPART (NovoLOG) 100 UNIT/ML VIAL SQ SCH ×4 (00:44→18:52)
[2020-07-24] MEDS: POTASSIUM CHLORIDE 20 MEQ in WATER FOR INJECTION 1 100ML.BAG IVPB SCH ×2 (01:13→03:04)
[2020-07-24 03:22] LABS: Total Protein, Body Fluid 2830 mg/dL
[2020-07-24] MEDS: NOREPINEPHRINE 8 MG in SODIUM CHLORIDE 0.9% 250 ML IV SCH ×3 (03:50→19:00)
[2020-07-24 03:58] LABS: Glucose, BF Source Ascites; Glucose, Body Fluid <4 mg/dL; LDH, Body Fluid Source Ascites
[2020-07-24 04:46] LABS: ABG Base Excess -0.7 mmol/L; ABG HCO3 23 mmol/L (21-25); ABG Oxygen Saturation 90.5 % (94-97); ABG PCO2 31 mmHg (35-45); ABG PH 7.47 (7.35-7.45); ABG TCO2 24 mmol/L (19-24)
[2020-07-24 05:20] LABS: Anisocytosis Moderate; HCT 31.2 % (34.0-46.0); HGB 9.4 gm/dL (11.4-16.0); Hypochromasia Marked; MCH 28.7 pg (25.0-35.0); MCHC 30.1 g/dL (31.0-37.0); MCV 95.4 fL (80.0-100.0); Macrocytosis Moderate; Mean Platelet Volume 7.6; Platelet Count 449 k/uL (150-450); RBC 3.27 m/uL (3.80-5.40); RDW 21.3 % (11.5-15.5)
[2020-07-24 05:26] LABS: Allen Test Performed? no
[2020-07-24 05:27] LABS: WBC 56.5 k/uL (3.8-10.6)
[2020-07-24 05:58] LABS: Albumin 1.6 g/dL (3.5-5.0); Bilirubin, Delta 0.2 mg/dL (0.0-0.2); Bilirubin,Unconjugated 0.1 mg/dL (0.0-1.1); Magnesium 1.5 mg/dL (1.6-2.3); Potassium 4.3 mmol/L (3.5-5.1); Total Bilirubin 0.3 mg/dL (0.2-1.3); Total Protein 3.4 g/dL (6.3-8.2)
[2020-07-24 06:01] LABS: Band Neutrophils % 14 %; Monocytes # (M) 0.57 k/uL (0-1.0); Neutrophils % (M) 85 %; Nucleated Red Blood Cells 0 /100 WBC (0-0); Total Cells Counted 100
[2020-07-24 06:02] LABS: Anisocytosis (M) Present; Poikilocytosis (M) Present; Toxic Granulation Present; Toxic Vacuolation Present
[2020-07-24 06:03] LABS: Polychromasia Present; Tear Drop Cells Present
[2020-07-24 06:03] LABS: Glucose,Whole Blood 211 mg/dL (75-99)
[2020-07-24] MEDS: DEXTROSE 5% IN WATER 1,000 ML with SODIUM BICARB (1 MEQ/ML) 150 ML IV SCH ×3 (06:37→22:53)
--- NOTE | 2020-07-24 07:48 | XR ---
EXAMINATION TYPE: XR chest 1V portable DATE OF EXAM: 07/24/2020 CLINICAL HISTORY: Tube placement. TECHNIQUE: Portable frontal view of the chest. COMPARISON: 07/23/2020 chest radiograph. 10/23/[address] abdomen pelvis 07/22/2020 . FINDINGS: Endotracheal tube distal tip 1.6 cm from the nicolette. Right subclavian central venous cathet er distal tip over the superior vena cava. Left-sided subclavian central venous catheter distal tip o payal the right atrium. Enteric tube distal tip and side-port over the left upper quadrant over the pro jected area of the stomach. The cardiomediastinal silhouette is within normal limits for size. Bilate ral airspace opacities are mildly decreased versus 07/23/2020. Redemonstrated small bilateral pleural effusions. No pneumothorax. There is redemonstrated incompletely visualized dilatation of the transv erse colon. IMPRESSION: 1. Mildly improved aeration of the bilateral lungs versus 07/23/2020. 2. Persistent small bilateral pleural effusions. 3. Redemonstrated incompletely visualized dilatation of the transverse colon. Findings may represent ileus versus colonic obstruction.
[2020-07-24] MEDS ORDERED: VANCOMYCIN 750 MG in SODIUM CHLORIDE 0.9% 250 ML IVPB ONE (08:00)
[2020-07-24] MEDS: LIDOCAINE 5% PATCH TOPICAL SCH (09:22)
[2020-07-24] MEDS: METOPROLOL TARTRATE 25 MG TAB PO SCH ×2 (09:23→21:26)
[2020-07-24] MEDS: ATORVASTATIN 20 MG TAB PO SCH (09:23)
[2020-07-24] MEDS: DOCUSATE 100 MG CAP PO SCH ×2 (09:23→21:30)
[2020-07-24] MEDS: CHLORHEXIDINE GLUCONATE 15 ML CUP MUCOUS MEM SCH ×2 (09:23→21:30)
[2020-07-24] MEDS: PIPERACILLIN-TAZOBACTAM 3.375 GM in SODIUM CHLORIDE 0.9% 100 ML IVPB SCH ×2 (09:24→16:49)
[2020-07-24] MEDS: HEPARIN SODIUM,PORCINE 5,000 UNIT/ML 1 ML VIAL SQ SCH ×2 (09:24→21:31)
[2020-07-24] MEDS: PANTOPRAZOLE 40 MG/10 ML VIAL IV SCH (09:24)
[2020-07-24 10:32] LABS: ABG Base Excess 0.5 mmol/L; ABG HCO3 24 mmol/L (21-25); ABG PCO2 33 mmHg (35-45); ABG PH 7.47 (7.35-7.45); ABG PO2 67 mmHg (83-108); ABG TCO2 25 mmol/L (19-24)
--- NOTE | 2020-07-24 10:33 | P.PN ---
Subjective Progress Note Date: 07/24/20 This is a pleasant 74-year-old female past medical history significant for rectal cancer with metastasis, SVT, hypertension and dyslipidemia. She has followed in the office with Dr. Nicole one time back in 2018. We had been asked to see in consultation for elevated troponin. It is unclear why troponins were drawn on this patient. She presented to the hospital with symptoms of abdominal pain and swelling along with lumbar back pain. She was apparently given morphine per EMS and was hypotensive and lethargic upon arrival to the ER. Blood pressure was 69/40. She was given narcan and IV fluid bolus. Repeat blood pressure continue to be running on the low side, although she is asymptomatic. Initial EKG reveals sinus tachycardia heart rate 126. Telemetry tracings reviewed and reveal persistent sinus tachycardia. Patient did have an echocardiogram with Doppler study performed which revealed an ejection fraction of 65-70%. Moderate aortic stenosis small mobile vegetation attached to the anterior mitral leaflet there is a suggestion of vegetation on the anterior mitral leaflet associated with moderate to severe mitral regurgitation. Severe pulmonary hypertension moderate tricuspid regurgitation. Blood cultures initially did not show any growth. Patient was intubated yesterday afternoon by Dr. Janna Bond in. Seen and examined this morning, continues to be intubated on mechanical support. Blood pressure 120/50, heart rate 108, sinus tachycardia, afebrile. White blood cell count 56.5, hemoglobin 9.4, platelet count 449. PH 7.47 pCO2 31 by mouth to 55 HCO3 2302 saturation 90.5 sodium 136, potassium 4.3,, chloride 108, CO2 22, BUN 31, creatinine 1.2. Plasma lactic acid 4.4 magnesium 1.5. Objective - Vital Signs Vital signs: Vital Signs Temp 97.8 F 07/24/20 08:00 Pulse 107 H 07/24/20 10:00 Resp 28 H 07/24/20 10:00 BP 109/74 07/24/20 10:00 Pulse Ox 94 L 07/24/20 09:00 Intake & Output 07/23/20 07/24/20 07/24/20 18:59 06:59 18:59 Intake Total 6754.455 4409.914 640 Output Total 50 247 45 Balance 6704.455 4162.914 595 Weight 40.5 kg 47.5 kg Intake: IV 6650 3525 640 0.9 NaCl 325 40 Cefepime 1 gm In Sodium 50 Chloride 0.9% 50 ml @ 12. 5 mls/hr IVPB Q12HR [facility] Rx#:[id number] Dextrose 5% in Water 1, 450 1800 600 000 ml @ 150 mls/hr IV . Q7H40M [facility] with Sodium Bicarb (1 Meq/ml) 150 ml Rx#:[id number] Piperacillin-Tazobactam 3 100 100 .375 gm In Sodium Chloride 0.9% 100 ml @ 25 mls/hr IVPB Q8H [facility] Rx#: [id number] Potassium Chloride 10 meq 300 300 In Water For Injection 1 100ml.bag @ 100 mls/hr IVPB Q1HR [facility] Rx#: [id number] Sodium Chloride 0.9% 1, 5500 1000 000 ml @ 999 mls/hr IV . Q1H1M [facility] Rx#:[id number] Vancomycin 750 mg In 250 Sodium Chloride 0.9% 250 ml @ 125 mls/hr IVPB ONCE ONE Rx#:[id number] Intake, IV Titration 104.455 884.914 Amount Calcium Gluconate 1 gm In 100 Sodium Chloride 0.9% 100 ml @ 100 mls/hr IVPB ONCE ONE Rx#:[id number] Norepinephrine 8 mg In 557.050 Sodium Chloride 0.9% 250 ml @ 0.05 MCG/KG/MIN 3. 918 mls/hr IV .Q24H [facility] Rx#:[id number] Piperacillin-Tazobactam 3 100 .375 gm In Sodium Chloride 0.9% 100 ml @ 25 mls/hr IVPB Q8H [facility] Rx#: [id number] Potassium Chloride 20 meq 200 In Water For Injection 1 100ml.bag @ 50 mls/hr IVPB Q2H [facility] Rx#: [id number] propofoL 1,000 mg In 4.455 27.864 Empty Bag 1 bag @ Titrate IV .Q0M [facility] Rx#: [id number] Output: Urine 50 247 45 Other: Voiding Method Indwelling Catheter Indwelling Catheter Indwelling Catheter # Voids 2 2 ABP, PAP, CO, CI - Last Documented Arterial Blood Pressure 121/56 - Exam PHYSICAL EXAMINATION: GENERAL: 74-year-old female, intubated on mechanical support, cachectic emaciated and malnourished HEENT: Head is atraumatic, normocephalic. Pupils equal, round. Sclera anicteric. Conjunctiva are clear. Mucous membranes of the mouth are moist. Neck is supple. There is no elevated jugular venous pressure. HEART EXAMINATION: Heart S1 and S2 holosystolic murmur is heard CHEST EXAMINATION: Lungs reveal diminished breath sounds bilaterally ABDOMEN: Soft, nontender. Bowel sounds are heard. No organomegaly noted. EXTREMITIES: 2+ peripheral pulses with no evidence of peripheral edema and no calf tenderness noted. NEUROLOGIC intubated, sedated - Labs CBC & Chem 7: 07/24/20 05:10 07/24/20 05:10 Labs: Abnormal Lab Results - Last 24 Hours (Table) 07/23/20 07/23/20 07/23/20 Range/Units 12:50 14:48 15:21 WBC (3.8-10.6) k/uL RBC (3.80-5.40) m/uL Hgb (11.4-16.0) gm/dL Hct (34.0-46.0) % MCHC (31.0-37.0) g/dL RDW (11.5-15.5) % Plt Count (150-450) k/uL Neutrophils # (Manual) (1.3-7.7) k/uL Lymphocytes # (Manual) (1.0-4.8) k/uL ABG pH 7.05 L* (7.35-7.45) ABG pCO2 58 H (35-45) mmHg ABG pO2 70 L (83-108) mmHg ABG HCO3 16 L (21-25) mmol/L ABG Total CO2 18 L (19-24) mmol/L ABG O2 Saturation 87.8 L (94-97) % ABG Lactic Acid (0.5-1.6) mmol/L Sodium (137-145) mmol/L Potassium (3.5-5.1) mmol/L Chloride (98-107) mmol/L Carbon Dioxide (22-30) mmol/L BUN (7-17) mg/dL Creatinine (0.52-1.04) mg/dL Glucose (74-99) mg/dL POC Glucose (mg/dL) 62 L (75-99) mg/dL Plasma Lactic Acid Yovany (0.7-2.0) mmol/L Calcium (8.4-10.2) mg/dL Ionized Calcium Janie (4.5-5.3) mg/dL Magnesium (1.6-2.3) mg/dL AST (14-36) U/L Alkaline Phosphatase (38-126) U/L Total Protein (6.3-8.2) g/dL Albumin (3.5-5.0) g/dL Urine Appearance Turbid H (Clear) Ur Specific [place] 1.044 H (1.001-1.035) Urine Protein 1+ H (Negative) Urine Blood Small H (Negative) Ur Leukocyte Esterase Moderate H (Negative) Urine RBC 6 H (0-5) /hpf Urine WBC 40 H (0-5) /hpf Ur Squamous Epith Cells 66 H (0-4) /hpf Urine Bacteria Many H (None) /hpf Urine Mucus Occasional H (None) /hpf 07/23/20 07/23/20 07/23/20 Range/Units 15:54 16:23 17:07 WBC (3.8-10.6) k/uL RBC (3.80-5.40) m/uL Hgb (11.4-16.0) gm/dL Hct (34.0-46.0) % MCHC (31.0-37.0) g/dL RDW (11.5-15.5) % Plt Count (150-450) k/uL Neutrophils # (Manual) (1.3-7.7) k/uL Lymphocytes # (Manual) (1.0-4.8) k/uL ABG pH (7.35-7.45) ABG pCO2 (35-45) mmHg ABG pO2 63 L 76 L (83-108) mmHg ABG HCO3 20 L (21-25) mmol/L ABG Total CO2 (19-24) mmol/L ABG O2 Saturation 93.7 L (94-97) % ABG Lactic Acid (0.5-1.6) mmol/L Sodium (137-145) mmol/L Potassium (3.5-5.1) mmol/L Chloride (98-107) mmol/L Carbon Dioxide (22-30) mmol/L BUN (7-17) mg/dL Creatinine (0.52-1.04) mg/dL Glucose (74-99) mg/dL POC Glucose (mg/dL) 164 H (75-99) mg/dL Plasma Lactic Acid Yovany (0.7-2.0) mmol/L Calcium (8.4-10.2) mg/dL Ionized Calcium Janie (4.5-5.3) mg/dL Magnesium (1.6-2.3) mg/dL AST (14-36) U/L Alkaline Phosphatase (38-126) U/L Total Protein (6.3-8.2) g/dL Albumin (3.5-5.0) g/dL Urine Appearance (Clear) Ur Specific [place] (1.001-1.035) Urine Protein (Negative) Urine Blood (Negative) Ur Leukocyte Esterase (Negative) Urine RBC (0-5) /hpf Urine WBC (0-5) /hpf Ur Squamous Epith Cells (0-4) /hpf Urine Bacteria (None) /hpf Urine Mucus (None) /hpf 07/23/20 07/23/20 07/23/20 Range/Units 18:00 18:00 18:00 WBC 35.1 H (3.8-10.6) k/uL RBC 2.89 L (3.80-5.40) m/uL Hgb 8.0 L D (11.4-16.0) gm/dL Hct 27.5 L (34.0-46.0) % MCHC 29.1 L (31.0-37.0) g/dL RDW 21.2 H (11.5-15.5) % Plt Count 461 H (150-450) k/uL Neutrophils # (Manual) 33.60 H (1.3-7.7) k/uL Lymphocytes # (Manual) 0.70 L (1.0-4.8) k/uL ABG pH (7.35-7.45) ABG pCO2 (35-45) mmHg ABG pO2 (83-108) mmHg ABG HCO3 (21-25) mmol/L ABG Total CO2 (19-24) mmol/L ABG O2 Saturation (94-97) % ABG Lactic Acid 3.2 H* (0.5-1.6) mmol/L Sodium (137-145) mmol/L Potassium (3.5-5.1) mmol/L Chloride 114 H (98-107) mmol/L Carbon Dioxide 18 L (22-30) mmol/L BUN 30 H (7-17) mg/dL Creatinine 1.19 H (0.52-1.04) mg/dL Glucose 187 H (74-99) mg/dL POC Glucose (mg/dL) (75-99) mg/dL Plasma Lactic Acid Yovany (0.7-2.0) mmol/L Calcium 5.5 L* (8.4-10.2) mg/dL Ionized Calcium Janie (4.5-5.3) mg/dL Magnesium (1.6-2.3) mg/dL AST 100 H (14-36) U/L Alkaline Phosphatase (38-126) U/L Total Protein 3.1 L (6.3-8.2) g/dL Albumin 1.4 L (3.5-5.0) g/dL Urine Appearance (Clear) Ur Specific [place] (1.001-1.035) Urine Protein (Negative) Urine Blood (Negative) Ur Leukocyte Esterase (Negative) Urine RBC (0-5) /hpf Urine WBC (0-5) /hpf Ur Squamous Epith Cells (0-4) /hpf Urine Bacteria (None) /hpf Urine Mucus (None) /hpf 07/23/20 07/23/20 07/24/20 Range/Units 20:39 22:20 00:15 WBC (3.8-10.6) k/uL RBC (3.80-5.40) m/uL Hgb (11.4-16.0) gm/dL Hct (34.0-46.0) % MCHC (31.0-37.0) g/dL RDW (11.5-15.5) % Plt Count (150-450) k/uL Neutrophils # (Manual) (1.3-7.7) k/uL Lymphocytes # (Manual) (1.0-4.8) k/uL ABG pH (7.35-7.45) ABG pCO2 30 L (35-45) mmHg ABG pO2 46 L* (83-108) mmHg ABG HCO3 (21-25) mmol/L ABG Total CO2 (19-24) mmol/L ABG O2 Saturation 86.2 L (94-97) % ABG Lactic Acid (0.5-1.6) mmol/L Sodium (137-145) mmol/L Potassium (3.5-5.1) mmol/L Chloride (98-107) mmol/L Carbon Dioxide (22-30) mmol/L BUN (7-17) mg/dL Creatinine (0.52-1.04) mg/dL Glucose (74-99) mg/dL POC Glucose (mg/dL) (75-99) mg/dL Plasma Lactic Acid Yovany 4.1 H* 4.0 H* (0.7-2.0) mmol/L Calcium (8.4-10.2) mg/dL Ionized Calcium Janie (4.5-5.3) mg/dL Magnesium (1.6-2.3) mg/dL AST (14-36) U/L Alkaline Phosphatase (38-126) U/L Total Protein (6.3-8.2) g/dL Albumin (3.5-5.0) g/dL Urine Appearance (Clear) Ur Specific [place] (1.001-1.035) Urine Protein (Negative) Urine Blood (Negative) Ur Leukocyte Esterase (Negative) Urine RBC (0-5) /hpf Urine WBC (0-5) /hpf Ur Squamous Epith Cells (0-4) /hpf Urine Bacteria (None) /hpf Urine Mucus (None) /hpf 07/24/20 07/24/20 07/24/20 Range/Units 00:15 00:30 03:35 WBC (3.8-10.6) k/uL RBC (3.80-5.40) m/uL Hgb (11.4-16.0) gm/dL Hct (34.0-46.0) % MCHC (31.0-37.0) g/dL RDW (11.5-15.5) % Plt Count (150-450) k/uL Neutrophils # (Manual) (1.3-7.7) k/uL Lymphocytes # (Manual) (1.0-4.8) k/uL ABG pH (7.35-7.45) ABG pCO2 (35-45) mmHg ABG pO2 (83-108) mmHg ABG HCO3 (21-25) mmol/L ABG Total CO2 (19-24) mmol/L ABG O2 Saturation (94-97) % ABG Lactic Acid (0.5-1.6) mmol/L Sodium (137-145) mmol/L Potassium 3.4 L (3.5-5.1) mmol/L Chloride (98-107) mmol/L Carbon Dioxide (22-30) mmol/L BUN (7-17) mg/dL Creatinine (0.52-1.04) mg/dL Glucose (74-99) mg/dL POC Glucose (mg/dL) 194 H (75-99) mg/dL Plasma Lactic Acid Yovany 4.2 H* (0.7-2.0) mmol/L Calcium (8.4-10.2) mg/dL Ionized Calcium Janie (4.5-5.3) mg/dL Magnesium (1.6-2.3) mg/dL AST (14-36) U/L Alkaline Phosphatase (38-126) U/L Total Protein (6.3-8.2) g/dL Albumin (3.5-5.0) g/dL Urine Appearance (Clear) Ur Specific [place] (1.001-1.035) Urine Protein (Negative) Urine Blood (Negative) Ur Leukocyte Esterase (Negative) Urine RBC (0-5) /hpf Urine WBC (0-5) /hpf Ur Squamous Epith Cells (0-4) /hpf Urine Bacteria (None) /hpf Urine Mucus (None) /hpf 07/24/20 07/24/20 07/24/20 Range/Units 04:46 05:10 05:10 WBC 56.5 H* (3.8-10.6) k/uL RBC 3.27 L (3.80-5.40) m/uL Hgb 9.4 L (11.4-16.0) gm/dL Hct 31.2 L (34.0-46.0) % MCHC 30.1 L (31.0-37.0) g/dL RDW 21.3 H (11.5-15.5) % Plt Count (150-450) k/uL Neutrophils # (Manual) 55.90 H (1.3-7.7) k/uL Lymphocytes # (Manual) (1.0-4.8) k/uL ABG pH 7.47 H (7.35-7.45) ABG pCO2 31 L (35-45) mmHg ABG pO2 55 L* (83-108) mmHg ABG HCO3 (21-25) mmol/L ABG Total CO2 (19-24) mmol/L ABG O2 Saturation 90.5 L (94-97) % ABG Lactic Acid (0.5-1.6) mmol/L Sodium 136 L (137-145) mmol/L Potassium (3.5-5.1) mmol/L Chloride 108 H (98-107) mmol/L Carbon Dioxide (22-30) mmol/L BUN 31 H (7-17) mg/dL Creatinine 1.23 H (0.52-1.04) mg/dL Glucose 194 H (74-99) mg/dL POC Glucose (mg/dL) (75-99) mg/dL Plasma Lactic Acid Yovany (0.7-2.0) mmol/L Calcium 6.0 L* (8.4-10.2) mg/dL Ionized Calcium Janie (4.5-5.3) mg/dL Magnesium 1.5 L (1.6-2.3) mg/dL AST 119 H (14-36) U/L Alkaline Phosphatase 155 H (38-126) U/L Total Protein 3.4 L (6.3-8.2) g/dL Albumin 1.6 L (3.5-5.0) g/dL Urine Appearance (Clear) Ur Specific [place] (1.001-1.035) Urine Protein (Negative) Urine Blood (Negative) Ur Leukocyte Esterase (Negative) Urine RBC (0-5) /hpf Urine WBC (0-5) /hpf Ur Squamous Epith Cells (0-4) /hpf Urine Bacteria (None) /hpf Urine Mucus (None) /hpf 07/24/20 07/24/20 07/24/20 Range/Units 05:10 06:01 06:45 WBC (3.8-10.6) k/uL RBC (3.80-5.40) m/uL Hgb (11.4-16.0) gm/dL Hct (34.0-46.0) % MCHC (31.0-37.0) g/dL RDW (11.5-15.5) % Plt Count (150-450) k/uL Neutrophils # (Manual) (1.3-7.7) k/uL Lymphocytes # (Manual) (1.0-4.8) k/uL ABG pH (7.35-7.45) ABG pCO2 (35-45) mmHg ABG pO2 (83-108) mmHg ABG HCO3 (21-25) mmol/L ABG Total CO2 (19-24) mmol/L ABG O2 Saturation (94-97) % ABG Lactic Acid (0.5-1.6) mmol/L Sodium (137-145) mmol/L Potassium (3.5-5.1) mmol/L Chloride (98-107) mmol/L Carbon Dioxide (22-30) mmol/L BUN (7-17) mg/dL Creatinine (0.52-1.04) mg/dL Glucose (74-99) mg/dL POC Glucose (mg/dL) 211 H (75-99) mg/dL Plasma Lactic Acid Yovany 4.4 H* (0.7-2.0) mmol/L Calcium (8.4-10.2) mg/dL Ionized Calcium Janie 3.8 L (4.5-5.3) mg/dL Magnesium (1.6-2.3) mg/dL AST (14-36) U/L Alkaline Phosphatase (38-126) U/L Total Protein (6.3-8.2) g/dL Albumin (3.5-5.0) g/dL Urine Appearance (Clear) Ur Specific [place] (1.001-1.035) Urine Protein (Negative) Urine Blood (Negative) Ur Leukocyte Esterase (Negative) Urine RBC (0-5) /hpf Urine WBC (0-5) /hpf Ur Squamous Epith Cells (0-4) /hpf Urine Bacteria (None) /hpf Urine Mucus (None) /hpf Microbiology - Last 24 Hours (Table) 07/23/20 20:00 Gram Stain - Preliminary Sputum Sputum Culture - Preliminary 07/23/20 16:00 Gram Stain - Preliminary Paracentesis Fluid Body Fluid Culture - Preliminary 07/22/20 21:37 Blood Culture - Preliminary Blood No Growth after 24 hours 07/23/20 16:00 Anaerobic Culture - Preliminary Paracentesis Fluid 07/23/20 12:50 Urine Culture - Preliminary Urine,Voided Assessment and Plan Plan: Assessment and plan #1 septic shock, intubated on mechanical ventilatory support #2 acute hypotensiion #3 metastatic rectal adenocarcinoma with peritoneal carcinomatosis, ascites, bilateral pleural effusions #4 severe mitral regurgitation with possibility of valvular vegetation, blood cultures negative. #5 history of hypertension #6 hyperlipidemia #7 history of SVT Plan From cardiology's perspective we will follow this patient along with you on an as-needed basis only. Please don't hesitate to call with any questions. Patient's overall prognosis poor. DNP note has been reviewed, I agree with a documented findings and plan of care. Patient was seen and examined.
[2020-07-24 10:36] LABS: Allen Test Performed? no
[2020-07-24 11:45] LABS: Glucose,Whole Blood 227 mg/dL (75-99)
--- NOTE | 2020-07-24 13:45 | P.PN ---
Subjective Progress Note Date: 07/24/20 CHIEF COMPLAINT: Abdominal pain HISTORY OF PRESENT ILLNESS: Patient seen and examined with Dr. Garcia. Patient has a known history of metastatic rectal cancer that was diagnosed in July 2018. Patient had transanal excision of rectal cancer in October [address] Garcia. Patient transferred to the ICU yesterday she had become severely hypotensive and evidence of septic shock. She is intubated she had a paracentesis completed with 1700 mL removed. Fluid was sent for analysis. Patient had abdominal x-ray showing evidence of a large bowel ileus. She currently has NG tube in place. WBC 56.5 hemoglobin 9.4 Lactic 4.4 PHYSICAL EXAM: VITAL SIGNS: Reviewed. GENERAL: Well-developed in no acute distress. HEENT: No sclera icterus. Extraocular movements grossly intact. Moist buccal mucosa. Head is atraumatic, normocephalic. ABDOMEN: Soft. Nondistended. Nontender. NEUROLOGIC: Alert and oriented. Cranial nerves II through XII grossly intact. ASSESSMENT: 1. Metastatic rectal cancer with peritoneal carcinomatosis, ascites and bilateral pleural effusions 2. Bilateral pleural effusions 3. Large amount of abdominal ascites Status post paracentesis 4. Septic shock 5. Possible Cardiac vegetation On mitral valve. Blood cultures negative Being followed by cardiology 6. transanal excision of rectal cancer in October 2017 PLAN: -Patient's overall prognosis is very poor and guarded -Recommend hospice -Patient is a poor surgical candidate and likely would not survive any surgical intervention Physician Foster Care Therapist note has been reviewed by physician. Signing provider agrees with the documented findings, assessment, and plan of care. Objective - Vital Signs Vital signs: Vital Signs Temp 98.7 F 07/24/20 12:00 Pulse 105 H 07/24/20 13:00 Resp 24 07/24/20 13:00 BP 110/67 07/24/20 13:00 Pulse Ox 95 07/24/20 13:00 Intake & Output 07/23/20 07/24/20 07/24/20 18:59 06:59 18:59 Intake Total 6754.455 4409.914 1120 Output Total 50 247 70 Balance 6704.455 4162.914 1050 Weight 40.5 kg 47.5 kg Intake: IV 6650 3525 1120 0.9 NaCl 325 70 Cefepime 1 gm In Sodium 50 Chloride 0.9% 50 ml @ 12. 5 mls/hr IVPB Q12HR [facility] Rx#:[id number] Dextrose 5% in Water 1, 450 1800 1050 000 ml @ 150 mls/hr IV . Q7H40M GLORIA with Sodium Bicarb (1 Meq/ml) 150 ml Rx#:[id number] Piperacillin-Tazobactam 3 100 100 .375 gm In Sodium Chloride 0.9% 100 ml @ 25 mls/hr IVPB Q8H [facility] Rx#: [id number] Potassium Chloride 10 meq 300 300 In Water For Injection 1 100ml.bag @ 100 mls/hr IVPB Q1HR [facility] Rx#: [id number] Sodium Chloride 0.9% 1, 5500 1000 000 ml @ 999 mls/hr IV . Q1H1M ONE Rx#:[id number] Vancomycin 750 mg In 250 Sodium Chloride 0.9% 250 ml @ 125 mls/hr IVPB ONCE ONE Rx#:[id number] Intake, IV Titration 104.455 884.914 Amount Calcium Gluconate 1 gm In 100 Sodium Chloride 0.9% 100 ml @ 100 mls/hr IVPB ONCE ONE Rx#:[id number] Norepinephrine 8 mg In 557.050 Sodium Chloride 0.9% 250 ml @ 0.05 MCG/KG/MIN 3. 918 mls/hr IV .Q24H [facility] Rx#:[id number] Piperacillin-Tazobactam 3 100 .375 gm In Sodium Chloride 0.9% 100 ml @ 25 mls/hr IVPB Q8H [facility] Rx#: [id number] Potassium Chloride 20 meq 200 In Water For Injection 1 100ml.bag @ 50 mls/hr IVPB Q2H [facility] Rx#: [id number] propofoL 1,000 mg In 4.455 27.864 Empty Bag 1 bag @ Titrate IV .Q0M [facility] Rx#: [id number] Output: Urine 50 247 70 Other: Voiding Method Indwelling Catheter Indwelling Catheter Indwelling Catheter # Voids 2 2 ABP, PAP, CO, CI - Last Documented Arterial Blood Pressure 117/56 - Labs CBC & Chem 7: 07/24/20 05:10 07/24/20 05:10 Labs: Abnormal Lab Results - Last 24 Hours (Table) 07/23/20 07/23/20 07/23/20 Range/Units 14:48 15:21 15:54 WBC (3.8-10.6) k/uL RBC (3.80-5.40) m/uL Hgb (11.4-16.0) gm/dL Hct (34.0-46.0) % MCHC (31.0-37.0) g/dL RDW (11.5-15.5) % Plt Count (150-450) k/uL Neutrophils # (Manual) (1.3-7.7) k/uL Lymphocytes # (Manual) (1.0-4.8) k/uL ABG pH 7.05 L* (7.35-7.45) ABG pCO2 58 H (35-45) mmHg ABG pO2 70 L 63 L (83-108) mmHg ABG HCO3 16 L (21-25) mmol/L ABG Total CO2 18 L (19-24) mmol/L ABG O2 Saturation 87.8 L 93.7 L (94-97) % ABG Lactic Acid (0.5-1.6) mmol/L Sodium (137-145) mmol/L Potassium (3.5-5.1) mmol/L Chloride (98-107) mmol/L Carbon Dioxide (22-30) mmol/L BUN (7-17) mg/dL Creatinine (0.52-1.04) mg/dL Glucose (74-99) mg/dL POC Glucose (mg/dL) 62 L (75-99) mg/dL Plasma Lactic Acid Yovany (0.7-2.0) mmol/L Calcium (8.4-10.2) mg/dL Ionized Calcium Janie (4.5-5.3) mg/dL Magnesium (1.6-2.3) mg/dL AST (14-36) U/L Alkaline Phosphatase (38-126) U/L Total Protein (6.3-8.2) g/dL Albumin (3.5-5.0) g/dL 07/23/20 07/23/20 07/23/20 Range/Units 16:23 17:07 18:00 WBC 35.1 H (3.8-10.6) k/uL RBC 2.89 L (3.80-5.40) m/uL Hgb 8.0 L D (11.4-16.0) gm/dL Hct 27.5 L (34.0-46.0) % MCHC 29.1 L (31.0-37.0) g/dL RDW 21.2 H (11.5-15.5) % Plt Count 461 H (150-450) k/uL Neutrophils # (Manual) 33.60 H (1.3-7.7) k/uL Lymphocytes # (Manual) 0.70 L (1.0-4.8) k/uL ABG pH (7.35-7.45) ABG pCO2 (35-45) mmHg ABG pO2 76 L (83-108) mmHg ABG HCO3 20 L (21-25) mmol/L ABG Total CO2 (19-24) mmol/L ABG O2 Saturation (94-97) % ABG Lactic Acid (0.5-1.6) mmol/L Sodium (137-145) mmol/L Potassium (3.5-5.1) mmol/L Chloride (98-107) mmol/L Carbon Dioxide (22-30) mmol/L BUN (7-17) mg/dL Creatinine (0.52-1.04) mg/dL Glucose (74-99) mg/dL POC Glucose (mg/dL) 164 H (75-99) mg/dL Plasma Lactic Acid Yovany (0.7-2.0) mmol/L Calcium (8.4-10.2) mg/dL Ionized Calcium Janie (4.5-5.3) mg/dL Magnesium (1.6-2.3) mg/dL AST (14-36) U/L Alkaline Phosphatase (38-126) U/L Total Protein (6.3-8.2) g/dL Albumin (3.5-5.0) g/dL 07/23/20 07/23/20 07/23/20 Range/Units 18:00 18:00 20:39 WBC (3.8-10.6) k/uL RBC (3.80-5.40) m/uL Hgb (11.4-16.0) gm/dL Hct (34.0-46.0) % MCHC (31.0-37.0) g/dL RDW (11.5-15.5) % Plt Count (150-450) k/uL Neutrophils # (Manual) (1.3-7.7) k/uL Lymphocytes # (Manual) (1.0-4.8) k/uL ABG pH (7.35-7.45) ABG pCO2 (35-45) mmHg ABG pO2 (83-108) mmHg ABG HCO3 (21-25) mmol/L ABG Total CO2 (19-24) mmol/L ABG O2 Saturation (94-97) % ABG Lactic Acid 3.2 H* (0.5-1.6) mmol/L Sodium (137-145) mmol/L Potassium (3.5-5.1) mmol/L Chloride 114 H (98-107) mmol/L Carbon Dioxide 18 L (22-30) mmol/L BUN 30 H (7-17) mg/dL Creatinine 1.19 H (0.52-1.04) mg/dL Glucose 187 H (74-99) mg/dL POC Glucose (mg/dL) (75-99) mg/dL Plasma Lactic Acid Yovany 4.1 H* (0.7-2.0) mmol/L Calcium 5.5 L* (8.4-10.2) mg/dL Ionized Calcium Janie (4.5-5.3) mg/dL Magnesium (1.6-2.3) mg/dL AST 100 H (14-36) U/L Alkaline Phosphatase (38-126) U/L Total Protein 3.1 L (6.3-8.2) g/dL Albumin 1.4 L (3.5-5.0) g/dL 07/23/20 07/24/20 07/24/20 Range/Units 22:20 00:15 00:15 WBC (3.8-10.6) k/uL RBC (3.80-5.40) m/uL Hgb (11.4-16.0) gm/dL Hct (34.0-46.0) % MCHC (31.0-37.0) g/dL RDW (11.5-15.5) % Plt Count (150-450) k/uL Neutrophils # (Manual) (1.3-7.7) k/uL Lymphocytes # (Manual) (1.0-4.8) k/uL ABG pH (7.35-7.45) ABG pCO2 30 L (35-45) mmHg ABG pO2 46 L* (83-108) mmHg ABG HCO3 (21-25) mmol/L ABG Total CO2 (19-24) mmol/L ABG O2 Saturation 86.2 L (94-97) % ABG Lactic Acid (0.5-1.6) mmol/L Sodium (137-145) mmol/L Potassium 3.4 L (3.5-5.1) mmol/L Chloride (98-107) mmol/L Carbon Dioxide (22-30) mmol/L BUN (7-17) mg/dL Creatinine (0.52-1.04) mg/dL Glucose (74-99) mg/dL POC Glucose (mg/dL) (75-99) mg/dL Plasma Lactic Acid Yovany 4.0 H* (0.7-2.0) mmol/L Calcium (8.4-10.2) mg/dL Ionized Calcium Janie (4.5-5.3) mg/dL Magnesium (1.6-2.3) mg/dL AST (14-36) U/L Alkaline Phosphatase (38-126) U/L Total Protein (6.3-8.2) g/dL Albumin (3.5-5.0) g/dL 07/24/20 07/24/20 07/24/20 Range/Units 00:30 03:35 04:46 WBC (3.8-10.6) k/uL RBC (3.80-5.40) m/uL Hgb (11.4-16.0) gm/dL Hct (34.0-46.0) % MCHC (31.0-37.0) g/dL RDW (11.5-15.5) % Plt Count (150-450) k/uL Neutrophils # (Manual) (1.3-7.7) k/uL Lymphocytes # (Manual) (1.0-4.8) k/uL ABG pH 7.47 H (7.35-7.45) ABG pCO2 31 L (35-45) mmHg ABG pO2 55 L* (83-108) mmHg ABG HCO3 (21-25) mmol/L ABG Total CO2 (19-24) mmol/L ABG O2 Saturation 90.5 L (94-97) % ABG Lactic Acid (0.5-1.6) mmol/L Sodium (137-145) mmol/L Potassium (3.5-5.1) mmol/L Chloride (98-107) mmol/L Carbon Dioxide (22-30) mmol/L BUN (7-17) mg/dL Creatinine (0.52-1.04) mg/dL Glucose (74-99) mg/dL POC Glucose (mg/dL) 194 H (75-99) mg/dL Plasma Lactic Acid Yovany 4.2 H* (0.7-2.0) mmol/L Calcium (8.4-10.2) mg/dL Ionized Calcium Janie (4.5-5.3) mg/dL Magnesium (1.6-2.3) mg/dL AST (14-36) U/L Alkaline Phosphatase (38-126) U/L Total Protein (6.3-8.2) g/dL Albumin (3.5-5.0) g/dL 07/24/20 07/24/20 07/24/20 Range/Units 05:10 05:10 05:10 WBC 56.5 H* (3.8-10.6) k/uL RBC 3.27 L (3.80-5.40) m/uL Hgb 9.4 L (11.4-16.0) gm/dL Hct 31.2 L (34.0-46.0) % MCHC 30.1 L (31.0-37.0) g/dL RDW 21.3 H (11.5-15.5) % Plt Count (150-450) k/uL Neutrophils # (Manual) 55.90 H (1.3-7.7) k/uL Lymphocytes # (Manual) (1.0-4.8) k/uL ABG pH (7.35-7.45) ABG pCO2 (35-45) mmHg ABG pO2 (83-108) mmHg ABG HCO3 (21-25) mmol/L ABG Total CO2 (19-24) mmol/L ABG O2 Saturation (94-97) % ABG Lactic Acid (0.5-1.6) mmol/L Sodium 136 L (137-145) mmol/L Potassium (3.5-5.1) mmol/L Chloride 108 H (98-107) mmol/L Carbon Dioxide (22-30) mmol/L BUN 31 H (7-17) mg/dL Creatinine 1.23 H (0.52-1.04) mg/dL Glucose 194 H (74-99) mg/dL POC Glucose (mg/dL) (75-99) mg/dL Plasma Lactic Acid Yovany (0.7-2.0) mmol/L Calcium 6.0 L* (8.4-10.2) mg/dL Ionized Calcium Janie 3.8 L (4.5-5.3) mg/dL Magnesium 1.5 L (1.6-2.3) mg/dL AST 119 H (14-36) U/L Alkaline Phosphatase 155 H (38-126) U/L Total Protein 3.4 L (6.3-8.2) g/dL Albumin 1.6 L (3.5-5.0) g/dL 07/24/20 07/24/20 07/24/20 Range/Units 06:01 06:45 10:28 WBC (3.8-10.6) k/uL RBC (3.80-5.40) m/uL Hgb (11.4-16.0) gm/dL Hct (34.0-46.0) % MCHC (31.0-37.0) g/dL RDW (11.5-15.5) % Plt Count (150-450) k/uL Neutrophils # (Manual) (1.3-7.7) k/uL Lymphocytes # (Manual) (1.0-4.8) k/uL ABG pH 7.47 H (7.35-7.45) ABG pCO2 33 L (35-45) mmHg ABG pO2 67 L (83-108) mmHg ABG HCO3 (21-25) mmol/L ABG Total CO2 25 H (19-24) mmol/L ABG O2 Saturation (94-97) % ABG Lactic Acid (0.5-1.6) mmol/L Sodium (137-145) mmol/L Potassium (3.5-5.1) mmol/L Chloride (98-107) mmol/L Carbon Dioxide (22-30) mmol/L BUN (7-17) mg/dL Creatinine (0.52-1.04) mg/dL Glucose (74-99) mg/dL POC Glucose (mg/dL) 211 H (75-99) mg/dL Plasma Lactic Acid Yovany 4.4 H* (0.7-2.0) mmol/L Calcium (8.4-10.2) mg/dL Ionized Calcium Janie (4.5-5.3) mg/dL Magnesium (1.6-2.3) mg/dL AST (14-36) U/L Alkaline Phosphatase (38-126) U/L Total Protein (6.3-8.2) g/dL Albumin (3.5-5.0) g/dL 07/24/20 Range/Units 11:43 WBC (3.8-10.6) k/uL RBC (3.80-5.40) m/uL Hgb (11.4-16.0) gm/dL Hct (34.0-46.0) % MCHC (31.0-37.0) g/dL RDW (11.5-15.5) % Plt Count (150-450) k/uL Neutrophils # (Manual) (1.3-7.7) k/uL Lymphocytes # (Manual) (1.0-4.8) k/uL ABG pH (7.35-7.45) ABG pCO2 (35-45) mmHg ABG pO2 (83-108) mmHg ABG HCO3 (21-25) mmol/L ABG Total CO2 (19-24) mmol/L ABG O2 Saturation (94-97) % ABG Lactic Acid (0.5-1.6) mmol/L Sodium (137-145) mmol/L Potassium (3.5-5.1) mmol/L Chloride (98-107) mmol/L Carbon Dioxide (22-30) mmol/L BUN (7-17) mg/dL Creatinine (0.52-1.04) mg/dL Glucose (74-99) mg/dL POC Glucose (mg/dL) 227 H (75-99) mg/dL Plasma Lactic Acid Yovany (0.7-2.0) mmol/L Calcium (8.4-10.2) mg/dL Ionized Calcium Janie (4.5-5.3) mg/dL Magnesium (1.6-2.3) mg/dL AST (14-36) U/L Alkaline Phosphatase (38-126) U/L Total Protein (6.3-8.2) g/dL Albumin (3.5-5.0) g/dL Microbiology - Last 24 Hours (Table) 07/23/20 20:00 Gram Stain - Preliminary Sputum Sputum Culture - Preliminary 07/23/20 16:00 Gram Stain - Preliminary Paracentesis Fluid Body Fluid Culture - Preliminary 07/22/20 21:37 Blood Culture - Preliminary Blood No Growth after 24 hours 07/23/20 16:00 Anaerobic Culture - Preliminary Paracentesis Fluid 07/23/20 12:50 Urine Culture - Preliminary Urine,Voided
--- NOTE | 2020-07-24 13:53 | P.PN ---
Subjective Progress Note Date: 07/24/20 Principal diagnosis: Ascites This is a 74-year-old pleasant white female with metastatic rectal cancer diagnosed in July [address] Zhu. She was admitted to the hospital because of abdominal pain and distention. She has been complaining of fatigue, weakness, shortness of breath and not feeling well overall for the last several weeks duration. Yesterday evening she was transferred to the intensive care unit for septic shock, where she was intubated. Dr. Olmedo and also performed a paracentesis at the bedside removing 1.7 L of fluid which were sent for fluid studies. Today he was seen and examined at the bedside, she remains intubated with mechanical support. She has an OG tube with minimal output. X- ray shows and G-tube in stomach with evidence of a large bowel ileus. Objective - Vital Signs Vital signs: Vital Signs Temp 98.7 F 07/24/20 12:00 Pulse 105 H 07/24/20 13:00 Resp 24 07/24/20 13:00 BP 110/67 07/24/20 13:00 Pulse Ox 95 07/24/20 13:00 Intake & Output 07/23/20 07/24/20 07/24/20 18:59 06:59 18:59 Intake Total 6754.455 4409.914 1120 Output Total 50 247 70 Balance 6704.455 4162.914 1050 Weight 40.5 kg 47.5 kg Intake: IV 6650 3525 1120 0.9 NaCl 325 70 Cefepime 1 gm In Sodium 50 Chloride 0.9% 50 ml @ 12. 5 mls/hr IVPB Q12HR [facility] Rx#:[id number] Dextrose 5% in Water 1, 450 1800 1050 000 ml @ 150 mls/hr IV . Q7H40M [facility] with Sodium Bicarb (1 Meq/ml) 150 ml Rx#:[id number] Piperacillin-Tazobactam 3 100 100 .375 gm In Sodium Chloride 0.9% 100 ml @ 25 mls/hr IVPB Q8H [facility] Rx#: [id number] Potassium Chloride 10 meq 300 300 In Water For Injection 1 100ml.bag @ 100 mls/hr IVPB Q1HR [facility] Rx#: [id number] Sodium Chloride 0.9% 1, 5500 1000 000 ml @ 999 mls/hr IV . Q1H1M ONE Rx#:[id number] Vancomycin 750 mg In 250 Sodium Chloride 0.9% 250 ml @ 125 mls/hr IVPB ONCE ONE Rx#:[id number] Intake, IV Titration 104.455 884.914 Amount Calcium Gluconate 1 gm In 100 Sodium Chloride 0.9% 100 ml @ 100 mls/hr IVPB ONCE ONE Rx#:[id number] Norepinephrine 8 mg In 557.050 Sodium Chloride 0.9% 250 ml @ 0.05 MCG/KG/MIN 3. 918 mls/hr IV .Q24H [facility] Rx#:[id number] Piperacillin-Tazobactam 3 100 .375 gm In Sodium Chloride 0.9% 100 ml @ 25 mls/hr IVPB Q8H [facility] Rx#: [id number] Potassium Chloride 20 meq 200 In Water For Injection 1 100ml.bag @ 50 mls/hr IVPB Q2H [facility] Rx#: [id number] propofoL 1,000 mg In 4.455 27.864 Empty Bag 1 bag @ Titrate IV .Q0M [facility] Rx#: [id number] Output: Urine 50 247 70 Other: Voiding Method Indwelling Catheter Indwelling Catheter Indwelling Catheter # Voids 2 2 ABP, PAP, CO, CI - Last Documented Arterial Blood Pressure 117/56 - Exam General appearance: Intubated and sedated HET: Head is normocephalic and atraumatic. Conjunctiva pink. Sclera anicteric. Neck: Supple without lymphadenopathy. Abdomen: Firm, distended with decreased bowel sounds No guarding or rigidity. Extremities: Normal skin color and turgor. No jaundice. No pedal edema Neurological: Intubated and sedated. - Labs CBC & Chem 7: 07/24/20 05:10 07/24/20 05:10 Labs: Abnormal Lab Results - Last 24 Hours (Table) 07/23/20 07/23/20 07/23/20 Range/Units 14:48 15:21 15:54 WBC (3.8-10.6) k/uL RBC (3.80-5.40) m/uL Hgb (11.4-16.0) gm/dL Hct (34.0-46.0) % MCHC (31.0-37.0) g/dL RDW (11.5-15.5) % Plt Count (150-450) k/uL Neutrophils # (Manual) (1.3-7.7) k/uL Lymphocytes # (Manual) (1.0-4.8) k/uL ABG pH 7.05 L* (7.35-7.45) ABG pCO2 58 H (35-45) mmHg ABG pO2 70 L 63 L (83-108) mmHg ABG HCO3 16 L (21-25) mmol/L ABG Total CO2 18 L (19-24) mmol/L ABG O2 Saturation 87.8 L 93.7 L (94-97) % ABG Lactic Acid (0.5-1.6) mmol/L Sodium (137-145) mmol/L Potassium (3.5-5.1) mmol/L Chloride (98-107) mmol/L Carbon Dioxide (22-30) mmol/L BUN (7-17) mg/dL Creatinine (0.52-1.04) mg/dL Glucose (74-99) mg/dL POC Glucose (mg/dL) 62 L (75-99) mg/dL Plasma Lactic Acid Yovany (0.7-2.0) mmol/L Calcium (8.4-10.2) mg/dL Ionized Calcium Janie (4.5-5.3) mg/dL Magnesium (1.6-2.3) mg/dL AST (14-36) U/L Alkaline Phosphatase (38-126) U/L Total Protein (6.3-8.2) g/dL Albumin (3.5-5.0) g/dL 07/23/20 07/23/20 07/23/20 Range/Units 16:23 17:07 18:00 WBC 35.1 H (3.8-10.6) k/uL RBC 2.89 L (3.80-5.40) m/uL Hgb 8.0 L D (11.4-16.0) gm/dL Hct 27.5 L (34.0-46.0) % MCHC 29.1 L (31.0-37.0) g/dL RDW 21.2 H (11.5-15.5) % Plt Count 461 H (150-450) k/uL Neutrophils # (Manual) 33.60 H (1.3-7.7) k/uL Lymphocytes # (Manual) 0.70 L (1.0-4.8) k/uL ABG pH (7.35-7.45) ABG pCO2 (35-45) mmHg ABG pO2 76 L (83-108) mmHg ABG HCO3 20 L (21-25) mmol/L ABG Total CO2 (19-24) mmol/L ABG O2 Saturation (94-97) % ABG Lactic Acid (0.5-1.6) mmol/L Sodium (137-145) mmol/L Potassium (3.5-5.1) mmol/L Chloride (98-107) mmol/L Carbon Dioxide (22-30) mmol/L BUN (7-17) mg/dL Creatinine (0.52-1.04) mg/dL Glucose (74-99) mg/dL POC Glucose (mg/dL) 164 H (75-99) mg/dL Plasma Lactic Acid Yovany (0.7-2.0) mmol/L Calcium (8.4-10.2) mg/dL Ionized Calcium Janie (4.5-5.3) mg/dL Magnesium (1.6-2.3) mg/dL AST (14-36) U/L Alkaline Phosphatase (38-126) U/L Total Protein (6.3-8.2) g/dL Albumin (3.5-5.0) g/dL 07/23/20 07/23/20 07/23/20 Range/Units 18:00 18:00 20:39 WBC (3.8-10.6) k/uL RBC (3.80-5.40) m/uL Hgb (11.4-16.0) gm/dL Hct (34.0-46.0) % MCHC (31.0-37.0) g/dL RDW (11.5-15.5) % Plt Count (150-450) k/uL Neutrophils # (Manual) (1.3-7.7) k/uL Lymphocytes # (Manual) (1.0-4.8) k/uL ABG pH (7.35-7.45) ABG pCO2 (35-45) mmHg ABG pO2 (83-108) mmHg ABG HCO3 (21-25) mmol/L ABG Total CO2 (19-24) mmol/L ABG O2 Saturation (94-97) % ABG Lactic Acid 3.2 H* (0.5-1.6) mmol/L Sodium (137-145) mmol/L Potassium (3.5-5.1) mmol/L Chloride 114 H (98-107) mmol/L Carbon Dioxide 18 L (22-30) mmol/L BUN 30 H (7-17) mg/dL Creatinine 1.19 H (0.52-1.04) mg/dL Glucose 187 H (74-99) mg/dL POC Glucose (mg/dL) (75-99) mg/dL Plasma Lactic Acid Yovany 4.1 H* (0.7-2.0) mmol/L Calcium 5.5 L* (8.4-10.2) mg/dL Ionized Calcium Janie (4.5-5.3) mg/dL Magnesium (1.6-2.3) mg/dL AST 100 H (14-36) U/L Alkaline Phosphatase (38-126) U/L Total Protein 3.1 L (6.3-8.2) g/dL Albumin 1.4 L (3.5-5.0) g/dL 07/23/20 07/24/20 07/24/20 Range/Units 22:20 00:15 00:15 WBC (3.8-10.6) k/uL RBC (3.80-5.40) m/uL Hgb (11.4-16.0) gm/dL Hct (34.0-46.0) % MCHC (31.0-37.0) g/dL RDW (11.5-15.5) % Plt Count (150-450) k/uL Neutrophils # (Manual) (1.3-7.7) k/uL Lymphocytes # (Manual) (1.0-4.8) k/uL ABG pH (7.35-7.45) ABG pCO2 30 L (35-45) mmHg ABG pO2 46 L* (83-108) mmHg ABG HCO3 (21-25) mmol/L ABG Total CO2 (19-24) mmol/L ABG O2 Saturation 86.2 L (94-97) % ABG Lactic Acid (0.5-1.6) mmol/L Sodium (137-145) mmol/L Potassium 3.4 L (3.5-5.1) mmol/L Chloride (98-107) mmol/L Carbon Dioxide (22-30) mmol/L BUN (7-17) mg/dL Creatinine (0.52-1.04) mg/dL Glucose (74-99) mg/dL POC Glucose (mg/dL) (75-99) mg/dL Plasma Lactic Acid Yovany 4.0 H* (0.7-2.0) mmol/L Calcium (8.4-10.2) mg/dL Ionized Calcium Janie (4.5-5.3) mg/dL Magnesium (1.6-2.3) mg/dL AST (14-36) U/L Alkaline Phosphatase (38-126) U/L Total Protein (6.3-8.2) g/dL Albumin (3.5-5.0) g/dL 07/24/20 07/24/20 07/24/20 Range/Units 00:30 03:35 04:46 WBC (3.8-10.6) k/uL RBC (3.80-5.40) m/uL Hgb (11.4-16.0) gm/dL Hct (34.0-46.0) % MCHC (31.0-37.0) g/dL RDW (11.5-15.5) % Plt Count (150-450) k/uL Neutrophils # (Manual) (1.3-7.7) k/uL Lymphocytes # (Manual) (1.0-4.8) k/uL ABG pH 7.47 H (7.35-7.45) ABG pCO2 31 L (35-45) mmHg ABG pO2 55 L* (83-108) mmHg ABG HCO3 (21-25) mmol/L ABG Total CO2 (19-24) mmol/L ABG O2 Saturation 90.5 L (94-97) % ABG Lactic Acid (0.5-1.6) mmol/L Sodium (137-145) mmol/L Potassium (3.5-5.1) mmol/L Chloride (98-107) mmol/L Carbon Dioxide (22-30) mmol/L BUN (7-17) mg/dL Creatinine (0.52-1.04) mg/dL Glucose (74-99) mg/dL POC Glucose (mg/dL) 194 H (75-99) mg/dL Plasma Lactic Acid Yovany 4.2 H* (0.7-2.0) mmol/L Calcium (8.4-10.2) mg/dL Ionized Calcium Janie (4.5-5.3) mg/dL Magnesium (1.6-2.3) mg/dL AST (14-36) U/L Alkaline Phosphatase (38-126) U/L Total Protein (6.3-8.2) g/dL Albumin (3.5-5.0) g/dL 07/24/20 07/24/20 07/24/20 Range/Units 05:10 05:10 05:10 WBC 56.5 H* (3.8-10.6) k/uL RBC 3.27 L (3.80-5.40) m/uL Hgb 9.4 L (11.4-16.0) gm/dL Hct 31.2 L (34.0-46.0) % MCHC 30.1 L (31.0-37.0) g/dL RDW 21.3 H (11.5-15.5) % Plt Count (150-450) k/uL Neutrophils # (Manual) 55.90 H (1.3-7.7) k/uL Lymphocytes # (Manual) (1.0-4.8) k/uL ABG pH (7.35-7.45) ABG pCO2 (35-45) mmHg ABG pO2 (83-108) mmHg ABG HCO3 (21-25) mmol/L ABG Total CO2 (19-24) mmol/L ABG O2 Saturation (94-97) % ABG Lactic Acid (0.5-1.6) mmol/L Sodium 136 L (137-145) mmol/L Potassium (3.5-5.1) mmol/L Chloride 108 H (98-107) mmol/L Carbon Dioxide (22-30) mmol/L BUN 31 H (7-17) mg/dL Creatinine 1.23 H (0.52-1.04) mg/dL Glucose 194 H (74-99) mg/dL POC Glucose (mg/dL) (75-99) mg/dL Plasma Lactic Acid Yovany (0.7-2.0) mmol/L Calcium 6.0 L* (8.4-10.2) mg/dL Ionized Calcium Janie 3.8 L (4.5-5.3) mg/dL Magnesium 1.5 L (1.6-2.3) mg/dL AST 119 H (14-36) U/L Alkaline Phosphatase 155 H (38-126) U/L Total Protein 3.4 L (6.3-8.2) g/dL Albumin 1.6 L (3.5-5.0) g/dL 07/24/20 07/24/20 07/24/20 Range/Units 06:01 06:45 10:28 WBC (3.8-10.6) k/uL RBC (3.80-5.40) m/uL Hgb (11.4-16.0) gm/dL Hct (34.0-46.0) % MCHC (31.0-37.0) g/dL RDW (11.5-15.5) % Plt Count (150-450) k/uL Neutrophils # (Manual) (1.3-7.7) k/uL Lymphocytes # (Manual) (1.0-4.8) k/uL ABG pH 7.47 H (7.35-7.45) ABG pCO2 33 L (35-45) mmHg ABG pO2 67 L (83-108) mmHg ABG HCO3 (21-25) mmol/L ABG Total CO2 25 H (19-24) mmol/L ABG O2 Saturation (94-97) % ABG Lactic Acid (0.5-1.6) mmol/L Sodium (137-145) mmol/L Potassium (3.5-5.1) mmol/L Chloride (98-107) mmol/L Carbon Dioxide (22-30) mmol/L BUN (7-17) mg/dL Creatinine (0.52-1.04) mg/dL Glucose (74-99) mg/dL POC Glucose (mg/dL) 211 H (75-99) mg/dL Plasma Lactic Acid Yovany 4.4 H* (0.7-2.0) mmol/L Calcium (8.4-10.2) mg/dL Ionized Calcium Janie (4.5-5.3) mg/dL Magnesium (1.6-2.3) mg/dL AST (14-36) U/L Alkaline Phosphatase (38-126) U/L Total Protein (6.3-8.2) g/dL Albumin (3.5-5.0) g/dL 07/24/20 Range/Units 11:43 WBC (3.8-10.6) k/uL RBC (3.80-5.40) m/uL Hgb (11.4-16.0) gm/dL Hct (34.0-46.0) % MCHC (31.0-37.0) g/dL RDW (11.5-15.5) % Plt Count (150-450) k/uL Neutrophils # (Manual) (1.3-7.7) k/uL Lymphocytes # (Manual) (1.0-4.8) k/uL ABG pH (7.35-7.45) ABG pCO2 (35-45) mmHg ABG pO2 (83-108) mmHg ABG HCO3 (21-25) mmol/L ABG Total CO2 (19-24) mmol/L ABG O2 Saturation (94-97) % ABG Lactic Acid (0.5-1.6) mmol/L Sodium (137-145) mmol/L Potassium (3.5-5.1) mmol/L Chloride (98-107) mmol/L Carbon Dioxide (22-30) mmol/L BUN (7-17) mg/dL Creatinine (0.52-1.04) mg/dL Glucose (74-99) mg/dL POC Glucose (mg/dL) 227 H (75-99) mg/dL Plasma Lactic Acid Yovany (0.7-2.0) mmol/L Calcium (8.4-10.2) mg/dL Ionized Calcium Janie (4.5-5.3) mg/dL Magnesium (1.6-2.3) mg/dL AST (14-36) U/L Alkaline Phosphatase (38-126) U/L Total Protein (6.3-8.2) g/dL Albumin (3.5-5.0) g/dL Microbiology - Last 24 Hours (Table) 07/23/20 20:00 Gram Stain - Preliminary Sputum Sputum Culture - Preliminary 07/23/20 16:00 Gram Stain - Preliminary Paracentesis Fluid Body Fluid Culture - Preliminary 07/22/20 21:37 Blood Culture - Preliminary Blood No Growth after 24 hours 07/23/20 16:00 Anaerobic Culture - Preliminary Paracentesis Fluid 07/23/20 12:50 Urine Culture - Preliminary Urine,Voided Assessment and Plan Assessment: 1. Metastatic rectal adenocarcinoma diagnosed a year ago. CAT scan from 3 weeks ago showing peritoneal disease with new onset ascites. Oncology is following the patient closely. 2. New onset ascites, most likely secondary to peritoneal disease from rectal cancer. The patient underwent paracentesis yesterday with removal of 1.7 L of fluid. No history of chronic liver disease. 3. Septic shock, intubated and on mechanical ventilatory support. Patient on vancomycin and Zosyn. Cardiology consult to rule out infective endocarditis. Plan: 1. Continue with broad-spectrum antibiotics 2. Await fluid study results 3. Follow recommendations per web content producer and consultants 4. Supportive care Gastroenterolgy will sign off at this time. Stone hesitate to call with any questions. The impression and plan of care has been dictated as directed. Dr. Mandy Gandhi I performed a history and examination of this patient, discussed the same with the dictator. I agree with the dictator's note ,documented as a scribe. Any additional findings or plans will be noted.
--- NOTE | 2020-07-24 13:54 | P.PN ---
Subjective Progress Note Date: 07/24/20 This is a 74-year-old female patient with a known history of metastatic rectal cancer that was diagnosed in July 2018. The patient is a representation back balance for severe anemia and she was found to have a rectal prolapse and a friable polypoid nodularity in the prolapse rectum. She was found to have a rectal adenocarcinoma. The patient was seen by oncology. The patient also underwent a transanal excision of the rectal cancer. The patient was being followed up by oncology and a PET scan that was done on 09/08/2019 showed significant abnormalities with mild hypermetabolic uptake along the course of the sigmoid rectal: In addition to moderate to severe concentric wall thickening and more distally there was hypermetabolic uptake within the rectum extending slightly to the right of the midline and there is also suspected eccentric mass measuring up to 3 cm in size showing metabolic activity. The patient also had some ascites with prominent notoriety along the upper and midabdomen concerning for peritoneal carcinomatosis. Based on this, the patient was taken to the operating room and the patient underwent a laparoscopic cholecystectomy and laparoscopic peritoneal biopsy and the biopsies came back positive for malignancy. The patient was found to have metastatic moderately differentiated adenocarcinoma consistent of a colon primary in addition to the gallbladder being able with metastatic adenocarcinoma and there was some limited chronic cholelithiasis and cholecystitis. .. The patient accordingly was started on systemic chemotherapy and the patient was being treated with FOLFOX and the patient's last treatment was on first week of June. The patient came into the hospital yesterday complaining of abdominal pain. She looked quite tired and debilitated and she was also having some increased difficulty in breathing. She denied having any chest pain. She was quite dehydrated and she admitted not to eat or drink for the past week or so. According to the niece, the patient had been having nausea and emesis approximately week and she was having some dark brown or black stool. In the emergency department, the patient was found to have a white cell count of 64.3. Hemoglobin was 9.9. Platelet was 474. The patient had an INR of 1.3 with a PT of 12.9. GIM was 33 with a creatinine of 1.01. Sodium was 134. The initial lactic acid level was at 2.9 and subsequently dropped down to 1.4. Troponins were 0.08 and 0.2 respectively 2, her TSH was elevated at 10.4, UA was positive for protein +1, there were 40 WBCs, 6 RBCs and many bacteria was also noted. The computed tomography scan of the abdomen and pelvis was done and showed large bilateral pleural effusions with fluid was more so on the right and there was a moderate-sized hiatal hernia and the heart size was within normal limits. There was some atelectatic changes in lung bases. There was a large amount of intra- abdominal ascites fluid and liver showed no focal deficits or defects. Spleen was intact. Gallbladder was absent. The bile ducts were not dilated. Note that the CAT scan of the chest abdomen and pelvis that was done on 07/09/2020 showed peritoneal carcinomatosis, pleural effusion bilateral and persistent rectal wall thickening consistent with recurrent cancer. The patient was started on IV antibiotics. The patient was started on IV fluids. The patient was admitted to the medical floor and subsequently the patient a chest to the intensive care unit as the patient became progressively more hypotensive earlier this morning. Currently, the patient is receiving IV fluids with normal saline at the rate of 130 mL an hour. She received another bolus of IV fluid in the ICU. She is on a combination of cefepime and vancomycin. Repeat white cell count from today 62.3. The echocardiogram was obtained and the patient is a preserved LV function with an ejection fraction of 65% and there was moderate aortic stenosis with a mean gradient of 24 mmHg and there was moderate to severe MR, moderate TR with severe pulmonary hypertension with a biventricular systolic pressure of 62. Cardiac rhythm is sinus.Associated with a moderate to severe mitral regurgitation. There is a concern for underlying endocarditis. Evidence for systolic pressure was quite elevated at 62 mmHg. I came to see the patient in the intensive care unit. The patient was extremely lethargic, the patient was not communicating and she was unable to volunteer any history. I contacted her oncologist and I was made aware that the patient was being treated for metastatic rectal cancer. Note that the patient is having abdominal pain and discomfort in her abdomen is quite distended at this point in time. She has a BP of 97/55. The patient is tachycardicand her heart rate is around 1:30, sinus. She is on on 100% nonrebreather facemask and she is quite thickened neck. There is a Stanford catheter in place and there is no urine output. Her skin is mottled and the pulses in lower extremities are quite diminished. On 07/24/2020 the patient is being seen for a follow-up. The patient continues to be shock state. The patient was intubated and placed on mechanical ventilator and a paracentesis was done were a total of 1.6-1.7 L of ascitic fluid was aspirated. The patient was kept on a mechanical ventilator overnight. She developed an aspiration pneumonia with diffuse breath and pulmonary infiltrates. Abdomen is still tense and tight although , There was some improvement on examination that was noted post paracentesis. The patient remains on a mechanical ventilator. This morning, she is sedated with propofol and she is calm and comfortable. His symptoms with the mechanical ventilator. IV fluids are running in the form of D5 with 150 mEq of sodium bicarbonate ru nning at 150 mL an hour and the patient is also on a combination of norepinephrine infusion at 40 g per minute and vasopressin at 0.03 units an hour. The patient is still pressor dependent and she is quite hypotensive shock state. On a mechanical ventilator, she is an assist-control mode at the rate of 28 and a tidal volume of 375 with an FiO2 of 100% and a PEEP of 12. The blood gas showed a pH of 7.47 with a pCO2 of 31 and pO2 of 55. Peak airway pressure was around 38 with a pressure of 33. Based on this, and based on underlying hypoxemia, switch this patient to a pressure control mode of ventilation and the necessity ventilator changes were done. The patient is currently covered with a combination of Zosyn and vancomycin. Blood cultures negative. Lactic acid elevated at 4. 3 and subsequent level came up to 6.3. The white cell count is a 56.5. Discussed abdominal findings with the general surgery. There was ongoing distention of the transverse colon and stool in the distal colon was noted. NG tube is in a good location. There is evidence of large bowel ileus and the john paul carolina is known to have metastatic rectal adenocarcinoma with peritoneal carcinomatosis. Objective - Vital Signs Vital signs: Vital Signs Temp 98.7 F 07/24/20 12:00 Pulse 105 H 07/24/20 13:00 Resp 24 07/24/20 13:00 BP 110/67 07/24/20 13:00 Pulse Ox 95 07/24/20 13:00 Intake & Output 07/23/20 07/24/20 07/24/20 18:59 06:59 18:59 Intake Total 6754.455 4409.914 1120 Output Total 50 247 70 Balance 6704.455 4162.914 1050 Weight 40.5 kg 47.5 kg Intake: IV 6650 3525 1120 0.9 NaCl 325 70 Cefepime 1 gm In Sodium 50 Chloride 0.9% 50 ml @ 12. 5 mls/hr IVPB Q12HR [facility] Rx#:[id number] Dextrose 5% in Water 1, 450 1800 1050 000 ml @ 150 mls/hr IV . Q7H40M GLORIA with Sodium Bicarb (1 Meq/ml) 150 ml Rx#:[id number] Piperacillin-Tazobactam 3 100 100 .375 gm In Sodium Chloride 0.9% 100 ml @ 25 mls/hr IVPB Q8H [facility] Rx#: [id number] Potassium Chloride 10 meq 300 300 In Water For Injection 1 100ml.bag @ 100 mls/hr IVPB Q1HR [facility] Rx#: [id number] Sodium Chloride 0.9% 1, 5500 1000 000 ml @ 999 mls/hr IV . Q1H1M [facility] Rx#:[id number] Vancomycin 750 mg In 250 Sodium Chloride 0.9% 250 ml @ 125 mls/hr IVPB ONCE ONE Rx#:[id number] Intake, IV Titration 104.455 884.914 Amount Calcium Gluconate 1 gm In 100 Sodium Chloride 0.9% 100 ml @ 100 mls/hr IVPB ONCE ONE Rx#:[id number] Norepinephrine 8 mg In 557.050 Sodium Chloride 0.9% 250 ml @ 0.05 MCG/KG/MIN 3. 918 mls/hr IV .Q24H [facility] Rx#:[id number] Piperacillin-Tazobactam 3 100 .375 gm In Sodium Chloride 0.9% 100 ml @ 25 mls/hr IVPB Q8H [facility] Rx#: [id number] Potassium Chloride 20 meq 200 In Water For Injection 1 100ml.bag @ 50 mls/hr IVPB Q2H [facility] Rx#: [id number] propofoL 1,000 mg In 4.455 27.864 Empty Bag 1 bag @ Titrate IV .Q0M [facility] Rx#: [id number] Output: Urine 50 247 70 Other: Voiding Method Indwelling Catheter Indwelling Catheter Indwelling Catheter # Voids 2 2 ABP, PAP, CO, CI - Last Documented Arterial Blood Pressure 117/56 - Exam GENERAL: The patient is very much lethargic and obtunded on 100% nonrebreather facemask. She is unable to lay down on her back. Abdomen is distended and is quite firm. Note that there was some improvement following the paracentesis yesterday on today's evaluation the patient's abdomen is again quite firm and distended... Cachectic emaciated and malnourished Head exam was generally normal. There was no scleral icterus or corneal arcus. Mucous membranes were moist. HEENT: Pupils are round and equally reacting to light. EOMI. No scleral icterus. No conjunctival pallor. Normocephalic, atraumatic. No pharyngeal erythema. No thyromegaly. CARDIOVASCULAR: tachycardic, S1 and S2 present. and the patient has a wide-open holosystolic murmur grade 4/6 heard mainly over the left upper sternal border. -PULMONARY: Chest is clear to auscultation, no wheezing or crackles. Diminished breath on the lung bases bilaterally and there is worsening diminished on the right ABDOMEN:distended abdomen which is also firm and there is underlying sinus ascites. There is some mild direct tenderness. No rebound tenderness. No guarding. Bowel sounds are hypoactive at this point in time. No palpable organomegaly. There is a fluid wave and shifting dullness consistent with ascites MUSCULOSKELETAL: No joint swelling or deformity. EXTREMITIES: No cyanosis, clubbing, or pedal edema. NEUROLOGICAL examination shows that the patient is sedated and patient is calm and comfortable. She is quite sedated on propofol and she suggested a mechanical ventilator. Pupils are equal and reactive to light. Motor and sensory functions cannot be accurately assessed. SKIN: No rashes. No petechiae - Labs CBC & Chem 7: 07/24/20 05:10 07/24/20 05:10 Labs: Abnormal Lab Results - Last 24 Hours (Table) 07/23/20 07/23/20 07/23/20 Range/Units 14:48 15:21 15:54 WBC (3.8-10.6) k/uL RBC (3.80-5.40) m/uL Hgb (11.4-16.0) gm/dL Hct (34.0-46.0) % MCHC (31.0-37.0) g/dL RDW (11.5-15.5) % Plt Count (150-450) k/uL Neutrophils # (Manual) (1.3-7.7) k/uL Lymphocytes # (Manual) (1.0-4.8) k/uL ABG pH 7.05 L* (7.35-7.45) ABG pCO2 58 H (35-45) mmHg ABG pO2 70 L 63 L (83-108) mmHg ABG HCO3 16 L (21-25) mmol/L ABG Total CO2 18 L (19-24) mmol/L ABG O2 Saturation 87.8 L 93.7 L (94-97) % ABG Lactic Acid (0.5-1.6) mmol/L Sodium (137-145) mmol/L Potassium (3.5-5.1) mmol/L Chloride (98-107) mmol/L Carbon Dioxide (22-30) mmol/L BUN (7-17) mg/dL Creatinine (0.52-1.04) mg/dL Glucose (74-99) mg/dL POC Glucose (mg/dL) 62 L (75-99) mg/dL Plasma Lactic Acid Yovany (0.7-2.0) mmol/L Calcium (8.4-10.2) mg/dL Ionized Calcium Janie (4.5-5.3) mg/dL Magnesium (1.6-2.3) mg/dL AST (14-36) U/L Alkaline Phosphatase (38-126) U/L Total Protein (6.3-8.2) g/dL Albumin (3.5-5.0) g/dL 07/23/20 07/23/20 07/23/20 Range/Units 16:23 17:07 18:00 WBC 35.1 H (3.8-10.6) k/uL RBC 2.89 L (3.80-5.40) m/uL Hgb 8.0 L D (11.4-16.0) gm/dL Hct 27.5 L (34.0-46.0) % MCHC 29.1 L (31.0-37.0) g/dL RDW 21.2 H (11.5-15.5) % Plt Count 461 H (150-450) k/uL Neutrophils # (Manual) 33.60 H (1.3-7.7) k/uL Lymphocytes # (Manual) 0.70 L (1.0-4.8) k/uL ABG pH (7.35-7.45) ABG pCO2 (35-45) mmHg ABG pO2 76 L (83-108) mmHg ABG HCO3 20 L (21-25) mmol/L ABG Total CO2 (19-24) mmol/L ABG O2 Saturation (94-97) % ABG Lactic Acid (0.5-1.6) mmol/L Sodium (137-145) mmol/L Potassium (3.5-5.1) mmol/L Chloride (98-107) mmol/L Carbon Dioxide (22-30) mmol/L BUN (7-17) mg/dL Creatinine (0.52-1.04) mg/dL Glucose (74-99) mg/dL POC Glucose (mg/dL) 164 H (75-99) mg/dL Plasma Lactic Acid Yovany (0.7-2.0) mmol/L Calcium (8.4-10.2) mg/dL Ionized Calcium Janie (4.5-5.3) mg/dL Magnesium (1.6-2.3) mg/dL AST (14-36) U/L Alkaline Phosphatase (38-126) U/L Total Protein (6.3-8.2) g/dL Albumin (3.5-5.0) g/dL 07/23/20 07/23/20 07/23/20 Range/Units 18:00 18:00 20:39 WBC (3.8-10.6) k/uL RBC (3.80-5.40) m/uL Hgb (11.4-16.0) gm/dL Hct (34.0-46.0) % MCHC (31.0-37.0) g/dL RDW (11.5-15.5) % Plt Count (150-450) k/uL Neutrophils # (Manual) (1.3-7.7) k/uL Lymphocytes # (Manual) (1.0-4.8) k/uL ABG pH (7.35-7.45) ABG pCO2 (35-45) mmHg ABG pO2 (83-108) mmHg ABG HCO3 (21-25) mmol/L ABG Total CO2 (19-24) mmol/L ABG O2 Saturation (94-97) % ABG Lactic Acid 3.2 H* (0.5-1.6) mmol/L Sodium (137-145) mmol/L Potassium (3.5-5.1) mmol/L Chloride 114 H (98-107) mmol/L Carbon Dioxide 18 L (22-30) mmol/L BUN 30 H (7-17) mg/dL Creatinine 1.19 H (0.52-1.04) mg/dL Glucose 187 H (74-99) mg/dL POC Glucose (mg/dL) (75-99) mg/dL Plasma Lactic Acid Yovany 4.1 H* (0.7-2.0) mmol/L Calcium 5.5 L* (8.4-10.2) mg/dL Ionized Calcium Janie (4.5-5.3) mg/dL Magnesium (1.6-2.3) mg/dL AST 100 H (14-36) U/L Alkaline Phosphatase (38-126) U/L Total Protein 3.1 L (6.3-8.2) g/dL Albumin 1.4 L (3.5-5.0) g/dL 07/23/20 07/24/20 07/24/20 Range/Units 22:20 00:15 00:15 WBC (3.8-10.6) k/uL RBC (3.80-5.40) m/uL Hgb (11.4-16.0) gm/dL Hct (34.0-46.0) % MCHC (31.0-37.0) g/dL RDW (11.5-15.5) % Plt Count (150-450) k/uL Neutrophils # (Manual) (1.3-7.7) k/uL Lymphocytes # (Manual) (1.0-4.8) k/uL ABG pH (7.35-7.45) ABG pCO2 30 L (35-45) mmHg ABG pO2 46 L* (83-108) mmHg ABG HCO3 (21-25) mmol/L ABG Total CO2 (19-24) mmol/L ABG O2 Saturation 86.2 L (94-97) % ABG Lactic Acid (0.5-1.6) mmol/L Sodium (137-145) mmol/L Potassium 3.4 L (3.5-5.1) mmol/L Chloride (98-107) mmol/L Carbon Dioxide (22-30) mmol/L BUN (7-17) mg/dL Creatinine (0.52-1.04) mg/dL Glucose (74-99) mg/dL POC Glucose (mg/dL) (75-99) mg/dL Plasma Lactic Acid Yovany 4.0 H* (0.7-2.0) mmol/L Calcium (8.4-10.2) mg/dL Ionized Calcium Janie (4.5-5.3) mg/dL Magnesium (1.6-2.3) mg/dL AST (14-36) U/L Alkaline Phosphatase (38-126) U/L Total Protein (6.3-8.2) g/dL Albumin (3.5-5.0) g/dL 07/24/20 07/24/20 07/24/20 Range/Units 00:30 03:35 04:46 WBC (3.8-10.6) k/uL RBC (3.80-5.40) m/uL Hgb (11.4-16.0) gm/dL Hct (34.0-46.0) % MCHC (31.0-37.0) g/dL RDW (11.5-15.5) % Plt Count (150-450) k/uL Neutrophils # (Manual) (1.3-7.7) k/uL Lymphocytes # (Manual) (1.0-4.8) k/uL ABG pH 7.47 H (7.35-7.45) ABG pCO2 31 L (35-45) mmHg ABG pO2 55 L* (83-108) mmHg ABG HCO3 (21-25) mmol/L ABG Total CO2 (19-24) mmol/L ABG O2 Saturation 90.5 L (94-97) % ABG Lactic Acid (0.5-1.6) mmol/L Sodium (137-145) mmol/L Potassium (3.5-5.1) mmol/L Chloride (98-107) mmol/L Carbon Dioxide (22-30) mmol/L BUN (7-17) mg/dL Creatinine (0.52-1.04) mg/dL Glucose (74-99) mg/dL POC Glucose (mg/dL) 194 H (75-99) mg/dL Plasma Lactic Acid Yovany 4.2 H* (0.7-2.0) mmol/L Calcium (8.4-10.2) mg/dL Ionized Calcium Janie (4.5-5.3) mg/dL Magnesium (1.6-2.3) mg/dL AST (14-36) U/L Alkaline Phosphatase (38-126) U/L Total Protein (6.3-8.2) g/dL Albumin (3.5-5.0) g/dL 07/24/20 07/24/20 07/24/20 Range/Units 05:10 05:10 05:10 WBC 56.5 H* (3.8-10.6) k/uL RBC 3.27 L (3.80-5.40) m/uL Hgb 9.4 L (11.4-16.0) gm/dL Hct 31.2 L (34.0-46.0) % MCHC 30.1 L (31.0-37.0) g/dL RDW 21.3 H (11.5-15.5) % Plt Count (150-450) k/uL Neutrophils # (Manual) 55.90 H (1.3-7.7) k/uL Lymphocytes # (Manual) (1.0-4.8) k/uL ABG pH (7.35-7.45) ABG pCO2 (35-45) mmHg ABG pO2 (83-108) mmHg ABG HCO3 (21-25) mmol/L ABG Total CO2 (19-24) mmol/L ABG O2 Saturation (94-97) % ABG Lactic Acid (0.5-1.6) mmol/L Sodium 136 L (137-145) mmol/L Potassium (3.5-5.1) mmol/L Chloride 108 H (98-107) mmol/L Carbon Dioxide (22-30) mmol/L BUN 31 H (7-17) mg/dL Creatinine 1.23 H (0.52-1.04) mg/dL Glucose 194 H (74-99) mg/dL POC Glucose (mg/dL) (75-99) mg/dL Plasma Lactic Acid Yovany (0.7-2.0) mmol/L Calcium 6.0 L* (8.4-10.2) mg/dL Ionized Calcium Janie 3.8 L (4.5-5.3) mg/dL Magnesium 1.5 L (1.6-2.3) mg/dL AST 119 H (14-36) U/L Alkaline Phosphatase 155 H (38-126) U/L Total Protein 3.4 L (6.3-8.2) g/dL Albumin 1.6 L (3.5-5.0) g/dL 07/24/20 07/24/20 07/24/20 Range/Units 06:01 06:45 10:28 WBC (3.8-10.6) k/uL RBC (3.80-5.40) m/uL Hgb (11.4-16.0) gm/dL Hct (34.0-46.0) % MCHC (31.0-37.0) g/dL RDW (11.5-15.5) % Plt Count (150-450) k/uL Neutrophils # (Manual) (1.3-7.7) k/uL Lymphocytes # (Manual) (1.0-4.8) k/uL ABG pH 7.47 H (7.35-7.45) ABG pCO2 33 L (35-45) mmHg ABG pO2 67 L (83-108) mmHg ABG HCO3 (21-25) mmol/L ABG Total CO2 25 H (19-24) mmol/L ABG O2 Saturation (94-97) % ABG Lactic Acid (0.5-1.6) mmol/L Sodium (137-145) mmol/L Potassium (3.5-5.1) mmol/L Chloride (98-107) mmol/L Carbon Dioxide (22-30) mmol/L BUN (7-17) mg/dL Creatinine (0.52-1.04) mg/dL Glucose (74-99) mg/dL POC Glucose (mg/dL) 211 H (75-99) mg/dL Plasma Lactic Acid Yovany 4.4 H* (0.7-2.0) mmol/L Calcium (8.4-10.2) mg/dL Ionized Calcium Janie (4.5-5.3) mg/dL Magnesium (1.6-2.3) mg/dL AST (14-36) U/L Alkaline Phosphatase (38-126) U/L Total Protein (6.3-8.2) g/dL Albumin (3.5-5.0) g/dL 07/24/20 Range/Units 11:43 WBC (3.8-10.6) k/uL RBC (3.80-5.40) m/uL Hgb (11.4-16.0) gm/dL Hct (34.0-46.0) % MCHC (31.0-37.0) g/dL RDW (11.5-15.5) % Plt Count (150-450) k/uL Neutrophils # (Manual) (1.3-7.7) k/uL Lymphocytes # (Manual) (1.0-4.8) k/uL ABG pH (7.35-7.45) ABG pCO2 (35-45) mmHg ABG pO2 (83-108) mmHg ABG HCO3 (21-25) mmol/L ABG Total CO2 (19-24) mmol/L ABG O2 Saturation (94-97) % ABG Lactic Acid (0.5-1.6) mmol/L Sodium (137-145) mmol/L Potassium (3.5-5.1) mmol/L Chloride (98-107) mmol/L Carbon Dioxide (22-30) mmol/L BUN (7-17) mg/dL Creatinine (0.52-1.04) mg/dL Glucose (74-99) mg/dL POC Glucose (mg/dL) 227 H (75-99) mg/dL Plasma Lactic Acid Yovany (0.7-2.0) mmol/L Calcium (8.4-10.2) mg/dL Ionized Calcium Janie (4.5-5.3) mg/dL Magnesium (1.6-2.3) mg/dL AST (14-36) U/L Alkaline Phosphatase (38-126) U/L Total Protein (6.3-8.2) g/dL Albumin (3.5-5.0) g/dL Microbiology - Last 24 Hours (Table) 07/23/20 20:00 Gram Stain - Preliminary Sputum Sputum Culture - Preliminary 07/23/20 16:00 Gram Stain - Preliminary Paracentesis Fluid Body Fluid Culture - Preliminary 07/22/20 21:37 Blood Culture - Preliminary Blood No Growth after 24 hours 07/23/20 16:00 Anaerobic Culture - Preliminary Paracentesis Fluid 07/23/20 12:50 Urine Culture - Preliminary Urine,Voided Assessment and Plan Plan: 1 septic shock, currently under investigation. Strongly suspect an abdominal source of an infection. . The patient continues to have leukocytosis, elevated lactic acid level and the transverse colon on the routine x-rays of the abdomen and the CAT scan of the abdomen was quite distended with some fecal material distally. Cultures are negative. The patient is on a combination of pressors and she is being resuscitated with IV fluids and the patient is also on broad- spectrum antibiotics utilizing a combination of Zosyn and vancomycin. Blood cultures negative for now. The patient is on a combination of vasopressin and norepinephrine infusion for blood pressure control. The patient was evaluated by general surgery. No clear indication for any surgical intervention based on their opinion. The patient is known to have metastatic rectal adenocarcinoma with peritoneal carcinomatosis. The patient is known to have some ascites, possibly malignant and paracentesis was done and the fluid cytology still pending for now. The fluid culture is negative for any bacterial growth.. The white cell count in the abdominal fluid was 11,000, consider infectious peritonitis. Awaiting final cultures. 2 acute leukocytosis, slightly improved compared to yesterday, nevertheless the levels remain quite elevated 3 acute hypotension secondary to above, currently on high doses of pressors and the patient is on a combination of norepinephrine infusion and vasopressin and the patient is also receiving IV fluids. 4 acute lactic acidosis, and the lactic acid level continues to be elevated 5 metastatic rectal adenocarcinoma with peritoneal carcinomatosis, ascites and bilateral pleural effusions, the patient was receiving FOLFOX systemic chemotherapy on outpatient basis 6 severe mitral regurgitation with possibility of a valvular vegetation, rule out underlying endocarditis. Rule out bacterial or infectious endocarditis. Rule out malignant vegetation. 7 coronary artery disease. 8 gout 9 duodenal ulcer, history of 10 acute kidney injury with a creatinine of 1. 3 11 cachexia with weight loss and a BMI of 18 12 bilateral pleural effusions 13 ascites post-paracentesis 14 acute hypoxic respiratory failure currently intubated on a mechanical ventilator. The patient has also developed diffuse but the pulmonary infiltrates, consider bilateral pneumonia of an aspiration type. Consider pulmonary edema as the patient has a significant mitral regurgitation on echocardiogram as mentioned. Plan Continue ventilator support and the patient has been switched a pressure control mode of ventilation and follow blood gases will be noted. Continue the patient on a bicarb infusion and the patient is receiving a total of 150 mEq of sodium bicarbonate running at 150 mL an hour Continue the combination of norepinephrine infusion and vasopressin at physiologic dose. Note that norepinephrine infusion running at a higher dose at this point in time. IV Zosyn and vancomycin as broad-spectrum antibiotic coverage Ascitic fluid analysis was noted. Awaiting final cultures. Awaiting blood cultures. Gen. surgery ventilated the patient in no surgical intervention at this point in time. Keep the patient nothing by mouth for now. Echocardiogram results were noted Prognosis extremely poor. Condition is critical and the patient's prognosis poor knowing that she has a stage IV metastatic rectal carcinoma with a baseline for performance and functional status. We'll continue to follow. Time with Patient: Greater than 30
[2020-07-24] MEDS: SODIUM CHLORIDE 0.9% 150 ML with VASOPRESSIN 60 UNIT IV SCH ×2 (18:48)
[2020-07-24 18:53] LABS: Glucose,Whole Blood 206 mg/dL (75-99)
--- NOTE | 2020-07-24 22:35 | P.PN ---
Subjective This is a pleasant 74 years old female with past medical history of metastatic rectal cancer since July 2018, PET scan from 09/09/2019 showing rectal cancer, with second lesion in the distal sigmoid colon. She is a patient of Dr. Rosario Patient presents because of abdominal pain. Patient looks tired and cancer are closed during the whole encounter, also she is a bit short of breath. Patient is poor historian and gives limited history, but mainly she says she was throwing up on and off about twice per day but no diarrhea. And she was complaining of from abdominal pain but no chest pain. She states she's been dehydrated and she was not eating and drinking well for the last week. I talked to her niece Mrs. Stovall over the phone [phone] and she told me the same thing that she's been having nausea vomiting about one week, sometimes is dark brown or black in color, she had constipation and diarrhea on and off but she was not eating well and dehydrated for a week. Her abdomen was distended with some abdominal pain. However no reports of urinary complaints or dysuria On the presentation patient is hypotensive blood pressure 85/52 and she is tachycardic at 124. Elevated lactic acid at 2.5 came back to normal at 1.4. Significantly elevated white cell count at 62.3K, baseline is 11-19 K. INR is 1.3. Sodium is 134, potassium 3.7 and creatinine normal at 1.0. Liver enzymes not elevated. Elevated troponin at 0.08. TSH at 10.4 multiple compression fractures per MRI of the lumbar spine on 07/08/[address] of the chest/abdomen/pelvis on 07/09/2020 showing bilateral pleural effusion, new intra-abdominal ascites with small area of peritoneal nodularity suspect persistent carcinomatosis with rectal wall thickening with mass not exclude Repeat CT of the abdomen and pelvis with contrast done yesterday showing large bilateral pleural effusion, more on the right side, no pericardial effusion, ascites, hiatal hernia Chest x-ray: Right pleural effusion and right pulmonary infiltrate increased compared to old exam while left pleural effusion and left pulmonary infiltrate improved compared to old exam EKG showing sinus tachycardia at [address]-T changes and QTC 466 In the emergency room she received 2 L of normal saline and pain medication with fentanyl. Patient kept a normal saline at 1 30 mL/h and started on Zosyn and IV Protonix GI, surgery and oncology team were consulted from emergency room Repeat chest x-ray today showing worsening pneumonia 07/24/2020 Patient yesterday her blood pressure dropped shortly after I saw her and IV fluid boluses as provided, patient was transverse to the ICU with pulmonary/critical care team following the patient closely as well as several other consultants occluded. GI and surgery teams. Patient today remains in the ICU in critical condition, she is in septic shock and needed high doses of norepinephrine and vasopressin, she is intubated and on mechanical ventilation. Source of infection could be pulmonary or intra-abdominal, patient has evidence of right sided pneumonia and pleural effusion complicated by picture of CHF versus RDS, also patient is with ascites possibly related to her metastatic rectal cancer to the peritoneal, status post paracentesis and results of the culture are pending. Her clinical picture is complicated by obvious and surgical team recommended no surgical intervention and to continue with NG tube for decompression. Patient remains on broad-spectrum antibiotics with vancomycin and Zosyn. Prognosis extremely poor with metastatic rectal cancer and septic shock with multiorgan failure Review of systems: n/a Active Medications Generic Name Dose Route Start Last Admin Trade Name Freq PRN Reason Stop Dose Admin Acetaminophen 650 mg 07/22/20 23:09 Acetaminophen Tab 325 Mg Tab PO Q6HR PRN Mild Pain or Fever > 100.5 Atorvastatin Calcium 20 mg 07/23/20 09:00 07/24/20 09:23 Atorvastatin 20 Mg Tab PO 20 mg DAILY GLORIA Administration Chlorhexidine Gluconate 15 ml 07/23/20 21:00 07/24/20 21:30 Chlorhexidine Gluconate 15 Ml Cup MUCOUS MEM 15 ml BID GLORIA Administration Docusate Sodium 100 mg 07/23/20 09:00 07/24/20 21:30 Docusate 100 Mg Cap PO 100 mg BID GLORIA Administration Heparin Sodium (Porcine) 5,000 unit 07/23/20 09:00 07/24/20 21:31 Heparin Sodium,Porcine 5,000 Unit/Ml 1 Ml Vial SQ 5,000 unit Q12HR GLORIA Administration Sodium Bicarbonate 150 ml/ 1,150 mls @ 150 mls/hr 07/23/20 15:30 07/24/20 18:50 Dextrose/Water IV 150 mls/hr .Q7H40M GLORIA Administration Vasopressin 60 unit/ Sodium 153 mls @ 4.59 mls/hr 07/23/20 16:00 07/24/20 18:48 Chloride IV 4.59 mls/hr .Q24H GLORIA Administration 0.03 UNITS/MIN Norepinephrine Bitartrate 8 mg 258 mls @ 3.918 mls/hr 07/23/20 16:30 07/24/20 19:00 / Sodium Chloride IV 0.44 mcg/kg/min .Q24H GLORIA 34.482 mls/hr Administration Protocol 0.05 MCG/KG/MIN Propofol 1,000 mg/ IV Solution 100 mls @ 0 mls/hr 07/23/20 16:30 07/24/20 18:00 IV 45 mcg/kg/min .Q0M GLORIA 12.825 mls/hr Administration Protocol Titrate Piperacillin Sod/Tazobactam 100 mls @ 25 mls/hr 07/24/20 00:00 07/24/20 16:49 Sod 3.375 gm/ Sodium Chloride IVPB 25 mls/hr Q8HR GLORIA Administration Insulin Aspart 0 unit 07/24/20 00:00 07/24/20 18:52 Insulin Aspart (Novolog) 100 Unit/Ml Vial SQ 3 unit Q6H GLORIA Administration Protocol Lidocaine 1 patch 07/23/20 10:45 07/24/20 09:22 Lidocaine 5% Patch TOPICAL Not Given DAILY [facility] Metoprolol Tartrate 25 mg 07/23/20 11:30 07/24/20 21:26 Metoprolol Tartrate 25 Mg Tab PO Not Given BID [facility] Miscellaneous Information 1 each 07/23/20 09:52 Magnesium Replacement Protocol 1 Each Misc MISCELLANE DAILY PRN Per Protocol Protocol Miscellaneous Information 1 each 07/23/20 10:11 Potassium Replacement Protocol 1 Each Misc MISCELLANE DAILY PRN Per Protocol Protocol Miscellaneous Information 1 each 07/23/20 12:04 Vancomycin Iv Per Pharmacy 1 Each Misc MISCELLANE DIRECTED PRN Per Protocol Protocol Naloxone HCl 0.2 mg 07/22/20 23:09 Naloxone 0.4 Mg/Ml 1 Ml Vial IV Q2M PRN Opioid Reversal Ondansetron HCl 4 mg 07/22/20 23:09 Ondansetron 4 Mg/2 Ml Vial IVP Q8HR PRN Nausea And Vomiting Pantoprazole Sodium 40 mg 07/23/20 09:00 07/24/20 09:24 Pantoprazole 40 Mg/10 Ml Vial IV 40 mg DAILY GLORIA Administration Objective - Vital Signs Vital signs: Vital Signs Temp 98.2 F 07/24/20 16:00 Pulse 106 H 07/24/20 19:00 Resp 24 07/24/20 19:00 BP 111/76 07/24/20 19:00 Pulse Ox 98 07/24/20 19:00 Intake & Output 07/24/20 07/24/20 07/25/20 06:59 18:59 06:59 Intake Total 4409.914 1920 160 Output Total 247 110 15 Balance 4162.914 1810 145 Weight 47.5 kg 47.5 kg Intake: IV 3525 1920 160 0.9 NaCl 325 120 10 Dextrose 5% in Water 1, 1800 1800 150 000 ml @ 150 mls/hr IV . Q7H40M GLORIA with Sodium Bicarb (1 Meq/ml) 150 ml Rx#:[id number] Piperacillin-Tazobactam 3 100 .375 gm In Sodium Chloride 0.9% 100 ml @ 25 mls/hr IVPB Q8H GLORIA Rx#: [id number] Potassium Chloride 10 meq 300 In Water For Injection 1 100ml.bag @ 100 mls/hr IVPB Q1HR GLORIA Rx#: [id number] Sodium Chloride 0.9% 1, 1000 000 ml @ 999 mls/hr IV . Q1H1M ONE Rx#:[id number] Intake, IV Titration 884.914 Amount Calcium Gluconate 1 gm In 100 Sodium Chloride 0.9% 100 ml @ 100 mls/hr IVPB ONCE ONE Rx#:[id number] Norepinephrine 8 mg In 557.050 Sodium Chloride 0.9% 250 ml @ 0.05 MCG/KG/MIN 3. 918 mls/hr IV .Q24H GLORIA Rx#:[id number] Potassium Chloride 20 meq 200 In Water For Injection 1 100ml.bag @ 50 mls/hr IVPB Q2H GLORIA Rx#: [id number] propofoL 1,000 mg In 27.864 Empty Bag 1 bag @ Titrate IV .Q0M GLORIA Rx#: [id number] Output: Urine 247 110 15 Other: Voiding Method Indwelling Catheter Indwelling Catheter # Voids 2 ABP, PAP, CO, CI - Last Documented Arterial Blood Pressure 124/70 - Exam -GENERAL: The patient is intubated and sedated HEENT: Pupils are round and equally reacting to light. EOMI. No scleral icterus. No conjunctival pallor. Normocephalic, atraumatic. No pharyngeal erythema. No thyromegaly. CARDIOVASCULAR: S1 and S2 present. No murmurs, rubs, or gallops. -PULMONARY: Chest is clear to auscultation, no wheezing or crackles. Harsh breathing on the right side with some crepitation -ABDOMEN: Soft, nontender, mildly distended but more tense , normoactive bowel sounds. No palpable organomegaly. MUSCULOSKELETAL: No joint swelling or deformity. EXTREMITIES: No cyanosis, clubbing, or pedal edema. NEUROLOGICAL: Gross neurological examination did not reveal any focal deficits. SKIN: No rashes. No petechiae - Labs CBC & Chem 7: 07/24/20 05:10 07/24/20 05:10 Labs: Abnormal Lab Results - Last 24 Hours (Table) 07/23/20 07/23/20 07/24/20 Range/Units 20:39 22:20 00:15 WBC (3.8-10.6) k/uL RBC (3.80-5.40) m/uL Hgb (11.4-16.0) gm/dL Hct (34.0-46.0) % MCHC (31.0-37.0) g/dL RDW (11.5-15.5) % Neutrophils # (Manual) (1.3-7.7) k/uL ABG pH (7.35-7.45) ABG pCO2 30 L (35-45) mmHg ABG pO2 46 L* (83-108) mmHg ABG Total CO2 (19-24) mmol/L ABG O2 Saturation 86.2 L (94-97) % Sodium (137-145) mmol/L Potassium (3.5-5.1) mmol/L Chloride (98-107) mmol/L BUN (7-17) mg/dL Creatinine (0.52-1.04) mg/dL Glucose (74-99) mg/dL POC Glucose (mg/dL) (75-99) mg/dL Plasma Lactic Acid Yovany 4.1 H* 4.0 H* (0.7-2.0) mmol/L Calcium (8.4-10.2) mg/dL Ionized Calcium Janie (4.5-5.3) mg/dL Magnesium (1.6-2.3) mg/dL AST (14-36) U/L Alkaline Phosphatase (38-126) U/L Total Protein (6.3-8.2) g/dL Albumin (3.5-5.0) g/dL 07/24/20 07/24/20 07/24/20 Range/Units 00:15 00:30 03:35 WBC (3.8-10.6) k/uL RBC (3.80-5.40) m/uL Hgb (11.4-16.0) gm/dL Hct (34.0-46.0) % MCHC (31.0-37.0) g/dL RDW (11.5-15.5) % Neutrophils # (Manual) (1.3-7.7) k/uL ABG pH (7.35-7.45) ABG pCO2 (35-45) mmHg ABG pO2 (83-108) mmHg ABG Total CO2 (19-24) mmol/L ABG O2 Saturation (94-97) % Sodium (137-145) mmol/L Potassium 3.4 L (3.5-5.1) mmol/L Chloride (98-107) mmol/L BUN (7-17) mg/dL Creatinine (0.52-1.04) mg/dL Glucose (74-99) mg/dL POC Glucose (mg/dL) 194 H (75-99) mg/dL Plasma Lactic Acid Yovany 4.2 H* (0.7-2.0) mmol/L Calcium (8.4-10.2) mg/dL Ionized Calcium Janie (4.5-5.3) mg/dL Magnesium (1.6-2.3) mg/dL AST (14-36) U/L Alkaline Phosphatase (38-126) U/L Total Protein (6.3-8.2) g/dL Albumin (3.5-5.0) g/dL 07/24/20 07/24/20 07/24/20 Range/Units 04:46 05:10 05:10 WBC 56.5 H* (3.8-10.6) k/uL RBC 3.27 L (3.80-5.40) m/uL Hgb 9.4 L (11.4-16.0) gm/dL Hct 31.2 L (34.0-46.0) % MCHC 30.1 L (31.0-37.0) g/dL RDW 21.3 H (11.5-15.5) % Neutrophils # (Manual) 55.90 H (1.3-7.7) k/uL ABG pH 7.47 H (7.35-7.45) ABG pCO2 31 L (35-45) mmHg ABG pO2 55 L* (83-108) mmHg ABG Total CO2 (19-24) mmol/L ABG O2 Saturation 90.5 L (94-97) % Sodium 136 L (137-145) mmol/L Potassium (3.5-5.1) mmol/L Chloride 108 H (98-107) mmol/L BUN 31 H (7-17) mg/dL Creatinine 1.23 H (0.52-1.04) mg/dL Glucose 194 H (74-99) mg/dL POC Glucose (mg/dL) (75-99) mg/dL Plasma Lactic Acid Yovany (0.7-2.0) mmol/L Calcium 6.0 L* (8.4-10.2) mg/dL Ionized Calcium Janie (4.5-5.3) mg/dL Magnesium 1.5 L (1.6-2.3) mg/dL AST 119 H (14-36) U/L Alkaline Phosphatase 155 H (38-126) U/L Total Protein 3.4 L (6.3-8.2) g/dL Albumin 1.6 L (3.5-5.0) g/dL 07/24/20 07/24/20 07/24/20 Range/Units 05:10 06:01 06:45 WBC (3.8-10.6) k/uL RBC (3.80-5.40) m/uL Hgb (11.4-16.0) gm/dL Hct (34.0-46.0) % MCHC (31.0-37.0) g/dL RDW (11.5-15.5) % Neutrophils # (Manual) (1.3-7.7) k/uL ABG pH (7.35-7.45) ABG pCO2 (35-45) mmHg ABG pO2 (83-108) mmHg ABG Total CO2 (19-24) mmol/L ABG O2 Saturation (94-97) % Sodium (137-145) mmol/L Potassium (3.5-5.1) mmol/L Chloride (98-107) mmol/L BUN (7-17) mg/dL Creatinine (0.52-1.04) mg/dL Glucose (74-99) mg/dL POC Glucose (mg/dL) 211 H (75-99) mg/dL Plasma Lactic Acid Yovany 4.4 H* (0.7-2.0) mmol/L Calcium (8.4-10.2) mg/dL Ionized Calcium Janie 3.8 L (4.5-5.3) mg/dL Magnesium (1.6-2.3) mg/dL AST (14-36) U/L Alkaline Phosphatase (38-126) U/L Total Protein (6.3-8.2) g/dL Albumin (3.5-5.0) g/dL 07/24/20 07/24/20 07/24/20 Range/Units 10:28 11:43 13:19 WBC (3.8-10.6) k/uL RBC (3.80-5.40) m/uL Hgb (11.4-16.0) gm/dL Hct (34.0-46.0) % MCHC (31.0-37.0) g/dL RDW (11.5-15.5) % Neutrophils # (Manual) (1.3-7.7) k/uL ABG pH 7.47 H (7.35-7.45) ABG pCO2 33 L (35-45) mmHg ABG pO2 67 L (83-108) mmHg ABG Total CO2 25 H (19-24) mmol/L ABG O2 Saturation (94-97) % Sodium (137-145) mmol/L Potassium (3.5-5.1) mmol/L Chloride (98-107) mmol/L BUN (7-17) mg/dL Creatinine (0.52-1.04) mg/dL Glucose (74-99) mg/dL POC Glucose (mg/dL) 227 H (75-99) mg/dL Plasma Lactic Acid Yovany 6.3 H* (0.7-2.0) mmol/L Calcium (8.4-10.2) mg/dL Ionized Calcium Janie (4.5-5.3) mg/dL Magnesium (1.6-2.3) mg/dL AST (14-36) U/L Alkaline Phosphatase (38-126) U/L Total Protein (6.3-8.2) g/dL Albumin (3.5-5.0) g/dL 07/24/20 07/24/20 Range/Units 16:45 18:51 WBC (3.8-10.6) k/uL RBC (3.80-5.40) m/uL Hgb (11.4-16.0) gm/dL Hct (34.0-46.0) % MCHC (31.0-37.0) g/dL RDW (11.5-15.5) % Neutrophils # (Manual) (1.3-7.7) k/uL ABG pH (7.35-7.45) ABG pCO2 (35-45) mmHg ABG pO2 (83-108) mmHg ABG Total CO2 (19-24) mmol/L ABG O2 Saturation (94-97) % Sodium (137-145) mmol/L Potassium (3.5-5.1) mmol/L Chloride (98-107) mmol/L BUN (7-17) mg/dL Creatinine (0.52-1.04) mg/dL Glucose (74-99) mg/dL POC Glucose (mg/dL) 206 H (75-99) mg/dL Plasma Lactic Acid Yovany 5.8 H* (0.7-2.0) mmol/L Calcium (8.4-10.2) mg/dL Ionized Calcium Janie (4.5-5.3) mg/dL Magnesium (1.6-2.3) mg/dL AST (14-36) U/L Alkaline Phosphatase (38-126) U/L Total Protein (6.3-8.2) g/dL Albumin (3.5-5.0) g/dL Microbiology - Last 24 Hours (Table) 07/23/20 12:50 Urine Culture - Preliminary Urine,Voided Gram Neg Bacilli 07/23/20 16:00 Gram Stain - Preliminary Paracentesis Fluid Body Fluid Culture - Preliminary 07/23/20 20:00 Gram Stain - Preliminary Sputum Sputum Culture - Preliminary 07/22/20 21:37 Blood Culture - Preliminary Blood No Growth after 24 hours 07/23/20 16:00 Anaerobic Culture - Preliminary Paracentesis Fluid Assessment and Plan Assessment: Leukocytosis suspicious for infection and sepsis. Possible Intra-abdominal infection, rule out pneumonia Septic shock needed high doses of pressors Possible right pneumonia with diffuse right pulmonary infiltrate Elevated troponin, rule out cardiac causes Ascites status post paracentesis Large bowel ileus CHF versus RDS History of rectal cancer since 2018 Multiple compression fracture Bilateral pleural effusion Ascites with peritoneal nodularity suspicious for persistent carcinomatosis Rectal wall thickening with mass cannot be excluded Elevated TSH at 10.4 Hypertension Osteoarthritis History of coronary artery disease History of gout History of duodenal ulcer Plan: This is a pleasant 74 years old female who presents because of severe sepsis progressed quickly to septic shock, source is pneumonia versus intra-abdominal infection, continue with broad-spectrum antibiotic continue with pressors support as per pulmonary/critical care team R following the case closely. Several consultants on the case including cardiology, GI and surgery team, No surgical intervention for surgery team, continue with NG tube Labs and medication were reviewed.. Continue same treatment. Continue with symptomatic treatment. Resume home medication. Monitor lytes and vitals. DVT and GI prophylaxis. Further recommendations depends on the clinical course of the patient DVT prophylaxis: Subcutaneous heparin GI Prophylaxis: Ppi Prognosis is extremely guarded, review of first severity of illness and multiorgan failure her chances of survival are very low, however we'll keep mo nitor and treat an outpatient for now and if no improvement then we'll consider talking to the family about further care
[2020-07-25 00:05] LABS: Glucose,Whole Blood 206 mg/dL (75-99)
[2020-07-25] MEDS: INSULIN ASPART (NovoLOG) 100 UNIT/ML VIAL SQ SCH ×5 (00:08→23:37)
[2020-07-25] MEDS: PIPERACILLIN-TAZOBACTAM 3.375 GM in SODIUM CHLORIDE 0.9% 100 ML IVPB SCH ×4 (00:08→23:37)
[2020-07-25] MEDS: NOREPINEPHRINE 8 MG in SODIUM CHLORIDE 0.9% 250 ML IV SCH (02:04)
[2020-07-25 04:45] LABS: Anisocytosis Moderate; HCT 29.1 % (34.0-46.0); HGB 9.3 gm/dL (11.4-16.0); Hypochromasia Marked; MCH 29.6 pg (25.0-35.0); MCHC 32.1 g/dL (31.0-37.0); MCV 92.4 fL (80.0-100.0); Macrocytosis Slight; Mean Platelet Volume 7.6; Platelet Count 354 k/uL (150-450); RBC 3.16 m/uL (3.80-5.40); WBC 31.4 k/uL (3.8-10.6)
[2020-07-25 04:55] LABS: Albumin 1.5 g/dL (3.5-5.0); Bilirubin, Delta 0.3 mg/dL (0.0-0.2); Bilirubin,Unconjugated 0.1 mg/dL (0.0-1.1); Potassium 3.1 mmol/L (3.5-5.1); Total Bilirubin 0.4 mg/dL (0.2-1.3); Total Protein 3.4 g/dL (6.3-8.2)
[2020-07-25 05:07] LABS: ABG Base Excess 7.4 mmol/L; ABG HCO3 30 mmol/L (21-25); ABG Oxygen Saturation 98.6 % (94-97); ABG PCO2 37 mmHg (35-45); ABG PH 7.52 (7.35-7.45); ABG PO2 150 mmHg (83-108); ABG TCO2 31 mmol/L (19-24)
[2020-07-25 05:48] LABS: Allen Test Performed? no
[2020-07-25 06:03] LABS: Glucose,Whole Blood 211 mg/dL (75-99)
[2020-07-25 06:32] LABS: Band Neutrophils % 11 %; Lymphocytes # (M) 1.26 k/uL (1.0-4.8); Monocytes # (M) 0.31 k/uL (0-1.0); Neutrophils % (M) 84 %; Nucleated Red Blood Cells 0 /100 WBC (0-0); Total Cells Counted 100
[2020-07-25 06:33] LABS: Polychromasia Present; Tear Drop Cells Present
[2020-07-25 06:35] LABS: Large Platelets Present; Poikilocytosis (M) Present
--- NOTE | 2020-07-25 06:49 | XR ---
EXAMINATION TYPE: XR chest 1V portable DATE OF EXAM: 07/25/2020 CLINICAL HISTORY: Difficulty breathing progress study. History of rectal cancer. TECHNIQUE: Single AP portable upright view of the chest is obtained. COMPARISON: Chest x-ray from one day earlier and older studies. FINDINGS: Stable endotracheal and orogastric tubes along with right subclavian Mediport catheter and left subclavian central venous catheter. Cardiac silhouette size stable and within normal limits with atherosclerotic thoracic aorta. Left gre ater than right bilateral opacities remain present. Small left pleural effusion. Partial visualizatio n of gas filled bowel similar to prior in the abdomen. Osseous structures remain demineralized. IMPRESSION: Persistent small left greater than right pleural effusions. Persistent bilateral diffuse infiltrates and/or edema. No significant change from one day earlier.
[2020-07-25] MEDS: POTASSIUM BICARBONATE/CIT AC 20 MEQ TABLET.EFF NG-TUBE SCH ×2 (06:55→07:15)
[2020-07-25] MEDS: SODIUM CHLORIDE 0.9% 1,000 ML IV SCH ×2 (06:57→17:00)
[2020-07-25] MEDS ORDERED: CALCIUM GLUCONATE 1 GM in SODIUM CHLORIDE 0.9% 100 ML IVPB ONE (07:00)
[2020-07-25] MEDS: PANTOPRAZOLE 40 MG/10 ML VIAL IV SCH (08:16)
[2020-07-25] MEDS: HEPARIN SODIUM,PORCINE 5,000 UNIT/ML 1 ML VIAL SQ SCH ×2 (08:16→21:27)
[2020-07-25] MEDS: CHLORHEXIDINE GLUCONATE 15 ML CUP MUCOUS MEM SCH ×2 (08:16→21:27)
[2020-07-25] MEDS: ATORVASTATIN 20 MG TAB PO SCH (08:17)
[2020-07-25] MEDS: LIDOCAINE 5% PATCH TOPICAL SCH (08:17)
[2020-07-25] MEDS: DOCUSATE ORAL SOLN 100 MG/10 ML CUP PO SCH ×2 (08:18→21:27)
[2020-07-25] MEDS: METOPROLOL TARTRATE 25 MG TAB PO SCH ×2 (08:27→21:27)
[2020-07-25] MEDS: VANCOMYCIN 750 MG in SODIUM CHLORIDE 0.9% 250 ML IVPB SCH (09:04)
--- NOTE | 2020-07-25 09:43 | P.PN ---
Progress Note - Text Progress Note Date: 07/25/20 The patient remains essentially unchanged in the ICU. I had a discussion with Dr. Olmedo. The patient should be made comfort care. Patient has metastatic colon cancer. She is not a surgical candidate. Apparently the patient's niece is coming into discuss her care options today. No surgical intervention is planned.
--- NOTE | 2020-07-25 10:35 | XR ---
EXAMINATION TYPE: XR abdomen 1V DATE OF EXAM: 07/25/2020 10:26 AM CLINICAL HISTORY: Abdominal cancer and ascites. Distention. Weakness. TECHNIQUE: Two supine KUB images of the abdomen are obtained. COMPARISON: Abdominal x-ray [address] abdomen and pelvis 3 days ago.. FINDINGS: Stable oral gastric tube. Gas prominent colon in the upper to mid abdomen redemonstrated. S ome paucity of bowel gas. Gas and fecal material seen in nondistended left colon. Bulging of flanks g reater on the right consistent with small to moderate intra-abdominal ascites. Persistent small bilat eral pleural effusions. There is right groin venous catheter. Osseous structures are demineralized. IMPRESSION: Stable overall nonspecific bowel gas pattern with small to moderate intra-abdominal ascit es.
[2020-07-25 11:24] VITALS: BMI 21.1
[2020-07-25 11:38] LABS: Glucose,Whole Blood 129 mg/dL (75-99)
--- NOTE | 2020-07-25 13:37 | P.PN ---
Subjective Progress Note Date: 07/25/20 This is a 74-year-old female patient with a known history of metastatic rectal cancer that was diagnosed in July 2018. The patient is a representation back balance for severe anemia and she was found to have a rectal prolapse and a friable polypoid nodularity in the prolapse rectum. She was found to have a rectal adenocarcinoma. The patient was seen by oncology. The patient also underwent a transanal excision of the rectal cancer. The patient was being followed up by oncology and a PET scan that was done on 09/08/2019 showed significant abnormalities with mild hypermetabolic uptake along the course of the sigmoid rectal: In addition to moderate to severe concentric wall thickening and more distally there was hypermetabolic uptake within the rectum extending slightly to the right of the midline and there is also suspected eccentric mass measuring up to 3 cm in size showing metabolic activity. The patient also had some ascites with prominent notoriety along the upper and midabdomen concerning for peritoneal carcinomatosis. Based on this, the patient was taken to the operating room and the patient underwent a laparoscopic cholecystectomy and laparoscopic peritoneal biopsy and the biopsies came back positive for malignancy. The patient was found to have metastatic moderately differentiated adenocarcinoma consistent of a colon primary in addition to the gallbladder being able with metastatic adenocarcinoma and there was some limited chronic cholelithiasis and cholecystitis. .. The patient accordingly was started on systemic chemotherapy and the patient was being treated with FOLFOX and the patient's last treatment was on first week of June. The patient came into the hospital yesterday complaining of abdominal pain. She looked quite tired and debilitated and she was also having some increased difficulty in breathing. She denied having any chest pain. She was quite dehydrated and she admitted not to eat or drink for the past week or so. According to the niece, the patient had been having nausea and emesis approximately week and she was having some dark brown or black stool. In the emergency department, the patient was found to have a white cell count of 64.3. Hemoglobin was 9.9. Platelet was 474. The patient had an INR of 1.3 with a PT of 12.9. GIM was 33 with a creatinine of 1.01. Sodium was 134. The initial lactic acid level was at 2.9 and subsequently dropped down to 1.4. Troponins were 0.08 and 0.2 respectively 2, her TSH was elevated at 10.4, UA was positive for protein +1, there were 40 WBCs, 6 RBCs and many bacteria was also noted. The computed tomography scan of the abdomen and pelvis was done and showed large bilateral pleural effusions with fluid was more so on the right and there was a moderate-sized hiatal hernia and the heart size was within normal limits. There was some atelectatic changes in lung bases. There was a large amount of intra- abdominal ascites fluid and liver showed no focal deficits or defects. Spleen was intact. Gallbladder was absent. The bile ducts were not dilated. Note that the CAT scan of the chest abdomen and pelvis that was done on 07/09/2020 showed peritoneal carcinomatosis, pleural effusion bilateral and persistent rectal wall thickening consistent with recurrent cancer. The patient was started on IV antibiotics. The patient was started on IV fluids. The patient was admitted to the medical floor and subsequently the patient a chest to the intensive care unit as the patient became progressively more hypotensive earlier this morning. Currently, the patient is receiving IV fluids with normal saline at the rate of 130 mL an hour. She received another bolus of IV fluid in the ICU. She is on a combination of cefepime and vancomycin. Repeat white cell count from today 62.3. The echocardiogram was obtained and the patient is a preserved LV function with an ejection fraction of 65% and there was moderate aortic stenosis with a mean gradient of 24 mmHg and there was moderate to severe MR, moderate TR with severe pulmonary hypertension with a biventricular systolic pressure of 62. Cardiac rhythm is sinus.Associated with a moderate to severe mitral regurgitation. There is a concern for underlying endocarditis. Evidence for systolic pressure was quite elevated at 62 mmHg. I came to see the patient in the intensive care unit. The patient was extremely lethargic, the patient was not communicating and she was unable to volunteer any history. I contacted her oncologist and I was made aware that the patient was being treated for metastatic rectal cancer. Note that the patient is having abdominal pain and discomfort in her abdomen is quite distended at this point in time. She has a BP of 97/55. The patient is tachycardicand her heart rate is around 1:30, sinus. She is on on 100% nonrebreather facemask and she is quite thickened neck. There is a Stanford catheter in place and there is no urine output. Her skin is mottled and the pulses in lower extremities are quite diminished. On 07/24/2020 the patient is being seen for a follow-up. The patient continues to be shock state. The patient was intubated and placed on mechanical ventilator and a paracentesis was done were a total of 1.6-1.7 L of ascitic fluid was aspirated. The patient was kept on a mechanical ventilator overnight. She developed an aspiration pneumonia with diffuse breath and pulmonary infiltrates. Abdomen is still tense and tight although , There was some improvement on examination that was noted post paracentesis. The patient remains on a mechanical ventilator. This morning, she is sedated with propofol and she is calm and comfortable. His symptoms with the mechanical ventilator. IV fluids are running in the form of D5 with 150 mEq of sodium bicarbonate ru nning at 150 mL an hour and the patient is also on a combination of norepinephrine infusion at 40 g per minute and vasopressin at 0.03 units an hour. The patient is still pressor dependent and she is quite hypotensive shock state. On a mechanical ventilator, she is an assist-control mode at the rate of 28 and a tidal volume of 375 with an FiO2 of 100% and a PEEP of 12. The blood gas showed a pH of 7.47 with a pCO2 of 31 and pO2 of 55. Peak airway pressure was around 38 with a pressure of 33. Based on this, and based on underlying hypoxemia, switch this patient to a pressure control mode of ventilation and the necessity ventilator changes were done. The patient is currently covered with a combination of Zosyn and vancomycin. Blood cultures negative. Lactic acid elevated at 4. 3 and subsequent level came up to 6.3. The white cell count is a 56.5. Discussed abdominal findings with the general surgery. There was ongoing distention of the transverse colon and stool in the distal colon was noted. NG tube is in a good location. There is evidence of large bowel ileus and the john paul carolina is known to have metastatic rectal adenocarcinoma with peritoneal carcinomatosis. 07/25/2020, the patient remains intubated on a mechanical ventilator, sedated with propofol and the patient is currently being weaned off the propofol to assess underlying mental status changes the patient is getting a sedation holiday. Patient is on IV fluid and this was switched from a bicarb infusion to a normal saline infusion rate of 100 mL an hour. Norepinephrine infusion running at 0.12 mics respite KG per minute and the patient also is on vasopressin drip physiologic dose. Pressor requirements have improved compared to yesterday. Meanwhile, the patient remains on a mechanical ventilator at a pressure control mode of ventilation at a rate of 24. The pressure control is at 22 cm of water with an FiO2 of 70% and a PEEP of 16. The blood gases from today showed a pH of 7.52 with a pCO2 of 37 and pO2 of 150 and this was on the fact of 100%. The patient's chest x-ray showing bilateral pulmonary infiltrates similar to yesterday, probably less confluent. Meanwhile, abdomen remains distended and the patient had a fracture of the abdomen that showed persistent gas pattern abnormalities with fecal material seen in the left colon and dilatation of the transverse colon. NG tube was in a good location. The patient had also some drop in the white cell count is down to 31.4. Hemoglobin is at 9.3. The patient remains on examination Zosyn and vancomycin. The sputum cultures positive for gram-negative bacillus. The blood culture is showing no growth. Ascitic fluid showed no growth after 24 hours. Noted the patient is not producing or passing any stool at this point in time. The rectal examination of the bedside showed no fecal material and inspected areas. Objective - Vital Signs Vital signs: Vital Signs Temp 98.2 F 07/25/20 12:00 Pulse 123 H 07/25/20 13:00 Resp 24 07/25/20 13:00 BP 114/69 07/24/20 21:00 Pulse Ox 95 07/25/20 13:00 Intake & Output 07/24/20 07/25/20 07/25/20 18:59 06:59 18:59 Intake Total 2271.115 2487.147 1094.724 Output Total 110 256 95 Balance 2161.115 2231.147 999.724 Weight 47.5 kg 47.5 kg Intake: IV 1920 1940 750 0.9 NaCl 120 190 500 Dextrose 5% in Water 1 1800 1650 150 000 ml @ 150 mls/hr IV . Q7H40M GLORIA with Sodium Bicarb (1 Meq/ml) 150 ml Rx#:[id number] Zosyn 3.375g/100ml 100 100 Intake, IV Titration 351.115 547.147 344.724 Amount Norepinephrine 8 mg In 258 388.759 57.888 Sodium Chloride 0.9% 250 ml @ 0.05 MCG/KG/MIN 3. 918 mls/hr IV .Q24H GLORIA Rx#:[id number] Vancomycin 750 mg In 250 Sodium Chloride 0.9% 250 ml @ 125 mls/hr IVPB Q24H GLORIA Rx#:[id number] propofoL 1,000 mg In 93.115 158.388 36.836 Empty Bag 1 bag @ Titrate IV .Q0M GLORIA Rx#: [id number] Output: Urine 110 256 95 Other: Voiding Method Indwelling Catheter Indwelling Catheter Indwelling Catheter # Voids 2 ABP, PAP, CO, CI - Last Documented Arterial Blood Pressure 104/58 - Exam GENERAL: The patient is very much lethargic and obtunded on 100% nonrebreather facemask. She is unable to lay down on her back. Abdomen is distended and is quite firm. Note that there was some improvement following the paracentesis yesterday on today's evaluation the patient's abdomen is again quite firm and distended... Cachectic emaciated and malnourished Head exam was generally normal. There was no scleral icterus or corneal arcus. Mucous membranes were moist. HEENT: Pupils are round and equally reacting to light. EOMI. No scleral icterus. No conjunctival pallor. Normocephalic, atraumatic. No pharyngeal erythema. No thyromegaly. CARDIOVASCULAR: tachycardic, S1 and S2 present. and the patient has a wide-open holosystolic murmur grade 4/6 heard mainly over the left upper sternal border. -PULMONARY: Chest is clear to auscultation, no wheezing or crackles. Diminished breath on the lung bases bilaterally and there is worsening diminished on the right ABDOMEN:distended abdomen which is also firm and there is underlying sinus ascites. There is absent bowel sounds There is some mild direct tenderness. No rebound tenderness. No guarding. The abdomen is somewhat tympanic. No palpable organomegaly. There is a minimal fluid wave and shifting dullness consistent with ascites MUSCULOSKELETAL: No joint swelling or deformity. EXTREMITIES: No cyanosis, clubbing, or and the patient is developing increasing edema and upper and lower extremities NEUROLOGICAL examination shows that the patient is sedated and patient is calm and comfortable. She is quite sedated on propofol and she suggested a mechanical ventilator. Pupils are equal and reactive to light. Motor and sensory functions cannot be accurately assessed. SKIN: No rashes. No petechiae - Labs CBC & Chem 7: 07/25/20 04:15 07/25/20 04:15 Labs: Abnormal Lab Results - Last 24 Hours (Table) 07/24/20 07/24/20 07/24/20 Range/Units 13:19 16:45 18:51 WBC (3.8-10.6) k/uL RBC (3.80-5.40) m/uL Hgb (11.4-16.0) gm/dL Hct (34.0-46.0) % RDW (11.5-15.5) % Neutrophils # (Manual) (1.3-7.7) k/uL ABG pH (7.35-7.45) ABG pO2 (83-108) mmHg ABG HCO3 (21-25) mmol/L ABG Total CO2 (19-24) mmol/L ABG O2 Saturation (94-97) % Sodium (137-145) mmol/L Potassium (3.5-5.1) mmol/L BUN (7-17) mg/dL Glucose (74-99) mg/dL POC Glucose (mg/dL) 206 H (75-99) mg/dL Plasma Lactic Acid Yovany 6.3 H* 5.8 H* (0.7-2.0) mmol/L Calcium (8.4-10.2) mg/dL Ionized Calcium Janie (4.5-5.3) mg/dL Delta Bilirubin (0.0-0.2) mg/dL AST (14-36) U/L Alkaline Phosphatase (38-126) U/L Total Protein (6.3-8.2) g/dL Albumin (3.5-5.0) g/dL 07/24/20 07/25/20 07/25/20 Range/Units 23:59 04:15 04:15 WBC 31.4 H (3.8-10.6) k/uL RBC 3.16 L (3.80-5.40) m/uL Hgb 9.3 L (11.4-16.0) gm/dL Hct 29.1 L (34.0-46.0) % RDW 21.0 H (11.5-15.5) % Neutrophils # (Manual) 29.80 H (1.3-7.7) k/uL ABG pH (7.35-7.45) ABG pO2 (83-108) mmHg ABG HCO3 (21-25) mmol/L ABG Total CO2 (19-24) mmol/L ABG O2 Saturation (94-97) % Sodium 135 L (137-145) mmol/L Potassium 3.1 L (3.5-5.1) mmol/L BUN 32 H (7-17) mg/dL Glucose 190 H (74-99) mg/dL POC Glucose (mg/dL) 206 H (75-99) mg/dL Plasma Lactic Acid Yovany (0.7-2.0) mmol/L Calcium 6.0 L* (8.4-10.2) mg/dL Ionized Calcium Janie (4.5-5.3) mg/dL Delta Bilirubin 0.3 H (0.0-0.2) mg/dL AST 85 H (14-36) U/L Alkaline Phosphatase 162 H (38-126) U/L Total Protein 3.4 L (6.3-8.2) g/dL Albumin 1.5 L (3.5-5.0) g/dL 07/25/20 07/25/20 07/25/20 Range/Units 04:15 04:15 05:05 WBC (3.8-10.6) k/uL RBC (3.80-5.40) m/uL Hgb (11.4-16.0) gm/dL Hct (34.0-46.0) % RDW (11.5-15.5) % Neutrophils # (Manual) (1.3-7.7) k/uL ABG pH 7.52 H (7.35-7.45) ABG pO2 150 H (83-108) mmHg ABG HCO3 30 H (21-25) mmol/L ABG Total CO2 31 H (19-24) mmol/L ABG O2 Saturation 98.6 H (94-97) % Sodium (137-145) mmol/L Potassium (3.5-5.1) mmol/L BUN (7-17) mg/dL Glucose (74-99) mg/dL POC Glucose (mg/dL) (75-99) mg/dL Plasma Lactic Acid Yovany 5.6 H* (0.7-2.0) mmol/L Calcium (8.4-10.2) mg/dL Ionized Calcium Janie 3.6 L (4.5-5.3) mg/dL Delta Bilirubin (0.0-0.2) mg/dL AST (14-36) U/L Alkaline Phosphatase (38-126) U/L Total Protein (6.3-8.2) g/dL Albumin (3.5-5.0) g/dL 07/25/20 07/25/20 Range/Units 06:01 11:37 WBC (3.8-10.6) k/uL RBC (3.80-5.40) m/uL Hgb (11.4-16.0) gm/dL Hct (34.0-46.0) % RDW (11.5-15.5) % Neutrophils # (Manual) (1.3-7.7) k/uL ABG pH (7.35-7.45) ABG pO2 (83-108) mmHg ABG HCO3 (21-25) mmol/L ABG Total CO2 (19-24) mmol/L ABG O2 Saturation (94-97) % Sodium (137-145) mmol/L Potassium (3.5-5.1) mmol/L BUN (7-17) mg/dL Glucose (74-99) mg/dL POC Glucose (mg/dL) 211 H 129 H (75-99) mg/dL Plasma Lactic Acid Yovany (0.7-2.0) mmol/L Calcium (8.4-10.2) mg/dL Ionized Calcium Janie (4.5-5.3) mg/dL Delta Bilirubin (0.0-0.2) mg/dL AST (14-36) U/L Alkaline Phosphatase (38-126) U/L Total Protein (6.3-8.2) g/dL Albumin (3.5-5.0) g/dL Microbiology - Last 24 Hours (Table) 07/23/20 20:00 Gram Stain - Preliminary Sputum Sputum Culture - Preliminary Gram Neg Bacilli 07/22/20 21:37 Blood Culture - Preliminary Blood No Growth after 48 hours 07/23/20 12:50 Urine Culture - Preliminary Urine,Voided Gram Neg Bacilli 07/23/20 16:00 Gram Stain - Preliminary Paracentesis Fluid Body Fluid Culture - Preliminary Assessment and Plan Plan: 1 septic shock, currently under investigation. Strongly suspect an abdominal source of an infection. . The patient has abdominal distention, ascites and possibly a bowel obstruction with significant dilatation of the transverse colon. The patient also has some fecal material in the descending colon. Please refer to the x-ray of the abdomen and the CAT scan of the abdomen done earlier. Ascitic fluid was negative for any bacterial growth. Fluid cytology still pending for now. Meanwhile, The patient continues to have leukocytosis, elevated lactic acid level and the transverse colon on the routine x-rays of the abdomen and the CAT scan of the abdomen was quite distended with some fecal material distally. The blood Cultures are negative. The urine culture is posi tive for gram-negative bacillus in the sputum cultures positive for gram- negative bacillus. The patient is on a combination of pressors and she is being resuscitated with IV fluids and the patient is also on broad-spectrum antibiotics utilizing a combination of Zosyn and vancomycin. Blood cultures negative for now. The patient is on a combination of vasopressin and norepinephrine infusion for blood pressure control. The patient was evaluated by general surgery. No clear indication for any surgical intervention based on their opinion. The patient is known to have metastatic rectal adenocarcinoma with peritoneal carcinomatosis. The patient is known to have some ascites, possibly malignant and paracentesis was done and the fluid cytology still pending for now. The patient has had some improvement in the white cell count and there is also some drop in the pressor requirements since yesterday as the patient was being treated with a high dose of norepinephrine infusion and vasopressin. She has been aggressively resuscitated IV fluids also. 2 acute leukocytosis, slightly improved compared to yesterday, nevertheless the levels remain quite elevated. The follow-up white cell count is at 32K. 3 acute hypotension secondary to above, currently on high doses of pressors and the patient is on a combination of norepinephrine infusion and vasopressin and the patient is also receiving IV fluids. 4 acute lactic acidosis, and the lactic acid level continues to be elevated 5 metastatic rectal adenocarcinoma with peritoneal carcinomatosis, ascites and bilateral pleural effusions, the patient was receiving FOLFOX systemic chemotherapy on outpatient basis 6 severe mitral regurgitation with possibility of a valvular vegetation, rule out underlying endocarditis. Rule out bacterial or infectious endocarditis. Rule out malignant vegetation. 7 coronary artery disease. 8 gout 9 duodenal ulcer, history of 10 acute kidney injury improved and the creatinine is down to 0.94. 11 cachexia with weight loss and a BMI of 18 12 bilateral pleural effusions 13 ascites post-paracentesis 14 acute hypoxic respiratory failure currently intubated on a mechanical ventilator. The patient has dense bilateral pulmonary infiltrates. There is improved compared to yesterday. Sputum Gram stain and culture showing gram- negative bacillus. Final culture are still pending for now. The patient has also developed diffuse but the pulmonary infiltrates, consider bilateral pneumonia of an aspiration type. Consider pulmonary edema as the patient has a significant mitral regurgitation on echocardiogram as mentioned. Plan Continue ventilator support and attempt to wean down the FiO2 Discontinue the bicarbonate infusion Stress this patient is a normal sed rate of 100 mL an hour Wean off norepinephrine infusion if possible Continue vasopressin for now Monitor the cultures including sputum and the urine was showing gram-negative bacillus. Blood cultures negative. Ascitic fluid culture is negative. Awaiting ascitic fluid cytology There is a concern of a bowel obstruction with significant dilatation of the transverse colon. No role for any surgical intervention as mentioned earlier. Continue the patient on a bicarb infusion and the patient is receiving a total of 150 mEq of sodium bicarbonate running at 150 mL an hour IV Zosyn and vancomycin as broad-spectrum antibiotic coverage Ascitic fluid analysis was noted. Awaiting final cultures. Awaiting blood cultures. Gen. surgery ventilated the patient in no surgical intervention at this point in time. Keep the patient nothing by mouth for now. Echocardiogram results were noted Prognosis extremely poor. Condition is critical and the patient's prognosis poor knowing that she has a stage IV metastatic rectal carcinoma with a baseline for performance and functional status. We'll continue to follow. This evaluation was done and more than 30 minutes. Prognosis extremely poor baseline above-mentioned comorbidities. Time with Patient: Greater than 30
[2020-07-25 14:30] LABS: Hemoglobin A1C 5.4 % (4.0-6.0)
[2020-07-25 17:47] LABS: Glucose,Whole Blood 92 mg/dL (75-99)
[2020-07-25] MEDS ORDERED: POTASSIUM BICARBONATE/CIT AC 20 MEQ TABLET.EFF NG-TUBE SCH (18:00)
--- NOTE | 2020-07-25 21:03 | P.PN ---
Subjective Progress Note Date: 07/25/20 Principal diagnosis: Acute hypoxic respiratory failure Remains on vent in the care of ICU. WBC 31K. Remains hypocalcemic. Sedated. Objective - Vital Signs Vital signs: Vital Signs Temp 98.4 F 07/25/20 08:00 Pulse 111 H 07/25/20 11:00 Resp 24 07/25/20 11:00 BP 114/69 07/24/20 21:00 Pulse Ox 94 L 07/25/20 11:00 Intake & Output 07/24/20 07/25/20 07/25/20 18:59 06:59 18:59 Intake Total 2271.115 2487.147 1094.724 Output Total 110 256 95 Balance 2161.115 2231.147 999.724 Weight 47.5 kg 47.5 kg Intake: IV 1920 1940 750 0.9 NaCl 120 190 500 Dextrose 5% in Water 1, 1800 1650 150 000 ml @ 150 mls/hr IV . Q7H40M [facility] with Sodium Bicarb (1 Meq/ml) 150 ml Rx#:[id number] Zosyn 3.375g/100ml 100 100 Intake, IV Titration 351.115 547.147 344.724 Amount Norepinephrine 8 mg In 258 388.759 57.888 Sodium Chloride 0.9% 250 ml @ 0.05 MCG/KG/MIN 3. 918 mls/hr IV .Q24H [facility] Rx#:[id number] Vancomycin 750 mg In 250 Sodium Chloride 0.9% 250 ml @ 125 mls/hr IVPB Q24H [facility] Rx#:[id number] propofoL 1,000 mg In 93.115 158.388 36.836 Empty Bag 1 bag @ Titrate IV .Q0M [facility] Rx#: [id number] Output: Urine 110 256 95 Other: Voiding Method Indwelling Catheter Indwelling Catheter Indwelling Catheter # Voids 2 ABP, PAP, CO, CI - Last Documented Arterial Blood Pressure 98/51 - Exam - Constitutional Ventilator and sedated - Respiratory Respiratory: bilateral: rales (bases) Integumentary: pale - Neurologic UZMA - Musculoskeletal UZMA - Psychiatric UZMA - Labs CBC & Chem 7: 07/25/20 04:15 07/25/20 16:48 Labs: Abnormal Lab Results - Last 24 Hours (Table) 07/24/20 07/24/20 07/24/20 Range/Units 13:19 16:45 18:51 WBC (3.8-10.6) k/uL RBC (3.80-5.40) m/uL Hgb (11.4-16.0) gm/dL Hct (34.0-46.0) % RDW (11.5-15.5) % Neutrophils # (Manual) (1.3-7.7) k/uL ABG pH (7.35-7.45) ABG pO2 (83-108) mmHg ABG HCO3 (21-25) mmol/L ABG Total CO2 (19-24) mmol/L ABG O2 Saturation (94-97) % Sodium (137-145) mmol/L Potassium (3.5-5.1) mmol/L BUN (7-17) mg/dL Glucose (74-99) mg/dL POC Glucose (mg/dL) 206 H (75-99) mg/dL Plasma Lactic Acid Yovany 6.3 H* 5.8 H* (0.7-2.0) mmol/L Calcium (8.4-10.2) mg/dL Ionized Calcium Janie (4.5-5.3) mg/dL Delta Bilirubin (0.0-0.2) mg/dL AST (14-36) U/L Alkaline Phosphatase (38-126) U/L Total Protein (6.3-8.2) g/dL Albumin (3.5-5.0) g/dL 07/24/20 07/25/20 07/25/20 Range/Units 23:59 04:15 04:15 WBC 31.4 H (3.8-10.6) k/uL RBC 3.16 L (3.80-5.40) m/uL Hgb 9.3 L (11.4-16.0) gm/dL Hct 29.1 L (34.0-46.0) % RDW 21.0 H (11.5-15.5) % Neutrophils # (Manual) 29.80 H (1.3-7.7) k/uL ABG pH (7.35-7.45) ABG pO2 (83-108) mmHg ABG HCO3 (21-25) mmol/L ABG Total CO2 (19-24) mmol/L ABG O2 Saturation (94-97) % Sodium 135 L (137-145) mmol/L Potassium 3.1 L (3.5-5.1) mmol/L BUN 32 H (7-17) mg/dL Glucose 190 H (74-99) mg/dL POC Glucose (mg/dL) 206 H (75-99) mg/dL Plasma Lactic Acid Yovany (0.7-2.0) mmol/L Calcium 6.0 L* (8.4-10.2) mg/dL Ionized Calcium Janie (4.5-5.3) mg/dL Delta Bilirubin 0.3 H (0.0-0.2) mg/dL AST 85 H (14-36) U/L Alkaline Phosphatase 162 H (38-126) U/L Total Protein 3.4 L (6.3-8.2) g/dL Albumin 1.5 L (3.5-5.0) g/dL 07/25/20 07/25/20 07/25/20 Range/Units 04:15 04:15 05:05 WBC (3.8-10.6) k/uL RBC (3.80-5.40) m/uL Hgb (11.4-16.0) gm/dL Hct (34.0-46.0) % RDW (11.5-15.5) % Neutrophils # (Manual) (1.3-7.7) k/uL ABG pH 7.52 H (7.35-7.45) ABG pO2 150 H (83-108) mmHg ABG HCO3 30 H (21-25) mmol/L ABG Total CO2 31 H (19-24) mmol/L ABG O2 Saturation 98.6 H (94-97) % Sodium (137-145) mmol/L Potassium (3.5-5.1) mmol/L BUN (7-17) mg/dL Glucose (74-99) mg/dL POC Glucose (mg/dL) (75-99) mg/dL Plasma Lactic Acid Yovany 5.6 H* (0.7-2.0) mmol/L Calcium (8.4-10.2) mg/dL Ionized Calcium Janie 3.6 L (4.5-5.3) mg/dL Delta Bilirubin (0.0-0.2) mg/dL AST (14-36) U/L Alkaline Phosphatase (38-126) U/L Total Protein (6.3-8.2) g/dL Albumin (3.5-5.0) g/dL 07/25/20 07/25/20 Range/Units 06:01 11:37 WBC (3.8-10.6) k/uL RBC (3.80-5.40) m/uL Hgb (11.4-16.0) gm/dL Hct (34.0-46.0) % RDW (11.5-15.5) % Neutrophils # (Manual) (1.3-7.7) k/uL ABG pH (7.35-7.45) ABG pO2 (83-108) mmHg ABG HCO3 (21-25) mmol/L ABG Total CO2 (19-24) mmol/L ABG O2 Saturation (94-97) % Sodium (137-145) mmol/L Potassium (3.5-5.1) mmol/L BUN (7-17) mg/dL Glucose (74-99) mg/dL POC Glucose (mg/dL) 211 H 129 H (75-99) mg/dL Plasma Lactic Acid Yovany (0.7-2.0) mmol/L Calcium (8.4-10.2) mg/dL Ionized Calcium Janie (4.5-5.3) mg/dL Delta Bilirubin (0.0-0.2) mg/dL AST (14-36) U/L Alkaline Phosphatase (38-126) U/L Total Protein (6.3-8.2) g/dL Albumin (3.5-5.0) g/dL Microbiology - Last 24 Hours (Table) 07/23/20 20:00 Gram Stain - Preliminary Sputum Sputum Culture - Preliminary Gram Neg Bacilli 07/22/20 21:37 Blood Culture - Preliminary Blood No Growth after 48 hours 07/23/20 12:50 Urine Culture - Preliminary Urine,Voided Gram Neg Bacilli 07/23/20 16:00 Gram Stain - Preliminary Paracentesis Fluid Body Fluid Culture - Preliminary Assessment and Plan Plan: MRI spine report reviewed CT scan - abdomen: report reviewed CT scan - pelvis: report reviewed Assessment and Plan Rectal adenocarcinoma - Poor response to initial 3 cycles of chemotherapy, although no evidence of new or metastatic disease on restaging exams - MET, RET, PTEN mutations with potential treatment options although overall status has not improved and prognosis overall guarded to poor - All treatments on hold for current situation Overall prognosis is poor Awaiting on family to assist with goals of care Physcian Attest: I have completed the full history and physcial and agree with above dictation, dictated as a scribe.
[2020-07-25 23:26] LABS: Glucose,Whole Blood 81 mg/dL (75-99)
[2020-07-26] MEDS: SODIUM CHLORIDE 0.9% 1,000 ML IV SCH ×2 (00:15→08:17)
[2020-07-26] MEDS: SODIUM CHLORIDE 0.9% 150 ML with VASOPRESSIN 60 UNIT IV SCH ×4 (03:48→17:12)
[2020-07-26 04:28] LABS: Anisocytosis Moderate; HCT 31.7 % (34.0-46.0); HGB 9.6 gm/dL (11.4-16.0); Hypochromasia Marked; MCH 28.2 pg (25.0-35.0); MCHC 30.4 g/dL (31.0-37.0); MCV 92.7 fL (80.0-100.0); Macrocytosis Slight; Mean Platelet Volume 8.2; Platelet Count 216 k/uL (150-450); RBC 3.42 m/uL (3.80-5.40); RDW 20.9 % (11.5-15.5); WBC 22.3 k/uL (3.8-10.6)
[2020-07-26 05:15] LABS: Band Neutrophils % 18 %; Lymphocytes # (M) 0.89 k/uL (1.0-4.8); Monocytes # (M) 1.56 k/uL (0-1.0); Neutrophils % (M) 71 %; Nucleated Red Blood Cells 0 /100 WBC (0-0); Total Cells Counted 200
[2020-07-26 05:17] LABS: Target Cells Present
[2020-07-26 05:26] LABS: ABG Base Excess 1.4 mmol/L; ABG HCO3 25 mmol/L (21-25); ABG Oxygen Saturation 98.4 % (94-97); ABG PCO2 35 mmHg (35-45); ABG PH 7.47 (7.35-7.45); ABG PO2 148 mmHg (83-108); ABG TCO2 26 mmol/L (19-24); Allen Test Performed? Yes
[2020-07-26 05:40] LABS: Albumin 1.6 g/dL (3.5-5.0); Bilirubin, Delta 0.3 mg/dL (0.0-0.2); Bilirubin,Unconjugated 0.1 mg/dL (0.0-1.1); Calcium 6.7 mg/dL (8.4-10.2); Potassium 3.9 mmol/L (3.5-5.1); Total Bilirubin 0.4 mg/dL (0.2-1.3); Total Protein 3.4 g/dL (6.3-8.2)
--- NOTE | 2020-07-26 06:46 | XR ---
EXAMINATION TYPE: XR chest 1V portable DATE OF EXAM: 07/26/2020 CLINICAL HISTORY: Difficulty breathing progress study. TECHNIQUE: Single AP portable semiupright view of the chest is obtained. COMPARISON: Chest x-ray from one day earlier and older studies. FINDINGS: Stable endotracheal and orogastric tubes along with right subclavian Mediport catheter and left subclavian central venous catheter. Cardiac silhouette size stable and within normal limits with atherosclerotic thoracic aorta. Diffuse bilateral opacities are now present. Small left greater than right pleural effusions redemonstrated. Osseous structures remain demineralized. IMPRESSION: Small left greater than right pleural effusions. Persistent bilateral diffuse infiltrates and/or edema. Findings stable or slightly worsened from one day earlier.
[2020-07-26 06:52] LABS: Glucose,Whole Blood 71 mg/dL (75-99)
[2020-07-26] MEDS ORDERED: CALCIUM GLUCONATE 2 GM in SODIUM CHLORIDE 0.9% 100 ML IVPB ONE (07:30)
[2020-07-26] MEDS: INSULIN ASPART (NovoLOG) 100 UNIT/ML VIAL SQ SCH ×3 (07:41→18:32)
[2020-07-26] MEDS: CHLORHEXIDINE GLUCONATE 15 ML CUP MUCOUS MEM SCH ×2 (08:16→21:13)
[2020-07-26] MEDS: PIPERACILLIN-TAZOBACTAM 3.375 GM in SODIUM CHLORIDE 0.9% 100 ML IVPB SCH ×2 (08:16→16:08)
[2020-07-26] MEDS: ATORVASTATIN 20 MG TAB PO SCH (08:16)
[2020-07-26] MEDS: HEPARIN SODIUM,PORCINE 5,000 UNIT/ML 1 ML VIAL SQ SCH ×2 (08:16→21:13)
[2020-07-26] MEDS: PANTOPRAZOLE 40 MG/10 ML VIAL IV SCH (08:16)
[2020-07-26] MEDS: POTASSIUM CHLORIDE 10 MEQ in WATER FOR INJECTION 1 100ML.BAG IVPB SCH ×2 (08:17→11:35)
[2020-07-26] MEDS: METOPROLOL TARTRATE 25 MG TAB PO SCH ×2 (08:17→21:14)
[2020-07-26] MEDS: LIDOCAINE 5% PATCH TOPICAL SCH (08:22)
[2020-07-26] MEDS: DOCUSATE ORAL SOLN 100 MG/10 ML CUP PO SCH ×2 (08:22→21:14)
[2020-07-26] MEDS: NOREPINEPHRINE 8 MG in SODIUM CHLORIDE 0.9% 250 ML IV SCH (08:22)
[2020-07-26] MEDS: VANCOMYCIN 750 MG in SODIUM CHLORIDE 0.9% 250 ML IVPB SCH (09:25)
[2020-07-26 09:37] LABS: ABG Base Excess 0.7 mmol/L; ABG HCO3 24 mmol/L (21-25); ABG Oxygen Saturation 96.4 % (94-97); ABG PCO2 34 mmHg (35-45); ABG PH 7.47 (7.35-7.45); ABG PO2 74 mmHg (83-108); ABG TCO2 25 mmol/L (19-24); Allen Test Performed? Yes
--- NOTE | 2020-07-26 09:42 | XR ---
EXAMINATION TYPE: XR abdomen 1V DATE OF EXAM: 07/26/2020 9:36 AM CLINICAL HISTORY: Abdominal pain and distention. TECHNIQUE: Two supine portable KUB images of the abdomen are obtained. COMPARISON: CT from 4 days ago. Abdominal x-ray from yesterday. FINDINGS: Stable nasogastric tube in decompressed stomach. Persisting gaseous prominent colonic loop horizontally in the upper to mid abdomen not significantly changed from one day earlier. Gas and feca l material seen in nondistended colon along the periphery. Stable mild to moderate intra-abdominal as cites with lack of bowel gas right flank. Osseous structures remain demineralized. IMPRESSION: Overall nonspecific but likely nonobstructive bowel gas pattern remains present. No significant inter margarette change from one day earlier.
[2020-07-26 12:34] LABS: Glucose,Whole Blood 63 mg/dL (75-99)
--- NOTE | 2020-07-26 12:54 | P.PN ---
Subjective Progress Note Date: 07/26/20 This is a 74-year-old female patient with a known history of metastatic rectal cancer that was diagnosed in July 2018. The patient is a representation back balance for severe anemia and she was found to have a rectal prolapse and a friable polypoid nodularity in the prolapse rectum. She was found to have a rectal adenocarcinoma. The patient was seen by oncology. The patient also underwent a transanal excision of the rectal cancer. The patient was being followed up by oncology and a PET scan that was done on 09/08/2019 showed significant abnormalities with mild hypermetabolic uptake along the course of the sigmoid rectal: In addition to moderate to severe concentric wall thickening and more distally there was hypermetabolic uptake within the rectum extending slightly to the right of the midline and there is also suspected eccentric mass measuring up to 3 cm in size showing metabolic activity. The patient also had some ascites with prominent notoriety along the upper and midabdomen concerning for peritoneal carcinomatosis. Based on this, the patient was taken to the operating room and the patient underwent a laparoscopic cholecystectomy and laparoscopic peritoneal biopsy and the biopsies came back positive for malignancy. The patient was found to have metastatic moderately differentiated adenocarcinoma consistent of a colon primary in addition to the gallbladder being able with metastatic adenocarcinoma and there was some limited chronic cholelithiasis and cholecystitis. .. The patient accordingly was started on systemic chemotherapy and the patient was being treated with FOLFOX and the patient's last treatment was on first week of June. The patient came into the hospital yesterday complaining of abdominal pain. She looked quite tired and debilitated and she was also having some increased difficulty in breathing. She denied having any chest pain. She was quite dehydrated and she admitted not to eat or drink for the past week or so. According to the niece, the patient had been having nausea and emesis approximately week and she was having some dark brown or black stool. In the emergency department, the patient was found to have a white cell count of 64.3. Hemoglobin was 9.9. Platelet was 474. The patient had an INR of 1.3 with a PT of 12.9. GIM was 33 with a creatinine of 1.01. Sodium was 134. The initial lactic acid level was at 2.9 and subsequently dropped down to 1.4. Troponins were 0.08 and 0.2 respectively 2, her TSH was elevated at 10.4, UA was positive for protein +1, there were 40 WBCs, 6 RBCs and many bacteria was also noted. The computed tomography scan of the abdomen and pelvis was done and showed large bilateral pleural effusions with fluid was more so on the right and there was a moderate-sized hiatal hernia and the heart size was within normal limits. There was some atelectatic changes in lung bases. There was a large amount of intra- abdominal ascites fluid and liver showed no focal deficits or defects. Spleen was intact. Gallbladder was absent. The bile ducts were not dilated. Note that the CAT scan of the chest abdomen and pelvis that was done on 07/09/2020 showed peritoneal carcinomatosis, pleural effusion bilateral and persistent rectal wall thickening consistent with recurrent cancer. The patient was started on IV antibiotics. The patient was started on IV fluids. The patient was admitted to the medical floor and subsequently the patient a chest to the intensive care unit as the patient became progressively more hypotensive earlier this morning. Currently, the patient is receiving IV fluids with normal saline at the rate of 130 mL an hour. She received another bolus of IV fluid in the ICU. She is on a combination of cefepime and vancomycin. Repeat white cell count from today 62.3. The echocardiogram was obtained and the patient is a preserved LV function with an ejection fraction of 65% and there was moderate aortic stenosis with a mean gradient of 24 mmHg and there was moderate to severe MR, moderate TR with severe pulmonary hypertension with a biventricular systolic pressure of 62. Cardiac rhythm is sinus.Associated with a moderate to severe mitral regurgitation. There is a concern for underlying endocarditis. Evidence for systolic pressure was quite elevated at 62 mmHg. I came to see the patient in the intensive care unit. The patient was extremely lethargic, the patient was not communicating and she was unable to volunteer any history. I contacted her oncologist and I was made aware that the patient was being treated for metastatic rectal cancer. Note that the patient is having abdominal pain and discomfort in her abdomen is quite distended at this point in time. She has a BP of 97/55. The patient is tachycardicand her heart rate is around 1:30, sinus. She is on on 100% nonrebreather facemask and she is quite thickened neck. There is a Stanford catheter in place and there is no urine output. Her skin is mottled and the pulses in lower extremities are quite diminished. On 07/24/2020 the patient is being seen for a follow-up. The patient continues to be shock state. The patient was intubated and placed on mechanical ventilator and a paracentesis was done were a total of 1.6-1.7 L of ascitic fluid was aspirated. The patient was kept on a mechanical ventilator overnight. She developed an aspiration pneumonia with diffuse breath and pulmonary infiltrates. Abdomen is still tense and tight although , There was some improvement on examination that was noted post paracentesis. The patient remains on a mechanical ventilator. This morning, she is sedated with propofol and she is calm and comfortable. His symptoms with the mechanical ventilator. IV fluids are running in the form of D5 with 150 mEq of sodium bicarbonate ru nning at 150 mL an hour and the patient is also on a combination of norepinephrine infusion at 40 g per minute and vasopressin at 0.03 units an hour. The patient is still pressor dependent and she is quite hypotensive shock state. On a mechanical ventilator, she is an assist-control mode at the rate of 28 and a tidal volume of 375 with an FiO2 of 100% and a PEEP of 12. The blood gas showed a pH of 7.47 with a pCO2 of 31 and pO2 of 55. Peak airway pressure was around 38 with a pressure of 33. Based on this, and based on underlying hypoxemia, switch this patient to a pressure control mode of ventilation and the necessity ventilator changes were done. The patient is currently covered with a combination of Zosyn and vancomycin. Blood cultures negative. Lactic acid elevated at 4. 3 and subsequent level came up to 6.3. The white cell count is a 56.5. Discussed abdominal findings with the general surgery. There was ongoing distention of the transverse colon and stool in the distal colon was noted. NG tube is in a good location. There is evidence of large bowel ileus and the john paul carolina is known to have metastatic rectal adenocarcinoma with peritoneal carcinomatosis. 07/25/2020, the patient remains intubated on a mechanical ventilator, sedated with propofol and the patient is currently being weaned off the propofol to assess underlying mental status changes the patient is getting a sedation holiday. Patient is on IV fluid and this was switched from a bicarb infusion to a normal saline infusion rate of 100 mL an hour. Norepinephrine infusion running at 0.12 mics respite KG per minute and the patient also is on vasopressin drip physiologic dose. Pressor requirements have improved compared to yesterday. Meanwhile, the patient remains on a mechanical ventilator at a pressure control mode of ventilation at a rate of 24. The pressure control is at 22 cm of water with an FiO2 of 70% and a PEEP of 16. The blood gases from today showed a pH of 7.52 with a pCO2 of 37 and pO2 of 150 and this was on the fact of 100%. The patient's chest x-ray showing bilateral pulmonary infiltrates similar to yesterday, probably less confluent. Meanwhile, abdomen remains distended and the patient had a fracture of the abdomen that showed persistent gas pattern abnormalities with fecal material seen in the left colon and dilatation of the transverse colon. NG tube was in a good location. The patient had also some drop in the white cell count is down to 31.4. Hemoglobin is at 9.3. The patient remains on examination Zosyn and vancomycin. The sputum cultures positive for gram-negative bacillus. The blood culture is showing no growth. Ascitic fluid showed no growth after 24 hours. Noted the patient is not producing or passing any stool at this point in time. The rectal examination of the bedside showed no fecal material and inspected areas. 07/26/2020, the patient is doing poorly. She remains intubated on a mechanical ventilator. Abdomen is very much distended and a repeat abdominal x-ray showed some nonspecific but likely nonobstructive bowel gas pattern. No interval change compared to yesterday. There is a persistent gaseous prominence of the colonic loop horizontally probably representing the transverse colon. There is also gas and fecal material seen in the nondistended colon along the periphery. There is also evidence of ascites. The patient remains intubated on a mechanical ventilator. On today's evaluation, the patient is an assist-control mode, pressure control mode at the rate of 24, with a pressure control of 22 and a FiO2 of 70% with a PEEP of 16. The blood gases showed a pH of 7.47 with a pCO2 35 and pO2 of 48. Based on that, some adjustment in the ventilator were done. Chest x-ray still showing bilateral pulmonary infiltrates although slightly improved compared to yesterday. In terms of hemodynamics, the patient remains pressor dependent. The patient is producing less than 10 mL of urine output and hours. Norepinephrine infusion is running at 0.14 mg per KG per minute and the patient is on normal saline at the rate of 100 mL an hour. Antibiotic coverage includes examination of Zosyn and vancomycin. The urine culture was positive for E. coli. Sputum culture was positive for Citrobacter. The white cell count is down to 22. BUN is at 32 with a creatinine of 1.1. LFTs show no major abnormalities on today's evaluation. Most recent blood sugar is at 63. Abdomen is quite distended. NG tube in place. Output is minimal at this point in time. Unable to offer any enteral feeding for nutritional suppo rt. Had a lengthy family discussion with considering comfort care measures at a later stage possibly today or tomorrow. Meanwhile, the ascitic fluid cytology still pending for now. Objective - Vital Signs Vital signs: Vital Signs Temp 97.6 F 07/26/20 08:00 Pulse 85 07/26/20 11:00 Resp 24 07/26/20 11:00 BP 114/69 07/24/20 21:00 Pulse Ox 97 07/26/20 11:00 Intake & Output 07/25/20 07/26/20 07/26/20 18:59 06:59 18:59 Intake Total 2022.180 1370 1434.599 Output Total 220 624 42 Balance 1802.734 609 6349.599 Weight 47.5 kg Intake: IV 1585 1350 700 0.9 NaCl 1260 1200 600 Dextrose 5% in Water 1, 150 000 ml @ 150 mls/hr IV . Q7H40M GLORIA with Sodium Bicarb (1 Meq/ml) 150 ml Rx#:[id number] Zosyn 3.375g/100ml 175 150 100 Intake, IV Titration 437.180 694.599 Amount Calcium Gluconate 2 gm In 100 Sodium Chloride 0.9% 100 ml @ 100 mls/hr IVPB ONCE ONE Rx#:[id number] Norepinephrine 8 mg In 112.914 22.099 Sodium Chloride 0.9% 250 ml @ 0.05 MCG/KG/MIN 3. 918 mls/hr IV .Q24H GLORIA Rx#:[id number] Potassium Chloride 10 meq 200 In Water For Injection 1 100ml.bag @ 100 mls/hr IVPB Q1H GLORIA Rx#: [id number] Sodium Chloride 0.9% 150 22.5 ml @ 0.03 UNITS/MIN 4.59 mls/hr IV .Q24H GLORIA with Vasopressin 60 unit Rx#: [id number] Vancomycin 750 mg In 250 250 Sodium Chloride 0.9% 250 ml @ 125 mls/hr IVPB Q24H GLORIA Rx#:[id number] propofoL 1,000 mg In 74.266 100.000 Empty Bag 1 bag @ Titrate IV .Q0M GLORIA Rx#: [id number] Other 20 40 Output: Gastric Drainage 400 Urine 220 124 42 Emesis 100 Other: Voiding Method Indwelling Catheter Indwelling Catheter Indwelling Catheter # Bowel Movements 1 ABP, PAP, CO, CI - Last Documented Arterial Blood Pressure 95/49 - Exam GENERAL: The patient is sedated and intubated on a mechanical ventilator. The patient has a very distended abdomen at this point in time. Head exam was generally normal. There was no scleral icterus or corneal arcus. Mucous membranes were moist. HEENT: Pupils are round and equally reacting to light. EOMI. No scleral icterus. No conjunctival pallor. Normocephalic, atraumatic. No pharyngeal erythema. No thyromegaly. CARDIOVASCULAR: tachycardic, S1 and S2 present. and the patient has a wide-open holosystolic murmur grade 4/6 heard mainly over the left upper sternal border. -PULMONARY: Chest is clear to auscultation, no wheezing or crackles. Diminished breath on the lung bases bilaterally and there is worsening diminished on the right ABDOMEN:distended abdomen which is also firm and there is underlying sinus ascites. There is absent bowel sounds There is some mild direct tenderness. No rebound tenderness. No guarding. The abdomen is somewhat tympanic. No palpable organomegaly. There is a minimal fluid wave and shifting dullness consistent with ascites MUSCULOSKELETAL: No joint swelling or deformity. EXTREMITIES: No cyanosis, clubbing, or and the patient is developing increasing edema and upper and lower extremities NEUROLOGICAL examination shows that the patient is sedated and patient is calm and comfortable. She is quite sedated on propofol and she suggested a mechanical ventilator. Pupils are equal and reactive to light. Motor and sensory functions cannot be accurately assessed. SKIN: No rashes. No petechiae - Labs CBC & Chem 7: 07/26/20 04:15 07/26/20 04:15 Labs: Abnormal Lab Results - Last 24 Hours (Table) 07/26/20 07/26/20 07/26/20 Range/Units 04:15 04:15 04:15 WBC 22.3 H (3.8-10.6) k/uL RBC 3.42 L (3.80-5.40) m/uL Hgb 9.6 L (11.4-16.0) gm/dL Hct 31.7 L (34.0-46.0) % MCHC 30.4 L (31.0-37.0) g/dL RDW 20.9 H (11.5-15.5) % Neutrophils # (Manual) 19.80 H (1.3-7.7) k/uL Lymphocytes # (Manual) 0.89 L (1.0-4.8) k/uL Monocytes # (Manual) 1.56 H (0-1.0) k/uL ABG pH (7.35-7.45) ABG pCO2 (35-45) mmHg ABG pO2 (83-108) mmHg ABG Total CO2 (19-24) mmol/L ABG O2 Saturation (94-97) % BUN 32 H (7-17) mg/dL Creatinine 1.12 H (0.52-1.04) mg/dL Glucose 62 L (74-99) mg/dL POC Glucose (mg/dL) (75-99) mg/dL Calcium 6.7 L (8.4-10.2) mg/dL Ionized Calcium Janie 4.1 L (4.5-5.3) mg/dL Delta Bilirubin 0.3 H (0.0-0.2) mg/dL AST 84 H (14-36) U/L Alkaline Phosphatase 207 H (38-126) U/L Total Protein 3.4 L (6.3-8.2) g/dL Albumin 1.6 L (3.5-5.0) g/dL 07/26/20 07/26/20 07/26/20 Range/Units 05:24 06:50 09:34 WBC (3.8-10.6) k/uL RBC (3.80-5.40) m/uL Hgb (11.4-16.0) gm/dL Hct (34.0-46.0) % MCHC (31.0-37.0) g/dL RDW (11.5-15.5) % Neutrophils # (Manual) (1.3-7.7) k/uL Lymphocytes # (Manual) (1.0-4.8) k/uL Monocytes # (Manual) (0-1.0) k/uL ABG pH 7.47 H 7.47 H (7.35-7.45) ABG pCO2 34 L (35-45) mmHg ABG pO2 148 H 74 L (83-108) mmHg ABG Total CO2 26 H 25 H (19-24) mmol/L ABG O2 Saturation 98.4 H (94-97) % BUN (7-17) mg/dL Creatinine (0.52-1.04) mg/dL Glucose (74-99) mg/dL POC Glucose (mg/dL) 71 L (75-99) mg/dL Calcium (8.4-10.2) mg/dL Ionized Calcium Janie (4.5-5.3) mg/dL Delta Bilirubin (0.0-0.2) mg/dL AST (14-36) U/L Alkaline Phosphatase (38-126) U/L Total Protein (6.3-8.2) g/dL Albumin (3.5-5.0) g/dL 07/26/20 Range/Units 12:31 WBC (3.8-10.6) k/uL RBC (3.80-5.40) m/uL Hgb (11.4-16.0) gm/dL Hct (34.0-46.0) % MCHC (31.0-37.0) g/dL RDW (11.5-15.5) % Neutrophils # (Manual) (1.3-7.7) k/uL Lymphocytes # (Manual) (1.0-4.8) k/uL Monocytes # (Manual) (0-1.0) k/uL ABG pH (7.35-7.45) ABG pCO2 (35-45) mmHg ABG pO2 (83-108) mmHg ABG Total CO2 (19-24) mmol/L ABG O2 Saturation (94-97) % BUN (7-17) mg/dL Creatinine (0.52-1.04) mg/dL Glucose (74-99) mg/dL POC Glucose (mg/dL) 63 L (75-99) mg/dL Calcium (8.4-10.2) mg/dL Ionized Calcium Janie (4.5-5.3) mg/dL Delta Bilirubin (0.0-0.2) mg/dL AST (14-36) U/L Alkaline Phosphatase (38-126) U/L Total Protein (6.3-8.2) g/dL Albumin (3.5-5.0) g/dL Microbiology - Last 24 Hours (Table) 07/23/20 20:00 Gram Stain - Final Sputum Sputum Culture - Final Citrobacter freundii 07/23/20 16:00 Anaerobic Culture - Preliminary Paracentesis Fluid 07/22/20 21:37 Blood Culture - Preliminary Blood No Growth after 72 hours 07/23/20 16:00 Gram Stain - Preliminary Paracentesis Fluid Body Fluid Culture - Preliminary 07/23/20 12:50 Urine Culture - Preliminary Urine,Voided Escherichia coli Assessment and Plan Plan: 1 septic shock, Strongly suspect an abdominal source of an infection. . The patient has abdominal distention, ascites and possibly a bowel obstruction with significant dilatation of the transverse colon. The patient also has some fecal material in the descending colon. Please refer to the x-ray of the abdomen and the CAT scan of the abdomen done earlier. Ascitic fluid was negative for any bacterial growth. Fluid cytology still pending for now. Meanwhile, The patient continues to have leukocytosis, elevated lactic acid level and the transverse colon on the routine x-rays of the abdomen and the CAT scan of the abdomen was quite distended with some fecal material distally. The blood Cultures are negative. The urine culture is positive for E. coli and the sputum cultures positive for gram-negative Citrobacter. The patient has been adequ ately resuscitated IV fluids. The patient remains on pressors and antibiotics. Abdomen remains firm and distended 2 acute leukocytosis, slightly improved compared to yesterday, nevertheless the levels remain quite elevated. The follow-up white cell count is at 22K. 3 acute hypotension secondary to above, currently on high doses of pressors and the patient is on a combination of norepinephrine infusion and pressors have been weaned off slightly over the past 24-48 hours. Nevertheless, the patient urine output remains low and the patient remains in a shock state. 4 acute lactic acidosis, and the lactic acid level continues to be elevated, likely secondary to sepsis and the possibility bowel ischemic cannot be completely ruled out especially with her history of metastatic colon cancer , 5 metastatic rectal adenocarcinoma with peritoneal carcinomatosis, ascites and bilateral pleural effusions, the patient was receiving FOLFOX systemic chemotherapy on outpatient basis 6 severe mitral regurgitation with possibility of a valvular vegetation, rule out underlying endocarditis. Rule out bacterial or infectious endocarditis. Rule out malignant vegetation. 7 coronary artery disease. 8 gout 9 duodenal ulcer, history of 10 acute kidney injury 11 cachexia with weight loss and a BMI of 18 12 bilateral pleural effusions 13 ascites post-paracentesis 14 acute hypoxic respiratory failure currently intubated on a mechanical ventilator. The patient has dense bilateral pulmonary infiltrates. There is improved compared to yesterday. Sputum Gram stain and culture showing Citro bacter. The patient has also developed diffuse but the pulmonary infiltrates, consider bilateral pneumonia of an aspiration type. Consider pulmonary edema as the patient has a significant mitral regurgitation on echocardiogram as mentioned. Plan We'll do some few ventilator changes. Will drop the FiO2 down to 50%. Will drop the PEEP down to 14 and repeat the blood gases. Continue IV Zosyn and vancomycin as broad-spectrum antibiotic coverage Continue pressors and wean the patient off the pressors Unable to see the patient the patient is a quite distended abdomen. Will not initiate TPN. The family is considering comfort care measures knowing that she has a metastatic adenocarcinoma with peritoneal carcinomatosis. Bronchospastic fluid cytology still pending for now. Rest of the treatment is essentially supportive. Prognosis poor. The patient remains in a shock state. No surgical intervention this point in time based on general surgeries evaluation and consultation. Prognosis remains extremely poor. We'll follow. Possible comfort care measures with the next 24-48 hours. Condition is critical and the patient's prognosis poor knowing that she has a stage IV metastatic rectal carcinoma with a baseline for performance and functional status. We'll continue to follow. This evaluation was done and more than 30 minutes. Prognosis extremely poor baseline above-mentioned comorbidities. Time with Patient: Greater than 30
[2020-07-26] MEDS ORDERED: DEXTROSE 50% SYRINGE 50 ML IVP STA (13:11)
[2020-07-26] MEDS ORDERED: DEXTROSE 50% SYRINGE 50 ML IVP ONE (13:12)
[2020-07-26 13:38] LABS: Glucose,Whole Blood 186 mg/dL (75-99)
[2020-07-26 17:37] LABS: Glucose,Whole Blood 97 mg/dL (75-99)
--- NOTE | 2020-07-26 17:57 | P.PN ---
Subjective Progress Note Date: 07/26/20 CHIEF COMPLAINT: Metastatic colon cancer HISTORY OF PRESENT ILLNESS: The patient is a 74-year-old female admitted for metastatic colon cancer. She is now no code status. Comfort care is pending. She is on full ventilatory support ROS: No reports of nausea and vomiting. No bowel movements. No fevers or chills. No new chest pain. No productive sputum PHYSICAL EXAM: VITAL SIGNS: Reviewed CONSTITUTIONAL: Well developed and in no acute distress. EYES: Conjuctivae without sclera icterus. HEAD, EARS, NOSE, THROAT: Head is atraumatic, normocephalic. No nasal drainage. NECK: Supple. No thyroidomegaly. RESPIRATORY: Non-labored respirations and equal bilateral excursions. CARDIOVASCULAR: Palpable 2+ radial pulses. ABDOMEN: No peritonitis. MUSCULOSKELETAL: No gross deformity of the lower extremities noted. No clubbing. No cyanosis. SKIN: Good skin turgor. Well perfused. NEUROLOGIC: No focal or lateralizing signs. PSYCH: Deferred due to ventilatory support CLINICAL LABS: White blood cell count elevated over 22,000, hemoglobin 9.6. ASSESSMENT: 1. Metastatic colon cancer PLAN: 1. Agree with comfort care measures for metastatic colon cancer with poor prognosis. Objective - Vital Signs Vital signs: Vital Signs Temp 97.6 F 07/26/20 08:00 Pulse 85 07/26/20 11:00 Resp 24 07/26/20 11:00 BP 114/69 07/24/20 21:00 Pulse Ox 97 07/26/20 11:00 Intake & Output 07/25/20 07/26/20 07/26/20 18:59 06:59 18:59 Intake Total 2.180 1370 1434.599 Output Total 220 624 42 Balance 1802.068 576 6439.599 Weight 47.5 kg Intake: IV 1585 1350 700 0.9 NaCl 1260 1200 600 Dextrose 5% in Water 1, 150 000 ml @ 150 mls/hr IV . Q7H40M [facility] with Sodium Bicarb (1 Meq/ml) 150 ml Rx#:[id number] Zosyn 3.375g/100ml 175 150 100 Intake, IV Titration 437.180 694.599 Amount Calcium Gluconate 2 gm In 100 Sodium Chloride 0.9% 100 ml @ 100 mls/hr IVPB ONCE ONE Rx#:[id number] Norepinephrine 8 mg In 112.914 22.099 Sodium Chloride 0.9% 250 ml @ 0.05 MCG/KG/MIN 3. 918 mls/hr IV .Q24H [facility] Rx#:[id number] Potassium Chloride 10 meq 200 In Water For Injection 1 100ml.bag @ 100 mls/hr IVPB Q1H [facility] Rx#: [id number] Sodium Chloride 0.9% 150 22.5 ml @ 0.03 UNITS/MIN 4.59 mls/hr IV .Q24H [facility] with Vasopressin 60 unit Rx#: [id number] Vancomycin 750 mg In 250 250 Sodium Chloride 0.9% 250 ml @ 125 mls/hr IVPB Q24H [facility] Rx#:[id number] propofoL 1,000 mg In 74.266 100.000 Empty Bag 1 bag @ Titrate IV .Q0M [facility] Rx#: [id number] Other 20 40 Output: Gastric Drainage 400 Urine 220 124 42 Emesis 100 Other: Voiding Method Indwelling Catheter Indwelling Catheter Indwelling Catheter # Bowel Movements 1 ABP, PAP, CO, CI - Last Documented Arterial Blood Pressure 95/49 - Labs CBC & Chem 7: 07/26/20 04:15 07/26/20 04:15 Labs: Abnormal Lab Results - Last 24 Hours (Table) 07/26/20 07/26/20 07/26/20 Range/Units 04:15 04:15 04:15 WBC 22.3 H (3.8-10.6) k/uL RBC 3.42 L (3.80-5.40) m/uL Hgb 9.6 L (11.4-16.0) gm/dL Hct 31.7 L (34.0-46.0) % MCHC 30.4 L (31.0-37.0) g/dL RDW 20.9 H (11.5-15.5) % Neutrophils # (Manual) 19.80 H (1.3-7.7) k/uL Lymphocytes # (Manual) 0.89 L (1.0-4.8) k/uL Monocytes # (Manual) 1.56 H (0-1.0) k/uL ABG pH (7.35-7.45) ABG pCO2 (35-45) mmHg ABG pO2 (83-108) mmHg ABG Total CO2 (19-24) mmol/L ABG O2 Saturation (94-97) % BUN 32 H (7-17) mg/dL Creatinine 1.12 H (0.52-1.04) mg/dL Glucose 62 L (74-99) mg/dL POC Glucose (mg/dL) (75-99) mg/dL Calcium 6.7 L (8.4-10.2) mg/dL Ionized Calcium Janie 4.1 L (4.5-5.3) mg/dL Delta Bilirubin 0.3 H (0.0-0.2) mg/dL AST 84 H (14-36) U/L Alkaline Phosphatase 207 H (38-126) U/L Total Protein 3.4 L (6.3-8.2) g/dL Albumin 1.6 L (3.5-5.0) g/dL 07/26/20 07/26/20 07/26/20 Range/Units 05:24 06:50 09:34 WBC (3.8-10.6) k/uL RBC (3.80-5.40) m/uL Hgb (11.4-16.0) gm/dL Hct (34.0-46.0) % MCHC (31.0-37.0) g/dL RDW (11.5-15.5) % Neutrophils # (Manual) (1.3-7.7) k/uL Lymphocytes # (Manual) (1.0-4.8) k/uL Monocytes # (Manual) (0-1.0) k/uL ABG pH 7.47 H 7.47 H (7.35-7.45) ABG pCO2 34 L (35-45) mmHg ABG pO2 148 H 74 L (83-108) mmHg ABG Total CO2 26 H 25 H (19-24) mmol/L ABG O2 Saturation 98.4 H (94-97) % BUN (7-17) mg/dL Creatinine (0.52-1.04) mg/dL Glucose (74-99) mg/dL POC Glucose (mg/dL) 71 L (75-99) mg/dL Calcium (8.4-10.2) mg/dL Ionized Calcium Janie (4.5-5.3) mg/dL Delta Bilirubin (0.0-0.2) mg/dL AST (14-36) U/L Alkaline Phosphatase (38-126) U/L Total Protein (6.3-8.2) g/dL Albumin (3.5-5.0) g/dL 07/26/20 Range/Units 12:31 WBC (3.8-10.6) k/uL RBC (3.80-5.40) m/uL Hgb (11.4-16.0) gm/dL Hct (34.0-46.0) % MCHC (31.0-37.0) g/dL RDW (11.5-15.5) % Neutrophils # (Manual) (1.3-7.7) k/uL Lymphocytes # (Manual) (1.0-4.8) k/uL Monocytes # (Manual) (0-1.0) k/uL ABG pH (7.35-7.45) ABG pCO2 (35-45) mmHg ABG pO2 (83-108) mmHg ABG Total CO2 (19-24) mmol/L ABG O2 Saturation (94-97) % BUN (7-17) mg/dL Creatinine (0.52-1.04) mg/dL Glucose (74-99) mg/dL POC Glucose (mg/dL) 63 L (75-99) mg/dL Calcium (8.4-10.2) mg/dL Ionized Calcium Janie (4.5-5.3) mg/dL Delta Bilirubin (0.0-0.2) mg/dL AST (14-36) U/L Alkaline Phosphatase (38-126) U/L Total Protein (6.3-8.2) g/dL Albumin (3.5-5.0) g/dL Microbiology - Last 24 Hours (Table) 07/23/20 20:00 Gram Stain - Final Sputum Sputum Culture - Final Citrobacter freundii 07/23/20 16:00 Anaerobic Culture - Preliminary Paracentesis Fluid 07/22/20 21:37 Blood Culture - Preliminary Blood No Growth after 72 hours 07/23/20 16:00 Gram Stain - Preliminary Paracentesis Fluid Body Fluid Culture - Preliminary 07/23/20 12:50 Urine Culture - Preliminary Urine,Voided Escherichia coli Assessment and Plan (1) Metastatic colorectal cancer Current Visit: Yes Status: Acute Code(s): C19 - MALIGNANT NEOPLASM OF RECTOSIGMOID JUNCTION SNOMED Code(s): 33337213 (2) Abdominal malignancy Current Visit: Yes Status: Acute Code(s): C76.2 - MALIGNANT NEOPLASM OF ABDOMEN SNOMED Code(s): 319932286 (3) Rectal adenocarcinoma Current Visit: No Status: Chronic Priority: Medium Code(s): C20 - MALIGNANT NEOPLASM OF RECTUM SNOMED Code(s): 725366858
--- NOTE | 2020-07-26 22:34 | P.PN ---
Subjective Progress Note Date: 07/26/20 Principal diagnosis: Sepsis and acute Hypoxic respiratory failure Ms. Savage is a 74-year-old female with a past medical history of metastatic rectal cancer diagnosed in July 2018 who underwent transanal excision of rectal cancer, GERD, hypertension, osteoarthritis admitted to the hospital for abdominal pain. Patient had a CAT scan of the abdomen and pelvis done on 07/09/2020 showing peritoneal carcinomatosis, pleural effusion bilaterally and persistent rectal wall thickening consistent with recurrent cancer. Patient was empirically started on IV antibiotics and IV fluids but later on developed septic shock and transferred to the ICU. On 07/26/2020 -patient is currently in the ICU setting on the ventilator. She is sedated and currently on pressor support with norepinephrine and vasopressin. ABGs done this morning showing pH of 7.47, PCO2 35 and PO2 48. She has decreased output in her Stanford's catheter. She is on vancomycin and Zosyn and her urine cultures are positive for E. coli and sputum cultures positive for Citrobacter. On reviewing the labs from this morning she has a white count of 22.3, hemoglobin 9.6, platelets 216. Sodium 137, potassium 3.9, chloride 104, BUN 32, creatinine 1.21 albumin of 1.6 calcium 6.7. Objective - Vital Signs Vital signs: Vital Signs Temp 97.4 F L 07/26/20 20:00 Pulse 99 07/26/20 20:00 Resp 24 07/26/20 20:00 BP 114/69 07/24/20 21:00 Pulse Ox 96 07/26/20 20:00 Intake & Output 07/26/20 07/26/20 07/27/20 06:59 18:59 05:59 Intake Total 1370 2161.599 204.5 Output Total 624 177 30 Balance 746 1984.599 174.5 Weight 47.5 kg Intake: IV 1350 1400 200 0.9 NaCl 1200 1200 200 Zosyn 3.375g/100ml 150 200 Intake, IV Titration 721.599 4.5 Amount Calcium Gluconate 2 gm In 100 Sodium Chloride 0.9% 100 ml @ 100 mls/hr IVPB ONCE ONE Rx#:[id number] Norepinephrine 8 mg In 22.099 Sodium Chloride 0.9% 250 ml @ 0.05 MCG/KG/MIN 3. 918 mls/hr IV .Q24H [facility] Rx#:[id number] Potassium Chloride 10 meq 200 In Water For Injection 1 100ml.bag @ 100 mls/hr IVPB Q1H [facility] Rx#: [id number] Sodium Chloride 0.9% 150 49.5 4.5 ml @ 0.03 UNITS/MIN 4.59 mls/hr IV .Q24H [facility] with Vasopressin 60 unit Rx#: [id number] Vancomycin 750 mg In 250 Sodium Chloride 0.9% 250 ml @ 125 mls/hr IVPB Q24H [facility] Rx#:[id number] propofoL 1,000 mg In 100.000 Empty Bag 1 bag @ Titrate IV .Q0M [facility] Rx#: [id number] Other 20 40 Output: Gastric Drainage 400 100 Urine 124 77 30 Emesis 100 Other: Voiding Method Indwelling Catheter Indwelling Catheter Indwelling Catheter # Bowel Movements 1 ABP, PAP, CO, CI - Last Documented Arterial Blood Pressure 122/62 - Exam -GENERAL: The patient is intubated and sedated HEENT: Pupils are round and equally reacting to light CARDIOVASCULAR: S1 and S2 present. No murmurs, rubs, or gallops. -PULMONARY: Coarse breath sounds on the right side with some crepitation -ABDOMEN: Soft, nontender, mildly distended and tense , normoactive bowel sounds. No palpable organomegaly. MUSCULOSKELETAL: No joint swelling or deformity. EXTREMITIES: No cyanosis, clubbing, or pedal edema. NEUROLOGICAL: sedated SKIN: No rashes. No petechiae - Labs CBC & Chem 7: 07/26/20 04:15 07/26/20 04:15 Labs: Abnormal Lab Results - Last 24 Hours (Table) 07/26/20 07/26/20 07/26/20 Range/Units 04:15 04:15 04:15 WBC 22.3 H (3.8-10.6) k/uL RBC 3.42 L (3.80-5.40) m/uL Hgb 9.6 L (11.4-16.0) gm/dL Hct 31.7 L (34.0-46.0) % MCHC 30.4 L (31.0-37.0) g/dL RDW 20.9 H (11.5-15.5) % Neutrophils # (Manual) 19.80 H (1.3-7.7) k/uL Lymphocytes # (Manual) 0.89 L (1.0-4.8) k/uL Monocytes # (Manual) 1.56 H (0-1.0) k/uL ABG pH (7.35-7.45) ABG pCO2 (35-45) mmHg ABG pO2 (83-108) mmHg ABG Total CO2 (19-24) mmol/L ABG O2 Saturation (94-97) % BUN 32 H (7-17) mg/dL Creatinine 1.12 H (0.52-1.04) mg/dL Glucose 62 L (74-99) mg/dL POC Glucose (mg/dL) (75-99) mg/dL Calcium 6.7 L (8.4-10.2) mg/dL Ionized Calcium Janie 4.1 L (4.5-5.3) mg/dL Delta Bilirubin 0.3 H (0.0-0.2) mg/dL AST 84 H (14-36) U/L Alkaline Phosphatase 207 H (38-126) U/L Total Protein 3.4 L (6.3-8.2) g/dL Albumin 1.6 L (3.5-5.0) g/dL 07/26/20 07/26/20 07/26/20 Range/Units 05:24 06:50 09:34 WBC (3.8-10.6) k/uL RBC (3.80-5.40) m/uL Hgb (11.4-16.0) gm/dL Hct (34.0-46.0) % MCHC (31.0-37.0) g/dL RDW (11.5-15.5) % Neutrophils # (Manual) (1.3-7.7) k/uL Lymphocytes # (Manual) (1.0-4.8) k/uL Monocytes # (Manual) (0-1.0) k/uL ABG pH 7.47 H 7.47 H (7.35-7.45) ABG pCO2 34 L (35-45) mmHg ABG pO2 148 H 74 L (83-108) mmHg ABG Total CO2 26 H 25 H (19-24) mmol/L ABG O2 Saturation 98.4 H (94-97) % BUN (7-17) mg/dL Creatinine (0.52-1.04) mg/dL Glucose (74-99) mg/dL POC Glucose (mg/dL) 71 L (75-99) mg/dL Calcium (8.4-10.2) mg/dL Ionized Calcium Janie (4.5-5.3) mg/dL Delta Bilirubin (0.0-0.2) mg/dL AST (14-36) U/L Alkaline Phosphatase (38-126) U/L Total Protein (6.3-8.2) g/dL Albumin (3.5-5.0) g/dL 07/26/20 07/26/20 Range/Units 12:31 13:36 WBC (3.8-10.6) k/uL RBC (3.80-5.40) m/uL Hgb (11.4-16.0) gm/dL Hct (34.0-46.0) % MCHC (31.0-37.0) g/dL RDW (11.5-15.5) % Neutrophils # (Manual) (1.3-7.7) k/uL Lymphocytes # (Manual) (1.0-4.8) k/uL Monocytes # (Manual) (0-1.0) k/uL ABG pH (7.35-7.45) ABG pCO2 (35-45) mmHg ABG pO2 (83-108) mmHg ABG Total CO2 (19-24) mmol/L ABG O2 Saturation (94-97) % BUN (7-17) mg/dL Creatinine (0.52-1.04) mg/dL Glucose (74-99) mg/dL POC Glucose (mg/dL) 63 L 186 H (75-99) mg/dL Calcium (8.4-10.2) mg/dL Ionized Calcium Janie (4.5-5.3) mg/dL Delta Bilirubin (0.0-0.2) mg/dL AST (14-36) U/L Alkaline Phosphatase (38-126) U/L Total Protein (6.3-8.2) g/dL Albumin (3.5-5.0) g/dL Microbiology - Last 24 Hours (Table) 07/23/20 12:50 Urine Culture - Final Urine,Voided Escherichia coli 07/23/20 16:00 Gram Stain - Preliminary Paracentesis Fluid Body Fluid Culture - Preliminary 07/23/20 20:00 Gram Stain - Final Sputum Sputum Culture - Final Citrobacter freundii 07/23/20 16:00 Anaerobic Culture - Preliminary Paracentesis Fluid 07/22/20 21:37 Blood Culture - Preliminary Blood No Growth after 72 hours Assessment and Plan Assessment: Assessment: Septic shock needing high doses of pressors Possible right pneumonia with diffuse right pulmonary infiltrate Elevated troponin, rule out cardiac causes Ascites status post paracentesis Large bowel ileus CHF versus ARDS History of rectal cancer since 2018 Multiple compression fracture Bilateral pleural effusion Ascites with peritoneal nodularity suspicious for persistent carcinomatosis Rectal wall thickening with mass cannot be excluded Elevated TSH at 10.4 Hypertension Osteoarthritis History of coronary artery disease History of gout History of duodenal ulcer PLAN: Patient to be continued on antibiotics in the form of Zosyn and vancomycin. Continue with pressor support. ICU team discussed the CODE STATUS with the patient's family members and she is made a no code. Ongoing discussion with the family regarding making her comfort care due to overall poor prognosis with multiple chronic medical conditions.
[2020-07-27] MEDS: PIPERACILLIN-TAZOBACTAM 3.375 GM in SODIUM CHLORIDE 0.9% 100 ML IVPB SCH ×2 (00:19→09:32)
[2020-07-27 00:28] LABS: Glucose,Whole Blood 89 mg/dL (75-99)
[2020-07-27] MEDS: INSULIN ASPART (NovoLOG) 100 UNIT/ML VIAL SQ SCH ×3 (00:28→13:15)
[2020-07-27] MEDS: SODIUM CHLORIDE 0.9% 1,000 ML IV SCH ×3 (00:30→09:27)
[2020-07-27] MEDS: NOREPINEPHRINE 8 MG in SODIUM CHLORIDE 0.9% 250 ML IV SCH (04:03)
[2020-07-27 05:04] LABS: ABG Base Excess 0.4 mmol/L; ABG HCO3 24 mmol/L (21-25); ABG PCO2 34 mmHg (35-45); ABG PH 7.46 (7.35-7.45); ABG PO2 75 mmHg (83-108); ABG TCO2 25 mmol/L (19-24); Allen Test Performed? Yes
[2020-07-27 05:11] VITALS: TEMP 97.8
[2020-07-27 05:13] LABS: Ionized Calcium 4.4 mg/dL (4.5-5.3)
[2020-07-27 05:17] LABS: Albumin 1.6 g/dL (3.5-5.0); Calcium 7.1 mg/dL (8.4-10.2); Total Bilirubin 0.5 mg/dL (0.2-1.3); Total Protein 3.6 g/dL (6.3-8.2)
[2020-07-27 05:27] LABS: Anisocytosis Moderate; HCT 30.7 % (34.0-46.0); HGB 9.2 gm/dL (11.4-16.0); Hypochromasia Marked; MCV 93.4 fL (80.0-100.0); Macrocytosis Slight; Mean Platelet Volume 9.5; Platelet Count 171 k/uL (150-450); RBC 3.28 m/uL (3.80-5.40); RDW 21.1 % (11.5-15.5); WBC 14.1 k/uL (3.8-10.6)
[2020-07-27 06:45] LABS: Glucose,Whole Blood 78 mg/dL (75-99)
[2020-07-27 07:06] LABS: Band Neutrophils % 22 %; Lymphocytes # (M) 0.71 k/uL (1.0-4.8); Monocytes # (M) 0.85 k/uL (0-1.0); Neutrophils % (M) 68 %; Nucleated Red Blood Cells 0 /100 WBC (0-0); Total Cells Counted 200
[2020-07-27 07:08] LABS: Large Platelets Present
[2020-07-27 07:11] LABS: Poikilocytosis (M) Present; Polychromasia Present; Target Cells Present
--- NOTE | 2020-07-27 07:32 | XR ---
EXAMINATION TYPE: XR chest 1V portable DATE OF EXAM: 07/27/2020 COMPARISON: 07/26/2020 INDICATION: Tube placement TECHNIQUE: Single frontal view of the chest is obtained. FINDINGS: The heart size is normal. The pulmonary vasculature is upper limits of normal. There is mild increased infiltrate at the lung bases. There is silhouetting the diaphragms. Correlate for atypical pulmonary edema and atelectasis. Pneumonia could be considered. Endotracheal tube tip is above the nicolette. Nasogastric tube tip is in the left upper quadrant of the abdomen. Left central venous catheter tip is within the proximal right atrium. Right side port tip is within the superior vena cava region. IMPRESSION: 1. Bibasilar infiltrates, worsening. 2. Lines and catheters discussed above.
[2020-07-27] MEDS ORDERED: VANCOMYCIN TROUGH DUE 1 EACH MISC MISCELLANE ONE (08:00)
[2020-07-27] MEDS ORDERED: IOPAMIDOL CONTRAST (ORAL USE) VIAL PO PRN (09:20)
[2020-07-27] MEDS: PANTOPRAZOLE 40 MG/10 ML VIAL IV SCH (09:28)
[2020-07-27] MEDS: VANCOMYCIN 750 MG in SODIUM CHLORIDE 0.9% 250 ML IVPB SCH (09:28)
[2020-07-27] MEDS ORDERED: FUROSEMIDE 10 MG/ML 4 ML VIAL IV SCH (09:30)
[2020-07-27] MEDS: ATORVASTATIN 20 MG TAB PO SCH (09:35)
[2020-07-27] MEDS: DOCUSATE ORAL SOLN 100 MG/10 ML CUP PO SCH (09:35)
[2020-07-27] MEDS: CHLORHEXIDINE GLUCONATE 15 ML CUP MUCOUS MEM SCH (09:35)
[2020-07-27] MEDS: LIDOCAINE 5% PATCH TOPICAL SCH (09:35)
[2020-07-27] MEDS: METOPROLOL TARTRATE 25 MG TAB PO SCH (09:36)
[2020-07-27] MEDS: HEPARIN SODIUM,PORCINE 5,000 UNIT/ML 1 ML VIAL SQ SCH (09:43)
[2020-07-27] MEDS: SODIUM CHLORIDE 0.9% 150 ML with VASOPRESSIN 60 UNIT IV SCH ×2 (10:16)
--- NOTE | 2020-07-27 12:32 | CT ---
EXAMINATION TYPE: CT abdomen pelvis wo con DATE OF EXAM: 07/27/2020 COMPARISON: 07/22/2020 INDICATION: Weakness, abdominal cancer, ascites DLP: 644 mGycm, Automated exposure control for dose reduction was used. CONTRAST: 0 mL of Isovue 300. Study performed with Oral Contrast TECHNIQUE: Axial images were obtained from above the diaphragm to the pubic rami in the axial plane a t 5 mm thick sections. Reconstructed images are reviewed on the computer in the coronal plane. Grace ent vomited oral contrast limiting the exam. FINDINGS: Limited CT sections are obtained the lung bases. Small bilateral pleural effusions are present. Brianna nary artery calcification is present. Nasogastric tube is present with the tip within the stomach. CT ABDOMEN: Diffuse ascites is present. Liver: Normal Spleen: Normal Pancreas: Poorly visualized. Atrophic. Adrenal glands: The adrenal glands are normal. Gallbladder: Normal Kidneys: No masses are evident. No hydronephrosis is present. No cysts are present. No renal stone s are identified. Aorta: Vascular calcification is within the aorta. Inferior vena cava: Normal. CT PELVIS: Diffuse soft tissue edema is present There is some prominence of small bowel loop containing contrast within the left midabdomen. There is some contrast present within the colon which may be old contrast from the prior study. There are loo ps of bowel which are incompletely distended or lack oral contrast limiting their evaluation. Small b owel loops are somewhat prominent and fluid-filled as well as contrast-filled. Interpretation is some what difficult although findings can be suggestive for partial small bowel obstruction. Some narrowin g of the mid ilium above the anterior lower pelvis may be present coronal plane. Example images serie s 202 image 36 Appendix: Not visualized. Inflammatory changes are not identified. Urinary bladder: Decompressed with a Stanford catheter. Genitourinary structures: Uterus is not clearly identified. Adnexal regions appear clear. Osseous structures: No suspicious lytic or sclerotic lesions. Degenerative changes are present IMPRESSIONS: 1. Worsening ascites in the subcutaneous edema. This causes some limitation on the interpretation. 2. Dilated small bowel loops are less well visualized than comparison. Focal transition is not clearl y identified. However, there is returning to normal caliber within the mid to distal ileum suggesting a mid ileal partial small bowel obstruction. 3. Bilateral pleural effusions, stable
[2020-07-27 12:44] LABS: Glucose,Whole Blood 71 mg/dL (75-99)
--- NOTE | 2020-07-27 12:58 | P.PN ---
Subjective Progress Note Date: 07/27/20 This is a 74-year-old female patient with a known history of metastatic rectal cancer that was diagnosed in July 2018. The patient is a representation back balance for severe anemia and she was found to have a rectal prolapse and a friable polypoid nodularity in the prolapse rectum. She was found to have a rectal adenocarcinoma. The patient was seen by oncology. The patient also underwent a transanal excision of the rectal cancer. The patient was being followed up by oncology and a PET scan that was done on 09/08/2019 showed significant abnormalities with mild hypermetabolic uptake along the course of the sigmoid rectal: In addition to moderate to severe concentric wall thickening and more distally there was hypermetabolic uptake within the rectum extending slightly to the right of the midline and there is also suspected eccentric mass measuring up to 3 cm in size showing metabolic activity. The patient also had some ascites with prominent notoriety along the upper and midabdomen concerning for peritoneal carcinomatosis. Based on this, the patient was taken to the operating room and the patient underwent a laparoscopic cholecystectomy and laparoscopic peritoneal biopsy and the biopsies came back positive for malignancy. The patient was found to have metastatic moderately differentiated adenocarcinoma consistent of a colon primary in addition to the gallbladder being able with metastatic adenocarcinoma and there was some limited chronic cholelithiasis and cholecystitis. .. The patient accordingly was started on systemic chemotherapy and the patient was being treated with FOLFOX and the patient's last treatment was on first week of June. The patient came into the hospital yesterday complaining of abdominal pain. She looked quite tired and debilitated and she was also having some increased difficulty in breathing. She denied having any chest pain. She was quite dehydrated and she admitted not to eat or drink for the past week or so. According to the niece, the patient had been having nausea and emesis approximately week and she was having some dark brown or black stool. In the emergency department, the patient was found to have a white cell count of 64.3. Hemoglobin was 9.9. Platelet was 474. The patient had an INR of 1.3 with a PT of 12.9. GIM was 33 with a creatinine of 1.01. Sodium was 134. The initial lactic acid level was at 2.9 and subsequently dropped down to 1.4. Troponins were 0.08 and 0.2 respectively 2, her TSH was elevated at 10.4, UA was positive for protein +1, there were 40 WBCs, 6 RBCs and many bacteria was also noted. The computed tomography scan of the abdomen and pelvis was done and showed large bilateral pleural effusions with fluid was more so on the right and there was a moderate-sized hiatal hernia and the heart size was within normal limits. There was some atelectatic changes in lung bases. There was a large amount of intra- abdominal ascites fluid and liver showed no focal deficits or defects. Spleen was intact. Gallbladder was absent. The bile ducts were not dilated. Note that the CAT scan of the chest abdomen and pelvis that was done on 07/09/2020 showed peritoneal carcinomatosis, pleural effusion bilateral and persistent rectal wall thickening consistent with recurrent cancer. The patient was started on IV antibiotics. The patient was started on IV fluids. The patient was admitted to the medical floor and subsequently the patient a chest to the intensive care unit as the patient became progressively more hypotensive earlier this morning. Currently, the patient is receiving IV fluids with normal saline at the rate of 130 mL an hour. She received another bolus of IV fluid in the ICU. She is on a combination of cefepime and vancomycin. Repeat white cell count from today 62.3. The echocardiogram was obtained and the patient is a preserved LV function with an ejection fraction of 65% and there was moderate aortic stenosis with a mean gradient of 24 mmHg and there was moderate to severe MR, moderate TR with severe pulmonary hypertension with a biventricular systolic pressure of 62. Cardiac rhythm is sinus.Associated with a moderate to severe mitral regurgitation. There is a concern for underlying endocarditis. Evidence for systolic pressure was quite elevated at 62 mmHg. I came to see the patient in the intensive care unit. The patient was extremely lethargic, the patient was not communicating and she was unable to volunteer any history. I contacted her oncologist and I was made aware that the patient was being treated for metastatic rectal cancer. Note that the patient is having abdominal pain and discomfort in her abdomen is quite distended at this point in time. She has a BP of 97/55. The patient is tachycardicand her heart rate is around 1:30, sinus. She is on on 100% nonrebreather facemask and she is quite thickened neck. There is a Stanford catheter in place and there is no urine output. Her skin is mottled and the pulses in lower extremities are quite diminished. On 07/24/2020 the patient is being seen for a follow-up. The patient continues to be shock state. The patient was intubated and placed on mechanical ventilator and a paracentesis was done were a total of 1.6-1.7 L of ascitic fluid was aspirated. The patient was kept on a mechanical ventilator overnight. She developed an aspiration pneumonia with diffuse breath and pulmonary infiltrates. Abdomen is still tense and tight although , There was some improvement on examination that was noted post paracentesis. The patient remains on a mechanical ventilator. This morning, she is sedated with propofol and she is calm and comfortable. His symptoms with the mechanical ventilator. IV fluids are running in the form of D5 with 150 mEq of sodium bicarbonate ru nning at 150 mL an hour and the patient is also on a combination of norepinephrine infusion at 40 g per minute and vasopressin at 0.03 units an hour. The patient is still pressor dependent and she is quite hypotensive shock state. On a mechanical ventilator, she is an assist-control mode at the rate of 28 and a tidal volume of 375 with an FiO2 of 100% and a PEEP of 12. The blood gas showed a pH of 7.47 with a pCO2 of 31 and pO2 of 55. Peak airway pressure was around 38 with a pressure of 33. Based on this, and based on underlying hypoxemia, switch this patient to a pressure control mode of ventilation and the necessity ventilator changes were done. The patient is currently covered with a combination of Zosyn and vancomycin. Blood cultures negative. Lactic acid elevated at 4. 3 and subsequent level came up to 6.3. The white cell count is a 56.5. Discussed abdominal findings with the general surgery. There was ongoing distention of the transverse colon and stool in the distal colon was noted. NG tube is in a good location. There is evidence of large bowel ileus and the john paul carolina is known to have metastatic rectal adenocarcinoma with peritoneal carcinomatosis. 07/25/2020, the patient remains intubated on a mechanical ventilator, sedated with propofol and the patient is currently being weaned off the propofol to assess underlying mental status changes the patient is getting a sedation holiday. Patient is on IV fluid and this was switched from a bicarb infusion to a normal saline infusion rate of 100 mL an hour. Norepinephrine infusion running at 0.12 mics respite KG per minute and the patient also is on vasopressin drip physiologic dose. Pressor requirements have improved compared to yesterday. Meanwhile, the patient remains on a mechanical ventilator at a pressure control mode of ventilation at a rate of 24. The pressure control is at 22 cm of water with an FiO2 of 70% and a PEEP of 16. The blood gases from today showed a pH of 7.52 with a pCO2 of 37 and pO2 of 150 and this was on the fact of 100%. The patient's chest x-ray showing bilateral pulmonary infiltrates similar to yesterday, probably less confluent. Meanwhile, abdomen remains distended and the patient had a fracture of the abdomen that showed persistent gas pattern abnormalities with fecal material seen in the left colon and dilatation of the transverse colon. NG tube was in a good location. The patient had also some drop in the white cell count is down to 31.4. Hemoglobin is at 9.3. The patient remains on examination Zosyn and vancomycin. The sputum cultures positive for gram-negative bacillus. The blood culture is showing no growth. Ascitic fluid showed no growth after 24 hours. Noted the patient is not producing or passing any stool at this point in time. The rectal examination of the bedside showed no fecal material and inspected areas. 07/26/2020, the patient is doing poorly. She remains intubated on a mechanical ventilator. Abdomen is very much distended and a repeat abdominal x-ray showed some nonspecific but likely nonobstructive bowel gas pattern. No interval change compared to yesterday. There is a persistent gaseous prominence of the colonic loop horizontally probably representing the transverse colon. There is also gas and fecal material seen in the nondistended colon along the periphery. There is also evidence of ascites. The patient remains intubated on a mechanical ventilator. On today's evaluation, the patient is an assist-control mode, pressure control mode at the rate of 24, with a pressure control of 22 and a FiO2 of 70% with a PEEP of 16. The blood gases showed a pH of 7.47 with a pCO2 35 and pO2 of 48. Based on that, some adjustment in the ventilator were done. Chest x-ray still showing bilateral pulmonary infiltrates although slightly improved compared to yesterday. In terms of hemodynamics, the patient remains pressor dependent. The patient is producing less than 10 mL of urine output and hours. Norepinephrine infusion is running at 0.14 mg per KG per minute and the patient is on normal saline at the rate of 100 mL an hour. Antibiotic coverage includes examination of Zosyn and vancomycin. The urine culture was positive for E. coli. Sputum culture was positive for Citrobacter. The white cell count is down to 22. BUN is at 32 with a creatinine of 1.1. LFTs show no major abnormalities on today's evaluation. Most recent blood sugar is at 63. Abdomen is quite distended. NG tube in place. Output is minimal at this point in time. Unable to offer any enteral feeding for nutritional suppo rt. Had a lengthy family discussion with considering comfort care measures at a later stage possibly today or tomorrow. Meanwhile, the ascitic fluid cytology still pending for now. 07/27/2020, I'm seeing the patient for a follow-up. Her condition essentially unchanged. Abdomen is quite distended. Had a family meeting and family was unable to establish a CODE STATUS change on her yesterday. Meanwhile, the patient remains nothing by mouth. She remains sedated on propofol. She remains on a mechanical ventilator. This morning she is on a protocol of 30 mg per KG per minute. She is on assist-control pressure cycle ventilator setting with a pressure control of 22, FiO2 of 50% with a PEEP of 14 and the rate of 24. The blood gas showed a pH of 7.47 with a pCO2 of 74 and pO2 of 75. Chest x-ray still showing diffuse but the pulmonary infiltrates consistent with pneumonia. Earlier sputum analysis from the lungs showed Citrobacter. The patient remains on IV Zosyn and vancomycin. E. coli was also cultured in the urine. Urine output is no other of 10-20 mL an hour. The patient is getting progressively more edematous in all 4 extremities. As mentioned earlier, IV fluids is running at 100 mL an hour and this needs to be cut down. The patient is afebrile. I repeated the computed tomography scan of the abdomen and pelvis. The findings were consistent with worsening ascites and the epididymis edema throughout the body. There was also dilated small bowel loops that were less well-visualized in comparison to previous CAT scans. Focal transition is not clearly identifie d. However, there is returning to normal caliber within the mid and the distal ileum suggestive of a mid-ileal partial small bowel obstruction. Bilateral pleural effusion were also noted. Based on this, I plan to do another paracentesis to give this patient some symptomatic relief. Objective - Vital Signs Vital signs: Vital Signs Temp 97.8 F 11/01/20 04:00 Pulse 95 07/27/20 12:30 Resp 12 07/27/20 12:30 BP 103/52 07/27/20 12:30 Pulse Ox 95 07/27/20 12:30 Intake & Output 07/26/20 07/27/20 07/27/20 19:59 06:59 18:59 Intake Total 1747.531 Output Total 40 Balance 1707.531 Weight Intake: IV 1020 0.9 NaCl 320 Piperacillin-Tazobactam 3 100 .375 gm In Sodium Chloride 0.9% 100 ml @ 25 mls/hr IVPB Q8H [facility] Rx#: [id number] Vancomycin 750 mg In 500 Sodium Chloride 0.9% 250 ml @ 125 mls/hr IVPB ONCE ONE Rx#:[id number] Zosyn 3.375g/100ml 100 Intake, IV Titration 137.531 Amount Calcium Gluconate 2 gm In Sodium Chloride 0.9% 100 ml @ 100 mls/hr IVPB ONCE ONE Rx#:[id number] Norepinephrine 8 mg In 54.453 Sodium Chloride 0.9% 250 ml @ 0.05 MCG/KG/MIN 3. 918 mls/hr IV .Q24H [facility] Rx#:[id number] Potassium Chloride 10 meq In Water For Injection 1 100ml.bag @ 100 mls/hr IVPB Q1H [facility] Rx#: [id number] Sodium Chloride 0.9% 150 ml @ 0.03 UNITS/MIN 4.59 mls/hr IV .Q24H [facility] with Vasopressin 60 unit Rx#: [id number] Vancomycin 750 mg In Sodium Chloride 0.9% 250 ml @ 125 mls/hr IVPB Q24H [facility] Rx#:[id number] propofoL 1,000 mg In 83.078 Empty Bag 1 bag @ Titrate IV .Q0M [facility] Rx#: [id number] Oral 590 Other Output: Gastric Drainage Urine 40 Other: Voiding Method Indwelling Catheter ABP, PAP, CO, CI - Last Documented Arterial Blood Pressure 108/51 - Exam GENERAL: The patient is sedated and intubated on a mechanical ventilator. The patient has a very distended abdomen at this point in time. Head exam was generally normal. There was no scleral icterus or corneal arcus. Mucous membranes were moist. HEENT: Pupils are round and equally reacting to light. EOMI. No scleral icterus. No conjunctival pallor. Normocephalic, atraumatic. No pharyngeal erythema. No thyromegaly. CARDIOVASCULAR: tachycardic, S1 and S2 present. and the patient has a wide-open holosystolic murmur grade 4/6 heard mainly over the left upper sternal border. -PULMONARY: Chest is clear to auscultation, no wheezing or crackles. Diminished breath on the lung bases bilaterally and there is worsening diminished on the right ABDOMEN:distended abdomen which is also firm and there is underlying large ascites There is absent bowel sounds There is some mild direct tenderness. No rebound tenderness. No guarding. The abdomen is somewhat tympanic. No palpable organomegaly. There is a minimal fluid wave and shifting dullness consistent with ascites MUSCULOSKELETAL: No joint swelling or deformity. EXTREMITIES: No cyanosis, clubbing, or and the patient is developing increasing edema and upper and lower extremities NEUROLOGICAL examination shows that the patient is sedated and patient is calm and comfortable. She is quite sedated on propofol and she suggested a mechanical ventilator. Pupils are equal and reactive to light. Motor and sensory functions cannot be accurately assessed. SKIN: No rashes. No petechiae - Labs CBC & Chem 7: 07/27/20 04:20 07/27/20 04:20 Labs: Abnormal Lab Results - Last 24 Hours (Table) 07/26/20 07/27/20 07/27/20 Range/Units 04:15 04:20 04:20 WBC 14.1 H (3.8-10.6) k/uL RBC 3.28 L (3.80-5.40) m/uL Hgb 9.2 L (11.4-16.0) gm/dL Hct 30.7 L (34.0-46.0) % MCHC 30.0 L (31.0-37.0) g/dL RDW 21.1 H (11.5-15.5) % Neutrophils # (Manual) 12.60 H (1.3-7.7) k/uL Lymphocytes # (Manual) 0.71 L (1.0-4.8) k/uL ABG pH (7.35-7.45) ABG pCO2 (35-45) mmHg ABG pO2 (83-108) mmHg ABG Total CO2 (19-24) mmol/L BUN 32 H 34 H (7-17) mg/dL Creatinine 1.12 H 1.17 H (0.52-1.04) mg/dL Glucose 62 L (74-99) mg/dL POC Glucose (mg/dL) (75-99) mg/dL Calcium 6.7 L 7.1 L (8.4-10.2) mg/dL Ionized Calcium Janie 4.4 L (4.5-5.3) mg/dL Delta Bilirubin 0.3 H (0.0-0.2) mg/dL AST 84 H 90 H (14-36) U/L Alkaline Phosphatase 207 H 253 H (38-126) U/L Total Protein 3.4 L 3.6 L (6.3-8.2) g/dL Albumin 1.6 L 1.6 L (3.5-5.0) g/dL 07/27/20 07/27/20 Range/Units 05:02 12:42 WBC (3.8-10.6) k/uL RBC (3.80-5.40) m/uL Hgb (11.4-16.0) gm/dL Hct (34.0-46.0) % MCHC (31.0-37.0) g/dL RDW (11.5-15.5) % Neutrophils # (Manual) (1.3-7.7) k/uL Lymphocytes # (Manual) (1.0-4.8) k/uL ABG pH 7.46 H (7.35-7.45) ABG pCO2 34 L (35-45) mmHg ABG pO2 75 L (83-108) mmHg ABG Total CO2 25 H (19-24) mmol/L BUN (7-17) mg/dL Creatinine (0.52-1.04) mg/dL Glucose (74-99) mg/dL POC Glucose (mg/dL) 71 L (75-99) mg/dL Calcium (8.4-10.2) mg/dL Ionized Calcium Janie (4.5-5.3) mg/dL Delta Bilirubin (0.0-0.2) mg/dL AST (14-36) U/L Alkaline Phosphatase (38-126) U/L Total Protein (6.3-8.2) g/dL Albumin (3.5-5.0) g/dL Microbiology - Last 24 Hours (Table) 07/22/20 21:37 Blood Culture - Preliminary Blood No Growth after 96 hours 07/23/20 12:50 Urine Culture - Final Urine,Voided Escherichia coli 07/23/20 16:00 Gram Stain - Preliminary Paracentesis Fluid Body Fluid Culture - Preliminary 07/23/20 20:00 Gram Stain - Final Sputum Sputum Culture - Final Citrobacter freundii Assessment and Plan Plan: 1 septic shock, Strongly suspect an abdominal source of an infection. . The patient has abdominal distention, ascites and possibly a bowel obstruction with significant dilatation of the transverse colon. The patient also has some fecal material in the descending colon. Please refer to the x-ray of the abdomen and the CAT scan of the abdomen done earlier. Ascitic fluid was negative for any bacterial growth. Fluid cytology still pending for now. Meanwhile, The patient continues to have leukocytosis, elevated lactic acid level and the transverse colon on the routine x-rays of the abdomen and the CAT scan of the abdomen was quite distended with some fecal material distally. The blood Cultures are negative. The urine culture is positive for E. coli and the sputum cultures positive for gram-negative Citrobacter. The patient has been adequately resuscitated IV fluids. The patient remains on pressors and antibiotics. Note that the patient is running at a lower pressors doses and norepinephrine infusion is running at 0.04 g per KG per minute. The patient was resuscitated and covered with antibiotics. She is afebrile for now. 2 acute leukocytosis, slightly improved compared to yesterday, nevertheless the levels remain quite elevated. The follow-up white cell count is at 14k, and her acute leukocytosis improving 3 acute hypotension secondary to above, overall the blood pressure control is improved and the patient is still on pressors although is still on pressors although at a much lower infusion rate. 4 acute lactic acidosis, and the lactic acid level continues to be elevated, likely secondary to sepsis and the possibility bowel ischemic cannot be completely ruled out especially with her history of metastatic colon cancer , 5 metastatic rectal adenocarcinoma with peritoneal carcinomatosis, ascites and bilateral pleural effusions, the patient was receiving FOLFOX systemic chemotherapy on outpatient basis. The patient has a large ascites and a therapeutic paracentesis was done with a total of 2 L of bronchospastic fluid was drained at time of admission. A repeat CAT scan of the abdomen was done today showed evidence of recurrence and ascites along with bilateral pleural effusions. 6 severe mitral regurgitation with possibility of a valvular vegetation, rule out underlying endocarditis. Rule out bacterial or infectious endocarditis. Rule out malignant vegetation. 7 coronary artery disease. 8 gout 9 duodenal ulcer, history of 10 acute kidney injury 11 cachexia with weight loss and a BMI of 18 12 bilateral pleural effusions 13 ascites post-paracentesis with interval recurrence in the ascites based on the most recent CAT scan of the abdomen and pelvis. 14 acute hypoxic respiratory failure currently intubated on a mechanical ventilator. The patient has dense bilateral pulmonary infiltrates. There is improved compared to yesterday. Sputum Gram stain and culture showing Citrobacter. The patient has also developed diffuse but the pulmonary infiltrates, consider bilateral pneumonia of an aspiration type. Consider pulmonary edema as the patient has a significant mitral regurgitation on echocardiogram as mentioned. He addition, the patient has bilateral pleural effusions moderate in size and massive ascites and abdominal distention contributing to respiratory failure. Plan We'll do some few ventilator changes. I'm going to drop the pressure control down to 18 cm of water Continue IV Zosyn and vancomycin as broad-spectrum antibiotic coverage Continue pressors and wean the patient off the pressors We'll proceed with another paracentesis for symptomatic relief Awaiting the fluid cytology results from the previous paracentesis Unable to see the patient the patient is a quite distended abdomen. Will initiate TPN. Kept on IV fluids to KVO Start the patient on Lasix 40 mg IV push every 12 hours The family is considering comfort care measures knowing that she has a metastatic adenocarcinoma with peritoneal carcinomatosis. Ascitic fluid cytology still pending for now. Rest of the treatment is essentially supportive. Prognosis poor. The patient remains in a shock state. No surgical intervention this point in time based on general surgeries evaluation and consultation. Prognosis remains extremely poor. We'll follow. Condition is critical and the patient's prognosis poor knowing that she has a stage IV metastatic rectal carcinoma with a baseline for performance and functional status. We'll continue to follow. This evaluation was done and more than 30 minutes. Prognosis extremely poor baseline above-mentioned comorbidities. Time with Patient: Greater than 30
--- NOTE | 2020-07-27 13:10 | P.PN ---
Subjective Progress Note Date: 07/27/20 CHIEF COMPLAINT: Metastatic colon cancer HISTORY OF PRESENT ILLNESS: The patient is a 74-year-old female admitted for metastatic colon cancer. No significant improvement of her overall condition. CT of the abdomen and pelvis has been ordered by the critical care team. Per discussion with nurse, an attempted paracentesis was performed without any significant output. ROS: No fevers or chills. No new chest pain. No productive sputum PHYSICAL EXAM: VITAL SIGNS: Reviewed CONSTITUTIONAL: Well developed and in no acute distress. EYES: Conjuctivae without sclera icterus. HEAD, EARS, NOSE, THROAT: Head is atraumatic, normocephalic. No nasal drainage. NECK: Supple. No thyroidomegaly. RESPIRATORY: Non-labored respirations and equal bilateral excursions. CARDIOVASCULAR: Palpable 2+ radial pulses. ABDOMEN: No peritonitis. Gross anasarca. MUSCULOSKELETAL: No gross deformity of the lower extremities noted. No clubbing. No cyanosis. SKIN: Good skin turgor. Well perfused. NEUROLOGIC: No focal or lateralizing signs. PSYCH: Deferred due to ventilatory support CLINICAL LABS: White blood cell count elevated over 22,000 improved to 14,000. Hemoglobin down 10.6 to 9.2. STUDIES: Chest x-ray independently reviewed without features of pneumoperitoneum or free air. CT of the abdomen and pelvis reviewed demonstrating diffuse anasarca including abdominal ascites limiting study. Retained contrast within stool along the ascending colon. No diffuse free air identified. ASSESSMENT: 1. Metastatic colon cancer PLAN: 1. Patient is overall poor prognosis for any surgical intervention. 2. Recommend comfort care 3. Not a surgical candidate Objective - Vital Signs Vital signs: Vital Signs Temp 97.8 F 07/27/20 04:00 Pulse 97 07/27/20 11:00 Resp 24 07/27/20 11:00 BP 114/69 07/24/20 21:00 Pulse Ox 96 07/27/20 11:00 Intake & Output 07/26/20 07/27/20 07/27/20 19:59 06:59 18:59 Intake Total 1731.857 Output Total 40 Balance 1691.857 Weight Intake: IV 1020 0.9 NaCl 320 Piperacillin-Tazobactam 3 100 .375 gm In Sodium Chloride 0.9% 100 ml @ 25 mls/hr IVPB Q8H [facility] Rx#: [id number] Vancomycin 750 mg In 500 Sodium Chloride 0.9% 250 ml @ 125 mls/hr IVPB ONCE ONE Rx#:[id number] Zosyn 3.375g/100ml 100 Intake, IV Titration 121.857 Amount Calcium Gluconate 2 gm In Sodium Chloride 0.9% 100 ml @ 100 mls/hr IVPB ONCE ONE Rx#:[id number] Norepinephrine 8 mg In 38.779 Sodium Chloride 0.9% 250 ml @ 0.05 MCG/KG/MIN 3. 918 mls/hr IV .Q24H [facility] Rx#:[id number] Potassium Chloride 10 meq In Water For Injection 1 100ml.bag @ 100 mls/hr IVPB Q1H [facility] Rx#: [id number] Sodium Chloride 0.9% 150 ml @ 0.03 UNITS/MIN 4.59 mls/hr IV .Q24H [facility] with Vasopressin 60 unit Rx#: [id number] Vancomycin 750 mg In Sodium Chloride 0.9% 250 ml @ 125 mls/hr IVPB Q24H [facility] Rx#:[id number] propofoL 1,000 mg In 83.078 Empty Bag 1 bag @ Titrate IV .Q0M [facility] Rx#: [id number] Oral 590 Other Output: Gastric Drainage Urine 40 Other: Voiding Method Indwelling Catheter ABP, PAP, CO, CI - Last Documented Arterial Blood Pressure 122/58 - Labs CBC & Chem 7: 07/27/20 04:20 07/27/20 04:20 Labs: Abnormal Lab Results - Last 24 Hours (Table) 07/26/20 07/26/20 07/27/20 Range/Units 04:15 13:36 04:20 WBC 14.1 H (3.8-10.6) k/uL RBC 3.28 L (3.80-5.40) m/uL Hgb 9.2 L (11.4-16.0) gm/dL Hct 30.7 L (34.0-46.0) % MCHC 30.0 L (31.0-37.0) g/dL RDW 21.1 H (11.5-15.5) % Neutrophils # (Manual) 12.60 H (1.3-7.7) k/uL Lymphocytes # (Manual) 0.71 L (1.0-4.8) k/uL ABG pH (7.35-7.45) ABG pCO2 (35-45) mmHg ABG pO2 (83-108) mmHg ABG Total CO2 (19-24) mmol/L BUN 32 H (7-17) mg/dL Creatinine 1.12 H (0.52-1.04) mg/dL Glucose 62 L (74-99) mg/dL POC Glucose (mg/dL) 186 H (75-99) mg/dL Calcium 6.7 L (8.4-10.2) mg/dL Ionized Calcium Janie (4.5-5.3) mg/dL Delta Bilirubin 0.3 H (0.0-0.2) mg/dL AST 84 H (14-36) U/L Alkaline Phosphatase 207 H (38-126) U/L Total Protein 3.4 L (6.3-8.2) g/dL Albumin 1.6 L (3.5-5.0) g/dL 07/27/20 07/27/20 Range/Units 04:20 05:02 WBC (3.8-10.6) k/uL RBC (3.80-5.40) m/uL Hgb (11.4-16.0) gm/dL Hct (34.0-46.0) % MCHC (31.0-37.0) g/dL RDW (11.5-15.5) % Neutrophils # (Manual) (1.3-7.7) k/uL Lymphocytes # (Manual) (1.0-4.8) k/uL ABG pH 7.46 H (7.35-7.45) ABG pCO2 34 L (35-45) mmHg ABG pO2 75 L (83-108) mmHg ABG Total CO2 25 H (19-24) mmol/L BUN 34 H (7-17) mg/dL Creatinine 1.17 H (0.52-1.04) mg/dL Glucose (74-99) mg/dL POC Glucose (mg/dL) (75-99) mg/dL Calcium 7.1 L (8.4-10.2) mg/dL Ionized Calcium Janie 4.4 L (4.5-5.3) mg/dL Delta Bilirubin (0.0-0.2) mg/dL AST 90 H (14-36) U/L Alkaline Phosphatase 253 H (38-126) U/L Total Protein 3.6 L (6.3-8.2) g/dL Albumin 1.6 L (3.5-5.0) g/dL Microbiology - Last 24 Hours (Table) 07/22/20 21:37 Blood Culture - Preliminary Blood No Growth after 96 hours 07/23/20 12:50 Urine Culture - Final Urine,Voided Escherichia coli 07/23/20 16:00 Gram Stain - Preliminary Paracentesis Fluid Body Fluid Culture - Preliminary 07/23/20 20:00 Gram Stain - Final Sputum Sputum Culture - Final Citrobacter freundii Assessment and Plan (1) Metastatic colorectal cancer Current Visit: Yes Status: Acute Code(s): C19 - MALIGNANT NEOPLASM OF RECTOSIGMOID JUNCTION SNOMED Code(s): 86284602 (2) Abdominal malignancy Current Visit: Yes Status: Acute Code(s): C76.2 - MALIGNANT NEOPLASM OF ABDOMEN SNOMED Code(s): 669729368 (3) Rectal adenocarcinoma Current Visit: No Status: Chronic Priority: Medium Code(s): C20 - MALIGNANT NEOPLASM OF RECTUM SNOMED Code(s): 059597834
[2020-07-27 13:18] LABS: Magnesium 1.7 mg/dL (1.6-2.3)
--- NOTE | 2020-07-27 15:18 | P.PCN ---
Date of Procedure: 07/27/20 Preoperative Diagnosis: Ascites, septic shock Postoperative Diagnosis: Ascites, septic shock Procedure(s) Performed: 1 paracentesis 2 insertion of an arterial line Anesthesia: local Surgeon: Bruce Olmedo Estimated Blood Loss (ml): 0 Pathology: other Condition: critical Disposition: ICU Description of Procedure: Insertion of arterial line: Indication: Hemodynamic monitoring. A time-out was completed verifying correct patient, procedure, site, positioning, and implant(s) or special equipment if applicable. Allens test was performed to ensure adequate perfusion. The patient's right groin was prepped and draped in sterile fashion. 1% Lidocaine was used to anesthetize the area. An 18G Arrow arterial line was introduced into the femoral artery. The catheter was threaded over the guide wire and the needle was removed with appropriate pulsatile blood return. Blood loss was minimal. The catheter was then sutured in place to the skin and a sterile dressing applied. Perfusion to the extremity distal to the point of catheter insertion was checked and found to be adequate. The patient tolerated the procedure well and there were no complications. paracentesis The abdomen was cleaned using ChloraPrep. Following that, a 25-gauge needle was utilized to identify the ascitic fluid and there insertion site was the left lateral abdominal wall just below the left upper quadrant around 4 cm lateral to the umbilicus and 2 cm superior to the umbilicus. uadrant. Following that, the skin was incised using a scalpel and a paracentesis needle/catheter was inserted successfully of the right lower quadrant into the abdominal cavity and a total of 2100 mL of turbid dark yellowish ascitic fluid was aspirated and following that the abdomen was quite deflated. No bedside complications. The fluid will be sent for analysis.. The catheter was removed. Appropriate dressing was applied
[2020-07-27 15:33] VITALS: BP 63/30
[2020-07-27] MEDS: MAGNESIUM SULFATE-D5W PMX 1 GM in DEXTROSE/WATER 1 100ML.BAG IVPB SCH ×2 (15:49→16:14)
[2020-07-27] MEDS ORDERED: MORPHINE SULFATE 4 MG/ML SYRINGE IV PRN (15:52)
[2020-07-27] MEDS ORDERED: ATROPINE OPHTH SOLN 1% 5ML BTL SUBLINGUAL PRN (15:52)
[2020-07-27] MEDS ORDERED: MORPHINE SULFATE (100 MG/2 ML) 100 MG in SODIUM CHLORIDE 0.9% 100 ML IV SCH (16:00)
[2020-07-27] MEDS ORDERED: MVI, ADULT NO.4 WITH VIT K 10 ML, TRACE (CONC-1ML/DOSE) 1 ML in AMINO ACID 4.25%-D10W+L... IV SCH ×3 (16:00)
[2020-07-27 21:01] VITALS: PULSE 104; RESP 12
--- NOTE | 2020-07-27 23:29 | P.PN ---
Subjective Progress Note Date: 07/27/20 Principal diagnosis: Sepsis and acute Hypoxic respiratory failure Ms. Savage is a 74-year-old female with a past medical history of metastatic rectal cancer diagnosed in July 2018 who underwent transanal excision of rectal cancer, GERD, hypertension, osteoarthritis admitted to the hospital for abdominal pain. Patient had a CAT scan of the abdomen and pelvis done on 07/09/2020 showing peritoneal carcinomatosis, pleural effusion bilaterally and persistent rectal wall thickening consistent with recurrent cancer. Patient was empirically started on IV antibiotics and IV fluids but later on developed septic shock and transferred to the ICU. On 07/26/2020 -patient is currently in the ICU setting on the ventilator. She is sedated and currently on pressor support with norepinephrine and vasopressin. ABGs done this morning showing pH of 7.47, PCO2 35 and PO2 48. She has decreased output in her Stanford's catheter. She is on vancomycin and Zosyn and her urine cultures are positive for E. coli and sputum cultures positive for Citrobacter. On reviewing the labs from this morning she has a white count of 22.3, hemoglobin 9.6, platelets 216. Sodium 137, potassium 3.9, chloride 104, BUN 32, creatinine 1.21 albumin of 1.6 calcium 6.7. On 07/27/2020- Patient continues to be on mechanical ventilation in the ICU. She is sedated on propofol. Patient had ABGs done showing 7.46, PCO2 34, PO2 75 from this morning. Chest x-ray showing pulmonary infiltrates consistent with pneumonia. Patient's urine cultures were positive for E. coli and sputum culture positive for Citrobacter. Patient had a repeat CAT scan of the abdomen and pelvis showing worsening ascites with subcutaneous edema and dilated small bowel loops and bilateral pleural effusions. So eventually due to poor prognosis patient's family decided to go with comfort care. Objective - Vital Signs Vital signs: Vital Signs Temp 97.8 F 07/27/20 04:00 Pulse 87 07/27/20 13:00 Resp 24 07/27/20 13:00 BP 72/44 07/27/20 13:00 Pulse Ox 95 07/27/20 13:00 Intake & Output 07/26/20 07/27/20 07/27/20 19:59 06:59 18:59 Intake Total 2367.531 Output Total 95 Balance 2272.531 Weight 47.5 kg Intake: IV 1050 0.9 NaCl 340 Piperacillin-Tazobactam 3 100 .375 gm In Sodium Chloride 0.9% 100 ml @ 25 mls/hr IVPB Q8H [facility] Rx#: [id number] Vancomycin 750 mg In 500 Sodium Chloride 0.9% 250 ml @ 125 mls/hr IVPB ONCE ONE Rx#:[id number] Zosyn 3.375g/100ml 110 Intake, IV Titration 137.531 Amount Calcium Gluconate 2 gm In Sodium Chloride 0.9% 100 ml @ 100 mls/hr IVPB ONCE ONE Rx#:[id number] Norepinephrine 8 mg In 54.453 Sodium Chloride 0.9% 250 ml @ 0.05 MCG/KG/MIN 3. 918 mls/hr IV .Q24H [facility] Rx#:[id number] Potassium Chloride 10 meq In Water For Injection 1 100ml.bag @ 100 mls/hr IVPB Q1H [facility] Rx#: [id number] Sodium Chloride 0.9% 150 ml @ 0.03 UNITS/MIN 4.59 mls/hr IV .Q24H [facility] with Vasopressin 60 unit Rx#: [id number] Vancomycin 750 mg In Sodium Chloride 0.9% 250 ml @ 125 mls/hr IVPB Q24H [facility] Rx#:[id number] propofoL 1,000 mg In 83.078 Empty Bag 1 bag @ Titrate IV .Q0M [facility] Rx#: [id number] Oral 1180 Other Output: Gastric Drainage Urine 95 Other: Voiding Method Indwelling Catheter ABP, PAP, CO, CI - Last Documented Arterial Blood Pressure 108/51 - Exam -GENERAL: The patient is intubated and sedated HEENT: Pupils are round and equally reacting to light CARDIOVASCULAR: S1 and S2 present. No murmurs, rubs, or gallops. -PULMONARY: Coarse breath sounds on the right side with some crepitation -ABDOMEN: Soft, nontender, mildly distended and tense , normoactive bowel sounds. No palpable organomegaly. MUSCULOSKELETAL: No joint swelling or deformity. EXTREMITIES: anasarca. NEUROLOGICAL: sedated SKIN: No rashes. No petechiae - Labs CBC & Chem 7: 07/27/20 04:20 07/27/20 04:20 Labs: Abnormal Lab Results - Last 24 Hours (Table) 07/27/20 07/27/20 07/27/20 Range/Units 04:20 04:20 05:02 WBC 14.1 H (3.8-10.6) k/uL RBC 3.28 L (3.80-5.40) m/uL Hgb 9.2 L (11.4-16.0) gm/dL Hct 30.7 L (34.0-46.0) % MCHC 30.0 L (31.0-37.0) g/dL RDW 21.1 H (11.5-15.5) % Neutrophils # (Manual) 12.60 H (1.3-7.7) k/uL Lymphocytes # (Manual) 0.71 L (1.0-4.8) k/uL ABG pH 7.46 H (7.35-7.45) ABG pCO2 34 L (35-45) mmHg ABG pO2 75 L (83-108) mmHg ABG Total CO2 25 H (19-24) mmol/L BUN 34 H (7-17) mg/dL Creatinine 1.17 H (0.52-1.04) mg/dL POC Glucose (mg/dL) (75-99) mg/dL Calcium 7.1 L (8.4-10.2) mg/dL Ionized Calcium Janie 4.4 L (4.5-5.3) mg/dL AST 90 H (14-36) U/L Alkaline Phosphatase 253 H (38-126) U/L Total Protein 3.6 L (6.3-8.2) g/dL Albumin 1.6 L (3.5-5.0) g/dL 07/27/20 Range/Units 12:42 WBC (3.8-10.6) k/uL RBC (3.80-5.40) m/uL Hgb (11.4-16.0) gm/dL Hct (34.0-46.0) % MCHC (31.0-37.0) g/dL RDW (11.5-15.5) % Neutrophils # (Manual) (1.3-7.7) k/uL Lymphocytes # (Manual) (1.0-4.8) k/uL ABG pH (7.35-7.45) ABG pCO2 (35-45) mmHg ABG pO2 (83-108) mmHg ABG Total CO2 (19-24) mmol/L BUN (7-17) mg/dL Creatinine (0.52-1.04) mg/dL POC Glucose (mg/dL) 71 L (75-99) mg/dL Calcium (8.4-10.2) mg/dL Ionized Calcium Janie (4.5-5.3) mg/dL AST (14-36) U/L Alkaline Phosphatase (38-126) U/L Total Protein (6.3-8.2) g/dL Albumin (3.5-5.0) g/dL Microbiology - Last 24 Hours (Table) 07/22/20 21:37 Blood Culture - Preliminary Blood No Growth after 96 hours 07/23/20 12:50 Urine Culture - Final Urine,Voided Escherichia coli 07/23/20 16:00 Gram Stain - Preliminary Paracentesis Fluid Body Fluid Culture - Preliminary Assessment and Plan Assessment: Assessment: Septic shock needing high doses of pressors Possible right pneumonia with diffuse right pulmonary infiltrate Elevated troponin, rule out cardiac causes Ascites status post paracentesis Large bowel ileus CHF versus ARDS History of rectal cancer since 2018 Multiple compression fracture Bilateral pleural effusion Ascites with peritoneal nodularity suspicious for persistent carcinomatosis Rectal wall thickening with mass cannot be excluded Elevated TSH at 10.4 Hypertension Osteoarthritis History of coronary artery disease History of gout History of duodenal ulcer PLAN: Ongoing discussion with the family regarding making her comfort care due to overall poor prognosis with multiple chronic medical conditions.
[2020-07-28] MEDS ORDERED: VANCOMYCIN 750 MG in SODIUM CHLORIDE 0.9% 250 ML IVPB SCH ×2
[2020-07-28] MEDS ORDERED: MVI, ADULT NO.4 WITH VIT K 10 ML, TRACE (CONC-1ML/DOSE) 1 ML in AMINO ACID 4.25%-D10W+L... IV SCH ×3 (10:00)
[2020-07-29 12:12] LABS: ABG PO2 55 mmHg (83-108)
--- NOTE | 2020-08-05 09:58 | CDI ---
Documentation Clarification Form Date: 08/05/2020 09:43:53 AM From: Ruchi BrownAliceaANA, CCDS Admit Date: 07/22/2020 11:09:00 PM Patient Name: Silva Savage Visit Number: [id number] Discharge Date: 07/27/2020 11:18:00 PM ATTENTION: The Clinical Documentation Specialists (CDI) and [facility] Coding Staff appreciate your assistance in clarifying documentation. Please respond to the clarification below the line at the bottom and electronically sign. The CDI & [facility] Coding staff will review the response and follow-up if needed. Please note: Queries are made part of the Legal Health Record. If you have any questions, please contact the author of this message via ITS. Dr. Bruce Olmedo: Patient presented to the ED via EMS on 07/22 with Nausea, Vomiting, Diarrhea, Abdominal Pain, Altered Mental Status, Lethargy, Weakness & Dry Mouth. Per the Pulmonary/Critical Care Progress Notes of 07/22, 07/26 & 07/27: Mental status changes. History/Risk Factors: Rectal Cancer status post chemotherapy with Metastasis to peritoneal, Hypertension, [place], GERD, NPH, Duodenal Ulcers, Gout. Clinical Indicators: Patient presented as above. Admitted with Sepsis with possible Intra-Abdominal Infection, Right Side Pneumonia & Hypotension. Transferred to ICU on day #2 with Septic shock. 07/27. VS 07/23: T 97.4*, P 138^, R 18 (sob, labored); BP 85/52*, PO 92 3 Lnc, PO drop to 88 Intubated. LAB: WBC 64.3^^, Hgb 9.9*, Pl Ct 474^, Neut 62.2^, Na 134*, BUN 33^, Lactic Acid 2.9^^, Alk Phos 244^, Trop 0.081^^, Total protein 5.6*, Albumin 2.8*, TSH 10.400^. UA 07/23: Turbid, Sp Gr 1.044^, 1+ Protein, Small Blood, Mod Abby, WBC 40. Treatment: IV fluid bolus 1,000 mls @ 999 mls/hr x2, IV Narcan, IV Fentanyl, IV Zosyn, IV Kcl, IV Cefepime, IV Vanco, IV NaBicarb. IV Calcium Gluconate. In your professional opinion, can you please clarify the specific type of Encephalopathy, if known? Metabolic Encephalopathy Septic Encephalopathy Toxic Encephalopathy Other, please specify Unable to determine (Last Revision: December 2017) Metabolic Encephalopathy Metabolic Encephalopathy MTDD
--- NOTE | 2020-08-05 10:12 | CDI ---
Documentation Clarification Form Date: 08/05/2020 09:59:00 AM From: Ruchi BrownAliceaANA butler, CCDS Admit Date: 07/22/2020 11:09:00 PM Patient Name: Silva Savage Visit Number: [id number] Discharge Date: 07/27/2020 11:18:00 PM ATTENTION: The Clinical Documentation Specialists (CDI) and [facility] Coding Staff appreciate your assistance in clarifying documentation. Please respond to the clarification below the line at the bottom and electronically sign. The CDI & [facility] Coding staff will review the response and follow-up if needed. Please note: Queries are made part of the Legal Health Record. If you have any questions, please contact the author of this message via ITS. Dr. Bruce Olmedo: Patient presented to the ED via EMS on 07/22 with Nausea, Vomiting, Diarrhea, Abdominal Pain, Altered Mental Status, Lethargy, Weakness & Dry Mouth. Per the Pulmonary/Critical Care Progress Notes of 07/22, 07/26 & 07/27: Mental status changes, Cachectic, Emaciated & Malnourished. History/Risk Factors: Rectal Cancer status post chemotherapy with Metastasis to peritoneal Hypertension, [place], GERD, NPH, Duodenal Ulcers, Gout. Clinical Indicators: Patient presented as above. Admitted with Sepsis with possible Intra-Abdominal Infection, Right Side Pneumonia & Hypotension. Transferred to ICU on day #2 with Septic shock. VS 07/23: T 97.4*, P 138^, R 18 (sob, labored); BP 85/52*, PO 92 3 Lnc, PO drop to 88 Intubated. LAB: WBC 64.3^^, Hgb 9.9*, Pl Ct 474^, Neut 62.2^, Na 134*, BUN 33^, Lactic Acid 2.9^^, Alk Phos 244^, Trop 0.081^^, Total protein 5.6*, Albumin 2.8*, TSH 10.400^. UA 07/23: Turbid, Sp Gr 1.044^, 1+ Protein, Small Blood, Mod Abby, WBC 40. Consult Dietitian & Assessment: 2 Person Assist, Aspiration Pneumonia, Fall Prevention, Incontinence, Specialty Bed, Tube Feeds on 07/27, Poor Nutrition Intake, (Intubated on 07/23), Weight: 47.5 kg, Height 4 ft 11 in Underweight, [place] Weight 44.25 kg. Treatment: IV fluid bolus 1,000 mls @ 999 mls/hr x2, IV Narcan, IV Fentanyl, IV Zosyn, IV Kcl, IV Cefepime, IV Vanco, IV NaBicarb. IV Calcium Gluconate, TPN. Please clarify if the following diagnosis was also present: Mild Malnutrition Moderate Malnutrition Severe Malnutrition Other, please specify: Unable to determine Last Revision: March 2019) Unable to determine MTDD
--- NOTE | 2020-08-05 10:20 | CDI ---
Documentation Clarification Form Date: 08/05/2020 10:16:12 AM From: Ruchi BrownAliceaANA butler, CCDS Admit Date: 07/22/2020 11:09:00 PM Patient Name: Silva Savage Visit Number: [id number] Discharge Date: 07/27/2020 11:18:00 PM ATTENTION: The Clinical Documentation Specialists (CDI) and [facility] Coding Staff appreciate your assistance in clarifying documentation. Please respond to the clarification below the line at the bottom and electronically sign. The CDI & [facility] Coding staff will review the response and follow-up if needed. Please note: Queries are made part of the Legal Health Record. If you have any questions, please contact the author of this message via ITS. Dr. Doreen Anders: Patient presented to the ED via EMS on 07/22 with Nausea, Vomiting, Diarrhea, Abdominal Pain, Altered Mental Status, Lethargy, Weakness & Dry Mouth. Per the Pulmonary/Critical Care Progress Notes of 07/22, 07/26 & 07/27: Mental status changes. History/Risk Factors: Rectal Cancer status post chemotherapy with Metastasis to peritoneal Hypertension, [place], GERD, NPH, Duodenal Ulcers, Gout. Clinical Indicators: Patient presented as above. Admitted with Sepsis with possible Intra-Abdominal Infection, Right Side Pneumonia & Hypotension. Transferred to ICU on day #2 with Septic shock. VS 07/23: T 97.4*, P 138^, R 18 (sob, labored); BP 85/52*, PO 92 3 Lnc, PO drop to 88 Intubated. LAB: WBC 64.3^^, Hgb 9.9*, Pl Ct 474^, Neut 62.2^, Na 134*, BUN 33^, Lactic Acid 2.9^^, Alk Phos 244^, Trop 0.081^^, Total protein 5.6*, Albumin 2.8*, TSH 10.400^. UA 07/23: Turbid, Sp Gr 1.044^, 1+ Protein, Small Blood, Mod Abby, WBC 40. Urine Culture 07/23: final: E Coli Treatment: IV fluid bolus 1,000 mls @ 999 mls/hr x2, IV Narcan, IV Fentanyl, IV Zosyn, IV Kcl, IV Cefepime, IV Vanco, IV NaBicarb. IV Calcium Gluconate. Please document the condition that these clinical indicators signify, whether Present on Admission, and cause if known: UTI o With Sepsis o With Severe Sepsis o Specify organism, if known Other, please specify Unable to determine Present on Admission: Yes or No (Last Revision: June 2017) Unable to determine MTDD
--- NOTE | 2020-08-12 20:53 | P.DS ---
Providers Date of admission: 07/22/20 23:09 Expected date of discharge: 07/28/20 Attending physician: Michelle Genao Consults: 07/22/20 23:10 Consult Physician Routine Consulting Provider: Kelvin Zhu Consult Reason/Comments: abdominal cancer Do you want consulting provider notified?: Yes 07/22/20 23:11 Consult Physician Routine Consulting Provider: Jerome Garcia Consult Reason/Comments: abdominal malignancy? Do you want consulting provider notified?: Yes 07/23/20 10:02 Consult Physician Urgent Consulting Provider: Carolina Luna Consult Reason/Comments: elevated toponin Do you want consulting provider notified?: Yes 07/23/20 10:50 Consult Physician Urgent Consulting Provider: Bruce Olmedo Consult Reason/Comments: right pna Do you want consulting provider notified?: Yes 07/24/20 09:34 Consult Physician Routine Consulting Provider: Jerome Garcia Consult Reason/Comments: bowel obstruction Do you want consulting provider notified?: Yes Primary care physician: [facility] Course: Ms. Savage is a 74-year-old female with a past medical history of metastatic rectal cancer diagnosed in July 2018 who underwent transanal excision of rectal cancer, GERD, hypertension, osteoarthritis admitted to the hospital for abdominal pain. Patient had a CAT scan of the abdomen and pelvis done on 07/09/2020 showing peritoneal carcinomatosis, pleural effusion bilaterally and persistent rectal wall thickening consistent with recurrent cancer. Patient was empirically started on IV antibiotics and IV fluids but later on developed se ptic shock and transferred to the ICU. Pt remained intubated and multiple consultants including Oncology,Gen Surgery, Pulmonary followed her closely. She remains sedated on propofol. She remained on a mechanical ventilator. She is on assist-control pressure cycle ventilator setting with a pressure control of 22, FiO2 of 50% with a PEEP of 14 and the rate of 24. The blood gas showed a pH of 7.47 with a pCO2 of 74 and pO2 of 75. Chest x-ray still showing diffuse but the pulmonary infiltrates consistent with pneumonia. Earlier sputum analysis from the lungs showed Citrobacter. The patient remained on IV Zosyn and vancomycin. E. coli was also cultured in the urine. Urine output is no other of 10-20 mL an hour. The patient is getting progressively more edematous in all 4 extremities. A repeat computed tomography scan of the abdomen and pelvis was done. The findings were consistent with worsening ascites and the epididymis edema throughout the body. There was also dilated small bowel loops that were less well-visualized in comparison to previous CAT scans. Focal transition is not clearly identified. However, there is returning to normal caliber within the mid and the distal ileum suggestive of a mid-ileal partial small bowel obstruction. Bilateral pleural effusion were also noted. So eventually family decided to make her comfort care after having detailed discussions with the ICU team. The patient was made comfortable care and she . Diagnosis Septic shock needing high doses of pressors Possible right pneumonia with diffuse right pulmonary infiltrate Elevated troponin, rule out cardiac causes Ascites status post paracentesis Large bowel ileus CHF versus ARDS History of rectal cancer since 2018 Multiple compression fracture Bilateral pleural effusion Ascites with peritoneal nodularity suspicious for persistent carcinomatosis Rectal wall thickening with mass cannot be excluded Elevated TSH at 10.4 Hypertension Osteoarthritis History of coronary artery disease History of gout History of duodenal ulcer Patient . Plan - Discharge Summary Discharge Rx Participant: No New Discharge Prescriptions: No Action Atorvastatin Calcium [Lipitor] 20 mg PO DAILY Acetaminophen [Tylenol Extra Strength] 1,000 tab PO Q6H PRN PRN Reason: Pain Metoprolol Tartrate [Lopressor] 25 mg PO BID Docusate [Colace] 100 mg PO BID Propylene Glycol [Systane Complete] 1 drop BOTH EYES QID Loratadine [Claritin] 10 mg PO DAILY PRN PRN Reason: w/neulasta injection Ondansetron HCl [Zofran] 4 mg PO Q4-6H PRN PRN Reason: Nausea And Vomiting Pegfilgrastim [Neulasta] 6 mg SQ Q14D Discharge Medication List Acetaminophen [Tylenol Extra Strength] 1,000 tab PO Q6H PRN 08/21/18 [History] Atorvastatin Calcium [Lipitor] 20 mg PO DAILY 08/21/18 [History] Docusate [Colace] 100 mg PO BID 02/05/19 [History] Metoprolol Tartrate [Lopressor] 25 mg PO BID 02/05/19 [History] Loratadine [Claritin] 10 mg PO DAILY PRN 07/22/20 [History] Ondansetron HCl [Zofran] 4 mg PO Q4-6H PRN 07/22/20 [History] Pegfilgrastim [Neulasta] 6 mg SQ Q14D 07/22/20 [History] Propylene Glycol [Systane Complete] 1 drop BOTH EYES QID 07/22/20 [History] Follow up Appointment(s)/Referral(s): Herson Rosario DO [Primary Care Provider] - 1-2 days Discharge Disposition: - Preliminary Cause of Preliminary Cause of : Septic Shock
== END 2020-07-27 23:18 | disposition expired | DRG 870 ==
LOC: EC 20:45 → 3SCARD 23:09 → 2SICU 07-23 12:23
PROVIDERS: ADMIT Hospitalist; ATTEND Hospitalist
PROC: 04HY32Z Insertion of Monitoring Device into Lower Artery, Percutaneous Approach (ICD-10-PCS; principal; 2020-07-23)
PROC: 4A133B1 Monitoring of Arterial Pressure, Peripheral, Percutaneous Approach (ICD-10-PCS; principal; 2020-07-23)
PROC: 0D9670Z Drainage of Stomach with Drainage Device, Via Natural or Artificial Opening (ICD-10-PCS; principal; 2020-07-23)
PROC: 0W9G3ZX Drainage of Peritoneal Cavity, Percutaneous Approach, Diagnostic (ICD-10-PCS; principal; 2020-07-23)
PROC: 5A1955Z Respiratory Ventilation, Greater than 96 Consecutive Hours (ICD-10-PCS; principal; 2020-07-23)
PROC: 0BH17EZ Insertion of Endotracheal Airway into Trachea, Via Natural or Artificial Opening (ICD-10-PCS; principal; 2020-07-23)
PROC: 3E033XZ Introduction of Vasopressor into Peripheral Vein, Percutaneous Approach (ICD-10-PCS; principal; 2020-07-23)
PROC: 02HV33Z Insertion of Infusion Device into Superior Vena Cava, Percutaneous Approach (ICD-10-PCS; principal; 2020-07-23)
PROC: 4A133J1 Monitoring of Arterial Pulse, Peripheral, Percutaneous Approach (ICD-10-PCS; principal; 2020-07-23)
PROC: 3E0436Z Introduction of Nutritional Substance into Central Vein, Percutaneous Approach (ICD-10-PCS; 2020-07-27)
PROC: 0W9G3ZZ Drainage of Peritoneal Cavity, Percutaneous Approach (ICD-10-PCS; 2020-07-27)
PROC: 04HY32Z Insertion of Monitoring Device into Lower Artery, Percutaneous Approach (ICD-10-PCS; 2020-07-27)
PROC: 4A133J1 Monitoring of Arterial Pulse, Peripheral, Percutaneous Approach (ICD-10-PCS; 2020-07-27)
PROC: 4A133B1 Monitoring of Arterial Pressure, Peripheral, Percutaneous Approach (ICD-10-PCS; 2020-07-27)
DX: A41.9 Sepsis, unspecified organism (principal); J96.01 Acute respiratory failure with hypoxia; J69.0 Pneumonitis due to inhalation of food and vomit; R65.21 Severe sepsis with septic shock; G93.41 Metabolic encephalopathy; J90 Pleural effusion, not elsewhere classified; R64 Cachexia; E46 Unspecified protein-calorie malnutrition; N17.9 Acute kidney failure, unspecified; E87.2 Acidosis; G91.2 (Idiopathic) normal pressure hydrocephalus; M48.56XA Collapsed vertebra, not elsewhere classified, lumbar region, initial encounter for fracture; C19 Malignant neoplasm of rectosigmoid junction; C78.6 Secondary malignant neoplasm of retroperitoneum and peritoneum; K56.7 Ileus, unspecified; I27.20 Pulmonary hypertension, unspecified; D47.3 Essential (hemorrhagic) thrombocythemia; E83.51 Hypocalcemia; Z66 Do not resuscitate; Z51.5 Encounter for palliative care; I11.9 Hypertensive heart disease without heart failure; I08.3 Combined rheumatic disorders of mitral, aortic and tricuspid valves; E78.5 Hyperlipidemia, unspecified; E87.6 Hypokalemia; E86.0 Dehydration; D63.0 Anemia in neoplastic disease; K44.9 Diaphragmatic hernia without obstruction or gangrene; K21.9 Gastro-esophageal reflux disease without esophagitis; I25.10 Atherosclerotic heart disease of native coronary artery without angina pectoris; I25.2 Old myocardial infarction; M54.5 Low back pain; K62.3 Rectal prolapse; I49.3 Ventricular premature depolarization; R94.6 Abnormal results of thyroid function studies; M19.90 Unspecified osteoarthritis, unspecified site; R77.8 Other specified abnormalities of plasma proteins; Z79.899 Other long term (current) drug therapy; Z98.41 Cataract extraction status, right eye; Z98.42 Cataract extraction status, left eye; Z96.1 Presence of intraocular lens; Z87.11 Personal history of peptic ulcer disease; Z87.39 Personal history of other diseases of the musculoskeletal system and connective tissue; Z88.5 Allergy status to narcotic agent; Z91.018 Allergy to other foods; Z90.49 Acquired absence of other specified parts of digestive tract; Z87.19 Personal history of other diseases of the digestive system; Z90.89 Acquired absence of other organs; Z87.81 Personal history of (healed) traumatic fracture; Z87.2 Personal history of diseases of the skin and subcutaneous tissue; Z86.59 Personal history of other mental and behavioral disorders; Z86.79 Personal history of other diseases of the circulatory system; Z87.42 Personal history of other diseases of the female genital tract; Z92.21 Personal history of antineoplastic chemotherapy; Z98.890 Other specified postprocedural states; Z80.3 Family history of malignant neoplasm of breast; Z83.3 Family history of diabetes mellitus; Z83.52 Family history of ear disorders; Z82.69 Family history of other diseases of the musculoskeletal system and connective tissue
CPT/HCPCS: 36415; 71045; 74018; 74176; 74177; 80048; 80053; 80076; 80202; 81001; 82330; 82378; 82803; 82805; 82945; 83036; 83605; 83615; 83690; 83735; 84100; 84132; 84157; 84443; 84484; 85025; 85610; 85730; 87040; 87070; 87075; 87077; 87086; 87186; 87205; 88108; 88305; 88341; 88342; 89050; 93005; 93306; 94002; 94003; 96361; 96374; 96375; 99285